=== PATIENT | female | born 1940 | race Caucasian/White ===

== ENCOUNTER → 2017-12-23 14:50 | Outpatient (CLI) | payer MEDICARE, BC, SELFPAY ==
[2017-12-23 16:16] LABS: BUN 12 mg/dL (7-18); Creatinine, Serum 0.66 mg/dL (0.55-1.02); Glucose 80 mg/dL (74-106)
[2017-12-23 16:17] LABS: Anion Gap 8 (5-15); BUN/Creat Ratio 18.3 RATIO (10-20); Calcium,Total 8.9 mg/dL (8.5-10.1); Chloride 104 mmol/L (98-107); Cholesterol 177 mg/dL (200); EST Glomerular Filtration Rate 94 mL/min (>60); Est Glom Filt Rate - Afr Amer 113 mL/min (>60); High Density Lipoprotein 60 mg/dL; Potassium 3.6 mmol/L (3.5-5.1); Sodium Level 142 mmol/L (136-145); Triglycerides 247 mg/dL; Very Low Density Lipoprotein 49 mg/dL (5-40)
== END ==
PROVIDERS: Family Provider Family Medicine; PCP Family Medicine; Visit Provider Family Medicine
DX: I10 Essential (primary) hypertension (principal); E03.9 Hypothyroidism, unspecified
CPT/HCPCS: 36415; 80048; 80061; 84443

== ENCOUNTER → 2018-07-01 10:29 | Outpatient (CLI) | payer MEDICARE, BC, SELFPAY ==
[2018-07-01 12:23] LABS: Anion Gap 9 (5-15); BUN 23 mg/dL (7-18); BUN/Creat Ratio 34.1 RATIO (10-20); Calcium,Total 9.1 mg/dL (8.5-10.1); Chloride 101 mmol/L (98-107); Cholesterol 199 mg/dL (200); Creatinine, Serum 0.67 mg/dL (0.55-1.02); EST Glomerular Filtration Rate 90 mL/min (>60); Est Glom Filt Rate - Afr Amer 109 mL/min (>60); Glucose 100 mg/dL (74-106); High Density Lipoprotein 57 mg/dL; Potassium 3.4 mmol/L (3.5-5.1); Sodium Level 141 mmol/L (136-145); Thyroid Stim Hormone (TSH) 0.82 uIU/mL (0.358-3.74); Triglycerides 197 mg/dL; Very Low Density Lipoprotein 39 mg/dL (5-40)
== END ==
PROVIDERS: Family Provider Family Medicine; PCP Family Medicine; Visit Provider Family Medicine
DX: I10 Essential (primary) hypertension (principal); E03.9 Hypothyroidism, unspecified
CPT/HCPCS: 36415; 80048; 80061; 84443

== ENCOUNTER → 2018-10-29 14:40 | Outpatient (CLI) | payer MEDICARE, BC, SELFPAY ==
--- NOTE | 2018-10-29 14:43 | RAD_ITS ---
STUDY: X-RAY CHEST REASON FOR EXAM: Female, 78 years old. Shortness of breath TECHNIQUE: Frontal and lateral views of the chest were obtained. COMPARISON: None. FINDINGS: Lines and tubes: None. Lungs: Hyperinflated. Minimal increased markings in both lung bases. Pleura: No demonstrated abnormality. Mediastinum/osmar: Unremarkable. Cardiovascular: Mildly enlarged cardiac silhouette. Central vascularity unremarkable. Atherosclerotic calcifications in the thoracic aorta. Soft tissues: Unremarkable. Bones: Degenerative changes in spine and shoulders. Hardware is partially visualized in the lumbar spine. There is mild dextroscoliosis of the thoracic spine and mild levoscoliosis of the upper lumbar spine. Upper abdomen: No demonstrated abnormality. RAD/Chest PA and Lateral IMPRESSION: There is mild enlargement of the cardiac silhouette without pulmonary edema or pleural effusion. There are findings of COPD with bibasilar atelectasis. Electronically Signed: Rachel Arriaza MD at 14:43 EST , Service support ,
[2018-10-29 16:46] LABS: Anion Gap 9 (5-15); BUN 14 mg/dL (7-18); BUN/Creat Ratio 21.8 RATIO (10-20); Calcium,Total 9.1 mg/dL (8.5-10.1); Chloride 105 mmol/L (98-107); Creatinine, Serum 0.64 mg/dL (0.55-1.02); EST Glomerular Filtration Rate 96 mL/min (>60); Est Glom Filt Rate - Afr Amer 116 mL/min (>60); Glucose 86 mg/dL (74-106); Potassium 3.7 mmol/L (3.5-5.1); Sodium Level 142 mmol/L (136-145)
[2018-10-29 17:01] LABS: BNP,B-Type NATRIURETIC PEPTIDE 162.1 pg/mL (0-100)
--- OUTSIDE RECORDS SUMMARY | 2018-12-31 15:37 | XMS RPT_ITS ---
:1940 Author Organization OHIP Care Team Providers Name Role Phone YANELY BOSE Attending Unavailable YANELY BOSE Referring Unavailable YANELY BOSE Attending Unavailable YANELY BOSE Referring Unavailable YANELY BOSE Attending Unavailable YANELY BOSE Referring Unavailable Fariha, Wander Attending Unavailable Fariha, Wander Referring Unavailable Charley, Gopi Primary Care Unavailable Charley, Gopi Attending Unavailable Charley, Gopi Primary Care Unavailable Gopi Whitehead Attending Unavailable Charley, Gopi Primary Care Unavailable Fariha, Wander Attending Unavailable Charley, Gopi Referring Unavailable Yoselin Jiménez Attending Unavailable PROBLEMS PROBLEMS DATE TYPE CONDITION / CODE ATTENDING STATUS SOURCE 10/29/2018 Unknown R06.09 - Other [place], [place] Active [facility] forms of dyspnea / Community R06.09(ICD-10) Hospital Repository 10/29/2018 Unknown I10 - Essential Fariha, Wander Active [facility] (primary) Community hypertension / Hospital I10(ICD-10) Repository 10/29/2018 Unknown I35.8 - Other [place]ha, [place] Active [facility] nonrheumatic Community aortic valve Hospital disorders / Repository I35.8(ICD-10) 10/29/2018 Unknown E78.5 - Yoselin Jiménez Active [facility] Hyperlipidemia, Community unspecified / Hospital E78.5(ICD-10) Repository 07/01/2018 Unknown E03.9 - Whitehead, Gopi Active [facility] Hypothyroidism, Community unspecified / Hospital E03.9(ICD-10) Repository 01/09/2018 Active Unknown / YANELY BOSE Active [facility] UNK(Unknown) Main [place] Repository PROCEDURES PROCEDURES No Procedure Records FoundRESULTS RESULTS CARDIOLOGY VISIT Observed: 10/30/2018 Status: F Source: [place] RE[place] 3:25 PM [facility] REPOSITORY [facility] [address] [place] [address] OFFICE VISIT Date of Service: MR#: [id number] Acct: [id number] Name: NORA CONNELL Rep #: [id number] : 1940 Provider: Yoselin Jiménez Age/Sex: 78/F [place] [facility] [place]: Signed HPI HPI Details: NOAR CONNELL, is a 78 F who presents to the office today for Intake Vital Signs10/29/18 Height 5 ft 2 in Intake Visit Reasons: Amb Documentation Allergies No Known Allergies Allergy (Verified 10/29/18 12:21) Medications alprazolam 0.5 mg tablet 0.5 mg PO BID-TID PRN 10/29/18 [History Confirmed 10/29/18] aspirin 81 mg tablet,delayed release 81 mg PO DAILY 10/29/18 [History Confirmed 10/29/18] carvedilol 6.25 mg tablet 6.25 mg PO BID 90 Days #180 tab 10/29/18 [History Confirmed 10/29/18] cyclobenzaprine 10 mg tablet PO 30 Days tab 10/29/18 [History Confirmed 10/29/18] furosemide 40 mg tablet 40 mg PO QAM PRN 30 Days #30 tab 10/29/18 [History Confirmed 10/29/18] gabapentin 800 mg tablet PO 30 Days tab 10/29/18 [History Confirmed 10/29/18] hydrocodone 5 mg-acetaminophen 325 mg tablet 1 tab PO Q6H 10/29/18 [History Confirmed 10/29/18] levothyroxine 100 mcg tablet 50 mcg PO DAILY 90 Days #45 tab 10/29/18 [History Confirmed 10/29/18] lisinopril 20 mg-hydrochlorothiazide 12.5 mg tablet 1 tab PO DAILY 90 Days #90 tab 10/29/18 [History Confirmed 10/29/18] metformin ER 500 mg tablet,extended release 24hr 1,000 mg PO DAILY tab 10/29/18 [History Confirmed 10/29/18] omeprazole 40 mg capsule,delayed release PO 90 Days cap 10/29/18 [History Confirmed 10/29/18] pravastatin 20 mg tablet 20 mg PO QHS 90 Days #90 tab 10/29/18 [History Confirmed 10/29/18] PFSH Medical History 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) Hyperlipidemia (Chronic) Essential (primary) hypertension (Chronic) Arthritis (Chronic) GERD (gastroesophageal reflux disease) (Chronic) Hypothyroidism (Chronic) Obesity (Chronic) Obstructive sleep apnea (Chronic) Psoriasis (Chronic) Type 2 diabetes mellitus (Chronic) Surgical History History of back surgery (Resolved) History of cataract surgery (Resolved) History of herniorrhaphy (Resolved) Hx of cholecystectomy (Resolved) Family History Other Heart disease Social History Smoking Status: Former smoker ROS Const Const: Positive for fatigue, frequent falls and other; negative for weakness, difficulty sleeping, excessive sweating or headache(s) Eyes Eyes: Negative for loss of peripheral vision, transient loss of vision, blurry vision, tunnel vision or double vision ENT ENT: Positive for balance problems; negative for headache(s), dizziness or Nosebleed/epistaxis Cardio Chest Pain: No Palpitations: No Edema: None Muscle aches with walking: None Resp Respiratory: Positive for SOB with activity; negative for SOB at rest, SOB orthopnea\SOB lying down, paroxysmal nocturnal dyspnea or Cough GI GI: Negative nausea, heartburn, black,tarry stools or vomiting : Negative for hematuria Musc Musc: Positive for balance problems and joint pain; negative for muscle aches/ myalgia or muscle weakness Skin Skin: Negative non-healing lesions, unusual bruising or rash Neuro Neuro: Positive for frequent falls and lack of coordination; negative for weakness, headache(s), blurry vision, double vision, dizziness, lightheadedness, orthostatic symptoms, near syncope or syncope Oren Hematologic/Lymphatic: Negative for easy bruising or easy bleeding Endo Endo: Positive for fatigue; negative for excessive sweating or increased thirst/drinking Psych Psych: Negative for anxiety or depression Allergy Allergy/Immunology: Negative for hives, Negative for rash Assessment AND Plan Orders Orders: Medications New: Coding Level of Care Code Off vis,new,level 4 Coding Level of Care Code Off vis,new,level 4 Supplemental Info Supplemental Information Labs LDL Cholesterol 103 mg/dL (0-130) 07/01/18 HDL Cholesterol 57 mg/dL (40-) 07/01/18 Triglycerides 197 mg/dL (-199) 07/01/18 VLDL Cholesterol 39 mg/dL (5-40) 07/01/18 Diagnostics Electrocardiogram 10/29/18 Chest X-Ray 10/29/18 10/30/18 1525 <Electronically signed by Wander Fried MD> Date Wander Fried MD Cosigner Signature: Date (if applicable) CC: Gopi Whitehead MD BASIC METABOLIC Collected: 10/29/2018 Status: F Source: [place] PROFILE (BMP) 3:10 PM [facility] REPOSITORY TYPE CODE TESTS RESULT OUT OF RANGE REFERENCE UNITS LAB L501.0100 74-106 mg/dL Normal GLU 86 Result Comment: Please note revised GLUCOSE reference range effective 2017. LAB L501.1000 7-18 mg/dL Normal BUN 14 LAB L501.1100 0.55-1.02 mg/dL Normal CREAT,SERUM 0.64 Result Comment: The validity of the calculated GFR AND GFRAA in patients over 70 years has not been determined. Clinical correlation is essential. LAB L501.1110 >60 mL/min Normal EST GFR 96 Result Comment: Non- GFR Calc LAB L501.1115 >60 mL/min Normal EST GFR - AA 116 Result Comment: GFR Calc LAB L501.1300 10-20 RATIO High BUN/CRE 21.8 LAB L501.2200 8.5-10.1 mg/dL CA Normal 9.1 LAB L501.5300 136-145 mmol/L NA Normal 142 LAB L501.5600 3.5-5.1 mmol/L K Normal 3.7 LAB L501.5900 98-107 mmol/L CL Normal 105 LAB L501.6100 21.0-32.0 mmol/L Normal CO2 28.0 LAB L501.6200 5-15 Normal GAP 9 Performed By: #### L500.2500 #### [facility] [address] [place], [address] BNP,B-TYPE NATRIURETIC Collected: 10/29/2018 Status: F Source: [place] PEPTIDE 3:10 PM [facility] REPOSITORY TYPE CODE TESTS RESULT OUT OF RANGE REFERENCE UNITS LAB L503.6620 0-100 pg/mL High B-TYPE 162.1 GLENDA PEP Performed By: #### L503.6620 #### [facility] [address] [facility] [place], [address] CHEST PA AND LATERAL Observed: 10/29/2018 Status: F Source: [place] 2:43 PM [facility] REPOSITORY [facility] Imaging Services [address] [place] [address] Chest PA and Lateral MR#: [id number] Acct: [id number] Name: NORA CONNELL Rep #: [id number] : 1940 F 78 From: Rachel Arriaza MD PCP: Gopi Whitehead MD Status: REG CLI Study: Chest PA and Lateral Date of Exam: 10/29/18 Exam# [id number] Ordering Dr: Wander Fried MD STUDY: X-RAY CHEST REASON FOR EXAM: Female, 78 years old. Shortness of breath TECHNIQUE: Frontal and lateral views of the chest were obtained. COMPARISON: None. FINDINGS: Lines and tubes: None. Lungs: Hyperinflated. Minimal increased markings in both lung bases. Pleura: No demonstrated abnormality. Mediastinum/osmar: Unremarkable. Cardiovascular: Mildly enlarged cardiac silhouette. Central vascularity unremarkable. Atherosclerotic calcifications in the thoracic aorta. Soft tissues: Unremarkable. Bones: Degenerative changes in spine and shoulders. Hardware is partially visualized in the lumbar spine. There is mild dextroscoliosis of the thoracic spine and mild levoscoliosis of the upper lumbar spine. Upper abdomen: No demonstrated abnormality. RAD/Chest PA and Lateral IMPRESSION: There is mild enlargement of the cardiac silhouette without pulmonary edema or pleural effusion. There are findings of COPD with bibasilar atelectasis. Electronically Signed: Rachel Arriaza MD at 14:43 EST , Service support , CC: Wander Fried MD; Gopi Whitehead MD Clinical Services Director: Signed CARDIOLOGY VISIT Observed: 10/29/2018 Status: F Source: [place] REPORT 2:07 PM [facility] REPOSITORY [facility] [address] [place] [address] OFFICE VISIT Date of Service: 10/29/18 MR#: [id number] Acct: [id number] Name: NORA CONNELL Rep #: [id number] : 1940 Provider: Wander Fried MD Age/Sex: 78/F [place] [facility] [place]: Signed HPI HPI Chief Complaint: Initial visit Details: NORA CONNELL, is a 78 F who presents to the office today for interval visit for evaluation of heart murmur. She also says that she has been short of breath. She was a previous patient of my ability colleague in [place] and is changing her care here. She has had no orthopnea she has had some shortness of breath with exertion no paroxysmal nocturnal dyspnea and only occasional pedal edema. She has had a previous echocardiogram which demonstrated evidence of left ventricular hypertrophy and ejection fraction of 76 3% and right ventricular systolic pressure of 44 mmHg. This was in 2010. She has had only occasional dizzy spells no palpitations no paroxysmal nocturnal dyspnea. Her physical exam here today demonstrates clear lung bennett regular rate and rhythm and no pedal edema. She does have a soft 1/6 to 2/6 systolic murmur noted left sternal border. Her electrocardiogram demonstrates normal sinus rhythm with a rate of 65 bpm and T wave inversions noted in aVL. Intake Intake Visit Reasons: Transfer from Dr Oneil Allergies No Known Allergies Allergy (Verified 10/29/18 12:21) Medications alprazolam 0.5 mg tablet 0.5 mg PO BID-TID PRN 10/29/18 [History Confirmed 10/29/18] aspirin 81 mg tablet,delayed release 81 mg PO DAILY 10/29/18 [History Confirmed 10/29/18] carvedilol 6.25 mg tablet 6.25 mg PO BID 90 Days #180 tab 10/29/18 [History Confirmed 10/29/18] cyclobenzaprine 10 mg tablet PO 30 Days tab 10/29/18 [History Confirmed 10/29/18] furosemide 40 mg tablet 40 mg PO QAM PRN 30 Days #30 tab 10/29/18 [History Confirmed 10/29/18] gabapentin 800 mg tablet PO 30 Days tab 10/29/18 [History Confirmed 10/29/18] hydrocodone 5 mg-acetaminophen 325 mg tablet 1 tab PO Q6H 10/29/18 [History Confirmed 10/29/18] levothyroxine 100 mcg tablet 50 mcg PO DAILY 90 Days #45 tab 10/29/18 [History Confirmed 10/29/18] lisinopril 20 mg-hydrochlorothiazide 12.5 mg tablet 1 tab PO DAILY 90 Days #90 tab 10/29/18 [History Confirmed 10/29/18] metformin ER 500 mg tablet,extended release 24hr 1,000 mg PO DAILY tab 10/29/18 [History Confirmed 10/29/18] omeprazole 40 mg capsule,delayed release PO 90 Days cap 10/29/18 [History Confirmed 10/29/18] pravastatin 20 mg tablet 20 mg PO QHS 90 Days #90 tab 10/29/18 [History Confirmed 10/29/18] [facility] Medical History 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) Hyperlipidemia (Chronic) Essential (primary) hypertension (Chronic) Arthritis (Chronic) GERD (gastroesophageal reflux disease) (Chronic) Hypothyroidism (Chronic) Obesity (Chronic) Obstructive sleep apnea (Chronic) Psoriasis (Chronic) Type 2 diabetes mellitus (Chronic) Surgical History History of back surgery (Resolved) History of cataract surgery (Resolved) History of herniorrhaphy (Resolved) Hx of cholecystectomy (Resolved) Family History Other Heart disease Social History Smoking Status: Former smoker ROS Const Const: Positive for weakness and fatigue; negative for headache(s) Eyes Eyes: Negative for blind spots, loss of peripheral vision, transient loss of vision, blurry vision, change in vision, double vision, floaters, tunnel vision or other ENT ENT: Negative for headache(s), dizziness, hearing loss, tinnitus, Nosebleed/epistaxis, balance problems, post nasal drip, lip swelling, tongue swelling, bleeding gums, hoarseness, neck pain, dry mouth or other Cardio Chest Pain: No Resp Respiratory: Positive for SOB with activity, paroxysmal nocturnal dyspnea and SOB at rest GI GI: Negative nausea, vomiting, heartburn, constipation, belching, bloating, cramping, vomiting blood/hematemesis, bright, red blood in stools, black,tarry stools, loose stools, Difficulty Swallowing or other Musc Musc: Negative for balance problems Skin Skin: Negative redness, non-healing lesions, rash, unusual bruising, skin ulcer, wounds, jaundice or other Neuro Neuro: Positive for weakness; negative for blurry vision, double vision, headache(s) or dizziness Oren Hematologic/Lymphatic: Negative for easy bleeding, easy bruising, enlarged lymph nodes or other Endo Endo: Positive for fatigue Allergy Allergy/Immunology: Negative for lip swelling, Negative for tongue swelling, Negative for rash Cardiology Exam Const Appearance: cooperative, healthy appearing, well developed, well groomed and no acute distress Nutritional Appearance: well nourished and average body habitus Orientation: alert, awake and oriented x3 Head Head: normal to inspection, normocephalic and atraumatic Ears: hearing grossly normal bilaterally and external ears normal Nose: external nose normal, nasal mucous membranes and turbinates normal, nares normal, septum normal, no nasal discharge Face and Sinus: face symmetric Mouth: oral mucosae normal, tongue normal, oropharynx normal and moist mucous membranes Teeth and gingiva: dentition normal Throat: posterior oropharynx normal, tonsils normal and uvula midline Eyes General: appearance normal, both eyes and all related structures Eyelids: eyelids normal Conjunctivae: conjunctivae normal Pupils: PERRL, normal by confrontation and accommodation normal EOM: EOM intact bilaterally Neck Neck: normal visual inspection, trachea midline and no JVD JVD: +5 Carotids: normal carotid upstroke and bounding pulses Chest Chest inspection: normal inspection of the chest, symmetric chest movement and normal respiratory effort Auscultation: Bilateral: Clear to Auscultation Cardio Palpation: normal PMI Rate: regular rate Heart sounds: S1 normal and S2 normal Murmur: Grade 2/6, soft and early systolic GI GI: normal to inspection, soft, no hepatosplenomegaly and bowel sounds present Neuro General: alert, awake, oriented x3, no focal sensory deficit, gait normal and moves all extremities Skin Skin: no rashes or lesions noted Extremities Pulses: Normal: Right Femoral Pulse, Left Femoral Pulse, Right Dorsalis Pedis Pulse, Left Dorsalis Pedis Pulse, Right Posterior Tibial Pulse, Left Posterior Tibial Pulse, Right Radial Pulse, Left Radial Pulse Lower Extremity Edema: None: Bilateral Musculoskel Musculoskeletal: No joint tenderness Psych Psychological: normal affect Assessment AND Plan 1. Aortic valve sclerosis I35.8 Plan She does have a history of aortic valve stenosis. My recommendation would be for us to obtain an echocardiogram to assess her left ventricular function and assess the integrity of the aortic valve. Depending on the findings further recommendations will be made. 2. Essential (primary) hypertension I10 Plan She has a history of hypertension her blood pressure appears to be not well controlled. Without knowing the extent of her aortic valve stenosis my recommendation would be to continue the current medication until after the echocardiogram is performed and then further adjustments made. 3. Dyspnea on exertion R06.09 Plan She does have dyspnea on exertion which I suspect is secondary to diastolic dysfunction. Once again this will be evaluated with blood work as well as the echocardiogram. Thank you for allowing me to participate in the care of your patient. 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) Coding Level of Care Code Off vis,new,level 4 Diagnoses Aortic valve sclerosis I35.8 Essential (primary) hypertension I10 Dyspnea on exertion R06.09 Coding Level of Care Code Off vis,new,level 4 Diagnoses Aortic valve sclerosis I35.8 Essential (primary) hypertension I10 Dyspnea on exertion R06.09 Supplemental Info Supplemental Information Labs LDL Cholesterol 103 mg/dL (0-130) 07/01/18 HDL Cholesterol 57 mg/dL (40-) 07/01/18 Triglycerides 197 mg/dL (-199) 07/01/18 VLDL Cholesterol 39 mg/dL (5-40) 07/01/18 Diagnostics Electrocardiogram 10/29/18 10/29/18 1407 <Electronically signed by Wander Fried MD> Date Wander Fried MD Cosigner Signature: Date (if applicable) CC: 12 LEAD EKG PERFORMED Observed: 10/29/2018 Status: F [place] [facility] [place]:22 PM [facility] REPOSITORY [facility] [address] [place] [address] 12 Lead EKG performed by [facility] 10/29/18 1222 MR#: [id number] Acct: [id number] Name: NORA CONNELL Rep #: [id number] : 1940 78 From: Wander Freid MD Attending Dr: Yoselin Jiménez Status: REG BNV Ordering Dr: Wander Fried MD Date: 10/29/18 [place] [facility] Sex: F C Admitted: BMS/12 Lead EKG performed by [facility] ECG Report Interpretation Sinus Rhythm - Negative T-waves May be normal -consider acute process. Low voltage with rightward P-axis and rotation -possible pulmonary disease. ABNORMAL Electronically signed on 11/04/2018 at 11:25 by Wander Fried Monitor Software Version [id number] 11/04/18 1130 Date Wander Fried MD CC: Date Dictated: 10/29/181221 Date Transcribed: 10/29/181221 Clinical Services Director: [place] Signed PROGRESS Observed: 08/14/2018 Status: COMPLETED Source: [place] 9:[address] [facility] [place] REPOSITORY [facility] ID: [id number] Author: Yanely Bose Service: (none) Author Type: Physician Type: Progress Notes Filed: 09/10/2018 11:07 PM Note Text: Yanely Bose MD Department of Orthopaedics Orthopaedics [address] [facility] [address] Dept: [phone] Dept August 14, 2018 CHIEF COMPLAINT: Established Patient (4 month follow up for left shoulder pain with injection) Ms. Nora Connell is a 78 year old female who has a known history of left shoulder, chronic rotator cuff tear and arthritis. She has had success in the past with cortisone and is hoping for another. 05/16 has returned. Functional problems with the arm because of the pain. ASSESSMENT: M25.512, G89.29 Chronic left shoulder pain (primary encounter diagnosis) M75.122 Complete tear of left rotator cuff PLAN: Repeat injection today. OBJECTIVE: Ms. Nora Connell is a pleasant 78 year old in no apparent distress. Gen:Wt 190 lb (86.2kg) nl development, non obese, no deformities ENT: Normocephalic, normal hearing, moist mucosa CV: Pulses:Radial= 2+ and symmetric, capillary refill < 2 secs, no peripheral edema/varicosities Skin: no rash, bruising or lesions. Good turgor. Psych: cooperative and appropriate, alert and oriented x 3, good mood and affect. Musculoskeletal: Forward elevation is slightly less at 165?, external rotation remains at 50. Impingement signs are less painful, and strength remains about the same at 4 out of 5 with supraspinatus and infraspinatus testing, 5 out of 5 for subscapularis. Procedure note: The risk, benefits and alternatives of injection and no injection therapy were discussed. The patient consented for an injection. Time out was conducted. The injection site was prepped with a Chlorhexadine swab. The left Subacromial joint was injected with a 25 gauge needle with 1 cc Celestone (6 mg), and 5 cc Marcaine 0.5%. The injection site was then dressed with a bandaid. The patient tolerated the injection well. The patient was instructed to call the office if any adverse local effects occurred or any if any questions or concerns arise. Yanely Bose MD Supporting Subjective Information Below: Past Surgical History: PAST SURGICAL HISTORY Procedure Laterality Date - PAST SURGICAL HISTORY OF Fusion L4-5 X 2 - PAST SURGICAL HISTORY OF Nasal surgery - PAST SURGICAL HISTORY OF Fibroid tumor - REMOVAL GALLBLADDER Cholecystectomy - REPAIR ROTATOR CUFF,ACUTE Right 2010 Rotator cuff repair - right shoulder Medications: Current Outpatient Prescriptions: primidone (MYSOLINE) 50 mg tablet Take 50 mg by mouth once daily. VITAMIN D 50,000 unit capsule Take 50,000 Units by mouth once each week. apremilast (OTEZLA) 30 mg tablet Take 1 tablet by mouth once daily. Omeprazole (PRILOSEC) 40 mg capsule Take 40 mg by mouth once daily. metFORMIN (GLUCOPHAGE) 1,000 mg tablet Take 500 mg by mouth daily with breakfast. furosemide (LASIX) 40 mg tablet Take 40 mg by mouth as needed. gabapentin (NEURONTIN) 800 mg tablet Take 800 mg by mouth three times daily. ALPRAZolam (XANAX) 0.5 mg tablet Take 0.5 mg by mouth at bedtime as needed. levothyroxine (SYNTHROID) 100 mcg tablet Take 100 mcg by mouth daily before breakfast. Cetirizine (ZYRTEC) 10 mg cap Take by mouth once daily. carvedilol (COREG) 6.25 mg tablet Take 6.25 mg by mouth twice daily with meals. cyclobenzaprine (FLEXERIL) 10 mg tablet Take 5 mg by mouth twice daily. lisinopril-hydrochlorothiazide (PRINZIDE,ZESTORETIC) 20-12.5 mg per tablet Take 1 tablet by mouth twice daily. pravastatin (PRAVACHOL) 40 mg tablet Take 40 mg by mouth once daily. HYDROcodone-Acetaminophen (NORCO) 7.5-325 mg per tablet Take 1 tablet by mouth four times daily. meloxicam (MOBIC) 15 mg tablet Take 1 tablet by mouth once daily. metoclopramide HCl (REGLAN) 5 mg tablet Take 5 mg by mouth as needed. Current Facility-Administered Medications: [COMPLETED] betamethasone acetate-betamethasone sodium phosphate 6 mg, bupivacaine (PF) 25 mg INTRA-ARTICULAR ONCE Allergies: Patient has no known allergies. ROS: General (negative for fatigue, malaise, weight loss/gain) HEENT (negative for headache, earache, recent vision changes, sinus pain, sore throat) Respiratory (no recent shortness of breath, hemoptysis) CV (negative for chest tightness, palpitations) Musculoskeletal (see HPI) Psych (no depression, anxiety) This note was partially generated using [email or web address] voice recognition system, and there may be some incorrect words, spellings, and punctuation that were not noted in checking the note before saving. Yanely Bose MD PROGRESS Observed: 08/14/2018 Status: COMPLETED Source: [place] 8:30 AM [facility] REPOSITORY [facility] ID: [id number] Author: Emilie Blunt Service: (none) Author Type: (none) Type: Progress Notes Filed: 09/10/2018 11:07 PM Note Text: AMB ROOMING INTAKE FLOWSHEET DATA Risk Screening Do you have concerns about personal safety or safety in the home?: No Pain Pain Score: 8/10 Pain Location: Shoulder-Left Description: Dull Duration Amount of Time: 4 Duration Units: Months Frequency: Continuous Intervention: Medication (norco) Comments: Leona is helpful pt. States Patient presents with: Established Patient: 4 month follow up for left shoulder pain-injection Patient is right handed. Patient is in office for 4 month follow up for left shoulder pain with injection given. CNOV Observed: 08/14/2018 Status: COMPLETED Source: [place] 8:10 AM [facility] REPOSITORY Office Visit (ADDISONWS) NORA CONNELL ([id number]) 1940 F Date Time Provider Department 08/14/18 8:10 AM YANELY BOES During your visit today, we recorded the following information about you: Weight 86.2 kg Emilie Blunt 09/10/2018 11:07 PM Signed AMB ROOMING INTAKE FLOWSHEET DATA Risk Screening Do you have concerns about personal safety or safety in the home?: No Pain Pain Score: 8/10 Pain Location: Shoulder-Left Description: Dull Duration Amount of Time: 4 Duration Units: Months Frequency: Continuous Intervention: Medication (norco) Comments: Leona is helpful pt. States Patient presents with: Established Patient: 4 month follow up for left shoulder pain-injection Patient is right handed. Patient is in office for 4 month follow up for left shoulder pain with injection given. Yanely Bose MD 09/10/2018 11:07 PM Signed Yanely Bose MD Department of Orthopaedics Orthopaedics [address] [facility] [address] Dept: [phone] Dept August 14, 2018 CHIEF COMPLAINT: Established Patient (4 month follow up for left shoulder pain with injection) Ms. Nora Connell is a 78 year old female who has a known history of left shoulder, chronic rotator cuff tear and arthritis. She has had success in the past with cortisone and is hoping for another. 8/10 has returned. Functional problems with the arm because of the pain. ASSESSMENT: M25.512, G89.29 Chronic left shoulder pain (primary encounter diagnosis) M75.122 Complete tear of left rotator cuff PLAN: Repeat injection today. OBJECTIVE: Ms. Nora Connell is a pleasant 78 year old in no apparent distress. Gen:Wt 190 lb (86.2kg) nl development, non obese, no deformities ENT: Normocephalic, normal hearing, moist mucosa CV: Pulses:Radial= 2+ and symmetric, capillary refill < 2 secs, no peripheral edema/varicosities Skin: no rash, bruising or lesions. Good turgor. Psych: cooperative and appropriate, alert and oriented x 3, good mood and affect. Musculoskeletal: Forward elevation is slightly less at 165?, external rotation remains at 50. Impingement signs are less painful, and strength remains about the same at 4 out of 5 with supraspinatus and infraspinatus testing, 5 out of 5 for subscapularis. Procedure note: The risk, benefits and alternatives of injection and no injection therapy were discussed. The patient consented for an injection. Time out was conducted. The injection site was prepped with a Chlorhexadine swab. The left Subacromial joint was injected with a 25 gauge needle with 1 cc Celestone (6 mg), and 5 cc Marcaine 0.5%. The injection site was then dressed with a bandaid. The patient tolerated the injection well. The patient was instructed to call the office if any adverse local effects occurred or any if any questions or concerns arise. Yanely Bose MD Supporting Subjective Information Below: Past Surgical History: PAST SURGICAL HISTORY Procedure Laterality Date - PAST SURGICAL HISTORY OF Fusion L4-5 X 2 - PAST SURGICAL HISTORY OF Nasal surgery - PAST SURGICAL HISTORY OF Fibroid tumor - REMOVAL GALLBLADDER Cholecystectomy - REPAIR ROTATOR CUFF,ACUTE Right 2010 Rotator cuff repair - right shoulder Medications: Current Outpatient Prescriptions: primidone (MYSOLINE) 50 mg tablet Take 50 mg by mouth once daily. VITAMIN D 50,000 unit capsule Take 50,000 Units by mouth once each week. apremilast (OTEZLA) 30 mg tablet Take 1 tablet by mouth once daily. Omeprazole (PRILOSEC) 40 mg capsule Take 40 mg by mouth once daily. metFORMIN (GLUCOPHAGE) 1,000 mg tablet Take 500 mg by mouth daily with breakfast. furosemide (LASIX) 40 mg tablet Take 40 mg by mouth as needed. gabapentin (NEURONTIN) 800 mg tablet Take 800 mg by mouth three times daily. ALPRAZolam (XANAX) 0.5 mg tablet Take 0.5 mg by mouth at bedtime as needed. levothyroxine (SYNTHROID) 100 mcg tablet Take 100 mcg by mouth daily before breakfast. Cetirizine (ZYRTEC) 10 mg cap Take by mouth once daily. carvedilol (COREG) 6.25 mg tablet Take 6.25 mg by mouth twice daily with meals. cyclobenzaprine (FLEXERIL) 10 mg tablet Take 5 mg by mouth twice daily. lisinopril-hydrochlorothiazide (PRINZIDE,ZESTORETIC) 20-12.5 mg per tablet Take 1 tablet by mouth twice daily. pravastatin (PRAVACHOL) 40 mg tablet Take 40 mg by mouth once daily. HYDROcodone-Acetaminophen (NORCO) 7.5-325 mg per tablet Take 1 tablet by mouth four times daily. meloxicam (MOBIC) 15 mg tablet Take 1 tablet by mouth once daily. metoclopramide HCl (REGLAN) 5 mg tablet Take 5 mg by mouth as needed. Current Facility-Administered Medications: [COMPLETED] betamethasone acetate-betamethasone sodium phosphate 6 mg, bupivacaine (PF) 25 mg INTRA-ARTICULAR ONCE Allergies: Patient has no known allergies. ROS: General (negative for fatigue, malaise, weight loss/gain) HEENT (negative for headache, earache, recent vision changes, sinus pain, sore throat) Respiratory (no recent shortness of breath, hemoptysis) CV (negative for chest tightness, palpitations) Musculoskeletal (see HPI) Psych (no depression, anxiety) This note was partially generated using [email or web address] voice recognition system, and there may be some incorrect words, spellings, and punctuation that were not noted in checking the note before saving. Yanely Bose MD Referring Provider: YANELY BOSE [[id number]] Allergies As of Date: 08/14/2018 (No Known Allergies) Date Reviewed: 08/14/2018 Reviewed by: Yanely Bose - Fully Assessed Reason for Visit: Established Patient [175] Cmt: 4 month follow up for left shoulder pain with injection Reason For Visit History Recorded Primary Visit Diagnosis:Chronic left shoulder pain [M25.512, G89.29] Other Visit Diagnosis:Complete tear of left rotator cuff [M75.122] Order(s):[] betamethasone acetate-betamethasone sodium phosphate 6 mg, bupivacaine (PF) 25 mgDisp: Rfl: Prescriptions as of 08/14/2018 Sig: PRIMIDONE 50 MG TABLET Take 50 mg by mouth once cj* VITAMIN D2 50,000 UNIT CAPSULE Take 50,000 Units by mouth on* APREMILAST 30 MG TABLET Take 1 tablet by mouth once d* OMEPRAZOLE 40 MG CAPSULE,SLOANE* Take 40 mg by mouth once cj* METFORMIN 1,000 MG TABLET Take 500 mg by mouth daily wi* FUROSEMIDE 40 MG TABLET Take 40 mg by mouth as needed. GABAPENTIN 800 MG TABLET Take 800 mg by mouth three ti* ALPRAZOLAM 0.5 MG TABLET Take 0.5 mg by mouth at bedti* LEVOTHYROXINE 100 MCG TABLET Take 100 mcg by mouth daily b* CETIRIZINE 10 MG CAPSULE Take by mouth once daily. CARVEDILOL 6.25 MG TABLET Take 6.25 mg by mouth twice d* CYCLOBENZAPRINE 10 MG TABLET Take 5 mg by mouth twice cj* LISINOPRIL 20 MG-HYDROCHLOROT* Take 1 tablet by mouth twice * PRAVASTATIN 40 MG TABLET Take 40 mg by mouth once cj* HYDROCODONE 7.5 MG-ACETAMINOP* Take 1 tablet by mouth four t* MELOXICAM 15 MG TABLET Take 1 tablet by mouth once d* METOCLOPRAMIDE 5 MG TABLET Take 5 mg by mouth as needed. 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 criteria. Please note revised GLUCOSE reference range effective 2017. LAB L501.1000 7-18 mg/dL High BUN 23 LAB L501.1100 0.55-1.02 mg/dL Normal CREAT,SERUM 0.67 Result Comment: The validity of the calculated GFR AND GFRAA in patients over 70 years has not been determined. Clinical correlation is essential. LAB L501.1110 >60 mL/min Normal EST GFR 90 Result Comment: Non- GFR Calc LAB L501.1115 >60 mL/min Normal EST GFR - AA 109 Result Comment: GFR Calc LAB L501.1300 10-20 RATIO High BUN/CRE 34.1 LAB L501.2200 8.5-10.1 mg/dL CA Normal 9.1 LAB L501.5300 136-145 mmol/L NA Normal 141 LAB L501.5600 3.5-5.1 mmol/L Low K 3.4 LAB L501.5900 98-107 mmol/L CL Normal 101 LAB L501.6100 21.0-32.0 mmol/L Normal CO2 31.0 LAB L501.6200 5-15 Normal GAP 9 Performed By: #### L500.2500, L500.4100, L501.9520 #### [facility] [address] [place], [place], [address] LIPID PROFILE Collected: 07/01/2018 Status: F Source: [place] 10:31 AM [facility] REPOSITORY TYPE CODE TESTS RESULT OUT OF RANGE REFERENCE UNITS LAB L501.4900 200 mg/dL Normal CHOL 199 Result Comment: <200 mg/dL Desirable 200-240 mg/dL Borderline >240 mg/dL High Risk LAB L501.5000 mg/dL Normal TRIG 197 Result Comment: The drugs N-Acetylcysteine and Metamizole may falsely depress this assay. Serum Triglycerides Reference Interval Normal <150 mg/dL Borderline high 150 - 199 mg/dL High 200 - 499 mg/dL Very High > or = 500 mg/dL LAB L501.6400 mg/dL Normal HDL 57 Result Comment: The drugs N-Acetylcysteine and Metamizole may falsely depress this assay. Reference Range HDL <40 mg/dL Low HDL Cholesterol HDL >or= 60 mg/dL High HDL Cholesterol LAB L501.6500 0-130 mg/dL Normal LDL 103 LAB L501.6600 5-40 mg/dL Normal VLDL 39 Performed By: #### L500.2500, L500.4100, L501.9520 #### [facility] [address] [place], [place], [address] THYROID STIM HORMONE Collected: 07/01/2018 Status: F Source: MUNDO (TSH) 10:31 AM [facility] REPOSITORY TYPE CODE TESTS RESULT OUT OF RANGE REFERENCE UNITS LAB L501.9520 0.358-3.74 uIU/mL Normal TSH 0.82 Performed By: #### L500.2500, L500.4100, L501.9520 #### [facility] [address] [facility] [place], [place], [address] PROGRESS Observed: 04/10/2018 Status: COMPLETED Source: [place] 8:[address] [facility] [place] REPOSITORY HNO ID: [id number] Author: Yanely Bose Service: (none) Author Type: Physician Type: Progress Notes Filed: 04/10/2018 9:15 AM Note Text: Yanely Bose MD Department of Orthopaedics Orthopaedics [address] [facility] [address] Dept: [phone] Dept April 10, 2018 CHIEF COMPLAINT: Established Patient (3 month post visit left rotator cuff tear ) Ms. Nora Connell is a 77 year old female who returns 3 months after being seen for her chronic left shoulder pain. She states it's very intermittent when it happens it can be quite uncomfortable at 8 out of 10 pain. She would like to have a cortisone injection and feels every now and then this is an excellent way for treating this. She is not considering surgery at this time. ASSESSMENT: M25.512, G89.29 Chronic left shoulder pain (primary encounter diagnosis) M75.122 Complete tear of left rotator cuff PLAN: subacromial injection today. Ms. Nora Connell was advised as to contrast therapies and/or to take analgesics/anti-inflammatories as needed and all contraindications were reviewed. OBJECTIVE: Ms. Nora Connell is a pleasant 77 year old in no apparent distress. Gen:There were no vitals taken for this visit. nl development, obese, no deformities ENT: Normocephalic, normal hearing, moist mucosa CV: Pulses:Radial= 2+ and symmetric, capillary refill < 2 secs, no peripheral edema/varicosities Skin: no rash, bruising or lesions. Good turgor. Psych: cooperative and appropriate, alert and oriented x 3, good mood and affect. Musculoskeletal: Forward elevation is maintained at 170?, external rotation remains at 50. Impingement signs are less painful, and strength remains about the same at 4 out of 5 with supraspinatus and infraspinatus testing, 5 out of 5 for subscapularis. Procedure note: The risk, benefits and alternatives of injection and no injection therapy were discussed. The patient consented for an injection. Time out was conducted. The injection site was prepped with a Chlorhexadine swab. The left Subacromial joint was injected with a 25 gauge needle with 1 cc Celestone (6 mg), and 5 cc Marcaine 0.5%. The injection site was then dressed with a bandaid. The patient tolerated the injection well. The patient was instructed to call the office if any adverse local effects occurred or any if any questions or concerns arise. Yanely Bose MD Imaging: Supporting Subjective Information Below: Past Surgical History: PAST SURGICAL HISTORY Procedure Laterality Date - PAST SURGICAL HISTORY OF Fusion L4-5 X 2 - PAST SURGICAL HISTORY OF Nasal surgery - PAST SURGICAL HISTORY OF Fibroid tumor - REMOVAL GALLBLADDER Cholecystectomy - REPAIR ROTATOR CUFF,ACUTE Right 2010 Rotator cuff repair - right shoulder Medications: Current Outpatient Prescriptions: primidone (MYSOLINE) 50 mg tablet Take 50 mg by mouth once daily. VITAMIN D 50,000 unit capsule Take 50,000 Units by mouth once each week. apremilast (OTEZLA) 30 mg tablet Take 1 tablet by mouth once daily. Omeprazole (PRILOSEC) 40 mg capsule Take 40 mg by mouth once daily. metFORMIN (GLUCOPHAGE) 1,000 mg tablet Take 500 mg by mouth daily with breakfast. furosemide (LASIX) 40 mg tablet Take 40 mg by mouth as needed. gabapentin (NEURONTIN) 800 mg tablet Take 800 mg by mouth three times daily. ALPRAZolam (XANAX) 0.5 mg tablet Take 0.5 mg by mouth at bedtime as needed. levothyroxine (SYNTHROID) 100 mcg tablet Take 100 mcg by mouth daily before breakfast. Cetirizine (ZYRTEC) 10 mg cap Take by mouth once daily. carvedilol (COREG) 6.25 mg tablet Take 6.25 mg by mouth twice daily with meals. lisinopril-hydrochlorothiazide (PRINZIDE,ZESTORETIC) 20-12.5 mg per tablet Take 1 tablet by mouth twice daily. pravastatin (PRAVACHOL) 40 mg tablet Take 40 mg by mouth once daily. HYDROcodone-Acetaminophen (NORCO) 7.5-325 mg per tablet Take 1 tablet by mouth four times daily. meloxicam (MOBIC) 15 mg tablet Take 1 tablet by mouth once daily. metoclopramide HCl (REGLAN) 5 mg tablet Take 5 mg by mouth as needed. cyclobenzaprine (FLEXERIL) 10 mg tablet Take 5 mg by mouth twice daily. Current Facility-Administered Medications: [COMPLETED] betamethasone acetate-betamethasone sodium phosphate 6 mg, bupivacaine (PF) 25 mg INTRA-ARTICULAR ONCE Allergies: Patient has no known allergies. ROS: General (negative for fatigue, malaise, weight loss/gain) HEENT (negative for headache, earache, recent vision changes, sinus pain, sore throat) Respiratory (no recent shortness of breath, hemoptysis) CV (negative for chest tightness, palpitations) Musculoskeletal (see HPI) Psych (no depression, anxiety) This note was partially generated using [email or web address] voice recognition system, and there may be some incorrect words, spellings, and punctuation that were not noted in checking the note before saving. Yanely Bose MD PROGRESS Observed: 04/10/2018 Status: COMPLETED Source: [place] 8:12 AM [facility] REPOSITORY HNO ID: [id number] Author: Hiwot Restrepo Ma Service: (none) Author Type: (none) Type: Progress Notes Filed: 04/10/2018 9:15 AM Note Text: AMB ROOMING INTAKE FLOWSHEET DATA Risk Screening Do you have concerns about personal safety or safety in the home?: No Pain Pain Score: 8/10 Pain Location: Shoulder-Left Description: Aching Duration Amount of Time: (ongoing) Frequency: Intermittent Intervention: Medication Patient here today for 3 month post visit left rotator cuff tear. Continues to have pain intermittently. CNOV Observed: 04/10/2018 Status: COMPLETED Source: [place] 8:10 AM [facility] REPOSITORY Office Visit (ORTHWS) NORA CONNELL ([id number]) 1940 F Date Time Provider Department 04/10/18 8:10 AM YANELY BOSE During your visit today, we recorded the following information about you: Hiwot Restrepo Ma 04/10/2018 9:15 AM Signed AMB ROOMING INTAKE FLOWSHEET DATA Risk Screening Do you have concerns about personal safety or safety in the home?: No Pain Pain Score: 8/10 Pain Location: Shoulder-Left Description: Aching Duration Amount of Time: (ongoing) Frequency: Intermittent Intervention: Medication Patient here today for 3 month post visit left rotator cuff tear. Continues to have pain intermittently. Yanely Bose MD 04/10/2018 9:15 AM Signed Yanely Bose MD Department of Orthopaedics Orthopaedics [address] [facility] [address] Dept: [phone] Dept April 10, 2018 CHIEF COMPLAINT: Established Patient (3 month post visit left rotator cuff tear ) Ms. Nora Connell is a 77 year old female who returns 3 months after being seen for her chronic left shoulder pain. She states it's very intermittent when it happens it can be quite uncomfortable at 8 out of 10 pain. She would like to have a cortisone injection and feels every now and then this is an excellent way for treating this. She is not considering surgery at this time. ASSESSMENT: M25.512, G89.29 Chronic left shoulder pain (primary encounter diagnosis) M75.122 Complete tear of left rotator cuff PLAN: subacromial injection today. Ms. Nora Connell was advised as to contrast therapies and/or to take analgesics/anti-inflammatories as needed and all contraindications were reviewed. OBJECTIVE: Ms. Noar Connell is a pleasant 77 year old in no apparent distress. Gen:There were no vitals taken for this visit. nl development, obese, no deformities ENT: Normocephalic, normal hearing, moist mucosa CV: Pulses:Radial= 2+ and symmetric, capillary refill < 2 secs, no peripheral edema/varicosities Skin: no rash, bruising or lesions. Good turgor. Psych: cooperative and appropriate, alert and oriented x 3, good mood and affect. Musculoskeletal: Forward elevation is maintained at 170?, external rotation remains at 50. Impingement signs are less painful, and strength remains about the same at 4 out of 5 with supraspinatus and infraspinatus testing, 5 out of 5 for subscapularis. Procedure note: The risk, benefits and alternatives of injection and no injection therapy were discussed. The patient consented for an injection. Time out was conducted. The injection site was prepped with a Chlorhexadine swab. The left Subacromial joint was injected with a 25 gauge needle with 1 cc Celestone (6 mg), and 5 cc Marcaine 0.5%. The injection site was then dressed with a bandaid. The patient tolerated the injection well. The patient was instructed to call the office if any adverse local effects occurred or any if any questions or concerns arise. Yanely Bose MD Imaging: Supporting Subjective Information Below: Past Surgical History: PAST SURGICAL HISTORY Procedure Laterality Date - PAST SURGICAL HISTORY OF Fusion L4-5 X 2 - PAST SURGICAL HISTORY OF Nasal surgery - PAST SURGICAL HISTORY OF Fibroid tumor - REMOVAL GALLBLADDER Cholecystectomy - REPAIR ROTATOR CUFF,ACUTE Right 2010 Rotator cuff repair - right shoulder Medications: Current Outpatient Prescriptions: primidone (MYSOLINE) 50 mg tablet Take 50 mg by mouth once daily. VITAMIN D 50,000 unit capsule Take 50,000 Units by mouth once each week. apremilast (OTEZLA) 30 mg tablet Take 1 tablet by mouth once daily. Omeprazole (PRILOSEC) 40 mg capsule Take 40 mg by mouth once daily. metFORMIN (GLUCOPHAGE) 1,000 mg tablet Take 500 mg by mouth daily with breakfast. furosemide (LASIX) 40 mg tablet Take 40 mg by mouth as needed. gabapentin (NEURONTIN) 800 mg tablet Take 800 mg by mouth three times daily. ALPRAZolam (XANAX) 0.5 mg tablet Take 0.5 mg by mouth at bedtime as needed. levothyroxine (SYNTHROID) 100 mcg tablet Take 100 mcg by mouth daily before breakfast. Cetirizine (ZYRTEC) 10 mg cap Take by mouth once daily. carvedilol (COREG) 6.25 mg tablet Take 6.25 mg by mouth twice daily with meals. lisinopril-hydrochlorothiazide (PRINZIDE,ZESTORETIC) 20-12.5 mg per tablet Take 1 tablet by mouth twice daily. pravastatin (PRAVACHOL) 40 mg tablet Take 40 mg by mouth once daily. HYDROcodone-Acetaminophen (NORCO) 7.5-325 mg per tablet Take 1 tablet by mouth four times daily. meloxicam (MOBIC) 15 mg tablet Take 1 tablet by mouth once daily. metoclopramide HCl (REGLAN) 5 mg tablet Take 5 mg by mouth as needed. cyclobenzaprine (FLEXERIL) 10 mg tablet Take 5 mg by mouth twice daily. Current Facility-Administered Medications: [COMPLETED] betamethasone acetate-betamethasone sodium phosphate 6 mg, bupivacaine (PF) 25 mg INTRA-ARTICULAR ONCE Allergies: Patient has no known allergies. ROS: General (negative for fatigue, malaise, weight loss/gain) HEENT (negative for headache, earache, recent vision changes, sinus pain, sore throat) Respiratory (no recent shortness of breath, hemoptysis) CV (negative for chest tightness, palpitations) Musculoskeletal (see HPI) Psych (no depression, anxiety) This note was partially generated using [email or web address] voice recognition system, and there may be some incorrect words, spellings, and punctuation that were not noted in checking the note before saving. Yanely Bose MD Referring Provider: YANELY BOSE [[id number]] Allergies As of Date: 04/10/2018 (No Known Allergies) Date Reviewed: 04/10/2018 Reviewed by: Yanely Bose - Fully Assessed Reason for Visit: Established Patient [175] Cmt: 3 month post visit left rotator cuff tear Primary Visit Diagnosis:Chronic left shoulder pain [M25.512, G89.29] Other Visit Diagnosis:Complete tear of left rotator cuff [M75.122] Order(s):[] betamethasone acetate-betamethasone sodium phosphate 6 mg, bupivacaine (PF) 25 mgDisp: Rfl: Prescriptions as of 04/10/2018 Sig: PRIMIDONE 50 MG TABLET Take 50 mg by mouth once cj* VITAMIN D2 50,000 UNIT CAPSULE Take 50,000 Units by mouth on* APREMILAST 30 MG TABLET Take 1 tablet by mouth once d* OMEPRAZOLE 40 MG CAPSULE,SLOANE* Take 40 mg by mouth once cj* METFORMIN 1,000 MG TABLET Take 500 mg by mouth daily wi* FUROSEMIDE 40 MG TABLET Take 40 mg by mouth as needed. GABAPENTIN 800 MG TABLET Take 800 mg by mouth three ti* ALPRAZOLAM 0.5 MG TABLET Take 0.5 mg by mouth at bedti* LEVOTHYROXINE 100 MCG TABLET Take 100 mcg by mouth daily b* CETIRIZINE 10 MG CAPSULE Take by mouth once daily. CARVEDILOL 6.25 MG TABLET Take 6.25 mg by mouth twice d* LISINOPRIL 20 MG-HYDROCHLOROT* Take 1 tablet by mouth twice * PRAVASTATIN 40 MG TABLET Take 40 mg by mouth once cj* HYDROCODONE 7.5 MG-ACETAMINOP* Take 1 tablet by mouth four t* MELOXICAM 15 MG TABLET Take 1 tablet by mouth once d* METOCLOPRAMIDE 5 MG TABLET Take 5 mg by mouth as needed. 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 [place] REPOSITORY HNO ID: [id number] Author: Yanely Bose Service: (none) Author Type: Physician Type: Progress Notes Filed: 01/09/2018 9:49 AM Note Text: Yanely Bose MD Department of Orthopaedics Orthopaedics [address] [facility] [address] Dept: [phone] Dept January 09, 2018 CHIEF COMPLAINT: Established Patient (3 month post visit chronic left shoulder pain with injection given) Ms. Nora Connell is a 77 year old female returns 3 months after cortisone injection for the left shoulder. This helped her significantly. In fact, she has a bit more concerns about the right shoulder which she had repaired about 8 or 9 years ago. ASSESSMENT: M75.122 Complete tear of left rotator cuff (primary encounter diagnosis) M25.511, G89.29 Chronic right shoulder pain PLAN: Both are doing rather well today and she does not feel any intervention is necessary. She would like to keep both monitored. she wants to follow-up in about 3 months. I would recommend x-rays of the right shoulder if we will evaluate that. OBJECTIVE: Ms. Nora Connell is a pleasant 77 year old in no apparent distress. Gen:There were no vitals taken for this visit. nl development, obese, no deformities ENT: Normocephalic, normal hearing, moist mucosa CV: Pulses:Radial= 2+ and symmetric, capillary refill < 2 secs, no peripheral edema/varicosities Skin: no rash, bruising or lesions. Good turgor. Psych: cooperative and appropriate, alert and oriented x 3, good mood and affect. Musculoskeletal: mild impingement symptoms in both shoulders. Supporting Subjective Information Below: Past Surgical History: PAST SURGICAL HISTORY Procedure Laterality Date - PAST SURGICAL HISTORY OF Fusion L4-5 X 2 - PAST SURGICAL HISTORY OF Nasal surgery - PAST SURGICAL HISTORY OF Fibroid tumor - REMOVAL GALLBLADDER Cholecystectomy - REPAIR ROTATOR CUFF,ACUTE Right 2010 Rotator cuff repair - right shoulder Medications: Current Outpatient Prescriptions: primidone (MYSOLINE) 50 mg tablet Take 50 mg by mouth once daily. VITAMIN D 50,000 unit capsule Take 50,000 Units by mouth once each week. apremilast (OTEZLA) 30 mg tablet Take 1 tablet by mouth once daily. Omeprazole (PRILOSEC) 40 mg capsule Take 40 mg by mouth once daily. metFORMIN (GLUCOPHAGE) 1,000 mg tablet Take 500 mg by mouth daily with breakfast. furosemide (LASIX) 40 mg tablet Take 40 mg by mouth as needed. gabapentin (NEURONTIN) 800 mg tablet Take 800 mg by mouth three times daily. ALPRAZolam (XANAX) 0.5 mg tablet Take 0.5 mg by mouth at bedtime as needed. levothyroxine (SYNTHROID) 100 mcg tablet Take 100 mcg by mouth daily before breakfast. Cetirizine (ZYRTEC) 10 mg cap Take by mouth once daily. carvedilol (COREG) 6.25 mg tablet Take 6.25 mg by mouth twice daily with meals. cyclobenzaprine (FLEXERIL) 10 mg tablet Take 5 mg by mouth twice daily. lisinopril-hydrochlorothiazide (PRINZIDE,ZESTORETIC) 20-12.5 mg per tablet Take 1 tablet by mouth twice daily. pravastatin (PRAVACHOL) 40 mg tablet Take 40 mg by mouth once daily. HYDROcodone-Acetaminophen (NORCO) 7.5-325 mg per tablet Take 1 tablet by mouth four times daily. meloxicam (MOBIC) 15 mg tablet Take 1 tablet by mouth once daily. metoclopramide HCl (REGLAN) 5 mg tablet Take 5 mg by mouth as needed. No current facility-administered medications for this visit. Allergies: Review of patient's allergies indicates no known allergies. ROS: General (negative for fatigue, malaise, weight loss/gain) HEENT (negative for headache, earache, recent vision changes, sinus pain, sore throat) Respiratory (no recent shortness of breath, hemoptysis) CV (negative for chest tightness, palpitations) Musculoskeletal (see HPI) Psych (no depression, anxiety) This note was partially generated using [employer] voice recognition system, and there may be some incorrect words, spellings, and punctuation that were not noted in checking the note before saving. Yanely Bose MD PROGRESS Observed: 01/09/2018 Status: COMPLETED Source: [place] 8:56 AM [facility] REPOSITORY HNO ID: [id number] Author: Cristy Perez Ma Service: (none) Author Type: (none) Type: Progress Notes Filed: 01/09/2018 9:49 AM Note Text: Patient presents with: Established Patient: 3 month post visit chronic left shoulder pain with injection given AMB ROOMING INTAKE FLOWSHEET DATA Risk Screening Do you have concerns about personal safety or safety in the home?: No Patient states her left shoulder pain is better. Injection has helped. with patient today. CNOV Observed: 01/09/2018 Status: COMPLETED Source: [place] 8:55 AM [facility] REPOSITORY Office Visit (ORTHWS) NORA CONNELL ([id number]) 1940 F Date Time Provider Department 01/09/18 8:55 AM YANELY BOSE During your visit today, we recorded the following information about you: Cristy Perez Ma 01/09/2018 9:49 AM Signed Patient presents with: Established Patient: 3 month post visit chronic left shoulder pain with injection given AMB ROOMING INTAKE FLOWSHEET DATA Risk Screening Do you have concerns about personal safety or safety in the home?: No Patient states her left shoulder pain is better. Injection has helped. with patient today. Yanely Bose MD 01/09/2018 9:49 AM Signed Yanely Bose MD Department of Orthopaedics Orthopaedics [address] [place] [address] Dept: [phone] Dept January 09, 2018 CHIEF COMPLAINT: Established Patient (3 month post visit chronic left shoulder pain with injection given) Nora F Delgado is a 77 year old female returns 3 months after cortisone injection for the left shoulder. This helped her significantly. In fact, she has a bit more concerns about the right shoulder which she had repaired about 8 or 9 years ago. ASSESSMENT: M75.122 Complete tear of left rotator cuff (primary encounter diagnosis) M25.511, G89.29 Chronic right shoulder pain PLAN: Both are doing rather well today and she does not feel any intervention is necessary. She would like to keep both monitored. she wants to follow-up in about 3 months. I would recommend x-rays of the right shoulder if we will evaluate that. OBJECTIVE: Ms. Nora Connell is a pleasant 77 year old in no apparent distress. Gen:There were no vitals taken for this visit. nl development, obese, no deformities ENT: Normocephalic, normal hearing, moist mucosa CV: Pulses:Radial= 2+ and symmetric, capillary refill ANDlt; 2 secs, no peripheral edema/varicosities Skin: no rash, bruising or lesions. Good turgor. Psych: cooperative and appropriate, alert and oriented x 3, good mood and affect. Musculoskeletal: mild impingement symptoms in both shoulders. Supporting Subjective Information Below: Past Surgical History: PAST SURGICAL HISTORY Procedure Laterality Date - PAST SURGICAL HISTORY OF Fusion L4-5 X 2 - PAST SURGICAL HISTORY OF Nasal surgery - PAST SURGICAL HISTORY OF Fibroid tumor - REMOVAL GALLBLADDER Cholecystectomy - REPAIR ROTATOR CUFF,ACUTE Right 2010 Rotator cuff repair - right shoulder Medications: Current Outpatient Prescriptions: primidone (MYSOLINE) 50 mg tablet Take 50 mg by mouth once daily. VITAMIN D 50,000 unit capsule Take 50,000 Units by mouth once each week. apremilast (OTEZLA) 30 mg tablet Take 1 tablet by mouth once daily. Omeprazole (PRILOSEC) 40 mg capsule Take 40 mg by mouth once daily. metFORMIN (GLUCOPHAGE) 1,000 mg tablet Take 500 mg by mouth daily with breakfast. furosemide (LASIX) 40 mg tablet Take 40 mg by mouth as needed. gabapentin (NEURONTIN) 800 mg tablet Take 800 mg by mouth three times daily. ALPRAZolam (XANAX) 0.5 mg tablet Take 0.5 mg by mouth at bedtime as needed. levothyroxine (SYNTHROID) 100 mcg tablet Take 100 mcg by mouth daily before breakfast. Cetirizine (ZYRTEC) 10 mg cap Take by mouth once daily. carvedilol (COREG) 6.25 mg tablet Take 6.25 mg by mouth twice daily with meals. cyclobenzaprine (FLEXERIL) 10 mg tablet Take 5 mg by mouth twice daily. lisinopril-hydrochlorothiazide (PRINZIDE,ZESTORETIC) 20-12.5 mg per tablet Take 1 tablet by mouth twice daily. pravastatin (PRAVACHOL) 40 mg tablet Take 40 mg by mouth once daily. HYDROcodone-Acetaminophen (NORCO) 7.5-325 mg per tablet Take 1 tablet by mouth four times daily. meloxicam (MOBIC) 15 mg tablet Take 1 tablet by mouth once daily. metoclopramide HCl (REGLAN) 5 mg tablet Take 5 mg by mouth as needed. No current facility-administered medications for this visit. Allergies: Review of patient's allergies indicates no known allergies. ROS: General (negative for fatigue, malaise, weight loss/gain) HEENT (negative for headache, earache, recent vision changes, sinus pain, sore throat) Respiratory (no recent shortness of breath, hemoptysis) CV (negative for chest tightness, palpitations) Musculoskeletal (see HPI) Psych (no depression, anxiety) This note was partially generated using [employer] voice recognition system, and there may be some incorrect words, spellings, and punctuation that were not noted in checking the note before saving. Yanely Bose MD Referring Provider: YANELY BOSE [[id number]] Allergies As of Date: 01/09/2018 (No Known Allergies) Date Reviewed: 01/09/2018 Reviewed by: Yanely Bose - Fully Assessed Reason for Visit: Established Patient [175] Cmt: 3 month post visit chronic left shoulder pain with injection given Primary Visit Diagnosis:Complete tear of left rotator cuff [M75.122] Other Visit Diagnosis:Chronic right shoulder pain [M25.511, G89.29] Prescriptions as of 01/09/2018 Sig: PRIMIDONE 50 MG TABLET Take 50 mg by mouth once cj* VITAMIN D2 50,000 UNIT CAPSULE Take 50,000 Units by mouth on* APREMILAST 30 MG TABLET Take 1 tablet by mouth once d* OMEPRAZOLE 40 MG CAPSULE,SLOANE* Take 40 mg by mouth once cj* METFORMIN 1,000 MG TABLET Take 500 mg by mouth daily wi* FUROSEMIDE 40 MG TABLET Take 40 mg by mouth as needed. GABAPENTIN 800 MG TABLET Take 800 mg by mouth three ti* ALPRAZOLAM 0.5 MG TABLET Take 0.5 mg by mouth at bedti* LEVOTHYROXINE 100 MCG TABLET Take 100 mcg by mouth daily b* CETIRIZINE 10 MG CAPSULE Take by mouth once daily. CARVEDILOL 6.25 MG TABLET Take 6.25 mg by mouth twice d* CYCLOBENZAPRINE 10 MG TABLET Take 5 mg by mouth twice cj* LISINOPRIL 20 MG-HYDROCHLOROT* Take 1 tablet by mouth twice * PRAVASTATIN 40 MG TABLET Take 40 mg by mouth once cj* HYDROCODONE 7.5 MG-ACETAMINOP* Take 1 tablet by mouth four t* MELOXICAM 15 MG TABLET Take 1 tablet by mouth once d* METOCLOPRAMIDE 5 MG TABLET Take 5 mg by mouth as needed. Problem List As Of Date 01/09/2018 Noted Resolved Chronic left shoulder pain [M25.512, G89.29] INVALID FOR* Complete tear of left rotator cuff [M75.122] INVALID FOR* Encounter Status:Closed by YANELY BOSE MD on 01/09/18 BASIC METABOLIC Collected: 12/23/2017 Status: F Source: [place]UN[place] PROFILE (BMP) 2:53 PM [facility] REPOSITORY TYPE CODE TESTS RESULT OUT OF RANGE REFERENCE UNITS LAB L501.0100 74-106 mg/dL Normal GLU 80 Result Comment: Please note revised GLUCOSE reference range effective 2017. LAB L501.1000 7-18 mg/dL Normal BUN 12 LAB L501.1100 0.55-1.02 mg/dL Normal CREAT,SERUM 0.66 Result Comment: The validity of the calculated GFR AND GFRAA in patients over 70 years has not been determined. Clinical correlation is essential. LAB L501.1110 >60 mL/min Normal EST GFR 94 Result Comment: Non- GFR Calc LAB L501.1115 >60 mL/min Normal EST GFR - AA 113 Result Comment: GFR Calc LAB L501.1300 10-20 RATIO Normal BUN/CRE 18.3 LAB L501.2200 8.5-10.1 mg/dL CA Normal 8.9 LAB L501.5300 136-145 mmol/L NA Normal 142 LAB L501.5600 3.5-5.1 mmol/L K Normal 3.6 LAB L501.5900 98-107 mmol/L CL Normal 104 LAB L501.6100 21.0-32.0 mmol/L Normal CO2 30.0 LAB L501.6200 5-15 Normal GAP 8 Performed By: #### L500.2500, L500.4100, L501.9520 #### [facility] [address] [place], [place], [address] LIPID PROFILE Collected: 12/23/2017 Status: F Source: [place] 2:53 PM [facility] REPOSITORY TYPE CODE TESTS RESULT OUT OF RANGE REFERENCE UNITS LAB L501.4900 200 mg/dL Normal CHOL 177 Result Comment: <200 mg/dL Desirable 200-240 mg/dL Borderline >240 mg/dL High Risk LAB L501.5000 mg/dL High TRIG 247 Result Comment: The drugs N-Acetylcysteine and Metamizole may falsely depress this assay. Serum Triglycerides Reference Interval Normal <150 mg/dL Borderline high 150 - 199 mg/dL High 200 - 499 mg/dL Very High > or = 500 mg/dL LAB L501.6400 mg/dL Normal HDL 60 Result Comment: The drugs N-Acetylcysteine and Metamizole may falsely depress this assay. Reference Range HDL <40 mg/dL Low HDL Cholesterol HDL >or= 60 mg/dL High HDL Cholesterol LAB L501.6500 0-130 mg/dL Normal LDL 68 LAB L501.6600 5-40 mg/dL High VLDL 49 Performed By: #### L500.2500, L500.4100, L501.9520 #### [facility] [address] [place], [place], [id number] THYROID STIM HORMONE Collected: 12/23/2017 Status: F Source: MUNDO (TSH) 2:53 PM [facility] REPOSITORY TYPE CODE TESTS RESULT OUT OF RANGE REFERENCE UNITS LAB L501.9520 0.358-3.74 uIU/mL Normal TSH 0.80 Performed By: #### L500.2500, L500.4100, L501.9520 #### [facility] [address] [facility] [place], [place], [address] ALLERGIES ALLERGIES DATE TYPE / CODE NAME / CODE REACTION SEVERITY SOURCE 10/29/2018 Drug No Known Unknown [facility] Allergy/416 Allergies/G97330 [facility] 195030(SNOM 0388(RXNORM) Repository ED CT) Drug NO KNOWN [facility] Class/47317 ALLERGIES [place] 1003(SNOMED Repository CT) ENCOUNTERS ENCOUNTERS ADMIT/DISCHARGE ACCOUNT ADMITTING ENCOUNTER LOCATION SOURCE NUMBER CLASS 10/29/2018 [id number] [facility] ing:RAD Repository 10/29/2018/10/29/19 [id number] Ambulatory BMSBuilding:B [place] [facility] Repository 10/29/2018 [id number] Ambulatory BMSBuilding:B [place] [facility] Repository 08/14/2018/09/15/20 [id number] Ambulatory [address] Repository 07/01/2018 [id number] [facility] ing:MFPLAB Repository 04/10/2018/04/14/20 [id number] Ambulatory [address] Repository 01/09/2018/01/13/20 [id number] Ambulatory [address] Repository 12/23/2017 [id number] [facility] ing:MFPLAB Repository PAYERS PAYERS ENCOUNTER GUARANTOR PAYER SUBSCRIBER SOURCE 10/29/2018 SHUKRI Desai Primary NORA F [place] [id number] Insurance:MEDICARE COOPERDOB: [facility] [id number] Number: Repository [id number]: [phone] [id number] [phone] () Date:2018-10-29 10/29/2018 Secondary NORA F [place] Insurance:ANTHEMPolic MORGANDOB: Community y Number: [id number] Hospital [id number] Repository Date:5109-94-50IX [address] [place] [address]BO: 10/29/2018 Tertiary NOT GIVENUNK [place] Insurance:SELF PAY [facility] Number: Effective Repository Date:2018-10-29 10/29/2018 NORA Primary NORA MORGANDOB: [place] [id number] Insurance[id number] Number: Repository [address]Ftg: 330 [id number] [phone] (HP) Date:2018-10-22 10/29/2018 Secondary NORA MORGANDOB: [place] Insurance:ANTHEMPolic [id number] [facility] y Number: Hospital [id number] Repository Date:2076-11-98[address], [place] [address]OW: 10/29/2018 Tertiary NOT GIVENUNK [place] Insurance:SELF PAY [facility] Number: Effective Repository Date:2018-10-27 10/29/2018 SHUKRI Desai Primary NORA MORGANDOB: [place] [id number] Insurance:MEDICARE [id number] [place] Number[facility] Repository [address]Wzp: 330 [id number] [phone] () Date:2018-10-29 10/29/2018 Secondary NORA MORGANDOB: [place] Insurance:ANTHEMPolic [id number] Community y Number: Hospital [id number] Repository Date:4979-90-70SM [address], [place] [address]OR: 10/29/2018 Tertiary NOT GIVENUNK [place] Insurance:SELF PAY [facility] Number: Effective Repository Date:2018-10-29 07/01/2018 Shukri Desai Primary NORA MORGANDOB: [place] [id number] Insurance:MEDICARE [id number] [place] Number: Repository [address]Pkc: 330 [id number] [phone] (HP) Date:2018-07-01 07/01/2018 Secondary NORA MORGANDOB: [place] Insurance:ANTHEMPolic [id number] Community y Number: Hospital [id number] Repository Date:1819-65-08WU [address], [place] [address]OV: 07/01/2018 Tertiary NOT GIVENUNK [place] Insurance:SELF PAY [facility] Number: Effective Repository Date:2018-07-01 12/23/2017 Shukri Desai Primary NORA REXB: [place] [id number] Insurance:MEDICARE [id number] [place] Number: Repository [id number]: [phone] [id number] [phone] () Date:2017-12-23 12/23/2017 Secondary NORA GOODMANB: [place] Insurance:ANTHEMPolic [id number] [facility] y Number: [facility] [id number] Repository Date:7044-93-47XW [address] [place] [address]YF: 12/23/2017 Tertiary NOT GIVENUNK [place] Insurance:SELF PAY [facility] Number: Effective Repository Date:2017-12-23
== END ==
PROVIDERS: Family Provider Family Medicine; PCP Family Medicine; Referring Provider Internal Medicine Cardiovascular Disease; Visit Provider Internal Medicine Cardiovascular Disease
DX: R06.09 Other forms of dyspnea (principal)
CPT/HCPCS: 36415; 71046; 80048; 83880

== ENCOUNTER → 2018-11-26 06:53 | Outpatient (CLI) | payer MEDICARE, BC, SELFPAY ==
--- NOTE | 2018-11-26 06:59 | ECHOCS_ITS ---
Reason For Study: Dyspnea/SOB Procedure This was a 2D Doppler, Color Flow transthoracic echocardiogram. Contrast injection was performed. Exam performed in department. Left Ventricle Normal LV size. Severe concentric left ventricular hypertrophy. Left ventricular systolic function is normal. The estimated ejection fraction is 70 %. Stage 1 diastolic dysfunction. No regional wall motion abnormalities noted. Atria The left atrium is severely enlarged. The right atrium is mildly enlarged. Mitral Valve There is moderate mitral annular calcification. Mild-Moderate mitral valve stenosis. Peak transmitral valve gradient 10 mmHg. Mean transmitral valve gradient 3 mmHg. Mild (1+) eccentric mitral valve insufficiency. Tricuspid Valve Normal tricuspid valve. Mild (1+) tricuspid valve insufficiency. Pulmonary artery systolic pressure is 44 mmHg. Aortic Valve Trisinus/trileaflet aortic valve. Mild focal aortic valve calcification. Pulmonic Valve Normal pulmonic valve. Great Vessels Normal aortic root. The pulmonary artery is normal size. Normal inferior vena cava. Pericardium/Pleural No pericardial effusion. Medication 22 gauge I.V. with prn adaptor inserted into right arm. Diluted definity 3ml given slow IV push to enhance endocardial definition. MMode/2D Measurements & Calculations LVIDd: 4.2 cm IVSd: 2.0 cm LVOT diam: 2.0 cm LVIDs: 2.1 cm LVPWd: 2.0 cm RVDd: 3.4 cm FS: 50.1 % LVOT area: 3.1 cm2 Ao root diam: 3.7 cm LAV(MOD-bp): 81.2 ml LA A4 area: 27.8 cm2 LA dimension: 4.3 cm LAV(MOD-bp) Indexed: 44.4 ml/m2 LAV(MOD-sp2): 71.6 ml LAV(MOD-sp4): 89.4 ml RA A4 area: 21.3 cm2 Time Measurements MV dec time: 0.45 sec Doppler Measurements & Calculations MV E max aiden: 93.3 cm/sec Lat Peak E' Aiden: 3.4 cm/sec Med Peak E' Aiden: 3.5 cm/sec MV A max aiden: 136.4 cm/sec E/E' lat: 27.3 E/E' med: 26.8 MV E/A: 0.68 MV V2 max: 156.2 cm/sec MV P1/2t max aiden: 115.6 cm/sec Ao V2 max: 184.0 cm/sec MV max P.8 mmHg MV P1/2t: 150.2 msec Ao max P.5 mmHg MV V2 mean: 80.7 cm/sec MV dec slope: 225.3 cm/sec2 Ao V2 mean: 118.3 cm/sec MV mean P.0 mmHg Ao mean P.5 mmHg MV V2 VTI: 47.9 cm MVA(P1/2t): 1.5 cm2 Ao V2 VTI: 41.5 cm MVA(VTI): 1.5 cm2 MAXINE(I,D): 1.8 cm2 MAXINE(V,D): 1.7 cm2 LV V1 max: 104.2 cm/sec SV(LVOT): 74.2 ml PA V2 max: 91.0 cm/sec LV V1 max P.3 mmHg LV V1 mean P.7 mmHg LV V1 mean: 59.9 cm/sec LV V1 VTI: 24.1 cm TR max aiden: 309.0 cm/sec TR max P.2 mmHg Interpretation Summary Normal LV size. Severe concentric left ventricular hypertrophy. Left ventricular systolic function is normal. The estimated ejection fraction is 70 %. Stage 1 diastolic dysfunction. Mild-Moderate mitral valve stenosis. There is moderate mitral annular calcification. Contrast injection was performed. Ordering Physician: Wander Fried Referring Physician: Wander Fried Performed By: Bi Dunne RCS
== END ==
PROVIDERS: Family Provider Family Medicine; PCP Family Medicine; Referring Provider Internal Medicine Cardiovascular Disease; Visit Provider Internal Medicine Cardiovascular Disease
DX: R06.09 Other forms of dyspnea (principal); R06.02 Shortness of breath
CPT/HCPCS: 93306; Q9957; A4216; C8929

== ENCOUNTER → 2018-12-24 11:22 | Outpatient (CLI) | payer MEDICARE, BC, SELFPAY ==
[2018-11-28 12:45] VITALS: BMI 32.9
[2018-12-24 14:27] LABS: Anion Gap 6 (5-15); BUN 26 mg/dL (7-18); BUN/Creat Ratio 33.3 RATIO (10-20); Chloride 102 mmol/L (98-107); Cholesterol 203 mg/dL (200); Creatinine, Serum 0.78 mg/dL (0.55-1.02); EST Glomerular Filtration Rate 76 mL/min (>60); Est Glom Filt Rate - Afr Amer 92 mL/min (>60); Glucose 107 mg/dL (74-106); High Density Lipoprotein 63 mg/dL; Potassium 3.7 mmol/L (3.5-5.1); Sodium Level 139 mmol/L (136-145); Thyroid Stim Hormone (TSH) 1.34 uIU/mL (0.358-3.74); Triglycerides 140 mg/dL; Very Low Density Lipoprotein 28 mg/dL (5-40)
== END ==
PROVIDERS: Family Provider Family Medicine; PCP Family Medicine; Referring Provider Family Medicine; Visit Provider Family Medicine
DX: I10 Essential (primary) hypertension (principal); E03.9 Hypothyroidism, unspecified
CPT/HCPCS: 36415; 80048; 80061; 84443

== ENCOUNTER → 2019-07-01 15:16 | Outpatient (CLI) | payer MEDICARE, OTHER, SELFPAY ==
[2019-05-29 12:58] VITALS: BMI 34.4
[2019-07-01 17:33] LABS: Anion Gap 7 (5-15); BUN 13 mg/dL (7-18); BUN/Creat Ratio 18.8 RATIO (10-20); Calcium,Total 8.9 mg/dL (8.5-10.1); Chloride 105 mmol/L (98-107); Creatinine, Serum 0.69 mg/dL (0.55-1.02); EST Glomerular Filtration Rate 87 mL/min (>60); Est Glom Filt Rate - Afr Amer 106 mL/min (>60); Glucose 132 mg/dL (74-106); Potassium 3.5 mmol/L (3.5-5.1); Sodium Level 139 mmol/L (136-145)
== END ==
PROVIDERS: Family Provider Family Medicine; PCP Family Medicine; Referring Provider Family Medicine; Visit Provider Family Medicine
DX: I10 Essential (primary) hypertension (principal)
CPT/HCPCS: 36415; 80048

== ENCOUNTER → 2020-01-29 12:04 | Outpatient (CLI) | payer MEDICARE, OTHER, SELFPAY ==
[2019-05-29 12:58] VITALS: BMI 34.4
--- NOTE | 2020-01-29 12:08 | RAD_ITS ---
STUDY: X-RAY - RIGHT KNEE REASON FOR EXAM: Female, 79 years old. CHRONIC KNEE PAIN, NO INJURY TECHNIQUE: 4 view(s) of the knee. COMPARISON: None. FINDINGS: Normal visualized distal femur. Normal visualized proximal tibia and fibula. Normal proximal tibiofibular articulation. There is moderate degenerative arthrosis of the medial femorotibial compartment with moderate joint space narrowing. Normal lateral femorotibial compartment. Normal patellofemoral articulation. Small joint effusion. RAD/Knee 4 or More Views IMPRESSION: Degenerative arthrosis. Small joint effusion. Electronically Signed: Bob Lucas, at 15:12 EDT , Service support ,
[2020-01-29 15:51] LABS: Anion Gap 4 (5-15); BUN 14 mg/dL (7-18); BUN/Creat Ratio 17.6 RATIO (10-20); Calcium,Total 9.3 mg/dL (8.5-10.1); Chloride 105 mmol/L (98-107); Cholesterol 214 mg/dL (200); EST Glomerular Filtration Rate 74 mL/min (>60); Est Glom Filt Rate - Afr Amer 90 mL/min (>60); Free T3 2.4 pg/mL (2.18-3.98); Glucose 118 mg/dL (74-106); High Density Lipoprotein 63 mg/dL; Potassium 3.4 mmol/L (3.5-5.1); Sodium Level 140 mmol/L (136-145); T4 Total, Thyroxin 11.2 ug/dL (4.8-13.9); Thyroid Stim Hormone (TSH) 1.68 uIU/mL (0.358-3.74); Triglycerides 208 mg/dL; Very Low Density Lipoprotein 42 mg/dL (5-40)
== END ==
PROVIDERS: PCP Family Medicine; Referring Provider Family Medicine; Visit Provider Family Medicine
DX: I10 Essential (primary) hypertension (principal); E03.9 Hypothyroidism, unspecified; M17.11 Unilateral primary osteoarthritis, right knee
CPT/HCPCS: 36415; 73564; 80048; 80061; 84436; 84443; 84481

== ENCOUNTER → 2021-08-25 16:21 | Outpatient (CLI) | payer MEDICARE, OTHER, SELFPAY ==
[2021-08-25 18:28] LABS: Anion Gap 8 (5-15); BUN 15 mg/dL (7-18); BUN/Creat Ratio 24.9 RATIO (10-20); Calcium,Total 10.1 mg/dL (8.5-10.1); Chloride 101 mmol/L (98-107); Cholesterol 192 mg/dL (200); EST Glomerular Filtration Rate 102 mL/min (>60); Est Glom Filt Rate - Afr Amer 124 mL/min (>60); Free T3 2.3 pg/mL (2.18-3.98); Glucose 90 mg/dL (74-106); High Density Lipoprotein 68 mg/dL; Potassium 3.7 mmol/L (3.5-5.1); Sodium Level 140 mmol/L (136-145); T4 Free Direct 1.28 ng/dL (0.76-1.46); Triglycerides 160 mg/dL; Very Low Density Lipoprotein 32 mg/dL (5-40)
== END ==
PROVIDERS: PCP Family Medicine; Referring Provider Family Medicine; Visit Provider Family Medicine
DX: E03.9 Hypothyroidism, unspecified (principal); E11.9 Type 2 diabetes mellitus without complications
CPT/HCPCS: 36415; 80048; 80061; 84439; 84443; 84481

== ENCOUNTER 2022-01-02 13:45 | Outpatient (CLI) | payer MEDICARE, OTHER, SELFPAY ==
--- NOTE | 2022-01-02 13:50 | ECHOCS_ITS ---
Reason For Study: Murmur Procedure This was a 2D Doppler, Color Flow transthoracic echocardiogram. The study was technically difficult. Contrast injection was performed. Exam performed in department. Left Ventricle Normal LV size. Severe concentric left ventricular hypertrophy. Left ventricular systolic function is normal. The estimated ejection fraction is 70 %. Stage 1 diastolic dysfunction. No regional wall motion abnormalities noted. Right Ventricle Normal RV size. Normal systolic function. Atria The left atrium is moderately enlarged. Normal right atrium. Mitral Valve There is moderate mitral annular calcification. The mitral papillary muscle appears thickened and/or calcified. Mild (1+) eccentric mitral valve insufficiency. Tricuspid Valve Normal tricuspid valve. Mild to moderate (1-2+) tricuspid valve insufficiency. Pulmonary artery systolic pressure is 48 mmHg. Pulmonic Valve Normal pulmonic valve. Great Vessels Calcified aortic root. The pulmonary artery is normal size. Normal inferior vena cava. Pericardium/Pleural Trivial pericardial effusion. Medication 22 gauge I.V. with prn adaptor inserted into left arm. Diluted definity 3ml given slow IV push to enhance endocardial definition. MMode/2D Measurements & Calculations LVIDd: 3.9 cm IVSd: 1.9 cm Ao root diam: 3.4 cm LVIDs: 2.5 cm LVPWd: 2.0 cm LA dimension: 4.3 cm RVDd: 3.4 cm FS: 36.2 % LAV(MOD-bp): 75.5 ml LA A4 area: 25.9 cm2 RA A4 area: 15.9 cm2 LAV(MOD-bp) Indexed: 42.9 ml/m2 LAV(MOD-sp2): 61.5 ml LAV(MOD-sp4): 80.6 ml Time Measurements MV dec time: 0.31 sec Doppler Measurements & Calculations MV E max aiden: 106.2 cm/sec Lat Peak E' Aiden: 3.3 cm/sec Med Peak E' Aiden: 3.7 cm/sec MV A max aiden: 139.1 cm/sec E/E' lat: 32.3 E/E' med: 28.4 MV E/A: 0.76 MV V2 max: 145.4 cm/sec MV P1/2t max aiden: 111.7 cm/sec Ao V2 max: 170.8 cm/sec MV max P.5 mmHg MV P1/2t: 147.7 msec Ao max P.7 mmHg MV V2 mean: 80.2 cm/sec MV dec slope: 221.5 cm/sec2 MV mean P.9 mmHg MVA(P1/2t): 1.5 cm2 MV V2 VTI: 45.4 cm LV V1 max: 89.5 cm/sec PA V2 max: 91.5 cm/sec LV V1 max P.2 mmHg PI dec slope: 191.0 cm/sec2 TR max aiden: 328.0 cm/sec TR max P.0 mmHg ECHO/Echo Complete W/ Contrast Interpretation Summary Normal LV size. Severe concentric left ventricular hypertrophy. Left ventricular systolic function is normal. The estimated ejection fraction is 70 %. Pulmonary artery systolic pressure is 48 mmHg. Near mid chamber obliteration noted Stage 1 diastolic dysfunction. Contrast injection was performed. Ordering Physician: Wander Fried Referring Physician: Wander Fried Performed By: Bi Dunne RCS
== END 2022-01-02 23:59 | disposition home or self-care (01) ==
LOC: CVS 13:48
PROVIDERS: PCP Family Medicine; Referring Provider Internal Medicine Cardiovascular Disease; Visit Provider Internal Medicine Cardiovascular Disease
DX: I27.21 Secondary pulmonary arterial hypertension (principal); R01.1 Cardiac murmur, unspecified
CPT/HCPCS: 93306; Q9957; A4216; C8929

== ENCOUNTER → 2022-02-22 | Outpatient (CLI) | payer MEDICARE, OTHER, SELFPAY ==
[2022-02-22 16:21] LABS: Anion Gap 6 (5-15); BUN 17 mg/dL (7-18); BUN/Creat Ratio 23.5 RATIO (10-20); Chloride 103 mmol/L (98-107); Cholesterol 198 mg/dL (200); Creatinine, Serum 0.72 mg/dL (0.55-1.02); EST Glomerular Filtration Rate 83 mL/min (>60); Est Glom Filt Rate - Afr Amer 100 mL/min (>60); Free T3 2.1 pg/mL (2.18-3.98); Glucose 93 mg/dL (74-106); High Density Lipoprotein 70 mg/dL; Potassium 3.3 mmol/L (3.5-5.1); Sodium Level 140 mmol/L (136-145); T4 Free Direct 1.18 ng/dL (0.76-1.46); Thyroid Stim Hormone (TSH) 0.74 uIU/mL (0.358-3.74); Triglycerides 137 mg/dL; Very Low Density Lipoprotein 27 mg/dL (5-40)
== END | disposition home or self-care (01) ==
LOC: MFPLAB 14:05
PROVIDERS: PCP Family Medicine; Referring Provider Family Medicine; Visit Provider Family Medicine
DX: E03.9 Hypothyroidism, unspecified (principal); E11.9 Type 2 diabetes mellitus without complications
CPT/HCPCS: 36415; 80048; 80061; 84439; 84443; 84481

== ENCOUNTER → 2022-03-22 | Outpatient (CLI) | payer MEDICARE, OTHER, SELFPAY ==
--- NOTE | 2022-03-22 10:53 | RAD_ITS ---
STUDY: X-RAY CHEST REASON FOR EXAM: Female, 81 years old. Chest pain TECHNIQUE: PA and lateral views of the chest. COMPARISON: Comparison is made with prior study dated 10/29/2018. FINDINGS: Hyperinflation. Stable increased linear markings at the lung bases suggests a mild degree of basilar scarring. Normal size heart. Normal mediastinum and osmar. Normal visualized pulmonary arteries. There is atherosclerotic calcification of the aortic arch with tortuosity. There are diffuse degenerative changes of the visualized thoracic spine. Prior fusion in the upper lumbar spine. Normal visualized ribs, clavicles, and shoulders. There is no demonstrated abnormality of the visualized soft tissue structures of the upper abdomen. RAD/Chest PA and Lateral IMPRESSION: Stable mild increased markings at the lung bases suggestive of scarring. There has been no change since prior study. Electronically Signed: Bob Lucas MD at 12:04 EDT ,
--- NOTE | 2022-03-22 10:56 | RAD_ITS ---
STUDY: X-RAY - LEFT SHOULDER REASON FOR EXAM: Female, 81 years old. PAIN TECHNIQUE: 4 view(s) of the shoulder. COMPARISON: None. FINDINGS: Normal glenohumeral articulation. Normal acromioclavicular joint. Normal acromion. Normal humeral head and visualized proximal humerus. The soft tissue structures are unremarkable. Normal visualized pulmonary apex. RAD/Shoulder min 2 Views IMPRESSION: Normal x-ray examination of the shoulder. Electronically Signed: Bob Lucas MD at 13:09 EDT ,
--- NOTE | 2022-03-22 10:56 | RAD_ITS ---
STUDY: X-RAY - RIGHT SHOULDER REASON FOR EXAM: Female, 81 years old. PAIN TECHNIQUE: 4 view(s) of the shoulder. COMPARISON: None. FINDINGS: There is moderate degenerative arthrosis of the glenohumeral articulation. There is cephalic migration of the humeral head with decreased distance between the humeral head and acromion suggestive of rotator cuff pathology. There is degenerative arthrosis of the acromioclavicular joint without inferior osseous spur formation. Normal acromion. Normal humeral head and visualized proximal humerus. The soft tissue structures are unremarkable. Normal visualized pulmonary apex. RAD/Shoulder min 2 Views IMPRESSION: Moderate degree of joint space narrowing of the glenohumeral joint. Decreased distance between the humeral head and acromion suggestive of rotator cuff pathology. Electronically Signed: Bob Lucas MD at 12:07 EDT ,
[2022-03-22 12:22] LABS: Absolute Lymphocyte Count 1.74 X10^3/uL (0.83-4.51); Absolute Neutrophil Count 4.3 X10^3/uL (2.0-7.7); Basophil# 0.03 X10^3/uL; Basophil% 0.5 % (0-1); Eosinophil# 0.18 X10^3/uL; Eosinophils% 2.7 % (0-5); Hematocrit 37.9 % (37-47); Hemoglobin 12.5 g/dL (12.0-15.0); Lymphocyte # 1.74 X10^3/ul (0.83-4.51); Lymphocyte % 26.2 % (19-41); Mean Corpuscular Hgb 30.6 pg (27.0-32.0); Mean Corpuscular Volume 92.7 fL (81-99); Mean Platelet Vol. 12.1 fl (6.2-12.0); NRBC Flagged by Analyzer 0 % (0-5); Neutrophil # 4.26 X10^3/uL (2.7-7.7); Neutrophil % 64.3 % (47-70); Platelet Count 246 K/mm3 (150-450); RBC Distribution Width CV 12.5 % (11.6-14.6); RBC Distribution Width SD 42.5 fl (35.1-43.9); Red Blood Count 4.09 M/mm3 (4.2-5.4); White Blood Count 6.6 K/mm3 (4.4-11.0)
[2022-03-22 12:38] LABS: Anion Gap 7 (5-15); BUN 13 mg/dL (7-18); BUN/Creat Ratio 17.6 RATIO (10-20); Calcium,Total 9.3 mg/dL (8.5-10.1); Chloride 105 mmol/L (98-107); Creatinine, Serum 0.74 mg/dL (0.55-1.02); EST Glomerular Filtration Rate 81 mL/min (>60); Est Glom Filt Rate - Afr Amer 98 mL/min (>60); Glucose 165 mg/dL (74-106); Potassium 3.7 mmol/L (3.5-5.1); Sodium Level 139 mmol/L (136-145)
== END | disposition home or self-care (01) ==
PROVIDERS: Internal Medicine Cardiovascular Disease; PCP Family Medicine; Referring Provider Family Medicine; Visit Provider Family Medicine
DX: E78.00 Pure hypercholesterolemia, unspecified (principal); I42.2 Other hypertrophic cardiomyopathy; I27.21 Secondary pulmonary arterial hypertension; R07.9 Chest pain, unspecified; Q24.9 Congenital malformation of heart, unspecified; I51.7 Cardiomegaly; I34.2 Nonrheumatic mitral (valve) stenosis; I10 Essential (primary) hypertension; M25.511 Pain in right shoulder; M25.512 Pain in left shoulder
CPT/HCPCS: 36415; 71046; 73030; 80048; 85025

== ENCOUNTER 2022-03-26 12:50 | Observation (INO) | payer MEDICARE, OTHER, SELFPAY ==
[2022-03-23 08:29] VITALS: BMI 30.2
[2022-03-26] VITALS (23 sets, daily range): BP systolic 108–183; BP diastolic 45–101; PULSE 60–95; RESP 15–21; TEMP 36–36.6; O2SAT 92–98; BMI 31.6
--- NOTE | 2022-03-26 11:31 | CL.D_ITS ---
Patient Name: NORA CONNELL Study Date: 03/26/2022 Performing: Wander Fried MD Ht: 61.81 inches 157 cm : 1940 Wt: 165.35 lbs 75 kg Age: 81 Gender: female BSA: 1.76 PROCEDURE(S) PERFORMED DC02-(94114)[facility] CLINICAL PROFILE AND INDICATIONS Indications: New Onset Angina <= 2 months Heart Failure: None Stress/Imaging Stress/Image Study Performed: No CAD Presentations: Unstable angina. 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 The risks and benefits of the procedure as well as a full d escription of our services here and current unavailability of surgical backup were fully explained to the patient and/or their significant other prior to the catheterization. The Timeout was completed, verifying the correct patient and procedure. The patient's procedural site was prepped and draped in the usual fashion. Local anesthetic was given subcutaneously to right radial region with Lidocaine 2% . Using a modified Seldinger technique, arterial access was obtained via the right radial artery, a 6 Fr sheath was inserted. Left Coronary Artery selective angiography was performed in multiple views u sing a 5 Fr. 4.0 [place] catheter. Right Coronary Artery selective angiography was then performed in mu ltiple views using a 5 Fr. 4.0 [place] catheter. CORONARY ANGIOGRAPHY DOMINANCE: Right Dominant LEFT HEART ASSESSMENT Left Ventricular Ejection Fraction: by Echo 70 % Normal LV wall motion Normal Left Ventricular systolic function LEFT MAIN: Mild calcification LEFT ANTERIOR DESCENDING ARTERY: Moderate calcification, Mild luminal irregularities less than 30% CIRCUMFLEX ARTERY: Mild calcification, Mild luminal irregularities less than 30% RIGHT CORONARY ARTERY: Dominant vessel with proximal eccentric 80% stenosis and mid segment 30% steno sis and mid to distal segment 70% stenosis. Distally the vessel trifurcates into 3 with diffuse dise ase and a very distal subtotally occluded posterior descending artery. COMPLICATIONS No Complications PROCEDURE MEDICATIONS Versed 1 mg IV Fentanyl 50 mcg IV Oxygen: 2 L/min via nasal cannula Brilinta 180 mg PO @ 03/26/2022 11:26:14 Heparin given IA 03/26/2022 11:11:49 Verapamil 2.5mg, Ntg 100mcgs, 3000 units of Heparin given IA 03/26/2022 11:11:49 SUMMARY OF HEMODYNAMIC DATA Time AIR REST ECG 09:46:16 Art / (124) 11:05:48 Signed By Wander Fried MD On 03/26/2022 11:31:11 AM Wander Fried MD
--- NOTE | 2022-03-26 11:32 | PCM.HP.BLA ---
History and Physical Date of Admission: 03/26/22 This is a 81-year-old female that presents here today for a Left heart catheterization.? She does have a history of hypertension, hyperlipidemia, pulmonary hypertension and mitral valve stenosis.? She underwent an echocardiogram on 01/02/2022 that showed an ejection fraction of 70%, stage I diastolic dysfunction, mild mitral valve insufficiency, and an RVSP of 48 mmHg. She underwent a cardiac MRI on 03/14/[address] [facility] that showed severe left ventricular septal remodeling with no dynamic outflow tract obstruction with a LVEF of 56%. 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 On 03/19/2022, she contacted our office expressing symptoms of throat pain with radiation to left ear and between her shoulder blades with activity that improved with rest. She did have a fall two weeks prior and questions if such symptoms were related. She presents today for a heart catheterization to assess further. Her physical exam here demonstrates clear lung bennett regular rate and rhythm and no pedal edema. Intake Vital Signs: See EMR ? Intake Visit Reasons:?9 M FU Allergies No Known Allergies Allergy (Verified 12/12/21 09:46) Medications See EMR Ejection fraction %: 65 to 70 FOR[facility]LY [facility], [facility] Medical History? Arthritis Essential (primary) hypertension GERD (gastroesophageal reflux disease) Hyperlipidemia Hypothyroidism Left ventricular hypertrophy Non-rheumatic mitral valve stenosis Obesity Obstructive sleep apnea Psoriasis Secondary pulmonary arterial hypertension Type 2 diabetes mellitus Surgical History? History of back surgery History of cataract surgery History of herniorrhaphy Hx of cholecystectomy Family History? Other Heart disease Social History? Smoking Status:? Former smoker how long ago did patient quit smoking:? 27 years ago substance use type:? does not use caffeine:? Yes Type: coffee Number of servings: 3 ROS Const Const: Negative for fatigue, weakness, headache(s), frequent falls, difficulty sleeping or excessive sweating Eyes Eyes: Negative for loss of peripheral vision, transient loss of vision, blurry vision, double vision or tunnel vision ENT ENT: Positive: ear pain, jaw pain. Negative for headache(s), dizziness, Nosebleed/epistaxis or balance problems Cardio Chest Pain: No Palpitations: No Edema: None Muscle aches with walking: None Resp Respiratory: Positive for SOB with activity; Negative for SOB at rest, SOB orthopnea\SOB lying down, Cough or paroxysmal nocturnal dyspnea GI GI: Negative nausea, vomiting, heartburn or black,tarry stools : Negative for hematuria Musc Musc: Positive for back pain, between shoulder blades. Negative for muscle aches/ myalgia, muscle weakness, joint pain or balance problems Skin Skin: Negative non-healing lesions, rash or unusual bruising Neuro Neuro: Negative for dizziness, lightheadedness, near syncope, syncope, orthostatic symptoms, frequent falls, headache(s), weakness, blurry vision, double vision or lack of coordination Oren Hematologic/Lymphatic: Negative for easy bleeding or easy bruising Endo Endo: Negative for fatigue, excessive sweating or increased thirst/drinking Psych Psych: Negative for anxiety or depression Allergy Allergy/Immunology: Negative for hives and Negative for rash Cardiology Exam Const Appearance: cooperative, healthy appearing, no acute distress, well developed and well groomed Nutritional Appearance: average body habitus and well nourished Orientation: alert, awake and oriented x3 Head Head: normal to inspection, normocephalic and atraumatic Ears: hearing grossly normal bilaterally and external ears normal Nose: external nose normal, nares normal, nasal mucous membranes and turbinates normal, septum normal and no nasal discharge Face and Sinus: face symmetric Mouth: oral mucosae normal, tongue normal, oropharynx normal and moist mucous membranes Teeth and gingiva: dentition normal Throat: posterior oropharynx normal, tonsils normal and uvula midline Eyes General: appearance normal, both eyes and all related structures Eyelids: eyelids normal Conjunctivae: conjunctivae normal Pupils: PERRL, normal by confrontation and accommodation normal EOM: EOM intact bilaterally Neck Neck: normal visual inspection, trachea midline and no JVD JVD: +5 Carotids: normal carotid upstroke and bounding pulses Chest Chest inspection: normal inspection of the chest, symmetric chest movement and normal respiratory effort Auscultation: Bilateral: Clear to Auscultation Cardio Palpation: normal PMI Rate: regular rate Rhythm: regular rhythm Heart sounds: S1 normal, S2 normal, murmur and normal, physiologic split S2; Negative rub or gallop Murmur: Grade 2/6 and early systolic GI GI: normal to inspection, soft, no hepatosplenomegaly and bowel sounds present Neuro General: patient alert, patient awake, patient oriented x3, gait normal, moves all extremities and no focal sensory deficit Skin Skin: no rashes or lesions noted Extremities Pulses: Normal: Right Femoral Pulse, Left Femoral Pulse, Right Dorsalis Pedis Pulse, Left Dorsalis Pedis Pulse, Right Posterior Tibial Pulse, Left Posterior Tibial Pulse, Right Radial Pulse and Left Radial Pulse Lower Extremity Edema: None: Bilateral Musculoskel Musculoskeletal: No joint tenderness Psych Psychological: normal affect Supplemental Info Supplemental Information Echocardiogram from 01/02/2022: Interpretation Summary Normal LV size. Severe concentric left ventricular hypertrophy. Left ventricular systolic function is normal. The estimated ejection fraction is 70 %. Pulmonary artery systolic pressure is 48 mmHg. Near mid chamber obliteration noted Stage 1 diastolic dysfunction. Contrast injection was performed. ECHOCARDIOGRAM 11/26/2018 Interpretation Summary Normal LV size. Severe concentric left ventricular hypertrophy. Left ventricular systolic function is normal. The estimated ejection fraction is 70 %. Stage 1 diastolic dysfunction. Mild-Moderate mitral valve stenosis. There is moderate mitral annular calcification. Contrast injection was performed. Laboratory Tests ? 08/25/21 ? 16:27 Triglycerides ?160 Cholesterol ?192 LDL Cholesterol ?92 HDL Cholesterol ?68 Labs: ?? ? LDL Cholesterol 92 mg/dL (0-130) ?? ? HDL Cholesterol 68 mg/dL (40-) ?? ? Triglycerides 160 mg/dL (-199) ?? ? VLDL Cholesterol 32 mg/dL (5-40) Diagnostics: ?? ? Electrocardiogram ? Echocardiogram ? Chest X-Ray ? Pulmonary: ?? ? No Data to Display Assessment and Plan Assessment and Plan (1) Non-rheumatic mitral valve stenosis: ?Status:?Chronic ?Plan - Dr. Wander Fried MD: Echocardiogram on 01/02/2022 showed Severe concentric LVH, mild mitral valve insufficiency, and moderate left atrium enlargement. RVSP was noted to be 48 mmHg. Peak mitral valve gradient was 8.5 mmHg, mean mitral valve gradient of 2.9 mmHg, and mitral valve area of 1.5 cm?. (2) Essential (primary) hypertension: ?Status:?Chronic ?Plan - Dr. Wander Fried MD: Her blood pressure appears to be under excellent control at this particular time and I would not recommend that we make any changes. (3) Hyperlipidemia: ?Status:?Chronic ?Qualifiers: ?Hyperlipidemia type:?pure hypercholesterolemia? Qualified Code(s):?E78.00 - Pure hypercholesterolemia, unspecified; E78.0 - Pure hypercholesterolemia ?Plan - Dr. Wander Fried MD: She does have a history of hyperlipidemia with a recent lipid profile demonstrating a total cholesterol 192, HDL of 68 and LDL of 92.? No other changes will be made at this particular time (4) Exertional symptoms On account of exertional symptoms, she presents for heart catheterization to assess further. Based on results, further recommendation will be made. Thank you for allowing me to participate in the care of your patient.? Please don't hesitate to call if any issues arise. Plan Details
[2022-03-26] MEDS: Primidone 50 MG Tablet PO ×2 (14:21→21:43)
[2022-03-26] MEDS: Gabapentin 800 MG Tablet PO ×2 (14:21→21:43)
[2022-03-26] MEDS: hydrALAZINE 20 MG/ML Vial 10 MG IV (15:50)
--- NOTE | 2022-03-26 15:50 | PCI.CARDCATH ---
PCI Cardiac Cath Report PCI Report: PCI cardiac cath report; 1. Successful PCI of the distal RCA 75% stenosis, with predilatation followed by placement of drug-eluting stent 2.75 x 18 mm LORI/Orsiro [place] With reduction of stenosis to 0% and maintenance of MICAH-3 flow #2 Successful PCI of the proximal RCA 90% stenosis, with predilatation followed by placement of drug-eluting stent 3.0 x 30 mm LORI/Orsiro Followed by postdilatation using 0.5 x 20 mm balloon followed by 4 x 12 mm NC Emerge balloon with reduction of stenosis to 0% and maintenance of MICAH-3 flow 3. 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 Fried Finding of cardiac cath was reviewed The right coronary artery is large dominant vessel bifurcating into posterolateral and RPDA There is diffuse proximal RCA high-grade stenosis of 90% and also there is a distal lesion in the distal RCA of around 70%. LV function is within normal with normal left ventricular wall motion And the left main showed mild calcification The left anterior descending artery had moderate calcification with mild luminal irregularity of around 30% the circumflex had similar mild luminal irregularity. Based on the clinical presentation We proceed with a PCI of the complex RCA lesion involving the distal and the proximal atherosclerosis. Consent; Risk and benefit of procedure explained detail patient like to proceed informed consent obtained. Interventional equipment and plan; #1 6 [place] JR4 guide 2. 0.014 BMW universal straight 190 cm guidewire 3. 0.014 run-through extra floppy 180 cm straight wire 4. 0.035 to 60cm exchange Glidewire 5. Drug-eluting stent 2.75 x 18 mm to the distal RCA 6. Drug-eluting stent 3 x 30 mm. Procedure in detail under fluoroscopic guidance we will proceed with the 6 [place] JR4 guide through the right radial artery approach cannulated the right coronary ostium without difficulty then we followed by 2 wires using run-through wire and BMW wire across the lesion in the distal RCA and then we started balloon dilatation followed by placement of drug-eluting stent and resulted in excellent result with no complication in the Loading Unit Tool Setter. Medication used in the Loading Unit Tool Setter; 1. Heparin infusion 2. IC/intracoronary nitroglycerin 3. 180 mg of Brilinta 4. Aspirin ACT level acceptable. Conclusion recommendations; Successful PCI of the proximal and distal RCA as explained 2. Patient will continue on dual antiplatelet therapy/DAPT with Brilinta and aspirin 3. Patient is scheduled for phase 1 cardiac rehab program 4. Patient will follow up with her primary health and safety specialist Dr. Fried for continuation of cardiac care plan. No complication in the Loading Unit Tool Setter Hu Reed MD,FACC,[facility]
[2022-03-26] MEDS: 0.9% Normal Saline 1,000 ML 75 ML IV (15:56)
--- NOTE | 2022-03-26 16:00 | EKG12_ITS ---
Test Reason : AM EKG Blood Pressure : / mmHG Vent. Rate : 065 BPM Atrial Rate : 065 BPM P-R Int : 192 ms QRS Dur : 096 ms QT Int : 426 ms P-R-T Axes : 058 -30 099 degrees QTc Int : 443 ms Normal sinus rhythm Left axis deviation T wave abnormality, consider anterolateral ischemia Abnormal ECG Confirmed by HANS GRULLON, FIORELLA ([id number]), medical editor CANELO STATON ([id number]) on 03/28/2022 9:38:38 AM Referred By: Confirmed By:FIORELLA MAXWELL MD
--- NOTE | 2022-03-26 16:53 | CASEMGMT ---
WESTON MCNEIL NOTE: Pt had heart cath today w/PCI. Plan is to discharge home on Brilinta. WESTON MCNEIL to room. Discussed Brilinta w/pt and daughter @ bedside and questions answered. Brilinta savings card provided and instructed on use. Pt states would like to get any new rx's from [facility] pharmacy. She was made aware the pharmacy will apply the savings cared. She was made aware, if refills are not affordable, to discuss more affordable options w/director of public health @ f/u appt. She voices understanding. She denies having any discharge planning or home-going needs. Destin OCONNELL RN CM
[2022-03-26] MEDS: HYDROcodone Bitartrate/Apap 5/325 Tablet PO (20:12)
[2022-03-26] MEDS: TICAGRELOR 90 MG TABLET PO (21:43)
[2022-03-26] MEDS: Sodium Chloride 0.65% 1 SPRAY SPRAY.BTL 2 SPRAY NASAL (21:43)
[2022-03-26] MEDS: Atorvastatin Calcium 10 MG Tablet PO (21:43)
[2022-03-26] MEDS: Carvedilol 6.25 MG Tablet PO (21:43)
[2022-03-26] MEDS: hydroCHLOROthiazide 12.5mg 12.5 MG PO (21:43)
[2022-03-26] MEDS: Lisinopril 20 MG Tablet PO (21:43)
[2022-03-27] VITALS (8 sets, daily range): BP systolic 122–159; BP diastolic 47–53; PULSE 64–78; RESP 14–18; TEMP 36.1–36.3; O2SAT 95–100
[2022-03-27 03:57] LABS: Hematocrit 35.9 % (37-47); Hemoglobin 12.2 g/dL (12.0-15.0); Mean Corpuscular Hgb 31.2 pg (27.0-32.0); Mean Corpuscular Volume 91.8 fL (81-99); Mean Platelet Vol. 11.1 fl (6.2-12.0); Platelet Count 231 K/mm3 (150-450); RBC Distribution Width CV 12.8 % (11.6-14.6); RBC Distribution Width SD 42.5 fl (35.1-43.9); Red Blood Count 3.91 M/mm3 (4.2-5.4); White Blood Count 7.3 K/mm3 (4.4-11.0)
[2022-03-27 04:19] LABS: AST(SGOT) 22 U/L (15-37); Alanine Aminotransfer ALT/SGPT 27 U/L (13-56); Alkaline Phosphatase 81 U/L (45-117); Anion Gap 6 (5-15); BUN 19 mg/dL (7-18); BUN/Creat Ratio 27.4 RATIO (10-20); Calcium,Total 8.9 mg/dL (8.5-10.1); Chloride 106 mmol/L (98-107); Creatinine, Serum 0.69 mg/dL (0.55-1.02); EST Glomerular Filtration Rate 87 mL/min (>60); Est Glom Filt Rate - Afr Amer 105 mL/min (>60); Estimated Creatinine Clearance 36.08 ml/min; Globulin 2.9 g/dL (2.2-4.2); Glucose 126 mg/dL (74-106); Potassium 3.1 mmol/L (3.5-5.1); Protein, Total 5.9 g/dL (6.4-8.2); Sodium Level 141 mmol/L (136-145)
[2022-03-27] MEDS: Primidone 50 MG Tablet PO (05:30)
[2022-03-27] MEDS: Gabapentin 800 MG Tablet PO (05:30)
[2022-03-27] MEDS: Levothyroxine 100 MCG Tablet PO (05:30)
[2022-03-27] MEDS: HYDROcodone Bitartrate/Apap 5/325 Tablet PO (05:30)
[2022-03-27] MEDS: 0.9% Saline Lock 10 ML Syringe IV (09:40)
[2022-03-27] MEDS: Potassium Chloride Oral Tablet 20 MEQ PO (09:40)
[2022-03-27] MEDS: Potassium Chloride 10mEq/100mL 10 MEQ/100 ML IV.SOLN. 100 MEQ IV BOLUS (09:40)
[2022-03-27] MEDS: hydroCHLOROthiazide 12.5mg 12.5 MG PO (09:41)
[2022-03-27] MEDS: Lisinopril 20 MG Tablet PO (09:41)
[2022-03-27] MEDS: Aspirin E.C. 81 MG Tablet PO (09:41)
[2022-03-27] MEDS: Pantoprazole Sodium 40 MG Tablet PO (09:41)
[2022-03-27] MEDS: TICAGRELOR 90 MG TABLET PO (09:41)
[2022-03-27] MEDS: Furosemide 40 MG Tablet PO (09:41)
[2022-03-27] MEDS: Carvedilol 6.25 MG Tablet PO (09:43)
--- NOTE | 2022-03-27 10:00 | EKG12_ITS ---
Test Reason : CHEST PAIN Blood Pressure : / mmHG Vent. Rate : 063 BPM Atrial Rate : 063 BPM P-R Int : 180 ms QRS Dur : 084 ms QT Int : 368 ms P-R-T Axes : 038 -22 105 degrees QTc Int : 376 ms Normal sinus rhythm Nonspecific T wave abnormality Abnormal ECG Confirmed by HANS GRULLON, FIORELLA ([id number]), technical writer and editor CANELO STATON ([id number]) on 03/30/2022 11:47:58 AM Referred By: NATALIA Confirmed By:FIORELLA MAXWELL MD
--- NOTE | 2022-03-27 10:39 | PN.CARD_ITS ---
Subjective Subjective Patient seen and evaluated. Appears to be doing quite well. No complaints. Objective Data Vital Signs: Vital Signs Temp Pulse Resp BP Pulse Ox FiO2 97.3 F L 69 16 159/53 H 95 21 03/27/22 07:49 03/27/22 07:49 03/27/22 07:49 03/27/22 07:49 03/27/22 07:49 03/27/22 03:17 Oxygen Delivery Method Room Air Weight: 174 lb 2.643 oz Body Mass Index (BMI) 31.6 Intake & Output: Intake and Output for Last 24 Hours 03/25/22 03/26/22 03/27/22 23:59 23:59 23:59 Intake Total 480 / 480 1000 / 1000 Balance 480 / 480 1000 / 1000 Lab / Micro Data Attestation: I reviewed the patient's lab results. Result Diagrams: 03/27/22 03:50 03/27/22 03:50 Labs: Laboratory Results - last 24 hr 03/27/22 03:50: WBC 7.3, RBC 3.91 L, Hgb 12.2, Hct 35.9 L, MCV 91.8, MCH 31.2, MCHC 34.0, RDW Std Deviation 42.5, RDW Coeff of Peewee 12.8, Plt Count 231, MPV 11.1 03/27/22 03:50: Sodium 141, Potassium 3.1 L, Chloride 106, Carbon Dioxide 29.0, Anion Gap 6, BUN 19 H, Creatinine 0.69, Estim Creat Clear Calc 36.08, Est GFR (MDRD) Af Amer 105, Est GFR (MDRD) Non-Af 87, BUN/Creatinine Ratio 27.4 H, Glucose 126 H, Calcium 8.9, Total Bilirubin 0.20, AST 22, ALT 27, Alkaline Phosphatase 81, Total Protein 5.9 L, Albumin 3.0 L, Globulin 2.9, Albumin/Gl obulin Ratio 1.0 Cardiology Labs/Tests 03/27/22 03:50: WBC 7.3, RBC 3.91 L, Hgb 12.2, Hct 35.9 L, MCV 91.8, MCH 31.2, MCHC 34.0, Plt Count 231, MPV 11.1 03/27/22 03:50: Sodium 141, Potassium 3.1 L, Chloride 106, Carbon Dioxide 29.0, Anion Gap 6, BUN 19 H, Creatinine 0.69, Est GFR (MDRD) Af Amer 105, Est GFR (MDRD) Non-Af 87, BUN/Creatinine Ratio 27.4 H, Glucose 126 H, Calcium 8.9, Total Bilirubin 0.20 Rhythm: EKG: ECHO: Stress Test: Cardiac Cath: PCI: CT Surgery: Holter monitor: EPS: PPM: CXR: Chest CT Scan: Physical Exam Const alert, oriented x3 and no apparent distress General Appearance: cooperative HEENT hearing grossly normal bilaterally Head and Scalp: atraumatic Eyes EOMs intact bilaterally Neck General: normal visual inspection Chest inspection of chest normal and palpation of chest normal Resp normal respiratory effort Auscultation: clear to auscultation bilaterally Cardio regular rate, regular rhythm, S1 normal heart sound and S2 normal heart sound Jugular Venous Distention: JVD GI normal to inspection, nondistended, normoactive bowel sounds Extremity normal capillary refill and no pedal edema Peripheral Pulses: Yes pulses 2+ throughout and femoral pulses present Skin no rashes or lesions noted Neuro oriented x3 and CN's II-XII intact bilaterally Psych Appearance: grossly normal and appropriate Assessment & Plan Assessment/Plan (1) History of coronary artery stent placement: PLAN: She is status post angioplasty and stenting of the right coronary artery. She is doing well at this time. The plan is to continue the same medications w ith no changes. She has been seen by cardiac rehabilitation. (2) Hypertrophic cardiomyopathy: PLAN: She does have a history of left ventricular hypertrophy. This was confi rmed by cardiac MRI. It was not obvious hypertrophic cardiomyopathy. We will keep her on the same medications at this particular time. (3) Essential (primary) hypertension: PLAN: Her blood pressure appears to be under fair control. I will titrate her medications as appropriate. Overall she is doing well and she will be scheduled for discharge later today. Her potassium will be replaced.
--- NOTE | 2022-03-27 10:44 | DCINST_ITS ---
Discharge Instructions Diet Discharge Diet: Low fat / Low cholesterol Activity Discharge Activity: Return to Normal Activity Dressing / Incision Call your doctor if your incision/area has: Continuous Slow Oozing, Sudden Increased Bleeding and Foul Smelling Discharge Follow Up Care When: With the heart group office in 2 to 4 weeks. They will contact you with appointment. Test Results: Test results from this visit will be discussed in further detail at your follow- up appointment, if applicable. Discharge Plan Admission Admit Date/Time: 03/26/22 12:50 Attending Provider: Wander Fried Primary Care Provider: Gopi Whitehead Discharge Orders/Prescriptions Prescriptions: New Brilinta 90 mg Tablet 90 mg PO BID Qty: 180 3RF Continued aspirin [Adult Aspirin Regimen] 81 mg tablet,delayed release (DR/EC) 81 mg PO DAILY alprazolam 0.5 mg tablet 0.5 mg PO BID-TID PRN (Reason: Anxiety) carvedilol 6.25 mg tablet 6.25 mg PO BID 90 Days Qty: 180 gabapentin 800 mg tablet 800 mg PO TID 30 Days Qty: 90 levothyroxine 100 mcg tablet See Rx Instructions PO DAILY 90 Days Rx Instructions: 100 mcg daily except 200 mg on Sundays lisinopril-hydrochlorothiazide 20-12.5 mg tablet 1 tab PO BID 90 Days Qty: 180 omeprazole 40 mg capsule,delayed release(DR/EC) 40 mg PO DAILY 90 Days Qty: 90 primidone 50 mg tablet 50 mg PO TID furosemide [Lasix] 40 mg tablet 40 mg PO DAILY metoclopramide HCl 5 mg tablet 5 mg PO ONCE PRN (Reason: Nausea) atorvastatin 10 mg tablet 10 mg PO QHS hydrocodone-acetaminophen 7.5-325 mg tablet 1 tab PO Q6H PRN (Reason: Pain) ergocalciferol (vitamin D2) 1,250 mcg (50,000 unit) capsule 1,250 mcg PO QWEEK Label Comments: TAKE 1 CAPSULE BY MOUTH ONCE A WEEK metformin 500 mg tablet 500 mg PO DAILY potassium chloride 20 mEq tablet,ER particles/crystals 20 meq PO DAILY Referrals / Follow Up: Gopi Whitehead MD [Primary Care Provider] - Disposition Disposition (needs filled in before D/C Order can be placed): Home, Self Care
--- NOTE | 2022-03-27 13:16 | CRPHASE1 ---
Patient Communication Former Patient:: Phase I PHII Cardiac Rehab Discussed with Patient:: No Guide to Cardiac Rehab Given to Patient:: Yes Cardiac Rehab Facility Choice List Given to Patient:: No Cardiac Rehabilitation Info Cardiac Rehabilitation Program Information: Cardiac Rehabilitation is important for patients like you who are recovering from a heart problem. Cardiac rehabilitation programs are recognized as integral to the continued care of the patient with coronary heart disease. The cardiac rehabilitation program is designed to optimize a patient's physical, psychological, and social functioning. Health long term care phlebotomist work in cardiac rehabilitation programs and assist you with getting the treatments you need to get stronger and healthier - like exercise, healthy eating habits, and medications. Cardiac rehabilitation has been show to help people with heart problems live longer and have better life enjoyment than people who do not go to cardiac rehabilitation. Please contact the Cardiac Rehabilitation Program at [facility] at in two weeks if you have not heard from them.
--- NOTE | 2022-03-27 13:17 | CRPH1.INSTRU ---
General Education CAD and cardiac anatomy and function:: Patient communicates acknowledgment, Needs reinforcement Explanation of diagnoses and procedures:: Patient communicates acknowledgment Sign/Symptoms of HI:: Patient communicates acknowledgment Antiplatelet therapy: Patient communicates acknowledgment Proper use of NTG-SL: Patient communicates acknowledgment Emergency procedures and activation of EMS: Patient communicates acknowledgment Compliance of all prescribed medications: Patient communicates acknowledgment Dyslipidemia Patient Dyslipidemia Risk Factors Are:: Total Cholesterol, Triglycerides, HDL, LDL Recommendations Include:: Lipid profile not available Dyslipidemia Response Code:: Patient communicates acknowledgment Overweight/Obesity Patient Overweight/Obesity Risk Factors Are:: Obesity - > or = 30 Recommendations Include:: Weight loss of 5-10%, Reduced calorie diet, Exercise 5-7 times/week Overweight/Obesity:: Patient communicates acknowledgment Hypertension Recommendations Include:: Maintain BP <130/85 Hypertension:: Patient communicates acknowledgment Heart Disease Patient Heart Disease Risk Factors Are:: Previous cardiac event Recommendations Include:: Educated family members of their risk Heart Disease Response Code:: Patient communicates acknowledgment Diabetes Patient Diabetes Risk Factors Are:: Elevated blood sugars Recommendations Include:: Maintain HgbA1c of 6% or less, Monitor blood sugar as prescribed, Diabetic dietary guidelines, Decrease/maintain body weight Diabetes:: Patient communicates acknowledgment Metabolic Syndrome Patient Metabolic Syndrome Risk Factors Are [3 of 5]:: Fasting blood sugar > 100 mg/dL, High triglyceride >150, Hypertension, Low HDL <40 [male] or < 50 [female] Recommendations Include:: Reinforce compliance to risk factor modifications Metabolic Syndrome Response Code:: Patient communicates acknowledgment Sedentary Patient Sedentary Risk Factors Are:: Lack of regular exercise Recommendations Include:: Aerobic exercise 5-7 times/week for 20-30 minutes continuously, Benefits of regular exercise, Discussed home walking program, Monitored Outpatient Cardiac Rehab Sedentary Response Code:: Patient communicates acknowledgment Stress Patient Stress Risk Factors Are:: Patient denies stress as a risk factor Recommendations Include:: Identification of stressors, and assessment of coping skills, Stress management techniques Stress Response Code:: Patient communicates acknowledgment
== END 2022-03-27 12:34 | disposition home or self-care (01) ==
LOC: ICU 13:36 → CLSP 03-29 11:01 → ICU 03-29 11:09
PROVIDERS: Internal Medicine Interventional Cardiology; Admitting Provider Internal Medicine Cardiovascular Disease; PCP Family Medicine; Visit Provider Internal Medicine Cardiovascular Disease
DX: I25.110 Atherosclerotic heart disease of native coronary artery with unstable angina pectoris (principal); I27.21 Secondary pulmonary arterial hypertension; I42.2 Other hypertrophic cardiomyopathy; I10 Essential (primary) hypertension; Z87.891 Personal history of nicotine dependence; Z79.82 Long term (current) use of aspirin; E78.5 Hyperlipidemia, unspecified; I34.2 Nonrheumatic mitral (valve) stenosis; M19.90 Unspecified osteoarthritis, unspecified site; K21.9 Gastro-esophageal reflux disease without esophagitis; E66.9 Obesity, unspecified; Z68.31 Body mass index [BMI] 31.0-31.9, adult; G47.33 Obstructive sleep apnea (adult) (pediatric); L40.9 Psoriasis, unspecified; Z79.899 Other long term (current) drug therapy; Z79.890 Hormone replacement therapy; Z79.84 Long term (current) use of oral hypoglycemic drugs; E03.9 Hypothyroidism, unspecified
CPT/HCPCS: 80053; 85027; 92928; 93005; 93454; 94003; 94660; 96361; 96374; 99152; 99153; 99218; C1874; J7030; J7040; Q9967; A4216; C1725; C1769; C1887; C1894; C9600; G0378

== ENCOUNTER → 2022-04-11 | Outpatient (CLI) | payer MEDICARE, OTHER, SELFPAY ==
--- NOTE | 2022-04-11 16:13 | MRI_ITS ---
STUDY: MRI RIGHT SHOULDER REASON FOR EXAM: Right shoulder pain for 2 months, no specific injury. TECHNIQUE: Standardized fat and water weighted pulse sequences were obtained in all 3 orthogonal planes. COMPARISON: Radiographs 03/22/2022. FINDINGS: There is a full-thickness tear of the supraspinatus and infraspinatus tendons retracted approximately 3.3 cm (T2 coronal images 6-13). There is an undersurface partial thickness tear of the subscapularis tendon with medial dislocation of the extracapsular long biceps tendon (T2 sagittal images 10-12). Normal teres minor tendon. There is atrophy with partial fat replacement of the supraspinatus and infraspinatus muscles (T2 sagittal image 1). Normal subscapularis muscle. Normal teres minor muscle. There is glenohumeral arthrosis with small marginal osteophytes of the humeral head and chondral thinning (T2 axial image 10). There is a small glenohumeral joint effusion. There is superior migration of the humeral head secondary to the retracted rotator cuff tear. There are anchors in the humeral head. There is a small longitudinal split of the proximal extracapsular long biceps tendon (without discrete axial images 11, 12). There is degeneration labrum. Normal capsulo- ligamentous complex. Status post subacromial decompression/excision of the distal clavicle. There is no subacromial-subdeltoid bursal fluid. Normal deltoid muscle. Normal trapezius muscle. MRI/Upper Ext Joint Only(Routine) IMPRESSION: Full-thickness tear of the supraspinatus and infraspinatus tendons. Undersurface partial-thickness tear of the subscapularis tendon with medial dislocation of the long biceps tendon. Atrophy of the supraspinatus and infraspinous muscles. Glenohumeral arthrosis with degeneration of the labrum. Longitudinal split of the proximal extracapsular long biceps tendon. Small glenohumeral joint effusion. Electronically Signed: Abiodun Nicole MD at 12:34 EDT ,
== END | disposition home or self-care (01) ==
LOC: MRI 16:01
PROVIDERS: PCP Family Medicine; Visit Provider Family Medicine
DX: S46.811A Strain of other muscles, fascia and tendons at shoulder and upper arm level, right arm, initial encounter (principal); S43.081A Other subluxation of right shoulder joint, initial encounter; S46.211A Strain of muscle, fascia and tendon of other parts of biceps, right arm, initial encounter; X58.XXXA Exposure to other specified factors, initial encounter; M19.011 Primary osteoarthritis, right shoulder
CPT/HCPCS: 73221

== ENCOUNTER → 2022-07-27 | Outpatient (CLI) | payer MEDICARE, OTHER, SELFPAY ==
[2022-07-27 12:49] LABS: AST(SGOT) 21 U/L (15-37); Alanine Aminotransfer ALT/SGPT 23 U/L (13-56); Albumin, Serum 3.5 g/dL (3.2-5.0); Alkaline Phosphatase 91 U/L (45-117); Anion Gap 7 (5-15); BUN 14 mg/dL (7-18); BUN/Creat Ratio 22.5 RATIO (10-20); Calcium,Total 9.5 mg/dL (8.5-10.1); Chloride 106 mmol/L (98-107); Cholesterol 183 mg/dL (200); Creatinine, Serum 0.62 mg/dL (0.55-1.02); EST Glomerular Filtration Rate 98 mL/min (>60); Est Glom Filt Rate - Afr Amer 118 mL/min (>60); Free T3 2.2 pg/mL (2.18-3.98); Globulin 3.4 g/dL (2.2-4.2); Glucose 111 mg/dL (74-106); High Density Lipoprotein 79 mg/dL; Potassium 3.9 mmol/L (3.5-5.1); Protein, Total 6.9 g/dL (6.4-8.2); Sodium Level 140 mmol/L (136-145); T4 Free Direct 1.27 ng/dL (0.76-1.46); Thyroid Stim Hormone (TSH) 0.46 uIU/mL (0.358-3.74); Triglycerides 102 mg/dL; Very Low Density Lipoprotein 20 mg/dL (5-40)
== END | disposition home or self-care (01) ==
LOC: MFPLAB 11:05
PROVIDERS: PCP Family Medicine; Referring Provider Family Medicine; Visit Provider Family Medicine
DX: E03.9 Hypothyroidism, unspecified (principal); I25.10 Atherosclerotic heart disease of native coronary artery without angina pectoris
CPT/HCPCS: 36415; 80053; 80061; 84439; 84443; 84481

== ENCOUNTER → 2022-10-10 | Outpatient (CLI) | payer MEDICARE, OTHER, SELFPAY ==
[2022-10-10 13:31] LABS: Anion Gap 6 (5-15); BUN 17 mg/dL (7-18); BUN/Creat Ratio 27.3 RATIO (10-20); Calcium,Total 9.5 mg/dL (8.5-10.1); Chloride 108 mmol/L (98-107); Creatinine, Serum 0.62 mg/dL (0.55-1.02); EST Glomerular Filtration Rate 98 mL/min (>60); Est Glom Filt Rate - Afr Amer 118 mL/min (>60); Glucose 102 mg/dL (74-106); Potassium 3.9 mmol/L (3.5-5.1); Sodium Level 143 mmol/L (136-145)
== END | disposition home or self-care (01) ==
LOC: MFPLAB 11:12
PROVIDERS: PCP Family Medicine; Visit Provider Family Medicine
DX: E11.59 Type 2 diabetes mellitus with other circulatory complications (principal); I10 Essential (primary) hypertension
CPT/HCPCS: 36415; 80048

== ENCOUNTER → 2023-01-03 | Outpatient (CLI) | payer MEDICARE, OTHER, SELFPAY ==
--- NOTE | 2023-01-03 12:38 | RAD_ITS ---
INDICATION: PAIN EXAMINATION/TECHNIQUE: X-RAY - LEFT XR Shoulder 4 VIEWS COMPARISON: None. FINDINGS: SOFT TISSUES: No soft tissue swelling or gas. No radiopaque foreign body. BONES/JOINTS: No acute fracture or subluxation.. Normal alignment. There is inferior hooking at the acromion. Preservation of the joint space.. No sclerotic or destructive changes observed. RAD/Shoulder min 2 Views IMPRESSION: There is inferior hooking at the acromion. Electronically Signed: Clarence Hahn DO at 19:18 EDT ,
== END | disposition home or self-care (01) ==
LOC: MTRAD 12:37
PROVIDERS: PCP Family Medicine; Referring Provider Family Medicine; Visit Provider Family Medicine
DX: M25.512 Pain in left shoulder (principal)
CPT/HCPCS: 73030

== ENCOUNTER → 2023-02-26 | Outpatient (CLI) | payer MEDICARE, OTHER, SELFPAY ==
[2023-02-26 13:38] LABS: Anion Gap 8 (5-15); BUN 18 mg/dL (7-18); Calcium,Total 9.4 mg/dL (8.5-10.1); Chloride 101 mmol/L (98-107); Cholesterol 197 mg/dL (200); Creatinine, Serum 0.69 mg/dL (0.55-1.02); EST Glomerular Filtration Rate 86 mL/min (>60); Est Glom Filt Rate - Afr Amer 105 mL/min (>60); Glucose 116 mg/dL (74-106); High Density Lipoprotein 79 mg/dL; Potassium 3.4 mmol/L (3.5-5.1); Sodium Level 140 mmol/L (136-145); T4 Free Direct 1.24 ng/dL (0.76-1.46); Thyroid Stim Hormone (TSH) 0.61 uIU/mL (0.358-3.74); Triglycerides 129 mg/dL; Very Low Density Lipoprotein 26 mg/dL (5-40)
== END | disposition home or self-care (01) ==
LOC: MFPLAB 11:02
PROVIDERS: PCP Family Medicine; Visit Provider Family Medicine
DX: E11.9 Type 2 diabetes mellitus without complications (principal); E03.9 Hypothyroidism, unspecified
CPT/HCPCS: 36415; 80048; 80061; 84439; 84443; 84481

== ENCOUNTER → 2023-03-26 | Outpatient (CLI) | payer MEDICARE, OTHER, SELFPAY ==
--- NOTE | 2023-03-26 13:50 | ECHOCS_ITS ---
Reason For Study: HYPERTROPHIC CMP Procedure This was a 2D Doppler, Color Flow transthoracic echocardiogram. The study was technically difficult. Due to body habitus. Contrast injection was performed. Exam performed in department. Left Ventricle Normal LV size. Severe concentric left ventricular hypertrophy. Left ventricular systolic function is normal. The estimated ejection fraction is 70 %. Stage 1 diastolic dysfunction. No regional wall motion abnormalities noted. Right Ventricle Normal RV size. Normal systolic function. Atria The left atrium is mildly enlarged. Normal right atrium. Mitral Valve There is moderate mitral annular calcification. Tricuspid Valve Normal tricuspid valve. Mild (1+) tricuspid valve insufficiency. Pulmonary artery systolic pressure is 42 mmHg. Aortic Valve Trisinus/trileaflet aortic valve. Mild focal aortic valve calcification. Pulmonic Valve The pulmonic valve is not well visualized. Great Vessels Normal aortic root. The pulmonary artery is normal size. Normal inferior vena cava. Pericardium/Pleural No pericardial effusion. Medication 22 gauge I.V. with prn adaptor inserted into right arm. Diluted definity 2.5ml given slow IV push to enhance endocardial definition. MMode/2D Measurements & Calculations LVIDd: 4.2 cm IVSd: 1.9 cm Ao root diam: 3.1 cm LVIDs: 2.7 cm LVPWd: 1.8 cm RVDd: 3.0 cm FS: 37.1 % LAV(MOD-bp): 81.6 ml LA A4 area: 26.3 cm2 LA dimension(2D): 4.1 cm LAV(MOD-bp) Indexed: 46.7 ml/m2 LAV(MOD-sp2): 79.4 ml LAV(MOD-sp4): 78.3 ml RA A4 area: 14.7 cm2 Time Measurements MV dec time: 0.41 sec Doppler Measurements & Calculations MV E max aiden: 93.5 cm/sec Lat Peak E' Aiden: 4.7 cm/sec Med Peak E' Aiden: 5.7 cm/sec MV A max aiden: 101.6 cm/sec E/E' lat: 19.8 E/E' med: 16.3 MV E/A: 0.92 MV dec slope: 234.4 cm/sec2 Ao V2 max: 212.7 cm/sec LV V1 max: 97.4 cm/sec Ao max P.1 mmHg LV V1 max P.8 mmHg Ao V2 mean: 134.2 cm/sec LV V1 mean P.3 mmHg Ao mean P.4 mmHg LV V1 mean: 70.9 cm/sec Ao V2 VTI: 47.7 cm LV V1 VTI: 23.6 cm AV (velocity ratio): 0.50 PA V2 max: 93.9 cm/sec TR max aiden: 311.4 cm/sec TR max P.8 mmHg ECHO/Echo Complete W/ Contrast Interpretation Summary Left ventricular systolic function is normal. The estimated ejection fraction is 70 %. Stage 1 diastolic dysfunction. The left atrium is mildly enlarged. Severe concentric left ventricular hypertrophy. Contrast injection was performed. Ordering Physician: Leonarda Cook Referring Physician: Gopi Whitehead Performed By: Argenis Vickers, MOHAMUD, RVT
== END | disposition home or self-care (01) ==
LOC: CVS 13:49
PROVIDERS: PCP Family Medicine; Referring Provider Physician Assistant Medical; Visit Provider Physician Assistant Medical
DX: I27.21 Secondary pulmonary arterial hypertension (principal)
CPT/HCPCS: 93306; Q9957; A4216; C8929

== ENCOUNTER → 2023-04-11 | Outpatient (CLI) | payer MEDICARE, OTHER, SELFPAY ==
[2023-04-11 13:21] LABS: Anion Gap 7 (5-15); BUN 15 mg/dL (7-18); BUN/Creat Ratio 21.6 RATIO (10-20); Calcium,Total 9.1 mg/dL (8.5-10.1); Chloride 106 mmol/L (98-107); EST Glomerular Filtration Rate 86 mL/min (>60); Est Glom Filt Rate - Afr Amer 104 mL/min (>60); Free T3 1.9 pg/mL (2.18-3.98); Glucose 114 mg/dL (74-106); Sodium Level 138 mmol/L (136-145); Thyroid Stim Hormone (TSH) 0.63 uIU/mL (0.358-3.74)
== END | disposition home or self-care (01) ==
LOC: MFPLAB 11:07
PROVIDERS: PCP Family Medicine; Visit Provider Family Medicine
DX: E03.9 Hypothyroidism, unspecified (principal); E11.9 Type 2 diabetes mellitus without complications
CPT/HCPCS: 36415; 80048; 84443; 84481

== ENCOUNTER → 2023-09-02 | Outpatient (CLI) | payer MEDICARE, OTHER, SELFPAY ==
[2023-09-02 15:57] LABS: Anion Gap 9 (5-15); BUN 22 mg/dL (7-18); BUN/Creat Ratio 23.5 RATIO (10-20); Calcium,Total 8.9 mg/dL (8.5-10.1); Chloride 102 mmol/L (98-107); Cholesterol 206 mg/dL (200); Creatinine, Serum 0.94 mg/dL (0.55-1.02); EST Glomerular Filtration Rate 61 mL/min (>60); Est Glom Filt Rate - Afr Amer 74 mL/min (>60); Free T3 2.1 pg/mL (2.18-3.98); Glucose 110 mg/dL (74-106); High Density Lipoprotein 74 mg/dL; Potassium 3.3 mmol/L (3.5-5.1); Sodium Level 141 mmol/L (136-145); T4 Free Direct 1.15 ng/dL (0.76-1.46); Thyroid Stim Hormone (TSH) 0.46 uIU/mL (0.358-3.74); Triglycerides 163 mg/dL; Very Low Density Lipoprotein 33 mg/dL (5-40)
[2023-09-02 16:14] LABS: Creatinine, Urine (random) < 13.00 mg/dL (NO RANGE EST.); Microalbumin,Random Urine 5.5 mg/L (NO RANGE EST.)
== END | disposition home or self-care (01) ==
LOC: MFPLAB 11:50
PROVIDERS: PCP Family Medicine; Visit Provider Family Medicine
DX: E03.9 Hypothyroidism, unspecified (principal); E11.9 Type 2 diabetes mellitus without complications
CPT/HCPCS: 36415; 80048; 80061; 82043; 82570; 84439; 84443; 84481

== ENCOUNTER 2023-09-23 16:11 | Emergency (ER) | payer MEDICARE, OTHER, SELFPAY ==
[2023-09-23 16:14] VITALS: BP 116/43; PULSE 54; RESP 18; TEMP 35.9; O2SAT 100
--- NOTE | 2023-09-23 16:29 | EDS_ITS ---
HPI <MICHAEL Alcaraz - Last Filed: 09/23/23 18:02> History of Present Illness Chief Complaint: Dizziness Narrative Narrative: 83-year-old female with PMH of HTN, HLD, DM2 and presents with lightheadedness that occurred about 45 minutes ago while she was at home. She was chasing her kittens and felt dizzy like she might pass out. She sat down and it lasted about 5 minutes. Her home physical therapist had arrived and checked her blood pressure and it was 90 systolic. She had no associated chest pain, shortness of breath, palpitations, nausea or vomiting, or syncope. She now feels back to baseline. She is on lisinopril for blood pressure. PFSH <MICHAEL Alcaraz - Last Filed: 09/23/23 18:02> [facility] Medical History Arthritis Atherosclerosis of coronary artery without angina pectoris Essential (primary) hypertension GERD (gastroesophageal reflux disease) Hyperlipidemia Hypertrophic cardiomyopathy Hypothyroidism LAE (left atrial enlargement) Left ventricular hypertrophy Non-rheumatic mitral valve stenosis Obesity Obstructive sleep apnea Psoriasis Secondary pulmonary arterial hypertension Type 2 diabetes mellitus Home Medications alprazolam 0.5 mg tablet 0.5 mg PO BID-TID PRN Anxiety 10/29/18 [History Last Taken Unknown] aspirin 81 mg tablet,delayed release (Adult Aspirin Regimen) 81 mg PO DAILY 10/29/18 [History Last Taken 03/26/22] furosemide 40 mg tablet (Lasix) 40 mg PO DAILY 05/29/19 [History Last Taken Unknown] primidone 50 mg tablet 50 mg PO TID 05/29/19 [History Last Taken Unknown] gabapentin 800 mg tablet 800 mg PO TID 30 days #90 tabs 03/09/21 [History Last Taken Unknown] hydrocodone 7.5 mg-acetaminophen 325 mg tablet 1 tab PO Q6H PRN Pain 03/09/21 [History Last Taken Unknown] levothyroxine 100 mcg tablet See Rx Instructions PO DAILY 90 days 03/09/21 [History Last Taken 03/26/22] omeprazole 40 mg capsule,delayed release 40 mg PO DAILY 90 days #90 caps 03/09/21 [History Last Taken Unknown] ergocalciferol (vitamin D2) 1,250 mcg (50,000 unit) capsule 1,250 mcg PO QWEEK 12/12/21 [History Last Taken Unknown] potassium chloride 20 mEq tablet,extended release(part/cryst) 20 meq PO DAILY 12/12/21 [History Last Taken Unknown] clopidogrel 75 mg tablet (Plavix) 75 mg PO DAILY #90 tabs 05/01/22 [Rx Last Taken Unknown] metformin 500 mg tablet 1,000 mg PO DAILY 06/15/22 [History Last Taken Unknown] pravastatin 10 mg tablet 10 mg PO DAILY 06/15/22 [History Last Taken Unknown] carvedilol 12.5 mg tablet 12.5 mg PO BID #180 tabs 03/28/23 [Rx Last Taken Unknown] lisinopril 20 mg-hydrochlorothiazide 12.5 mg tablet 1 tab PO DAILY #90 tabs 03/28/23 [Rx Last Taken Unknown] Allergy/AdvReac Type Severity Reaction Status Date / Time No Known Allergies Allergy Verified 09/23/23 16:12 Family History Other Heart disease Surgical History History of back surgery History of cataract surgery History of coronary artery stent placement (03/26/22) History of herniorrhaphy Hx of cholecystectomy Social History Smoking Status: Former smoker how long ago did patient quit smokin years ago substance use type: does not use caffeine: Yes Type: coffee Number of servings: 3 ROS <MICHAEL Alcaraz - Last Filed: 09/23/23 18:02> ROS ED ROS Narrative Constitutional: Negative for fever, chills, malaise. CVS: Negative for palpitations, chest pain, syncope. Respiratory: Negative for shortness of breath, cough. GI: Negative for abdominal pain, nausea, vomiting, melena, hematochezia. : Negative for dysuria. Neuro: Negative for headache. EXAM <MICHAEL Alcaraz - Last Filed: 09/23/23 18:02> Physical Exam Narrative Exam Narrative: CONST: Patient sitting in no acute distress. EYES: Normal inspection. NECK: Normal inspection. RESP: No respiratory distress, CTAB. CVS: Regular rate and rhythm, no murmur, no gallop. ABD: Soft and nontender, no guarding or rebound, nondistended. SKIN: Color normal, no rash, warm, dry, intact. EXTREMITIES: Normal appearance, no pedal edema. NEURO: Oriented x4. PSYCH: Normal affect. Const Vital Signs: 09/23/23 16:14 09/23/23 16:22 Temperature 96.7 F L Temperature Source Temporal Pulse Rate 54 L Respiratory Rate 18 Respiratory Effort Normal Respiratory Pattern Normal Blood Pressure 116/43 L Blood Pressure Mean 67 Pulse Ox 100 Oxygen Delivery Method Room Air <Dr. Max Fam MD - Last Filed: 09/23/23 16:39> Physical Exam Const Vital Signs: 09/23/23 16:14 09/23/23 16:22 Temperature 96.7 F L Temperature Source Temporal Pulse Rate 54 L Respiratory Rate 18 Respiratory Effort Normal Respiratory Pattern Normal Blood Pressure 116/43 L Blood Pressure Mean 67 Pulse Ox 100 Oxygen Delivery Method Room Air MDM <MICHAEL Alcaraz - Last Filed: 09/23/23 18:02> [facility] MDM Narrative Medical decision making narrative: History gathered from: Patient and family member Patient had an episode of presyncope lasting about 5 minutes. No other associated symptoms and she now feels back to normal. She appears well and nontoxic. Heart rates 55 and the monitor is consistent with sinus bradycardia. The rest of her vitals are stable and her medical exam is unremarkable. Labs show normal white count mild anemia at 10.7. Potassium slightly low at 3.3. BUN 32, creatinine 1.2 slightly up from her baseline which was treated with IV fluids. Glucose is 116. Troponin normal at 22. EKG is sinus bradycardia with no acute ischemic changes?there does appear to be one brief sinus pause. Medications were reviewed and she is on lisinopril?HCTZ and carvedilol with the latter likely causing her sinus bradycardia. She states the nurse comes once a week to set up her medications but she has noticed that he put to carvedilol pills and there when she is only supposed to have 1. She fixed it today herself and only took 1. I recommended she keep a close eye on it and since she is persistently sinus bradycardic here around 55 bpm this might be contributing to her lightheadedness so I recommended she decrease from 12.5 mg to 6.25 mg twice daily and follow-up with her PCP in the next 7 to 10 days to have vital signs rechecked. She has been asymptomatic here and is able to ambulate at baseline. Return precautions were discussed and she was discharged in stable condition Lab Data Attestation: I reviewed the patient's lab results. Labs: Laboratory Results - last 24 hr 09/23/23 16:32 WBC 6.6 RBC 3.55 L Hgb 10.7 L Hct 32.8 L MCV 92.4 MCH 30.1 MCHC 32.6 RDW Std Deviation 43.3 RDW Coeff of Peewee 12.8 Plt Count 206 MPV 11.8 Immature Gran % (Auto) 0.300 Neut % (Auto) 56.0 Lymph % (Auto) 30.5 Rosebud % (Auto) 9.3 Eos % (Auto) 3.1 Baso % (Auto) 0.8 Absolute Neuts (auto) 3.7 Absolute Lymphs (auto) 2.00 Nucleated RBC % 0 Sodium 138 Potassium 3.3 L Chloride 103 Carbon Dioxide 30.0 Anion Gap 5 BUN 32 H Creatinine 1.20 H Estim Creat Clear Calc 29.08 Est GFR (MDRD) Af Amer 55 L Est GFR (MDRD) Non-Af 46 L BUN/Creatinine Ratio 26.7 H Glucose 116 H Calcium 9.0 Troponin I High Sens 22 Radiography Diagnostic Testing: Clinical Impression(s) from Imaging Studies Chest X-Ray 09/23/23 16:45 IMPRESSION: Mild left midlung atelectasis, otherwise no acute heart or pulmonary disease. Electronically Signed: Harriet Trujillo MD at 17:08 EST , ED attending interpretation of 1-view chest x-ray shows normal heart size, no acute infiltrate, edema, or effusion. EKG Initial EKG: Attestation: I personally reviewed and interpreted this EKG as follows: Comments: Sinus bradycardia with marked sinus arrhythmia at 49 bpm There is a sinus pause noted between consecutive beats that occurs once <Dr. Max Fam MD - Last Filed: 09/23/23 16:39> [facility] Lab Data Labs: Laboratory Results - last 24 hr 09/23/23 16:32 WBC 6.6 RBC 3.55 L Hgb 10.7 L Hct 32.8 L MCV 92.4 MCH 30.1 MCHC 32.6 RDW Std Deviation 43.3 RDW Coeff of Peewee 12.8 Plt Count 206 MPV 11.8 Immature Gran % (Auto) 0.300 Neut % (Auto) 56.0 Lymph % (Auto) 30.5 Rosebud % (Auto) 9.3 Eos % (Auto) 3.1 Baso % (Auto) 0.8 Absolute Neuts (auto) 3.7 Absolute Lymphs (auto) 2.00 Nucleated RBC % 0 Sodium 138 Potassium 3.3 L Chloride 103 Carbon Dioxide 30.0 Anion Gap 5 BUN 32 H Creatinine 1.20 H Estim Creat Clear Calc 29.08 Est GFR (MDRD) Af Amer 55 L Est GFR (MDRD) Non-Af 46 L BUN/Creatinine Ratio 26.7 H Glucose 116 H Calcium 9.0 Troponin I High Sens 22 Radiography Diagnostic Testing: Clinical Impression(s) from Imaging Studies Chest X-Ray 09/23/23 16:45 IMPRESSION: Mild left midlung atelectasis, otherwise no acute heart or pulmonary disease. Electronically Signed: Harriet Trujillo MD at 17:08 EST , Treatment and Re-Evaluation :: I have personally performed a face to face assessment of the patient and have reviewed the THANIA Note. I performed a substantive portion of the visit including all aspects of the following. My bauer findings include: History: Presents with a lightheaded almost near syncopal episode at home. This occurred after chasing cats but she did not have symptoms while chasing them. She feels fine now. I also note that her heart rate is a little bit slow. I talked to her about this. I find out that in her daily box of divided meds, she noted that her nurse put 2 of Coreg and there when she is only post to have 1 tablet. She only took 1 tablet today. But this brings up a question if she has been taking twice the dose normally. Patient did not have chest pain. She had no neurologic symptoms. She has not felt ill recently. Exam: She is awake alert no acute distress. Mucous membranes do look moist. No pallor of the conjunctive a. Lungs are clear. Saturations are normal 100% on room air showing no hypoxia. Heart is regular but is bradycardic at about 55. She had a slightly longer pause on her EKG but I did not see any of those while I was in the room watching the monitor and talking with her. Abdomen is benign. Extremities show no notable edema or tenderness. Neurologically she is awake alert appropriate no focal deficit. She is a reasonably good informant for for her medical conditions and the events of the day. Medical Decision Making: We kept on the monitor. EKG blood work will be done. Discharge Plan Triage Chief Complaint: Dizziness ED Midlevel Provider: Savi Zimmer ED Provider: Max Fam Dx/Rx/DC Orders Clinical Impression: Bradycardia, sinus, Pre-syncope, Acute hypokalemia Instructions: ED Bradycardia Prescriptions: No Action aspirin [Adult Aspirin Regimen] 81 mg tablet,delayed release (DR/EC) 81 mg PO DAILY alprazolam 0.5 mg tablet 0.5 mg PO BID-TID PRN (Reason: Anxiety) gabapentin 800 mg tablet 800 mg PO TID 30 Days Qty: 90 levothyroxine 100 mcg tablet See Rx Instructions PO DAILY 90 Days Rx Instructions: 100 mcg daily except 200 mg on Sundays omeprazole 40 mg capsule,delayed release(DR/EC) 40 mg PO DAILY 90 Days Qty: 90 primidone 50 mg tablet 50 mg PO TID furosemide [Lasix] 40 mg tablet 40 mg PO DAILY hydrocodone-acetaminophen 7.5-325 mg tablet 1 tab PO Q6H PRN (Reason: Pain) ergocalciferol (vitamin D2) 1,250 mcg (50,000 unit) capsule 1,250 mcg PO QWEEK Patient Comments: TAKE 1 CAPSULE BY MOUTH ONCE A WEEK potassium chloride 20 mEq tablet,ER particles/crystals 20 meq PO DAILY metformin 500 mg tablet 1,000 mg PO DAILY pravastatin 10 mg tablet 10 mg PO DAILY clopidogrel [Plavix] 75 mg tablet 75 mg PO DAILY Qty: 90 3RF carvedilol 12.5 mg tablet 12.5 mg PO BID Qty: 180 3RF lisinopril-hydrochlorothiazide 20-12.5 mg tablet 1 tab PO DAILY Qty: 90 3RF Primary Care Provider: Gopi Whitehead Referrals: Gopi Whitehead MD [Primary Care Provider] - Activity Restrictions/Additional Instructions: Your heart rate is lower than normal and likely from your carvedilol. Currently you take carvedilol 12.5 mg tablet once a day. I recommend you cut this in half and only take 6.25 mg once a day and follow-up with your primary care doctor. Disposition Disposition: Home, Self Care
[2023-09-23] MEDS: 0.9% Normal Saline (1000mL) 1,000 ML 999 ML IV (16:32)
[2023-09-23 16:34] VITALS: BMI 30.3
[2023-09-23 16:37] LABS: Absolute Neutrophil Count 3.7 X10^3/uL (2.0-7.7); Basophil# 0.05 X10^3/uL; Basophil% 0.8 % (0-1); Eosinophils% 3.1 % (0-5); Hematocrit 32.8 % (37-47); Hemoglobin 10.7 g/dL (12.0-15.0); Lymphocyte % 30.5 % (19-41); Mean Corp Hgb Conc 32.6 g/dL (32-36); Mean Corpuscular Hgb 30.1 pg (27.0-32.0); Mean Corpuscular Volume 92.4 fL (81-99); Mean Platelet Vol. 11.8 fl (6.2-12.0); Monocyte# 0.61 X10^3/uL; Monocyte% 9.3 % (0-10); NRBC Flagged by Analyzer 0 % (0-5); Neutrophil # 3.67 X10^3/uL (2.7-7.7); Platelet Count 206 K/mm3 (150-450); RBC Distribution Width CV 12.8 % (11.6-14.6); RBC Distribution Width SD 43.3 fl (35.1-43.9); Red Blood Count 3.55 M/mm3 (4.2-5.4); White Blood Count 6.6 K/mm3 (4.4-11.0)
--- NOTE | 2023-09-23 16:45 | RAD_ITS ---
STUDY: X-RAY CHEST REASON FOR EXAM: Female, 83 years old. dizziness TECHNIQUE: Single AP portable view of the chest. COMPARISON: 03/22/2022. FINDINGS: The lungs are normally expanded with minimal left midlung atelectasis, otherwise clear. There is no demonstrated pleural abnormality. Normal size heart. Normal mediastinum and osmar. Normal visualized pulmonary arteries. There is atherosclerotic calcification of the aortic arch with tortuosity. There are diffuse degenerative changes of the visualized thoracic spine. Normal visualized ribs, clavicles, and shoulders. There is no demonstrated abnormality of the visualized soft tissue structures of the upper abdomen. RAD/Chest 1 View (Portable) IMPRESSION: Mild left midlung atelectasis, otherwise no acute heart or pulmonary disease. Electronically Signed: Harriet Trujillo MD at 17:08 EST ,
--- NOTE | 2023-09-23 17:07 | EKG12_ITS ---
Test Reason : DIZZY Blood Pressure : / mmHG Vent. Rate : 049 BPM Atrial Rate : 049 BPM P-R Int : 210 ms QRS Dur : 096 ms QT Int : 402 ms P-R-T Axes : 077 -22 113 degrees QTc Int : 363 ms Sinus bradycardia with marked sinus arrhythmia with 1st degree A-V block Minimal voltage criteria for LVH, may be normal variant ( Reed product ) Inferior infarct , age undetermined Abnormal ECG Confirmed by NATALIA GRULLON, JERED ([id number]), managing editor CANELO STATON ([id number]) on 09/24/2023 9:45:15 AM Referred By: PL/ODILIA Confirmed By:JERED FISHER MD
[2023-09-23 17:29] LABS: Anion Gap 5 (5-15); BUN 32 mg/dL (7-18); BUN/Creat Ratio 26.7 RATIO (10-20); Chloride 103 mmol/L (98-107); EST Glomerular Filtration Rate 46 mL/min (>60); Est Glom Filt Rate - Afr Amer 55 mL/min (>60); Estimated Creatinine Clearance 29.08 ml/min; Glucose 116 mg/dL (74-106); Potassium 3.3 mmol/L (3.5-5.1); Sodium Level 138 mmol/L (136-145); Troponin-I HS 22 pg/mL (3.0-54.0)
[2023-09-23] MEDS: Potassium Chloride Oral Tablet 20 MEQ 40 MEQ PO (17:45)
[2023-09-23 18:11] VITALS: BP 174/52; PULSE 55; RESP 16; O2SAT 99
== END 2023-09-23 18:12 | disposition home or self-care (01) ==
PROVIDERS: Physician Assistant; Emergency Provider Emergency Medicine; PCP Family Medicine; Visit Provider Emergency Medicine
DX: R00.1 Bradycardia, unspecified (principal); E11.9 Type 2 diabetes mellitus without complications; R55 Syncope and collapse; E87.6 Hypokalemia; I25.10 Atherosclerotic heart disease of native coronary artery without angina pectoris; G47.33 Obstructive sleep apnea (adult) (pediatric); Z87.891 Personal history of nicotine dependence
CPT/HCPCS: 71045; 80048; 84484; 85025; 93005; 96360; 99283; J7030

== ENCOUNTER → 2023-10-10 | Outpatient (CLI) | payer MEDICARE, OTHER, SELFPAY ==
--- OUTSIDE RECORDS SUMMARY | 2023-10-10 11:45 | XMS RPT_ITS | CCD ---
Author Name Unknown Address [address] [place] [address] Organization [facility] Care Team Providers Care Head Of Science Name Role Phone Grisel Alvarado Unavailable Unavailable PROVIDER, UNKNOWN Unavailable Unavailable Gopi Whitehead Unavailable Unavailable Charley GRULLON, Gopi German Primary Care Provider 1( [phone] Allergies Allergy Classification Reported Allergen(s) Allergy Type Date of Onset Reaction(s) Facility (2 sources) Seasonal allergy Allergy to substance 9 Other: See Comments [facility] Work Phone: Medications Completed/Discontinued Medications Medication Drug Class(es) Dates Sig (Normalized) Sig (Original) acetaminophen 325 mg / HYDROcodone bitartrate 7.5 mg oral tablet (2 sources) Opioid Agonist take 1 tablet by erika th four times daily HYDROcodone-Acetami nophen (NORCO) 7.5-325 mg per tablet Take 1 tablet by mouth four times daily. 0 Active Problems Active Problems Problem Classification Problem Date Documented Date Episodic/Chronic Spondylosis; intervertebral disc disorders; other back problems (4 sources) Postlaminectomy syndrome, not elsewhere classified; Translations: [Spondylosis without myelopathy or radiculopathy, lumbosacral region] Onset: 08-19-2017 Chronic Past or Other Problems Problem Classification Problem Date Documented Da te Episodic/Chronic Other connective tissue disease (2 sources) Full thickness rotator cuff tear; Translations: [Complete rotator cuff tear or rupture of left shoulder, not specified as traumatic] Onset: 05-31-2016 05-31-2016 Episodic Other non-traumatic joint disorders (2 sources) Chronic pain of left upper limb; Translations: [Pain in left shoulder] Onset: 05-31-2016 05-31-2016 Episodic Results Test Name Value Interpretation Reference Range Facil ity Encounters Encounter Date Encounter Type Care Provider Facility Start: 03-14-2022 End: 03-14-2022 Subsequent hospital visit by physician Mri 2 [facility] (I-Stat/1.5t) [facility] Plan of Treatment Date Care Activity Detail Author Start: 06-07-2022 Influenza vaccination INFLUENZA (Sea son Ended) [facility] Start: 11-20-2021 COVID-19 VACCINE (5 - Booster for Pfizer series) COVID-19 VACCINE (5 - Booster for Pfizer series) [facility] Start: 10-07-2021 ADVANCE DIRECTIVE DISCUSSION ADVANCE DIRECTIVE DISCUSSION [facility] Start: 2007 BONE DENSITY BONE DENSITY [facility] Start: 1992 SHINGRIX VACCINE (1 of 2) AVILA GRIX VACCINE (1 of 2) [facility] Start: 1987 DIABETES SCREEN DIABETES SCREEN [facility] Start: 1961 SHINGRIX VACCINE (1 of 2) AVILA GRIX VACCINE (1 of 2) [facility] Start: 1961 Urine microalbumin profile DTAP,TDAP ,TD (1 - Tdap) [facility] Start: 1954 Adult depression scr eening assessment DEPRESSION SCREENING [facility] Start: 1948 PNEUMOCOCCAL: 65+ (1 - PCV) PNEUMOCOCCAL: 65+ (1 - PCV) [facility] Start: 1947 COVID-19 VACCINE (#1) COVID-19 VACCI NE (#1) [facility] Payers Date Payer Category Payer Unknown [id number] 2004 Medicare MEDICARE MEDICAR E A AND B [id number] 2004-Present [phone] [address] [address] [place] [address] Medicare [id number] Medicare Social History Date Type Detail Facility Start: 05-31-2016 Tobacco smoking stat NHIS Ex-smoker [facility] Work Phone: History of tobacco use Cigarette Smoker [facility] Work Phone: Start: 05-31-2016 Tobacco use and exposure Smokeless tobacco non-user [facility] Work Phone: Start: 10-15-2019 Alcohol intake Current non-dr abdi of alcohol (finding) [facility] Start: 1940 Sex Assigned At Not on file [facility] Start: 03-04-2022 End: 03-14-2022 Exposure to SARS-CoV-2 (event) Not sure [facility] Clinical Note 11-15-2020 Note Date & Type Note Facility 11-15-2020 Note Patient Outreach ([facility]) NORA CONNELL ([id number]) 1940 F Date Time Provider Department 11/15/20 ANNITA TAPIA During your visit today, we recorded the following information about you: Allergies As of Date: 11/15/2020 Noted Allergy Reaction SEASONAL ALLERGIES 12/18/2018 14 - Other: See Comments Comments: sneezing and runny nose Date Reviewed: 10/15/2019 Reviewed by: Cristy Perez Ma - Fully Assessed Order(s):SARS-COVID VACCINE 1ST DOSE APPT [[id number]] Order #: [id number] FUTURE Prescriptions as of 11/15/2020 Sig: LIDOCAINE HCL 4 % TOPICAL CRE* Apply 1 application to affect* PRIMIDONE 50 MG TABLET Take 50 mg by mouth once cj* VITAMIN D2 1,250 MCG (50,000 * Take 50,000 Units by mouth on* MELOXICAM 15 MG TABLET Take 1 tablet by mouth once d* APREMILAST 30 MG TABLET Take 30 mg by mouth twice anam* OMEPRAZOLE 40 MG CAPSULE,SLOANE* Take 40 mg by mouth once cj* METFORMIN 1,000 MG TABLET Take 500 mg by mouth twice da* FUROSEMIDE 40 MG TABLET Take 40 mg by mouth once cj* GABAPENTIN 800 MG TABLET Take 800 mg by mouth three ti* ALPRAZOLAM 0.5 MG TABLET Take 0.5 mg by mouth at bedti* METOCLOPRAMIDE 5 MG TABLET Take 5 mg by mouth as needed. LEVOTHYROXINE 100 MCG TABLET Take 100 mcg [...] Take 1 tablet by mouth four t* Problem List As Of Date 11/15/2020 Noted Resolved Chronic left shoulder pain [M25.512, G89.29] 05/31/2016 Complete tear of left rotator cuff [M75.122] 05/31/2016 Letter Text Encounter Status:Closed by EPIC, PRODUSER on 11/18/20 [facility] Summary Purpose Family History No Family History Records FoundNo Family History Records FoundNo Family History Records Found Advance Directives No Advanced Directives Records FoundNo Advanced Directives Records FoundNo Advanced Directives Records Found Additional Source Comments INFORMATION SOURCE (unrecogn ized section and content) DATE CREATED AUTHOR AUTHOR'S ORGANIZ ATION 11/03/2021 [facility] DATE CREATED AUTHOR AUTHOR'S ORGANIZ ATION 03/17/2022 [facility] Source Comments (unrecognize d section and content) In the event this informatio n is protected by the Federal Confidentiality of Alcohol and Drug Abuse Patient Records regulations: The Federal rules restrict any use of the information to criminally investigate or prosecute any alcohol or drug abuse patient.[facility] the event this information is protected by the Federal Confidentiality of Alcohol and Drug Abuse Patient Records regulations: The Federal rules restrict any use of the information to criminally investigate or prosecute any alcohol or drug abuse patient.[facility] Reason for Visit (unrecogniz ed section and content) Care Teams (unrecognized sec tion and content) Head Of Science Relationship Specialty Start Date End Date Gopi Whitehead MD PCP - General Family Practice 05/02/17 FOR RECORDS PERTAINING TO PATIENTS WHO ARE OR HAVE BEEN ENROLLED IN A CHEMICAL DEPENDENCY/SUBSTANCEABUSE PROGRAM, SOME INFORMATION MAY BE OMITTED. This clinical summary was aggregated from multiple sources. Caution should be exercised in using it in the provision of clinical care. This summary normalizes information from multiple sources, and as a consequence, information in this document may materially change the coding, format and clinical context of patient data. In addition, data may be omitted in some cases. CLINICAL DECISIONS SHOULD BE BASED ON THE PRIMARY CLINICAL RECORDS. [facility]. provides no warranty or guarantee of the accuracy or completeness of information in this document.
[2023-10-10 15:45] LABS: AST(SGOT) 23 U/L (15-37); Alanine Aminotransfer ALT/SGPT 29 U/L (13-56); Albumin, Serum 3.5 g/dL (3.2-5.0); Alkaline Phosphatase 137 U/L (45-117); Anion Gap 6 (5-15); BUN 26 mg/dL (7-18); BUN/Creat Ratio 21.3 RATIO (10-20); Calcium,Total 8.7 mg/dL (8.5-10.1); Chloride 103 mmol/L (98-107); Cholesterol 190 mg/dL (200); Creatinine, Serum 1.22 mg/dL (0.55-1.02); EST Glomerular Filtration Rate 45 mL/min (>60); Est Glom Filt Rate - Afr Amer 54 mL/min (>60); Globulin 3.4 g/dL (2.2-4.2); Glucose 90 mg/dL (74-106); High Density Lipoprotein 66 mg/dL; Potassium 3.7 mmol/L (3.5-5.1); Protein, Total 6.9 g/dL (6.4-8.2); Sodium Level 140 mmol/L (136-145); T4 Free Direct 1.12 ng/dL (0.76-1.46); Thyroid Stim Hormone (TSH) 0.47 uIU/mL (0.358-3.74); Triglycerides 180 mg/dL; Very Low Density Lipoprotein 36 mg/dL (5-40)
[2023-10-10 15:56] LABS: Microalbumin,Random Urine 43.8 mg/L (NO RANGE EST.); Microalbumin:Creatinine Ratio 61.3 mg/g CRE (<30 mg/g CRE)
== END | disposition home or self-care (01) ==
LOC: MTLAB 11:14
PROVIDERS: PCP Family Medicine; Referring Provider Family Medicine; Visit Provider Family Medicine
DX: E11.9 Type 2 diabetes mellitus without complications (principal); E03.9 Hypothyroidism, unspecified
CPT/HCPCS: 36415; 80053; 80061; 82043; 82570; 84439; 84443; 84481

== ENCOUNTER → 2024-02-04 | Outpatient (CLI) | payer MEDICARE, OTHER, SELFPAY ==
--- NOTE | 2024-02-04 13:02 | ECHOCS_ITS ---
Reason For Study: MURMUR Procedure This was a 2D Doppler, Color Flow transthoracic echocardiogram. Contrast injection was performed. Exam performed in department. Left Ventricle Normal LV size. Severe concentric left ventricular hypertrophy. Apical hypertrophy. The left ventricular ejection fraction is 70 %. Left ventricular systolic function is normal. Stage 1 diastolic dysfunction. No regional wall motion abnormalities noted. Right Ventricle Normal RV size. Normal systolic function. Atria The left atrium is mildly enlarged. Normal right atrium. Mitral Valve Normal mitral valve. Tricuspid Valve Normal tricuspid valve. Mild (1+) tricuspid valve insufficiency. Pulmonary artery systolic pressure is 40 mmHg. Aortic Valve Trisinus/trileaflet aortic valve. Mild focal aortic valve calcification. Peak aortic valve gradient 15 mmHg. Mean aortic valve gradient 9 mmHg. Pulmonic Valve Normal pulmonic valve. Great Vessels Normal aortic root. The pulmonary artery is normal size. Inferior vena cava collapse with respiration. Pericardium/Pleural No pericardial effusion. Medication 22 gauge I.V. with prn adaptor inserted into left arm. Diluted definity 2ml given slow IV push to enhance endocardial definition. MMode/2D Measurements & Calculations LVIDd: 4.2 cm IVSd: 1.7 cm LVOT diam: 2.0 cm LVIDs: 1.9 cm LVPWd: 1.2 cm RVDd: 3.4 cm FS: 53.5 % LVOT area: 3.2 cm2 Ao root diam: 3.0 cm LAV(MOD-bp): 72.4 ml LVAd ap4: 31.8 cm2 LAV(MOD-bp) Indexed: 41.5 ml/m2 LVLd ap4: 7.3 cm LAV(MOD-sp2): 67.9 ml EDV(MOD-sp4): 111.8 ml LAV(MOD-sp4): 72.1 ml EDV(sp4-el): 117.0 ml LVAs ap4: 18.4 cm2 LVLs ap4: 6.2 cm ESV(MOD-sp4): 48.1 ml ESV(sp4-el): 45.9 ml EF(MOD-sp4): 57.0 % EF(sp4-el): 60.8 % LVAd ap2: 27.8 cm2 SV(MOD-sp4): 63.7 ml SV(MOD-sp2): 54.2 ml LVLd ap2: 7.0 cm EDV(MOD-sp2): 91.8 ml EDV(sp2-el): 93.7 ml LVAs ap2: 15.7 cm2 LVLs ap2: 5.7 cm ESV(MOD-sp2): 37.6 ml ESV(sp2-el): 36.9 ml EF(MOD-sp2): 59.1 % SV(sp4-el): 71.2 ml LA dimension(2D): 4.2 cm LA A4 area: 24.0 cm2 RA A4 area: 16.5 cm2 TAPSE: 2.1 cm Time Measurements MV dec time: 0.46 sec Doppler Measurements & Calculations MV E max aiden: 88.2 cm/sec Lat Peak E' Aiden: 4.9 cm/sec Med Peak E' Aiden: 4.7 cm/sec MV A max aiden: 113.4 cm/sec E/E' lat: 18.1 E/E' med: 18.6 MV E/A: 0.78 MV V2 max: 120.0 cm/sec Ao V2 max: 196.2 cm/sec MV max P.8 mmHg MV dec slope: 193.3 cm/sec2 Ao max P.4 mmHg MV V2 mean: 63.4 cm/sec Ao V2 mean: 143.7 cm/sec MV mean P.9 mmHg Ao mean P.1 mmHg MV V2 VTI: 41.1 cm Ao V2 VTI: 39.8 cm AV (velocity ratio): 0.52 MVA(VTI): 1.6 cm2 MAXINE(I,D): 1.7 cm2 MAXINE(V,D): 1.6 cm2 LV V1 max: 97.7 cm/sec SV(LVOT): 66.4 ml PA V2 max: 79.5 cm/sec LV V1 max P.8 mmHg PA max PG (full): 0.89 mmHg LV V1 mean P.2 mmHg LV V1 mean: 70.8 cm/sec LV V1 VTI: 20.8 cm TR max aiden: 302.5 cm/sec TR max P.6 mmHg ECHO/Echo Complete W/ Contrast Interpretation Summary Normal LV size. Severe concentric left ventricular hypertrophy. The left ventricular ejection fraction is 70 %. Left ventricular systolic function is normal. The left atrium is mildly enlarged. Stage 1 diastolic dysfunction. Apical hypertrophy Contrast injection was performed. Ordering Physician: Leonarda Cook Referring Physician: Gopi Whitehead Performed By: Sarah Eid RDCS
== END | disposition home or self-care (01) ==
LOC: CVS 12:56
PROVIDERS: PCP Family Medicine; Referring Provider Physician Assistant Medical; Visit Provider Physician Assistant Medical
DX: I27.21 Secondary pulmonary arterial hypertension (principal); R01.1 Cardiac murmur, unspecified
CPT/HCPCS: 93306; C8929

== ENCOUNTER → 2024-02-05 | Outpatient (CLI) | payer MEDICARE, OTHER, SELFPAY ==
--- NOTE | 2024-02-05 12:59 | ART_ITS ---
Reason For Study: PVD Procedure A bilateral lower extremity continuous wave Doppler with analog waveform analysis,segmental pressures,and ankle brachial indexes without exercise. Left Segmental Pressures Left brachial= 110mmHg. Left posterior tibial artery = 66mmHg. Left dorsalis pedis artery = 66mmHg. Left digit = 31 mmHg. The left posterior tibial artery waveforms are biphasic. The left dorsalis pedis waveforms are biphasic. Right Segmental Pressures Right brachial= 109mmHg. Right posterior tibial artery = 61mmHg. Right dorsalis pedis artery = 65mmHg. Right digit = 39 mmHg. The right posterior tibial artery waveforms are biphasic. The right dorsalis pedis waveforms are biphasic. Indices The right ankle brachial index by the posterior tibial artery is 0.55. The right ankle brachial index by the dorsalis pedis is 0.59. The right digital-brachial index is 0.35. The left ankle brachial index by the posterior tibial artery is 0.60. The left ankle brachial index by the dorsalis pedis is 0.60. The left digital-brachial index is 0.28. VL/Lower Ext Art Exam w/o Exercis Interpretation Summary Biphasic Doppler waveforms are noted at ankle level bilaterally. Pulse-volume r ecordings appear satisfactory bilaterally. Resting ankle-brachial indices are moderately diminis hed bilaterally. Digital-brachial indices are moderately to severely diminished bilaterally. 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 There is evidence of [id number] arterial occlusive disease at digital level bila terally. Ordering Physician: Neil Uribe Referring Physician: Gopi Whitehead Performed By: Aleksander Lee RVT
--- NOTE | 2024-02-05 12:59 | VDLE_ITS ---
Reason For Study: BLE Pain RIGHT LEFT CFV is compressible, spontaneous, phasic, CFV is compressible, spontaneous, phasic, competent and demonstrates normal competent, and demonstrates normal augmentation. augmentation. FV is compressible, spontaneous, phasic, FV is compressible, spontaneous, phasic, competent and demonstrates normal competent and demonstrates normal augmentation. augmentation. POP V is compressible, spontaneous, phasic, POP V is compressible, spontaneous, phasic, competent and demonstrates normal competent and demonstrates normal augmentation. augmentation. T/P Trunk is compressible. T/P Trunk is compressible. PTV is compressible. PTV is compressible. RT PerV is compressible. LT PerV is compressible. SFJ is competent and measures 0.53 cm. SFJ is competent and measures 0.49 cm. GSV proximal thigh measures 0.22 x 0.22 cm. GSV proximal thigh measures 0.47 x 0.45 cm. GSV at knee measures 0.27 x 0.29 cm. GSV at knee measures 0.37 x 0.41 cm. GSV above knee is competent. GSV is competent throughout. GSV below knee is INCOMPETENT for greater SSV proximal calf is competent and measures than 0.5 seconds. 0.11 x 0.11 cm. SSV proximal calf is competent and measures 0.13 x 0.13 cm. Procedure This is a venous duplex using B-mode, color flow and spectral Doppler. Exam performed in department. The exam was diagnostic. Patient was scanned in reverse Trendelenburg position during reflux assessment. VL/Venous Duplex US - Trey Extrem Interpretation Summary Deep veins of the lower extremities are bilaterally patent and compressible seg mentally. There is no evidence of deep vein thrombosis on either side. Valvular competence appears in tact within the proximal deep venous systems bilaterally. The great saphenous veins appear bila terally patent and compressible segmentally. Sapheno-femoral junctions are bilaterally competent . The right great saphenous vein appears competent above the knee. The right great saphenous vein appears incompetent below the knee. The left great saphenous vein appears segmentally competent. Sm all saphenous veins are patent and competent bilaterally. Ordering Physician: Neil Uribe Referring Physician: Gopi Whitehead Performed By: Aleksander Lee RVT
== END | disposition home or self-care (01) ==
LOC: CVS 12:57
PROVIDERS: PCP Family Medicine; Referring Provider Podiatrist Foot & Ankle Surgery; Visit Provider Podiatrist Foot & Ankle Surgery
DX: M79.662 Pain in left lower leg (principal); I73.9 Peripheral vascular disease, unspecified; M79.661 Pain in right lower leg
CPT/HCPCS: 93923; 93970; Q9957; A4216

== ENCOUNTER → 2024-06-05 | Outpatient (CLI) | payer MEDICARE, OTHER, SELFPAY ==
[2024-06-05 16:07] LABS: ALB/GLOB Ratio 0.9 RATIO (0.9-2.4); AST(SGOT) 30 U/L (15-37); Alanine Aminotransfer ALT/SGPT 40 U/L (13-56); Albumin, Serum 3.4 g/dL (3.2-5.0); Alkaline Phosphatase 111 U/L (45-117); Anion Gap 7 (5-15); BUN 26 mg/dL (7-18); BUN/Creat Ratio 26.6 RATIO (10-20); Calcium,Total 9.8 mg/dL (8.5-10.1); Chloride 102 mmol/L (98-107); Cholesterol 224 mg/dL (200); Creatinine, Serum 0.98 mg/dL (0.55-1.02); EST Glomerular Filtration Rate 58 mL/min (>60); Est Glom Filt Rate - Afr Amer 70 mL/min (>60); Free T3 1.9 pg/mL (2.18-3.98); Globulin 3.6 g/dL (2.2-4.2); Glucose 92 mg/dL (74-106); High Density Lipoprotein 83 mg/dL; Potassium 3.2 mmol/L (3.5-5.1); Sodium Level 140 mmol/L (136-145); T4 Free Direct 1.08 ng/dL (0.76-1.46); Triglycerides 107 mg/dL; Very Low Density Lipoprotein 21 mg/dL (5-40)
== END | disposition home or self-care (01) ==
LOC: MFPLAB 12:14
PROVIDERS: PCP Family Medicine; Visit Provider Family Medicine
DX: E11.59 Type 2 diabetes mellitus with other circulatory complications (principal); I10 Essential (primary) hypertension; E03.9 Hypothyroidism, unspecified
CPT/HCPCS: 36415; 80053; 80061; 84439; 84443; 84481

== ENCOUNTER 2024-10-22 22:01 | Emergency (ER) | payer MEDICARE, OTHER, SELFPAY ==
[2024-10-22 22:02] VITALS: BP 151/42; PULSE 78; RESP 16; TEMP 36.6; O2SAT 97
--- NOTE | 2024-10-22 22:28 | EX.ED.GENINJ ---
HPI History of Present Illness Chief Complaint: Fall [facility], LAT[facility] Medical History Atherosclerosis of coronary artery without angina pectoris LAE (left atrial enlargement) Hypertrophic cardiomyopathy Non-rheumatic mitral valve stenosis Left ventricular hypertrophy Secondary pulmonary arterial hypertension Psoriasis Obstructive sleep apnea GERD (gastroesophageal reflux disease) Obesity Arthritis Hypothyroidism Hyperlipidemia Essential (primary) hypertension Type 2 diabetes mellitus Home Medications ?Medication ?Instructions ?Recorded ?Last Taken ?Type alprazolam 0.5 mg tablet 0.5 mg PO BID-TID PRN Anxiety 10/29/18 Unknown History aspirin 81 mg tablet,delayed 81 mg PO DAILY 10/29/18 03/26/22 History release (Adult Aspirin Regimen) furosemide 40 mg tablet (Lasix) 40 mg PO DAILY 05/29/19 Unknown History primidone 50 mg tablet 50 mg PO TID 05/29/19 Unknown History gabapentin 800 mg tablet 800 mg PO TID 30 days #90 tabs 03/09/21 Unknown History hydrocodone 7.5 mg-acetaminophen 1 tab PO Q6H PRN Pain 03/09/21 Unknown History 325 mg tablet levothyroxine 100 mcg tablet See Rx Instructions PO DAILY 90 03/09/21 03/26/22 History days omeprazole 40 mg capsule,delayed 40 mg PO DAILY 90 days #90 caps 03/09/21 Unknown History release ergocalciferol (vitamin D2) 1,250 1,250 mcg PO QWEEK 12/12/21 Unknown History mcg (50,000 unit) capsule potassium chloride 20 mEq 20 meq PO DAILY 12/12/21 Unknown History tablet,extended release(part/cryst) metformin 500 mg tablet 1,000 mg PO DAILY 06/15/22 Unknown History pravastatin 10 mg tablet 10 mg PO DAILY 06/15/22 Unknown History lisinopril 20 1 tab PO DAILY #90 tabs 03/28/23 Unknown Rx mg-hydrochlorothiazide 12.5 mg tablet clopidogrel 75 mg tablet (Plavix) 75 mg PO DAILY 01/06/24 Unknown History carvedilol 6.25 mg tablet 6.25 mg PO BID #180 tabs 05/13/24 Unknown Rx Allergy/AdvReac Type Severity Reaction Status Date / Time No Known Allergies Allergy Verified 10/22/24 22:08 Family History Other Heart disease Surgical History History of coronary artery stent placement (03/26/22) History of cataract surgery History of back surgery Hx of cholecystectomy History of herniorrhaphy Social History Smoking Status: Former smoker how long ago did patient quit smokin years ago substance use type: does not use caffeine: Yes Type: coffee Number of servings: 3 EXAM Physical Exam Const Vital Signs: 10/22/24 22:02 10/22/24 22:58 Temperature 97.8 F Temperature Source Temporal Pulse Rate 78 Respiratory Rate 16 Respiratory Effort Normal Respiratory Depth Normal Respiratory Pattern Normal Blood Pressure 151/42 H Blood Pressure Mean 78 Pulse Ox 97 Oxygen Delivery Method Room Air MDM MDM MDM Narrative Medical decision making narrative: HISTORY OF PRESENT ILLNESS: 84-year-old female presents with fall. No she is on a blood thinner. No she takes Plavix. Notes she fell down. She notes her daughter because of her fall because her daughter also fell down and landed on her. States she hit her face, has abrasions to lips and bilateral arms. She denies loss of consciousness. REVIEW OF SYSTEMS: Pertinent positives: Fall, head trauma Pertinent negatives: Loss of consciousness PHYSICAL EXAM: Nursing triage notes reviewed, Vital signs reviewed Primary Survey Airway: Intact Breathing: Bilateral breath sounds Circulation: Palpable bilateral femorals, Palpable bilateral radial, Palpable bilateral DP and Palpable bilateral PT Disability / Spine precautions GCS Score: Eye Openin Verbal Response: 5 Motor Response: 6 Secondary Survey Constitutional: Please see MDM Head: Ecchymosis noted about the nasal bridge, no soft hematoma, no obvious lacerations, abrasion noted to the patient's lip. Eye: Pupils equal round and reactive to light, Extraocular muscles intact and No periorbital ecchymosis or stepoff, no evidence of entrapment ENT: Oropharynx clear, no lacerations, no hemotympanum, no raccoon eyes or saab sign Cervical spine / Neck: No cervical spine bony tenderness, crepitance, or stepoff deformity Trachea midline Lungs: Clear to auscultation, No asymmetric rise and No crepitus, no flail chest Cardiac: Regular rate and rhythm and No murmurs Abdomen: Soft, Nontender and No rebound Pelvis: Pelvis stable to compression : No evidence of genital injury Back: No midline bony tenderness to thoracic/lumbar/sacral spines Neuro: At baseline, intact strength and sensation in bilateral upper and lower extremities. 2+ patellar reflexes bilaterally. Extremities: NO gross Deformities Psych: Normal affect Skin: Skin tear noted to right forearm, no laceration noted Nursing triage notes reviewed, Vital signs reviewed MEDICAL DECISION MAKING: Chief Complaint: Fall, head trauma External records reviewed: Reviewed the patient's medication list noted aspirin and Plavix did not see any anticoagulants Factors affecting care: GERD, CAD, hypertension, peripheral vascular disease Social determinants of health: none History obtained from others: none Consults: none [facility] Narrative: Patient was initially hemodynamically stable, afebrile and nontoxic-appearing. Exam with ecchymosis noted nasal bridge otherwise unremarkable primary secondary trauma survey. I considered the following differential diagnosis: ICH, cervical spine injury, facial bone fracture ALL IMAGES (IF OBTAINED) HAVE BEEN PERSONALLY REVIEWED AND INTERPRETED BY MYSELF. CT scan of the head, cervical spine and face remarkable for left-sided nasal bone fracture. Did not show evidence of intracranial hemorrhage or cervical spine injury. The patient and/or family, caregivers express understanding. The patient and/or family, caregivers agrees with the plan. Shared decision making: I will have a discussion with the patient and or visitors regarding risk/benefits of further testing or admission. They will be made aware of of the risk/benefits inherent in this decision they will be given the opportunity to voice understanding. Total critical care time today provided was at least 0 minutes. This excludes separately billable procedures. Critical care time (if documented) is secondary to the patient having high probability of clinically significant/life threatening deterioration in the patient's condition which required my urgent intervention. Impression: 1. Acute nasal bone fracture 2. Closed head injury 3. Concussion Dispo: Discharge home This note was generated with [employer] dictation software. It may contain incorrect words, spelling, and punctuation that were not noted in review of the chart prior to signing. Radiography Diagnostic Testing: Clinical Impression(s) from Imaging Studies Brain CT 10/22/24 22:36 IMPRESSION: 1. No acute intracranial abnormalities. 2. Age-related changes. Electronically Signed: Larry Landis MD at 23:20 EST , Cervical Spine CT 10/22/24 22:36 IMPRESSION: 1. No acute injuries identified involving the cervical spine. 2. Degenerative changes. Electronically Signed: Larry Landis MD at 23:22 EST Reading Location ID and State: [facility] / [place] Tel , Service support , Facial/Sinus 10/22/24 22:36 IMPRESSION: 1. Nondisplaced left-sided nasal bone fracture which could be acute. No other significant osseous findings. 2. Nasal soft tissue swelling. Electronically Signed: Larry Landis MD at 23:25 EST Reading Location ID and State: [facility] / [place] Tel , Service support , Discharge Plan Triage Chief Complaint: Fall ED Provider: Saman Moses Dx/Rx/DC Orders Instructions: ED Nose Fracture, with X-Ray, ED Skin Tear (Skin Avulsion) Prescriptions: No Action aspirin [Adult Aspirin Regimen] 81 mg tablet,delayed release (DR/EC) 81 mg PO DAILY alprazolam 0.5 mg tablet 0.5 mg PO BID-TID PRN (Reason: Anxiety) gabapentin 800 mg tablet 800 mg PO TID 30 Days Qty: 90 levothyroxine 100 mcg tablet See Rx Instructions PO DAILY 90 Days Rx Instructions: 100 mcg daily except 200 mg on Sundays omeprazole 40 mg capsule,delayed release(DR/EC) 40 mg PO DAILY 90 Days Qty: 90 primidone 50 mg tablet 50 mg PO TID furosemide [Lasix] 40 mg tablet 40 mg PO DAILY hydrocodone-acetaminophen 7.5-325 mg tablet 1 tab PO Q6H PRN (Reason: Pain) ergocalciferol (vitamin D2) 1,250 mcg (50,000 unit) capsule 1,250 mcg PO QWEEK Patient Comments: TAKE 1 CAPSULE BY MOUTH ONCE A WEEK potassium chloride 20 mEq tablet,ER particles/crystals 20 meq PO DAILY metformin 500 mg tablet 1,000 mg PO DAILY pravastatin 10 mg tablet 10 mg PO DAILY clopidogrel [Plavix] 75 mg tablet 75 mg PO DAILY lisinopril-hydrochlorothiazide 20-12.5 mg tablet 1 tab PO DAILY Qty: 90 3RF carvedilol 6.25 mg tablet 6.25 mg PO BID Qty: 180 3RF Rx Instructions: must administer with a meal/food Primary Care Provider: Gopi Whitehead Referrals: Lenard Lovett MD [Med Staff - Courtesy Staff] - Gopi Whitehead MD [Primary Care Provider] - Activity Restrictions/Additional Instructions: Thank you for trusting us with your care today! Your imaging was reassuring for signs of bleeding in the brain or fractures/breaks of your neck. It did show evidence of a nasal bone fracture. There is no immediate treatment for this injury. We typically want you to wait for several weeks until swelling goes down to follow-up with a facial surgeon such as an ear nose and throat doctor. Please take Tylenol (2 pills, 650 mg), ibuprofen (2 pills, 400 mg) every 6 hours as needed for pain and fever control. Please return to the emergency department if your symptoms change or worsen. Please follow with your primary care physician and/or ENT (Dr. Lovett) for further outpatient evaluation and management. Print Language: Welsh Disposition Disposition: Home, Self Care
--- NOTE | 2024-10-22 22:36 | CT_ITS ---
EXAM: CT CERVICAL SPINE WITHOUT INTRAVENOUS CONTRAST CLINICAL INDICATION: neck pain TECHNIQUE: Helically acquired images were obtained of the cervical spine without intravenous contrast. 2D reformatted images were reviewed. This CT exam was performed using one or more of the following dose reduction techniques: automated exposure control, adjustment of the mA and/or kV according to patient size, and/or use of iterative reconstruction technique. RADIATION DOSE: CTDIvol = 17.07 mGy, DLP = 363.34 mGy-cm COMPARISON: No relevant prior studies available. FINDINGS: VERTEBRAE: Unremarkable. No fracture. No traumatic subluxation. No discrete lytic or blastic abnormality. Normal alignment. Normal craniocervical junction and cervicothoracic junction. DISCS/SPINAL CANAL/NEURAL FORAMINA: Degenerative changes of the intervertebral discs. No critical stenosis. SOFT TISSUES: Unremarkable. No prevertebral soft tissue swelling. LYMPH NODES: Unremarkable. No cervical adenopathy. LUNG APICES: Unremarkable as visualized. Clear. CT/Spine Cervical without Contras IMPRESSION: 1. No acute injuries identified involving the cervical spine. 2. Degenerative changes. Electronically Signed: Larry Landis MD at 23:22 EST ,
--- NOTE | 2024-10-22 22:36 | CT_ITS ---
EXAM: CT MAXILLOFACIAL WITHOUT INTRAVENOUS CONTRAST CLINICAL INDICATION: fall, nasal and facial trauma TECHNIQUE: Helically acquired images were obtained of the face without intravenous contrast. This CT exam was performed using one or more of the following dose reduction techniques: automated exposure control, adjustment of the mA and/or kV according to patient size, and/or use of iterative reconstruction technique. RADIATION DOSE: CTDIvol = 29.38 mGy, DLP = 598.88 mGy-cm COMPARISON: No relevant prior studies available. FINDINGS: BONES/JOINTS: Nondisplaced left-sided nasal bone fracture which could be acute. No discrete lytic or blastic abnormalities. SOFT TISSUES: Nasal soft tissue swelling. No discrete fluid collections. ORBITS: Unremarkable. Both globes are unremarkable. Extraocular muscles are normal. Retrobulbar fat appears unremarkable. SINUSES: Unremarkable as visualized. Clear. MASTOID AIR CELLS: Unremarkable as visualized. Clear. CT/Sinus/Facial Bone IMPRESSION: 1. Nondisplaced left-sided nasal bone fracture which could be acute. No other significant osseous findings. 2. Nasal soft tissue swelling. Electronically Signed: Larry Landis MD at 23:25 EST ,
--- NOTE | 2024-10-22 22:36 | CT_ITS ---
EXAM: CT HEAD WITHOUT INTRAVENOUS CONTRAST CLINICAL INDICATION: head trauma TECHNIQUE: Multiple axial images were obtained of the head without intravenous contrast. This CT exam was performed using one or more of the following dose reduction techniques: automated exposure control, adjustment of the mA and/or kV according to patient size, and/or use of iterative reconstruction technique. RADIATION DOSE: CTDIvol = 44.99 mGy, DLP = 863.60 mGy-cm COMPARISON: No relevant prior studies available. FINDINGS: BRAIN AND EXTRA-AXIAL SPACES: Diffuse cerebral volume loss. Periventricular small vessel ischemic changes. No intra- or extra-axial hemorrhage. No intracranial mass or mass effect. Posterior fossa structures are unremarkable. No hydrocephalus. Basal cisterns are patent. BONES/JOINTS: Unremarkable. No discrete lytic or blastic abnormalities. VASCULATURE: Vascular calcifications. SINUSES: Unremarkable as visualized. Clear. MASTOID AIR CELLS: Unremarkable. Clear. ORBITS: Visualized globes, extraocular muscles, optic nerves and retrobulbar fat appear unremarkable. CT/Brain/Head without Contrast IMPRESSION: 1. No acute intracranial abnormalities. 2. Age-related changes. Electronically Signed: Larry Landis MD at 23:20 EST ,
[2024-10-22] MEDS: HYDROcodone Bitartrate/Apap 5/325 Tablet PO (22:52)
[2024-10-23 00:20] VITALS: BP 148/89; PULSE 80; RESP 17; TEMP 36.6; O2SAT 97
== END 2024-10-23 00:21 | disposition home or self-care (01) ==
PROVIDERS: Emergency Provider Emergency Medicine; PCP Family Medicine; Visit Provider Emergency Medicine
DX: S06.0X0A Concussion without loss of consciousness, initial encounter (principal); E11.51 Type 2 diabetes mellitus with diabetic peripheral angiopathy without gangrene; S02.2XXA Fracture of nasal bones, initial encounter for closed fracture; S00.511A Abrasion of lip, initial encounter; W19.XXXA Unspecified fall, initial encounter; I25.10 Atherosclerotic heart disease of native coronary artery without angina pectoris; I10 Essential (primary) hypertension; E78.5 Hyperlipidemia, unspecified; Z95.5 Presence of coronary angioplasty implant and graft; Z79.02 Long term (current) use of antithrombotics/antiplatelets; Z79.82 Long term (current) use of aspirin; Z79.84 Long term (current) use of oral hypoglycemic drugs; Z79.899 Other long term (current) drug therapy; Z87.891 Personal history of nicotine dependence
CPT/HCPCS: 70450; 70486; 72125; 99282

== ENCOUNTER → 2025-01-27 | Outpatient (CLI) | payer MEDICARE, OTHER, SELFPAY ==
[2025-01-27 18:27] LABS: Anion Gap 10 (5-15); BUN 23 mg/dL (4-19); BUN/Creat Ratio 30.2 RATIO (10-20); Calcium,Total 9.1 mg/dL (7.6-11.0); Carbon Dioxide 29.3 mmol/L (21.0-32.0); Chloride 102 mmol/L (98-108); Creatinine, Serum 0.76 mg/dL (0.70-1.20); EST Glomerular Filtration Rate 79 (>60); Free T3 2.3 pg/mL (2.18-3.98); Glucose 83 mg/dL (70-99); Potassium 3.6 mmol/L (3.3-5.1); Sodium Level 141 mmol/L (133-145); Thyroid Stim Hormone (TSH) 0.269 uIU/mL (0.300-4.200)
== END | disposition home or self-care (01) ==
LOC: MFPLAB 15:26
PROVIDERS: PCP Family Medicine; Referring Provider Family Medicine; Visit Provider Family Medicine
DX: E03.9 Hypothyroidism, unspecified (principal); G25.0 Essential tremor
CPT/HCPCS: 36415; 80048; 84439; 84443; 84481

== ENCOUNTER → 2025-03-23 | Outpatient (CLI) | payer MEDICARE, OTHER, SELFPAY ==
--- NOTE | 2025-03-23 13:55 | ART_ITS ---
Reason For Study Reason For Study: PVD Procedure A bilateral lower extremity continuous wave Doppler with analog waveform analysis,segmental pressures,and ankle brachial indexes without exercise. Did not exercise patient due to use of wheelchair and cane for ambulating. Left Segmental Pressures Left brachial= 116mmHg. Left low thigh = 102mmHg. Left calf = 82mmHg. Left posterior tibial artery = 72mmHg. Left dorsalis pedis artery = 76mmHg. Left digit = 38 mmHg. Right Segmental Pressures Right brachial= 115mmHg. Right low thigh = 100mmHg. Right calf = 81mmHg. Right posterior tibial artery = 81mmHg. Right dorsalis pedis artery = 84mmHg. Right digit = 75 mmHg. Indices The right resting ankle brachial index is 0.72. The right ankle brachial index by the posterior tibial artery is 0.70. The right ankle brachial index by the dorsalis pedis is 0.72. The right digital- brachial index is 0.65. The left resting ankle brachial index is 0.66. The left ankle brachial index by the posterior tibial artery is 0.62. The left ankle brachial index by the dorsalis pedis is 0.66. The left digital-brachial index is 0.33. VL/Lower Ext Art Exam w/o Exercis Interpretation Summary Right VITO 0.72, moderate arterial insufficiency. Doppler/PVR waveforms and segm ental pressures reveal aorto-iliac- proximal femoral disease. Left VITO 0.66, moderate arterial insufficiency. Doppler/PVR waveforms and segme ntal pressures reveal aorto-iliac- proximal femoral, distal SFA/popliteal disease Ordering Physician: Christi Ordonez Referring Physician: Billy Holguin Performed By: Argenis Vickers RVT, RDCS
== END | disposition home or self-care (01) ==
LOC: CVS 13:55
PROVIDERS: PCP Family Medicine; Referring Provider Physician Assistant; Visit Provider Physician Assistant
DX: I73.9 Peripheral vascular disease, unspecified (principal)
CPT/HCPCS: 93923

== ENCOUNTER → 2025-04-28 | Outpatient (CLI) | payer MEDICARE, OTHER, SELFPAY ==
--- OUTSIDE RECORDS SUMMARY | 2025-04-28 20:13 | XMS RPT_ITS | CCD ---
Author Organization [facility] Care Team Providers Care Education Nurse Name Role Phone Grisel Alvarado Unavailable Unavailable PROVIDER, UNKNOWN Unavailable Unavailable Gopi Whitehead Unavailable Unavailable Dr. Gopi Whitehead Primary Care Provider Dr. Gopi Whitehead Referring Provider Dr. Wander Fried Attending Provider Gopi Whitehead MD Primary Care Provider Yoselin Jiménez Attending Provider Unavailable Dr. Wander Fried Admit Provider Dr. Wander Fried Other Provider Dr. Gopi Whitehead Primary Care Provider Dr. Wander Fried Attending Provider Dr. Gopi Emery Attending Provider Dr. Wander Fried Referring Provider Dr. Gopi Whitehead Primary Care Provider Dr. Gopi Whitehead Referring Provider TAM Jacinto Attending Provider Dr. Wander Fried Attending Provider Dr. Gopi Whitehead Primary Care Provider Dr. Gopi Whitehead Referring Provider TAM Jacinto Attending Provider Dr. Wander Fried Attending Provider Dr. Gopi Whitehead Primary Care Provider Dr. Gopi Whitehead Referring Provider TAM Jacinto Attending Provider Dr. Wander Fried Attending Provider [phone] Charley GRULLON, Dr. Nguyễn Primary Care Provider [phone] Dr. Saman Moses DO Attending Provider Josué MONTES, Dr. Davison Emergency Provider [phone] Charley GRULLON, Dr. Nguyễn Attending Provider [phone] Charley GRULLON, Dr. Nguyễn Referring Provider Charley GRULLON, Dr. Nguyễn Primary Care Provider [phone] Mery RODRIGUEZ, Christi Attending Provider [phone] Mery RODRIGUEZ, Christi Referring Provider [phone] Doug Maradiaga MD Attending Provider Charley, Gopi Referring Unavailable Whitehead, Gopi Primary Care Unavailable Ordonez, Christi Attending Unavailable Whitehead, Gopi Attending Unavailable Whitehead, Gopi Referring Unavailable Whitehead, Gopi Primary Care Unavailable Saman Moses Attending Unavailable Whitehead, Gopi Primary Care Unavailable Ordonez, Christi Attending Unavailable Ordonez, Christi Referring Unavailable Whitehead, Gopi Primary Care Unavailable Ordonez, Christi Attending Unavailable Whitehead, Gopi Referring Unavailable Whitehead, Gopi Primary Care Unavailable Whitehead, Gopi Primary Care Unavailable Whitehead, Gopi Attending Unavailable Leonarda Jacinto Attending Unavail able Whitehead, Gopi Referring Unavailable Whitehead, Gopi Primary Care Unavailable Doug Maradiaga Attending Unavailable Ordonez, Christi Referring Unavailable Whitehead, Gopi Primary Care Unavailable Allergies Allergy Classification Reported Allergen(s) Allergy Type Date of Onset Reaction(s) Facility (2 sources) Seasonal allergy Allergy to substance 9 Other: See Comments [facility] Work Phone: Medications Current Medications Medication Drug Class(es) Dates Sig (Normalized) Sig (Original) acetaminophen 325 mg / HYDROcodone bitartrate 7.5 mg oral tablet (20 sources) Opioid Agonist Start: 03-09-2021 Hydrocodone-Acetam inophen 7.5-325 mg tablet Active 1 {tbl} PO EVERY 6 HOURS as needed for Pain 0 March 09, 2021 12:00am Start: 03-09-2021 take 1 tablet by erika th every six hours Hydrocodone-Acetaminophen Active 1 TABLE T PO EVERY 6 HOURS March 09, 2021 12:00am Start: 10-29-2018 End: 03-09-2021 Hydrocodone-Acetaminophen (N orco) 5-325 mg tablet Discontinued 1 {tbl} PO EVERY 6 HOURS 0 October 29, 2018 1:00am March 09, 2021 3:03pm take 1 tablet by erika th four times daily HYDROcodone-Acetaminophen (NORCO) 7.5-32 5 mg per tablet Take 1 tablet by mouth four times daily. 0 Active Comment on above: Take 1 tablet by erika th four times daily. ALPRAZolam 0.5 mg oral tablet (19 sources) Benzodiazepine Start: 9 Alprazolam 0.5 mg tablet Active 0.5 mg PO 2 to 3 times per day as needed for Anxiety October 29, 2018 1:00am Comment on above: Take 0.5 mg by mouth at bedtime as needed. aspirin 81 mg delayed release oral tablet (17 sources) Platelet Aggregation Inhibitor, Nonsteroidal Anti-inflammatory Drug Start: 9 take 1 tablet by mouth once daily Aspirin (Adult Aspirin Regimen) 81 mg tablet,delayed release (DR/EC) Active 81 mg PO DAILY October 29, 2018 1:00am carvedilol 6.25 mg oral tablet (20 sources) alpha-Adrenergic Lise, beta-Adrenergic Lise Start: 3 End: 4 take 1 tablet by mouth twice daily at mealtime Carvedilol 6.25 mg tablet Active 6.25 mg PO TWICE A DAY 180 3 May 13, 2024 4:16pm must administer with a meal/food Start: 03-28-2023 End: 09-25-2023 take 1 tablet by mouth twice daily Carvedilol 12.5 mg tablet Discontinued 12.5 mg PO TWICE A DAY 180 3 March 28, 2023 5:27pm September 25, 2023 3:47pm Start: 10-29-2018 End: 03-28-2023 take 1 tablet by mouth twice daily Carvedilol 6.25 mg tablet Discontinued 6.25 mg PO TWICE A DAY 180 90 0 October 29, 2018 2:17pm March 28, 2023 5:28pm Start: 10-29-2018 End: 10-29-2018 Carvedilol 6.25 mg tablet Discontinued PO 90 0 October 29, 2018 1:00am October 29, 2018 2:17pm Comment on above: Take 6.25 mg by mout h twice daily with meals. clopidogrel 75 mg oral tablet (17 sources) [id number] Platelet Inhibitor Start: 05-01-20 End: 01-06-20 take 1 tablet by mouth once daily Clopidogrel (Plavix) 75 mg tablet Active 75 mg PO DAILY January 06, 2024 12:00am ergocalciferol 1.25 mg oral capsule (19 sources) Provitamin D2 Compound Start: 12-13-19 Ergocalciferol (Vitamin D2) 1,250 mcg (50,000 unit) capsule Active 1250 ug PO EVERY WEEK December 12, 2021 1:00am Start: 07-17-2017 take 1 capsule by mo uth every week VITAMIN D 50,000 unit capsule Take 50,000 Units by mouth once each week. 0 07/17/2017 Active Comment on above: Take 50,000 Units by mouth once each week. furosemide 40 mg oral tablet (20 sources) Loop Diuretic Start: 05-29-2019 take 1 tablet by mouth once daily Furosemide (Lasix) 40 mg tablet Active 40 mg PO DAILY May 29, 2019 12:00am Start: 10-29-2018 End: 03-28-2019 take 1 tablet by mouth once daily in the morning Furosemide 40 mg tablet Discontinued 40 mg PO EVERY MORNING 90 30 3 November 28, 2018 2:42pm March 27, 2019 12:00am March 28, 2019 12:07am Start: 10-29-2018 End: 10-29-2018 Furosemide 40 mg tablet Disc ontinued PO 30 0 October 29, 2018 1:00am October 29, 2018 2:17pm Comment on above: Take 40 mg by mouth once daily. gabapentin 800 mg oral tablet (20 sources) Anti-epileptic Agent Start: 10-29-2018 End: 03-09-2021 take 1 tablet by mouth three times daily Gabapentin 800 mg tablet Active 800 mg PO THREE TIMES A DAY 90 30 0 March 09, 2021 2:59pm Start: 10-29-2018 End: 03-09-2021 Gabapentin 800 mg tablet Dis continued PO 30 0 October 29, 2018 1:00am March 09, 2021 3:03pm Comment on above: Take 800 mg by mouth three times daily. hydroCHLOROthiazide 12.5 mg / lisinopril 20 mg oral tablet (20 sources) Thiazide Diuretic, Angiotensin Converting Enzyme Inhibitor Start: 03-28-2023 Lisinopril-Hydroc hlorothiazide 20-12.5 mg tablet Active 1 {tbl} PO DAILY 90 3 March 28, 2023 5:27pm Start: 03-28-2023 take 1 tablet by erika th once daily Lisinopril-Hydrochlorothiazide Active 1 TABLET PO DAILY 90 March 28, 2023 5:27pm Start: 03-09-2021 End: 03-28-2023 Lisinopril-Hydrochlorothiazi de 20-12.5 mg tablet Discontinued 1 {tbl} PO TWICE A DAY 180 90 0 March 09, 2021 3:00pm March 28, 2023 5:28pm Start: 03-09-2021 End: 03-28-2023 take 1 tablet by mouth twice daily Lisinopril-Hydrochlorothiazide Discontin ued 1 TABLET PO TWICE A DAY 180 90 March 09, 2021 3:00pm March 28, 2023 5:28pm Start: 10-29-2018 End: 03-09-2021 Lisinopril-Hydrochlorothiazi de 20-12.5 mg tablet Discontinued 1 {tbl} PO DAILY 90 90 0 October 29, 2018 2:17pm March 09, 2021 3:03pm Start: 10-29-2018 End: 03-09-2021 take 1 tablet by mouth once daily Lisinopril-Hydrochlorothiazide Discontin ued 1 TABLET PO DAILY 90 90 October 29, 2018 2:17pm March 09, 2021 3:03pm Start: 10-29-2018 End: 10-29-2018 Lisinopril-Hydrochlorothiazi de 20-12.5 mg tablet Discontinued PO 90 0 October 29, 2018 1:00am October 29, 2018 2:17pm Start: 10-29-2018 End: 10-29-2018 Lisinopril-Hydrochlorothiazi de Discontinued PO 90 October 29, 2018 1:00am October 29, 2018 2:17pm Comment on above: Take 1 tablet by erika th twice daily. levothyroxine sodium 0.1 mg oral tablet (20 sources) l-Thyroxine Start: End: 1 take 1 tablet by mouth once daily Levothyroxine 100 mcg tablet Active 0 PO DAILY 90 0 March 09, 2021 2:59pm 100 mcg daily except 200 mg on Sundays Start: 10-29-2018 End: 05-29-2019 Levothyroxine 100 mcg tablet Discontinued 50 ug PO DAILY 45 90 0 October 29, 2018 2:17pm May 29, 2019 1:09pm Start: 10-29-2018 End: 05-29-2019 take 50 ug by mouth once daily Levothyroxine Discontin ued 50 MCG PO DAILY 45 90 October 29, 2018 2:17pm May 29, 2019 1:09pm Start: 10-29-2018 End: 10-29-2018 Levothyroxine 100 mcg tablet Discontinued PO 90 0 October 29, 2018 1:00am October 29, 2018 2:17pm Start: 10-29-2018 End: 10-29-2018 Levothyroxine Discontinued P O 90 October 29, 2018 1:00am October 29, 2018 2:17pm Comment on above: Take 100 mcg by mout h daily before breakfast. metFORMIN hydrochloride 500 mg oral tablet (20 sources) Biguanide Start: 2 take 2 tablets by mouth once daily Metformin 500 mg tablet Active 1000 mg PO DAILY June 15, 2022 10:31am Start: 06-15-2022 take 1000 mg by mout h once daily Metformin Active 1000 MG PO DAILY June 15, 2022 10:31am Start: 12-12-2021 End: 06-15-2022 take 1 tablet by mouth once daily Metformin 500 mg tablet Discontinued 500 mg PO DAILY December 12, 2021 1:00am June 15, 2022 10:33am Start: 10-29-2018 End: 10-29-2018 Metformin 1,000 mg tablet Discontinued PO 90 0 October 29, 2018 1:00am October 29, 2018 2:12pm Start: 10-29-2018 End: 12-12-2021 take 1 tablet by mouth once daily Metformin 500 mg tablet extended release 24hr Discontinued 1000 mg PO DAILY October 29, 2018 1:00am December 12, 2021 12:30pm Start: 10-29-2018 End: 10-29-2018 Metformin Discontinued PO 90 October 29, 2018 1:00am October 29, 2018 2:12pm Start: 10-29-2018 End: 12-12-2021 take 1000 mg by mouth once daily Metformin Discontinued 1000 MG PO DAILY October 29, 2018 1:00am December 12, 2021 12:30pm Comment on above: Take 500 mg by mouth twice daily with meals. omeprazole 40 mg delayed release oral capsule (20 sources) Proton Pump Inhibitor Start: 10-29-2018 End: 03-09-2021 take 1 capsule by mouth once daily Omeprazole 40 mg capsule,delayed release(DR/EC) Active 40 mg PO DAILY 90 90 0 March 09, 2021 3:01pm Start: 10-29-2018 End: 03-09-2021 Omeprazole 40 mg capsule,del ayed release(DR/EC) Discontinued PO 90 0 October 29, 2018 1:00am March 09, 2021 3:03pm Comment on above: Take 40 mg by mouth once daily. microencapsulated potassium chloride 20 meq extended release oral tablet (17 sources) Start: 12-13-19 take 1 tablet by mouth once daily Potassium Chloride 20 mEq tablet,ER particles/crystals Active 20 meq PO DAILY December 12, 2021 1:00am pravastatin sodium 10 mg oral tablet (20 sources) HMG-CoA Reductase Inhibitor Start: 06-15-20 take 1 tablet by mouth once daily Pravastatin 10 mg tablet Active 10 mg PO DAILY June 15, 2022 12:00am Start: 05-29-2019 End: 03-09-2021 take 10 mg by mouth at bedtime Pravastatin 20 mg table t Discontinued 10 mg PO AT BEDTIME 45 90 0 May 29, 2019 1:07pm March 09, 2021 3:02pm Start: 05-29-2019 End: 03-09-2021 take 10 mg by mouth at bedtime Pravastatin Discontinue d 10 MG PO AT BEDTIME 45 90 May 29, 2019 1:07pm March 09, 2021 3:02pm Start: 10-29-2018 End: 05-29-2019 take 1 tablet by mouth at bedtime Pravastatin 20 mg tablet Discontinued 20 mg PO AT BEDTIME 90 90 0 October 29, 2018 2:17pm May 29, 2019 1:09pm Start: 10-29-2018 End: 10-29-2018 Pravastatin 20 mg tablet Discontinued PO 90 0 October 29, 2018 1:00am October 29, 2018 2:17pm Start: 10-29-2018 End: 10-29-2018 Pravastatin Discontinued PO 90 October 29, 2018 1:00am October 29, 2018 2:17pm take 1 tablet by erika th once daily pravastatin (PRAVACHOL) 40 mg tablet Take 40 mg by mouth once daily. 0 Active Comment on above: Take 40 mg by mouth once daily. primidone 50 mg oral tablet (19 sources) Anti-epileptic Agent Start: 05-29-2019 take 1 tablet by mouth three times daily Primidone 50 mg tablet Active 50 mg PO THREE TIMES A DAY May 29, 2019 12:00am Start: 05-29-2017 take 1 tablet by erika th once daily primidone (MYSOLINE) 50 mg tablet Take 50 mg by mouth once daily. 0 05/29/2017 Active Comment on above: Take 50 mg by mouth once daily. Completed/Discontinued Medications Medication Drug Class(es) Dates Sig (Normalized) Sig (Original) apremilast 30 mg oral tablet (2 sources) Start: 07-12-2016 apremilast (OTEZLA) 30 mg tablet Take 30 mg by mouth twice daily. Pt. states increased to twice daily 0 07/12/2016 Active Comment on above: Take 30 mg by mouth twice daily. Pt. states increased to twice daily atorvastatin 10 mg oral tablet (17 sources) HMG-CoA Reductase Inhibitor Start: 03-09-2021 End: 06-15-2022 take 1 tablet by mouth at bedtime Atorvastatin 10 mg tablet Discontinued 10 mg PO AT BEDTIME March 09, 2021 12:00am June 15, 2022 10:30am cetirizine hydrochloride 10 mg oral capsule (2 sources) Histamine-1 Receptor Antagonist Cetirizine (ZYRTEC) 10 mg cap Take by mouth once daily. 0 Active Comment on above: Take by mouth once d aily. cyclobenzaprine hydrochloride 10 mg oral tablet (19 sources) Muscle Relaxant Start: 10-29-2018 End: 05-29-2019 Cyclobenzaprine 10 mg tablet Discontinued PO 30 0 October 29, 2018 1:00am May 29, 2019 1:09pm Start: 10-29-2018 End: 05-29-2019 Cyclobenzaprine Discontinued PO 30 October 29, 2018 1:00am May 29, 2019 1:09pm Comment on above: Take 5 mg by mouth t wice daily. lidocaine hydrochloride 40 mg/ml topical cream (2 sources) Antiarrhythmic, Amide Local Anesthetic lidocaine HCl (ASPERCREME, LIDOCAINE,) 4 % crea Apply 1 application to affected area as needed. 0 Active Comment on above: Apply 1 application to affected area as needed. meloxicam 15 mg oral tablet (2 sources) Nonsteroidal Anti-inflammatory Drug Start: 08-08-20 take 1 tablet by mouth once daily meloxicam (MOBIC) 15 mg tablet Take 1 tablet by mouth once daily. 30 tablet 1 08/08/2017 Active Comment on above: Take 1 tablet by erika th once daily. metoclopramide 5 mg oral tablet (19 sources) Dopamine-2 Receptor Antagonist Start: 03-09-20 End: 06-15-20 take 1 tablet by mouth once as needed for nausea Metoclopramide Hcl 5 mg tablet Discontinued 5 mg PO ONCE as needed for Nausea March 09, 2021 12:00am June 15, 2022 10:33am metoclopramide H Cl (REGLAN) 5 mg tablet Take 5 mg by mouth as needed. 0 Active Comment on above: Take 5 mg by mouth a s needed. 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, unspecified] 01-04-2022 Chronic Cardiac dysrhythmias (20 sources) Palpitations; Translations: [Palpitations] Episodic Coronary atherosclerosis and other heart disease (20 sources) Coronary atherosclerosis; Translations: [Atherosclerotic heart disease of [place] coronary artery without angina pectoris] Chronic Diabetes mellitus with complications (1 source) Type 2 diabetes mellitus with other circulatory complications; Translations: [Type 2 diabetes mellitus with other circulatory complications] Onset: 06-17-2024 Chronic Disorders of lipid metabolism (20 sources) Hyperlipidemia; Translations: [Hyperlipidemia, unspecified] Chronic Essential hypertension (20 sources) Essential hypertension; Translations: [Essential (primary) hypertension] Chronic Fluid and electrolyte disorders (7 sources) Acute hypokalemia; Translations: [Hypokalemia] 09-23-2023 Episodic Heart valve disorders (20 sources) Non-rheumatic mitral valve stenosis; Translations: [Nonrheumatic mitral (valve) stenosis] Chronic Nonspecific chest pain (15 sources) Chest pain on exertion; Translations: [Chest pain, unspecified] 03-20-2022 Episodic Other and ill-defined heart disease (17 sources) Left ventricular hypertrophy; Translations: [Cardiomegaly] 11-27-2018 Chronic Other and ill-defined heart disease (15 sources) Left atrial enlargement; Translations: [Cardiomegaly] 03-19-2022 Chronic Other diseases of veins and lymphatics (3 sources) Vascular insufficiency; Translations: [Venous insufficiency (chronic) (peripheral)] 03-10-2024 Episodic Other lower respiratory disease (17 sources) Dyspnea on exertion; Translations: [Dyspnea, unspecified] 12-09-2021 Episodic Stephanie-; endo-; and myocarditis; cardiomyopathy (except that caused by tuberculosis or sexually transmitted disease) (20 sources) Hypertrophic cardiomyopathy; Translations: [Other hypertrophic cardiomyopathy] Chronic Peripheral and visceral atherosclerosis (4 sources) Peripheral vascular disease, unspecified; Translations: [Peripheral arterial disease] Onset: 03-28-2025 03-10-2024 Chronic Pulmonary heart disease (17 sources) Pulmonary arterial hypertension; Translations: [Secondary pulmonary arterial hypertension] 10-29-2018 Chronic Spondylosis; intervertebral disc disorders; other back problems (4 sources) Postlaminectomy syndrome, not elsewhere classified; Translations: [Spondylosis without myelopathy or radiculopathy, lumbosacral region] Onset: 08-19-2017 Chronic Syncope (7 sources) Near syncope; Translations: [Syncope and collapse] 09-23-2023 Episodic Thyroid disorders (1 source) Hypothyroidism, unspecified; Translations: [Hypothyroidism, unspecified] Onset: 02-01-2025 Chronic Past or Other Problems Problem Classification Problem Date Documented Da te Episodic/Chronic Coronary atherosclerosis and other heart disease (8 sources) Presence of coronary angioplasty implant and graft; Translations: [Percutaneous transluminal coronary angioplasty status] Onset: 03-26-2022 Episodic Other connective tissue disease (2 sources) Full thickness rotator cuff tear; Translations: [Complete rotator cuff tear or rupture of left shoulder, not specified as traumatic] Onset: 05-31-2016 05-31-2016 Episodic Other injuries and conditions due to external causes (1 source) Encounter for examination and observation following other accident; Translations: [Encounter for examination and observation following other accident] Onset: 11-12-2024 Episodic Other non-traumatic joint disorders (2 sources) Chronic pain of left upper limb; Translations: [Pain in left shoulder] Onset: 05-31-2016 05-31-2016 Episodic Results Test Name Value Interpretation Reference Range Facility MR/BMSRonn 04-13-2025 MR/BMS.RONAL [facility] [address] [place] [address] OFFICE VISIT Date of Service: 04/13/25 MR#: [id number] Acct: [id number] Name: NORA CONNELL Rep #: [id number] : 1940 Provider: TAM Adkins Age/Sex: 84/F Location: [facility] Status: Signed Intake Vital Signs 10/22/24 22:02 04/13/25 10:28 Height 5 ft Weight: 154 lb BP 130/54 H Blood Pressure Location Rt brachial Position Sitting Respiration 16 Pulse 59 L Pulse Source Monitor Temp 97.3 F L Temp Source Temporal Pulse Oximetry (%) 96 Oxygen Delivery Method room air Intake Visit Reasons: 1 Y FU Is patient in pain?: Yes Allergies No Known Allergies Allergy (Verified 04/13/25 10:29) Medications ???Medication ???Instructions ???Recorded ???Confirmed ???Type alprazolam 0.5 mg tablet 0.5 mg PO BID-TID PRN Anxiety 10/0804/13/25 History aspirin 81 mg tablet,delayed 81 mg PO DAILY 10/29/18 04/13/25 H istory release (Adult Aspirin Regimen) furosemide 40 mg tablet (Lasix) 40 mg PO DAILY 05/29/19 04/13/25 H istory primidone 50 mg tablet 50 mg PO TID 05/29/19 04/13/25 His tory gabapentin 800 mg tablet 800 mg PO TID 30 days #90 tabs 12/2504/13/25 History hydrocodone 7.5 mg-acetaminophen 1 tab PO Q6H PRN Pain 03/09/2105/31 History 325 mg tablet levothyroxine 100 mcg tablet See Rx Instructions PO DAILY 90 04/13/25 History days omeprazole 40 mg capsule,delayed 40 mg PO DAILY 90 days #90 caps 04/13/25 History release ergocalciferol (vitamin D2) 1,250 1,250 mcg PO QWEEK 12/12/2104/13 History mcg (50,000 unit) capsule potassium chloride 20 mEq 20 meq PO DAILY 12/12/21 04/13/25 History tablet,extended release(part/cryst) metformin 500 mg tablet 1,000 mg PO DAILY 06/15/22 5 History pravastatin 10 mg tablet 10 mg PO DAILY 06/15/22 04/13/25 H istory lisinopril 20 1 tab PO DAILY #90 tabs 03/28/23 0 04/13/25 Rx mg-hydrochlorothiazid e 12.5 mg tablet clopidogrel 75 mg tablet (Plavix) 75 mg PO DAILY 01/06/24 04/13/25 History carvedilol 6.25 mg tablet 6.25 mg PO BID #180 tabs 05/13/24 04/13/25 Rx Is last menstrual period known: No Post menopausal: Yes Patient : No Have you fallen in the past year?: No PFSH Medical History Atherosclerosis of coronary artery without angina pectoris LAE (left atrial enlargement) Hypertrophic cardiomyopathy Non-rheumatic mitral valve stenosis Left ventricular hypertrophy Secondary pulmonary arterial hypertension Psoriasis Obstructive sleep apnea GERD (gastroesophageal reflux disease) Obesity Arthritis Hypothyroidism Hyperlipidemia Essential (primary) hypertension Type 2 diabetes mellitus Surgical History History of coronary artery stent placement (03/26/22) History of cataract surgery History of back surgery Hx of cholecystectomy History of herniorrhaphy Family History Other Heart disease Social History Smoking Status: Former smoker how long ago did patient quit smokin years ago substance use type: does not use caffeine: Yes Type: coffee Number of servings: 3 Female Reproductive History Menstrual control method: none HPI HPI HPI: NORA CONNELL, is a 84 F who presents to the office today for annual follow-up of PAD. She had updated arterial study on 03/23/25 demonstrating R VITO 0.72, L VITO 0.66, and biphasic waveforms throughout. She also has very mild venous insufficiency with focal R GSV reflux. At last OV, she had significant radicular/neuropathic LLE pain/paresthesias related to her known severe DDD/spinal stenosis. She is diabetic, overall well controlled. She has a remote history of smoking. She takes ASA and Plavix daily. She does take pravastatin 10mg daily, she was not able to tolerate higher intensity statins due to achiness. Her medical history is otherwise significant for CAD s/p PCI, hypertrophic cardiomyopathy, valvular heart disease, HTN, hyperlipidemia. She reports continue chronic back pain with radiculopathy and bilateral diabetic neuropathy but otherwise denies any symptoms consistent with claudication, reports her exercise tolerance is limited by back pain. She denies any ulcers/wounds on her feet or legs. She reports no significant interval changes to her health. ROS General General: Yes weight change and fatigue; No appetite, colon cancer, breast cancer or weakness HEENT HEENT: Yes difficulty swallowing; No eye injury, eye surgery, swollen glands or hoarseness Endo Endocrine: Yes thyroid (more content not included)... Normal [facility] Lower Ext Art Exam w/o Exerc jono 03-23-2025 Lower Ext Art Exam w/o Exercis [facility] [address] [address] Lower Ext Art Exam w/o Exercis 03/23/25 1357 MR#: [id number] Acct: [id number] Name: NORA CONNELL Rep #: [id number] : 1940 84 From: Doug Maradiaga MD Attending Dr: TAM Adkins Status: DEP CLI Ordering Dr: Christi Ordonez Date: 03/23/25 Location: [facility] Sex: F C Admitted: Reason For Study Reason For Study: PVD Procedure A bilateral lower extremity continuous wave Doppler with analog waveform analysis,segmental pressures,and ankle brachial indexes without exercise. Did not exercise patient due to use of wheelchair and cane for ambulating. Left Segmental Pressures Left brachial= 116mmHg. Left low thigh = 102mmHg. Left calf = 82mmHg. Left posterior tibial artery = 72mmHg. Left dorsalis pedis artery = 76mmHg. Left digit = 38 mmHg. Right Segmental Pressures Right brachial= 115mmHg. Right low thigh = 100mmHg. Right calf = 81mmHg. Right posterior tibial artery = 81mmHg. Right dorsalis pedis artery = 84mmHg. Right digit = 75 mmHg. Indices The right resting ankle brachial index is 0.72. The right ankle brachial index by the posterior tibial artery is 0.70. The right ankle brachial index by the dorsalis pedis is 0.72. The right digital-brachial index is 0.65. The left resting ankle brachial index is 0.66. The left ankle brachial index by the posterior tibial artery is 0.62. The left ankle brachial index by the dorsalis pedis is 0.66. The left digital-brachial index is 0.33. VL/Lower Ext Art Exam w/o Exercis Interpretation Summary Right VITO 0.72, moderate arterial insufficiency. Doppler/PVR waveforms and segmental pressures reveal aorto-iliac- proximal femoral disease. Left VITO 0.66, moderate arterial insufficiency. Doppler/PVR waveforms and segmental pressures reveal aorto-iliac- proximal femoral, distal SFA/popliteal disease Ordering Physician: Christi Ordonez Referring Physician: Billy Holguin Performed By: Argenis Vickers RVT, RDCS 03/29/25 1433 Date Doug Maradiaga MD CC: TAM Adkins; Dr. Gopi Whitehead MD Date Dictated: 03/23/25 1357 Date Transcribed: 03/29/25 1433 Pairer Inspector: Signed Normal [facility] Anion gap in Serum or Plasma Ordered By: Gopi Whitehead on 01-27-2025 Anion gap [Moles/Vol] 10 mmol/L 5-15 [facility] BUN/creatinine ratioOrdered By: Gopi Whitehead on 01-27-2025 Urea nitrogen/Creatinine [Mass ratio] 30.2 mg/mg High 10-20 [facility] Basic Metabolic Profile (BMP )on 01-27-2025 BUN/CRE 30.2 RATIO High - [facility] Comment on above: Performed By: #### L 506.0400, L501.9520, L501.04969, L500.2500 #### [facility] Laboratory [address] [place], [address] Calcium [Mass/Vol] 9.1 mg/dL Normal 7.6-11.0 [facility] Comment on above: Performed By: #### L 506.0400, L501.9520, L501.62177, L500.2500 #### [facility] Laboratory [address] [place], [address] Chloride [Moles/Vol] 102 mmol/L Normal 98-108 [facility] Comment on above: Performed By: #### L 506.0400, L501.9520, L501.25384, L500.2500 #### [facility] [address] [place], [address] CO2 [Moles/Vol] 29.3 mmol/L Normal 21.0-32.0 [facility] Comment on above: Performed By: #### L 506.0400, L501.9520, L501.07994, L500.2500 #### [facility] Laboratory [address] [place], [address] Creatinine [Mass/Vol] 0.76 mg/dL Normal 0.70-1.20 [facility] Comment on above: Performed By: #### L 506.0400, L501.9520, L501.29646, L500.2500 #### [facility] [address] [place], [address] GAP 10 Normal 5-15 [facility] Comment on above: Performed By: #### L 506.0400, L501.9520, L501.47643, L500.2500 #### [facility] [address] [place], [address] GFR/1.73 sq M.predicted among non-blacks MDRD (S/P/Bld) [Vol rate/Area] 79 mL/min/{1.73_m2} Normal >60 [facility] Comment on above: Result Comment: mL/m in/1.73m2 CKD-EPI Creatinine Equation (2020) Performed By: #### L 506.0400, L501.9520, L501.81429, L500.2500 #### [facility] [address] [place], [address] Glucose [Mass/Vol] 83 mg/dL Normal 70-99 [facility] Comment on above: Performed By: #### L 506.0400, L501.9520, L501.29485, L500.2500 #### [facility] [address] [place], [address] Potassium [Moles/Vol] 3.6 mmol/L Normal 3.3-5.1 [facility] Comment on above: Performed By: #### L 506.0400, L501.9520, L501.01598, L500.2500 #### [facility] [address] [place], [address] Sodium [Moles/Vol] 141 mmol/L Normal 133-145 [facility] Comment on above: Performed By: #### L 506.0400, L501.9520, L501.75097, L500.2500 #### [facility] [address] [place], [address] Urea nitrogen [Mass/Vol] 23 mg/dL High 4-19 [facility] Comment on above: Performed By: #### L 506.0400, L501.9520, L501.85785, L500.2500 #### [facility] [address] [place], [address] Carbon dioxide, total [Moles /volume] in Central venous bloodOrdered By: Gopi Whitehead on 01-27-2025 CO2 [Moles/Vol] 29.3 mmol/L 21.0-32.0 [facility] Chloride assayOrdered By: Tam Whitehead on 01-27-2025 Chloride [Moles/Vol] 102 mmol/L 98-108 [facility] Free T3on 01-27-2025 Free T3 [Mass/Vol] 2.3 pg/mL Normal 2.18-3.98 [facility] Comment on above: Performed By: #### L 506.0400, L501.9520, L501.63159, L500.2500 #### [facility] [address] [place], [address] Free U8Croanze By: Gopi boone on 01-27-2025 Free T3 [Mass/Vol] 2.3 pg/mL 2.18-3.98 [facility] Free Triiodothyronine (T3) pg/dL 2.3 pg/mL 2.18-3.98 [facility] GFR/1.73 sq M.predicted olu g non-blacks MDRD (S/P/Bld) [Vol rate/Area]Ordered By: Gopi Whitehead on 01-27-2025 Estimated GFR (MDRD) Non-Af Amer 79 >60 [facility] Comment on above: mL/min/1.73m2 CKD-EP I Creatinine Equation (2020) Glomerular filtration rate ( GFR) estimation/1.73 sq m using serum, plasma, or whole bOrdered By: Gopi Whitehead on 01-27-2025 GFR/1.73 sq M.predicted among non-blacks MDRD (S/P/Bld) [Vol rate/Area] 79 mL/min/{1.73_m2} >60 [facility] Comment on above: mL/min/1.73m2 CKD-EP I Creatinine Equation (2020) Potassium (Unsp spec) [Mass/ Vol]Ordered By: Gopi Whitehead on 01-27-2025 Potassium [Moles/Vol] 3.6 mmol/L 3.3-5.1 [facility] Potassium measurement (mass/ volume)Ordered By: Gopi Whitehead on 01-27-2025 Potassium (Unsp spec) [Mass/Vol] 3.6 mmol/L 3.3-5.1 [facility] Serum creatinine measurement (mass/volume)Ordered By: Gopi Whitehead on 01-27-2025 Creatinine [Mass/Vol] 0.76 mg/dL 0.70-1.20 [facility] Serum glucose measurement (m ass/volume)Ordered By: Gopi Whitehead on 01-27-2025 Glucose [Mass/Vol] 83 mg/dL 70-99 [facility] Serum or plasma calcium jordon urement (mass/volume)Ordered By: Gopi Whitehead on 01-27-2025 Calcium [Mass/Vol] 9.1 mg/dL 7.6-11.0 [facility] Serum or plasma urea nitroge n measurement (mass/volume)Ordered By: Gopi Whitehead on 01-27-2025 Urea nitrogen [Mass/Vol] 23 mg/dL High 4-19 [facility] Sodium levelOrdered By: Gopi Whitehead on 01-27-2025 Sodium [Moles/Vol] 141 mmol/L 133-145 [facility] T4 Free Directon 01-27-2025 T4 FREE DIRECT 1.10 ng/dL Normal 0.76-1.46 [facility] Comment on above: Performed By: #### L 506.0400, L501.9520, L501.44258, L500.2500 #### [facility] Laboratory [address] [place], [address] T4 freeOrdered By: Gopi boone on 01-27-2025 Free T4 [Mass/Vol] 1.10 ng/dL 0.76-1.46 [facility] TSH DL <= 0.005 mIU/L QnOrde red By: Gopi Whitehead on 01-27-2025 Thyroid Stimulating Hormone (TSH) 0.269 uIU/mL Low 0.300-4.200 [facility] TSH Qn 0.269 uIU/mL Low 0.300-4.200 [facility] Thyroid Stim Hormone (TSH)on 01-27-2025 TSH 0.269 uIU/mL Low 0.300-4.200 [facility] Comment on above: Performed By: #### L 506.0400, L501.9520, L501.80876, L500.2500 #### [facility] Laboratory [address] [facility], [address] Brain/Head without Contrasto n 10-22-2024 Brain/Head without Contrast [facility] Imaging Services [address] [place] [address] Brain/Head without Contrast MR#: [id number] Acct: [id number] Name: NORA CONNELL Rep #: [id number] : 1940 F 84 From: Larry Landis MD PCP: Dr. Gopi Whitehead MD Status: [facility] Study: Brain/Head without Contrast Date of Exam: 10/07 03/31 Exam# [id number] Ordering Dr: Saman Moses DO [id number] EXAM: CT HEAD WITHOUT INTRAVENOUS CONTRAST CLINICAL INDICATION: head trauma TECHNIQUE: Multiple axial images were obtained of the head without intravenous contrast. This CT exam was performed using one or more of the following dose reduction techniques: automated exposure control, adjustment of the mA and/or kV according to patient size, and/or use of iterative reconstruction technique. RADIATION DOSE: CTDIvol = 44.99 mGy, DLP = 863.60 mGy-cm COMPARISON: No relevant prior studies available. FINDINGS: BRAIN AND EXTRA-AXIAL SPACES: Diffuse cerebral volume loss. Periventricular small vessel ischemic changes. No intra- or extra-axial hemorrhage. No intracranial mass or mass effect. Posterior fossa structures are unremarkable. No hydrocephalus. Basal cisterns are patent. BONES/JOINTS: Unremarkable. No discrete lytic or blastic abnormalities. VASCULATURE: Vascular calcifications. SINUSES: Unremarkable as visualized. Clear. MASTOID AIR CELLS: Unremarkable. Clear. ORBITS: Visualized globes, extraocular muscles, optic nerves and retrobulbar fat appear unremarkable. CT/Brain/Head without Contrast IMPRESSION: 1. No acute intracranial abnormalities. 2. Age-related changes. Electronically Signed: Larry Landis MD at 23:20 EST , CC: Dr. Gopi Whitehead MD; Dr. Saman Moses DO Pairer Inspector: Signed Normal [facility] Emergency Department Summary on 10-22-2024 Emergency Department Summary [facility] Medical Records Department [address] [place] [address] Emergency Department Summary 10/22/24 MR#: [id number] Acct: [id number] Name: NORA CONNELL Rep #: [id number] : 1940 84 From: Saman Moses DO PCP: Dr. Gopi Whitehead MD Status:REG ER Location: ED HPI History of Present Illness Chief Complaint: Fall [facility] Medical History Atherosclerosis of coronary artery without angina pectoris LAE (left atrial enlargement) Hypertrophic cardiomyopathy Non-rheumatic mitral valve stenosis Left ventricular hypertrophy Secondary pulmonary arterial hypertension Psoriasis Obstructive sleep apnea GERD (gastroesophageal reflux disease) Obesity Arthritis Hypothyroidism Hyperlipidemia Essential (primary) hypertension Type 2 diabetes mellitus Home Medications ???Medication ???Instructions ???Recorded ???Last Taken ???Type alprazolam 0.5 mg tablet 0.5 mg PO BID-TID PRN Anxiety 10/29/18 Unknown History aspirin 81 mg tablet,delayed 81 mg PO DAILY 10/29/18 03/26/22 History release (Adult Aspirin Regimen) furosemide 40 mg tablet (Lasix) 40 mg PO DAILY 05/29/19 Unknown History primidone 50 mg tablet 50 mg PO TID 05/29/19 Unknown History gabapentin 800 mg tablet 800 mg PO TID 30 days #90 tabs 03/09/21 Unknown History hydrocodone 7.5 mg-acetaminophen 1 tab PO Q6H PRN Pain 03/09/21 Unknown History 325 mg tablet levothyroxine 100 mcg tablet See Rx Instructions PO DAILY 90 03/09/21 03/26/22 History days omeprazole 40 mg capsule,delayed 40 mg PO DAILY 90 days #90 caps 03/09/21 Unknown History release ergocalciferol (vitamin D2) 1,250 1,250 mcg PO QWEEK 12/12/21 Unknown History mcg (50,000 unit) capsule potassium chloride 20 mEq 20 meq PO DAILY 12/12/21 Unknown History tablet,extended release(part/cryst) metformin 500 mg tablet 1,000 mg PO DAILY 06/15/22 Unknown History pravastatin 10 mg tablet 10 mg PO DAILY 06/15/22 Unknown History lisinopril 20 1 tab PO DAILY #90 tabs 03/28/23 Unknown Rx mg-hydrochlorothiazid e 12.5 mg tablet clopidogrel 75 mg tablet (Plavix) 75 mg PO DAILY 01/06/24 Unknown History carvedilol 6.25 mg tablet 6.25 mg PO BID #180 tabs 05/13/24 Unknown Rx Allergy/AdvReac Type Severity Reaction Status Date / Time No Known Allergies Allergy Verified 10/22/24 22:08 Family History Other Heart disease Surgical History History of coronary artery stent placement (03/26/22) History of cataract surgery History of back surgery Hx of cholecystectomy History of herniorrhaphy Social History Smoking Status: Former smoker how long ago did patient quit smokin years ago substance use type: does not use caffeine: Yes Type: coffee Number of servings: 3 EXAM Physical Exam Const Vital Signs: 10/22/24 22:02 10/22/24 22:58 Temperature 97.8 F Temperature Source Temporal Pulse Rate 78 Respiratory Rate 16 Respiratory Effort Normal Respiratory Depth Normal Respiratory Pattern Normal Blood Pressure 151/42 H Blood Pressure Mean 78 Pulse Ox 97 Oxygen Delivery Method Room Air MDM MDM MDM Narrative Medical decision making narrative: HISTORY OF PRESENT ILLNESS: 84-year-old female presents with fall. No she is on a blood thinner. No she takes Plavix. Notes she fell down. She notes her daughter because of her fall because her daughter also fell down and landed on her. States she hit her face, has abrasions to lips and bilateral arms. She denies loss of consciousness. REVIEW OF SYSTEMS: Pertinent positives: Fall, head trauma Pertinent negatives: Loss of consciousness PHYSICAL EXAM: Nursing triage notes reviewed, Vital signs reviewed Primary Survey Airway: Intact Breathing: Bilateral breath sounds Circulation: Palpable bilateral femorals, Palpable bilateral radial, Palpable bilateral DP and Palpable bilateral PT Disability / Spine precautions GCS Score: Eye Openin Verbal Response: 5 Motor Response: 6 Secondary Survey Constitutional: Please see MDM Head: Ecchymosis noted about the nasal bridge, no soft hematoma, no obvious lacerations, abrasion noted to the patient's lip. Eye: Pupils equal round and reactive to light, Extraocular muscles intact and No periorbital ecchymosis or stepoff, no evidence of entrapment ENT: Oropharynx clear, no lacerations, no hemotympanum, no raccoon eyes or saab sign Cervical spine / Neck: No cervical spine bony tenderness, crepitance, or stepoff deformity Trachea midline Lungs: Clear to auscultation, No asymmetric rise and No crepitus, no flail chest Cardiac: Regul (more content not included)... Normal [facility] Sinus/Facial Boneon 10-22-19 Sinus/Facial Bone [facility] Imaging Services [address] [place], [place] [address] Sinus/Facial Bone MR#: [id number] Acct: [id number] Name: NORA CONNELL Rep #: [id number] : 1940 F 84 From: Larry Landis MD PCP: Dr. Gopi Whitehead MD Status: REG ER Study: Sinus/Facial Bone Date of Exam: 10/22/24 Exam# [id number] Ordering Dr: Saman Moses DO [id number] EXAM: CT MAXILLOFACIAL WITHOUT INTRAVENOUS CONTRAST CLINICAL INDICATION: fall, nasal and facial trauma TECHNIQUE: Helically acquired images were obtained of the face without intravenous contrast. This CT exam was performed using one or more of the following dose reduction techniques: automated exposure control, adjustment of the mA and/or kV according to patient size, and/or use of iterative reconstruction technique. RADIATION DOSE: CTDIvol = 29.38 mGy, DLP = 598.88 mGy-cm COMPARISON: No relevant prior studies available. FINDINGS: BONES/JOINTS: Nondisplaced left-sided nasal bone fracture which could be acute. No discrete lytic or blastic abnormalities. SOFT TISSUES: Nasal soft tissue swelling. No discrete fluid collections. ORBITS: Unremarkable. Both globes are unremarkable. Extraocular muscles are normal. Retrobulbar fat appears unremarkable. SINUSES: Unremarkable as visualized. Clear. MASTOID AIR CELLS: Unremarkable as visualized. Clear. CT/Sinus/Facial Bone IMPRESSION: 1. Nondisplaced left-sided nasal bone fracture which could be acute. No other significant osseous findings. 2. Nasal soft tissue swelling. Electronically Signed: Larry Landis MD at 23:25 EST , CC: Dr. Gopi Whitehead MD; Dr. Saman Moses DO Pairer Inspector: Signed Normal [facility] Spine Cervical without Contr ason 10-22-2024 Spine Cervical without Contras [facility] Imaging Services [address] [place] [address] Spine Cervical without Contras MR#: [id number] Acct: [id number] Name: NORA CONNELL Rep #: [id number] : 1940 F 84 From: Larry Landis MD PCP: Dr. Gopi Whitehead MD Status: REG ER Study: Spine Cervical without Contras Date of Exam: 0 10/22/24 Exam# [id number] Ordering Dr: Saman Moses DO [id number] EXAM: CT CERVICAL SPINE WITHOUT INTRAVENOUS CONTRAST CLINICAL INDICATION: neck pain TECHNIQUE: Helically acquired images were obtained of the cervical spine without intravenous contrast. 2D reformatted images were reviewed. This CT exam was performed using one or more of the following dose reduction techniques: automated exposure control, adjustment of the mA and/or kV according to patient size, and/or use of iterative reconstruction technique. RADIATION DOSE: CTDIvol = 17.07 mGy, DLP = 363.34 mGy-cm COMPARISON: No relevant prior studies available. FINDINGS: VERTEBRAE: Unremarkable. No fracture. No traumatic subluxation. No discrete lytic or blastic abnormality. Normal alignment. Normal craniocervical junction and cervicothoracic junction. DISCS/SPINAL CANAL/NEURAL FORAMINA: Degenerative changes of the intervertebral discs. No critical stenosis. SOFT TISSUES: Unremarkable. No prevertebral soft tissue swelling. LYMPH NODES: Unremarkable. No cervical adenopathy. LUNG APICES: Unremarkable as visualized. Clear. CT/Spine Cervical without Contras IMPRESSION: 1. No acute injuries identified involving the cervical spine. 2. Degenerative changes. Electronically Signed: Larry Landis MD at 23:22 EST , CC: Dr. Gopi Whitehead MD; Dr. Saman Moses DO Pairer Inspector: Signed Normal [facility] Comprehensive Metabolic Prof ilon 06-05-2024 Albumin [Mass/Vol] 3.4 g/dL Normal 3.2-5.0 [facility] Comment on above: Performed By: #### L 506.0400, L501.9520, L500.4050, L500.4100, L501.14991 ####[facility] [address] [place], [address] Albumin/Globulin [Mass ratio] 0.9 {ratio} Normal 0.9-2.4 [facility] Comment on above: Performed By: #### L 506.0400, L501.9520, L500.4050, L500.4100, L501.72328 ####[facility] [address] [place], [address] ALK P 111 U/L Normal 45-117 [facility] Comment on above: Performed By: #### L 506.0400, L501.9520, L500.4050, L500.4100, L501.53314 ####[facility] [address] [place], [address] ALT [Catalytic activity/Vol] 40 U/L Normal 13-56 [facility] Comment on above: Performed By: #### L 506.0400, L501.9520, L500.4050, L500.4100, L501.29794 ####[facility] [address] [place], [address] AST [Catalytic activity/Vol] 30 U/L Normal 15-37 [facility] Comment on above: Performed By: #### L 506.0400, L501.9520, L500.4050, L500.4100, L501.31597 ####[facility] [address] [place], [address] Bilirubin [Mass/Vol] 0.30 mg/dL Normal 0.20-1.00 [facility] Comment on above: Result Comment: For patients on eltrombopag therapy, use of Dimension [place] TBIL is not recommended. Performed By: #### L 506.0400, L501.9520, L500.4050, L500.4100, L501.61916 ####[facility] [address] [place], [address] BUN/CRE 26.6 RATIO High 10-20 [facility] Comment on above: Performed By: #### L 506.0400, L501.9520, L500.4050, L500.4100, L501.43392 ####[facility] [address] [place], [address] CA,Total 9.8 mg/dL Normal 8.5-10.1 [facility] Comment on above: Performed By: #### L 506.0400, L501.9520, L500.4050, L500.4100, L501.28611 ####[facility] [address] [place], [address] Chloride [Moles/Vol] 102 mmol/L Normal 98-107 [facility] Comment on above: Performed By: #### L 506.0400, L501.9520, L500.4050, L500.4100, L501.58028 ####[facility] [address] [place], [address] CO2 [Moles/Vol] 31.0 mmol/L Normal 21.0-32.0 [facility] Comment on above: Performed By: #### L 506.0400, L501.9520, L500.4050, L500.4100, L501.69845 ####[facility] [address] [place], [address] Creatinine [Mass/Vol] 0.98 mg/dL Normal 0.55-1.02 [facility] Comment on above: Result Comment: The validity of the calculated GFR GFRAA in patients over 70 years has not been determined. Clinical correlation is essential. Performed By: #### L 506.0400, L501.9520, L500.4050, L500.4100, L501.59331 ####[facility] [address] [place], [address] EST GFR - AA 70 mL/min Normal >60 [facility] Comment on above: Result Comment: Afri can Czech GFR Calc Performed By: #### L 506.0400, L501.9520, L500.4050, L500.4100, L501.66611 ####[facility] [address] [place], [address] GAP 7 Normal 5-15 [facility] Comment on above: Performed By: #### L 506.0400, L501.9520, L500.4050, L500.4100, L501.76404 ####[facility] [address] [place], [address] GFR/1.73 sq M.predicted among non-blacks MDRD (S/P/Bld) [Vol rate/Area] 58 mL/min/{1.73_m2} Low >60 [facility] Comment on above: Result Comment: Non- GFR Calc Performed By: #### L 506.0400, L501.9520, L500.4050, L500.4100, L501.25565 ####[facility] [address] [place], [address] Globulin (S) [Mass/Vol] 3.6 g/dL Normal 2.2-4.2 [facility] Comment on above: Performed By: #### L 506.0400, L501.9520, L500.4050, L500.4100, L501.72361 ####[facility] [address] [place], [address] Glucose [Mass/Vol] 92 mg/dL Normal 74-106 [facility] Comment on above: Performed By: #### L 506.0400, L501.9520, L500.4050, L500.4100, L501.61636 ####[facility] [address] [place], [address] Potassium [Moles/Vol] 3.2 mmol/L Low 3.5-5.1 [facility] Comment on above: Performed By: #### L 506.0400, L501.9520, L500.4050, L500.4100, L501.68981 ####[facility] [address] [place], [address] Sodium [Moles/Vol] 140 mmol/L Normal 136-145 [facility] Comment on above: Performed By: #### L 506.0400, L501.9520, L500.4050, L500.4100, L501.49053 ####[facility] [address] [place], [address] T PROT 7.0 g/dL Normal 6.4-8.2 [facility] Comment on above: Performed By: #### L 506.0400, L501.9520, L500.4050, L500.4100, L501.78962 ####[facility] [address] [place], [address] Urea nitrogen [Mass/Vol] 26 mg/dL High 7-18 [facility] Comment on above: Performed By: #### L 506.0400, L501.9520, L500.4050, L500.4100, L501.40563 ####[facility] [address] [place], [address] Free T3on 06-05-2024 Free T3 [Mass/Vol] 1.9 pg/mL Low 2.18-3.98 [facility] Comment on above: Performed By: #### L 506.0400, L501.9520, L500.4050, L500.4100, L501.43877 ####[facility] [address] [place], [address] Lipid Profileon 06-05-2024 Cholesterol [Mass/Vol] 224 mg/dL High 200 [facility] Comment on above: Result Comment: <200 mg/dL Desirable 200-240 mg/dL Borderline >240 mg/dL High Risk Performed By: #### L 506.0400, [id number], L500.4050, L500.4100, [id number] ####[facility] [address] [place], [address] Cholesterol in HDL [Mass/Vol] 83 mg/dL Normal [facility] Comment on above: Result Comment: The drugs N-Acetylcysteine and Metamizole may falsely depress this assay. Reference Range HDL <40 mg/dL Low HDL Cholesterol HDL >or= 60 mg/dL High HDL Cholesterol Performed By: #### L 506.0400, [id number], L500.4050, L500.4100, [id number] ####[facility] [address] [place], [address] Cholesterol in LDL [Mass/Vol] 120 mg/dL Normal 0-130 [facility] Comment on above: Performed By: #### L 506.0400, [id number], L500.4050, L500.4100, [id number] ####[facility] [address] [place], [address] Cholesterol in VLDL [Mass/Vol] 21 mg/dL Normal 5-40 [facility] Comment on above: Performed By: #### L 506.0400, [id number], L500.4050, L500.4100, [id number] ####[facility] [address] [place], [address] Triglyceride [Mass/Vol] 107 mg/dL Normal [facility] Comment on above: Result Comment: The drugs N-Acetylcysteine and Metamizole may falsely depress this assay. Serum Triglycerides Reference Interval Normal <150 mg/dL Borderline high 150 - 199 mg/dL High 200 - 499 mg/dL Very High > or = 500 mg/dL Performed By: #### L 506.0400, [id number], L500.4050, L500.4100, [id number] ####[facility] [address] [place], [address] T4 Free Directon 06-05-2024 T4 FREE DIRECT 1.08 ng/dL Normal 0.76-1.46 [facility] Comment on above: Performed By: #### L 506.0400, [id number], L500.4050, L500.4100, [id number] ####[facility] [address] [place], [address] Thyroid Stim Hormone (TSH)on 06-05-2024 TSH 1.710 uIU/mL Normal 0.358-3.740 [facility] Comment on above: Performed By: #### L 506.0400, [id number], L500.4050, L500.4100, [id number] ####[facility] [address] [place], [address] Basophil percentageOrdered B y: Gopi Whitehead on 10-10-2023 Bilirubin [Mass/Vol] 0.20 mg/dL 0.20-1.00 [facility] Comment on above: For patients on eltr ombopag therapy, use of Dimension [place] TBIL is not recommended. Chloride [Moles/Vol] 103 mmol/L 98-107 [facility] Cholesterol [Mass/Vol] 190 mg/dL <200 [facility] Comment on above: <200 mg/dL Desirable 200-240 mg/dL Borderline >240 mg/dL High Risk Glucose [Mass/Vol] 90 mg/dL 74-106 [facility] Potassium [Moles/Vol] 3.7 mmol/L 3.5-5.1 [facility] Protein [Mass/Vol] 6.9 g/dL 6.4-8.2 [facility] Sodium [Moles/Vol] 140 mmol/L 136-145 [facility] Triglyceride [Mass/Vol] 180 mg/dL <199 [facility] Comment on above: The drugs N-Acetylcy steine and Metamizole may falsely depress this assay.Serum Triglycerides Reference Interval Normal <150 mg/dL Borderline high 150 - 199 mg/dL High 200 - 499 mg/dL Very High > or = 500 mg/dL Laboratory - Chemistry and C hemistry - challengeOrdered By: Gopi Whitehead on 10-10-2023 ALP [Catalytic activity/Vol] 137 U/L 45-117 [facility] ALT [Catalytic activity/Vol] 29 U/L 13-56 [facility] CO2 [Moles/Vol] 31.0 mmol/L 21.0-32.0 [facility] Free T4 [Mass/Vol] 1.12 ng/dL 0.76-1.46 [facility] Globulin (S) [Mass/Vol] 3.4 g/dL 2.2-4.2 [facility] Urea nitrogen/Creatinine [Mass ratio] 21.3 mg/mg 10-20 [facility] No Panel InformationOrdered By: Gopi Whitehead on 10-10-2023 Estimated GFR (MDRD) Amer 54 mL/min >60 [facility] Comment on above: GFR Calc Estimated GFR (MDRD) Non-Af Amer 45 mL/min >60 [facility] Comment on above: Non- GFR Calc Free Triiodothyronine (T3) pg/dL 2.0 pg/mL 2.18-3.98 [facility] Thyroid Stimulating Hormone (TSH) 0.47 uIU/mL 0.358-3.74 [facility] Urine Microalbumin/Creatinine Ratio 61.3 mg/g CRE <30 [facility] Serum or plasma albumin jordon urement (mass/volume)Ordered By: Gopi Whitehead on 10-10-2023 Albumin [Mass/Vol] 3.5 g/dL 3.2-5.0 [facility] Serum or plasma albumin/glob ulin mass ratioOrdered By: Gopi Whitehead on 10-10-2023 Albumin/Globulin [Mass ratio] 1.0 {ratio} 0.9-2.4 [facility] Serum or plasma calcium jordon urement (mass/volume)Ordered By: Gopi Whitehead on 10-10-2023 Calcium [Mass/Vol] 8.7 mg/dL 8.5-10.1 [facility] Serum or plasma cholesterol in HDL measurement (mass/volume)Ordered By: Gopi Whitehead on 10-10-2023 Cholesterol in HDL [Mass/Vol] 66 mg/dL >40 [facility] Comment on above: The drugs N-Acetylcy steine and Metamizole may falsely depress this assay. Reference Range HDL <40 mg/dL Low HDL Cholesterol HDL >or= 60 mg/dL High HDL Cholesterol Serum or plasma cholesterol in VLDL measurement (mass/volume)Ordered By: Gopi Whitehead on 10-10-2023 Cholesterol in VLDL [Mass/Vol] 36 mg/dL 5-40 [facility] Serum or plasma creatinine m easurement (mass/volume)Ordered By: Gopi Whitehead on 10-10-2023 Creatinine [Mass/Vol] 1.22 mg/dL 0.55-1.02 [facility] Comment on above: The validity of the calculated GFR & GFRAA in patients over 70 years has not been determined. Clinical correlation is essential. Serum or plasma low density lipoprotein (LDL) cholesterol measurement (mass/volume)Ordered By: Gopi Whitehead on 10-10-2023 Cholesterol in LDL [Mass/Vol] 88 mg/dL 0-130 [facility] Serum or plasma urea nitroge n measurement (mass/volume)Ordered By: Gopi Whitehead on 10-10-2023 Urea nitrogen [Mass/Vol] 26 mg/dL 7-18 [facility] Thin prep Papanicolaou smear with manual screeningOrdered By: Gopi Whitehead on 10-10-2023 Thin prep Papanicolaou smear with manual screening 23 U/L 15-37 [facility] Thin prep Papanicolaou smear with manual screening 6 5-15 [facility] Thin prep Papanicolaou smear with manual screening 43.8 mg/L NO RANGE EST. [facility] Urine creatinine measurement (mass/volume)Ordered By: Gopi Whitehead on 10-10-2023 Creatinine (U) [Mass/Vol] 71.50 mg/dL NO RANGE EST. [facility] Absolute lymphocyte countOrd ered By: Savi Zimmer on 09-23-2023 Lymphocytes Auto (Unsp spec) [#/Vol] 2.00 10*3/uL 0.83-4.51 [facility] Basophil percentageOrdered B y: Savi Zimmer on 09-23-2023 Basophils/100 WBC (Bld) 0.8 % 0-1 [facility] Chloride [Moles/Vol] 103 mmol/L 98-107 [facility] Eosinophils/100 WBC (Bld) 3.1 % 0-5 [facility] Glucose [Mass/Vol] 116 mg/dL 74-106 [facility] Comment on above: Fasting Glucose resu lt from 100 to 125 mg/dL suggests IMPAIRED HOMEOSTASIS per A.D.A. criteria. Neutrophils (Bld) [#/Vol] 3.7 10*3/uL 2.0-7.7 [facility] Neutrophils/100 WBC (Bld) 56.0 % 47-70 [facility] Potassium [Moles/Vol] 3.3 mmol/L 3.5-5.1 [facility] Sodium [Moles/Vol] 138 mmol/L 136-145 [facility] WBC (Bld) [#/Vol] 6.6 10*3/uL 4.4-11.0 [facility] Blood erythrocytes count (nu mber/volume)Ordered By: Savi Zimmer on 09-23-2023 RBC (Bld) [#/Vol] 3.55 10*6/uL 4.2-5.4 [facility] Blood hemoglobin measurement (mass/volume)Ordered By: Savi Zimmer on 09-23-2023 Hemoglobin (Bld) [Mass/Vol] 10.7 g/dL 12.0-15.0 [facility] Blood lymphocytes/100 leukoc ytesOrdered By: Savi Zimmer on 09-23-2023 Lymphocytes/100 WBC (Bld) 30.5 % 19-41 [facility] Blood monocytes/100 leukocyt esOrdered By: Savi Zimmer on 09-23-2023 Monocytes/100 WBC (Bld) 9.3 % 0-10 [facility] Blood platelet mean volumeOr dered By: Savi Zimmer on 09-23-2023 Platelet mean volume (Bld) [Entitic vol] 11.8 fL 6.2-12.0 [facility] Determination of erythrocyte mean corpuscular volume (MCV)Ordered By: Savi Zimmer on 09-23-2023 MCV (RBC) [Entitic vol] 92.4 fL 81-99 [facility] Hematocrit Auto (Bld) [Volum e fraction]Ordered By: Savi Zimmer on 09-23-2023 Hematocrit (Bld) [Volume fraction] 32.8 % 37-47 [facility] Laboratory - Chemistry and C hemistry - challengeOrdered By: Savi Zimmer on 09-23-2023 CO2 [Moles/Vol] 30.0 mmol/L 21.0-32.0 [facility] Urea nitrogen/Creatinine [Mass ratio] 26.7 mg/mg 10-20 [facility] Laboratory - Hematology and Cell countsOrdered By: Savi Zimmer on 09-23-2023 Erythrocyte distribution width (RBC) [Entitic vol] 43.3 fL 35.1-43.9 [facility] Erythrocyte distribution width (RBC) [Ratio] 12.8 % 11.6-14.6 [facility] Immature granulocytes/100 WBC (Bld) 0.300 % 0.0-0.9 [facility] Comment on above: IG% - Immature Granu locytes (promyelocytes, myelocytes and metamyelocytes) > 1% indicates that a LEFT SHIFT is Present. MCH (RBC) [Entitic mass] 30.1 pg 27.0-32.0 [facility] Nucleated RBC/100 WBC (Bld) [Ratio] 0 % 0-5 [facility] MCHC Auto (RBC) [Mass/Vol]Or dered By: Savi Zimmer on 09-23-2023 MCHC (RBC) [Mass/Vol] 32.6 g/dL 32-36 [facility] No Panel InformationOrdered By: Savi Zimmer on 09-23-2023 Estimated Creatinine Clearance Calc 29.08 ml/min [facility] Estimated GFR (MDRD) Amer 55 mL/min >60 [facility] Comment on above: GFR Calc Estimated GFR (MDRD) Non-Af Amer 46 mL/min >60 [facility] Comment on above: Non- GFR Calc Troponin I High Sensitivity 22 pg/mL 3.0-54.0 [facility] Comment on above: Please Note: New Emily t Units and Gender Specific Reference Ranges. For more information see Policy Stat Procedure [place] High Sensitivity Troponin (TNIH) and attachments. Platelets bldOrdered By: Joceline Zimmer on 09-23-2023 Platelets (Bld) [#/Vol] 206 10*3/uL 150-450 [facility] Serum or plasma calcium jordon urement (mass/volume)Ordered By: Savi Zimmer on 09-23-2023 Calcium [Mass/Vol] 9.0 mg/dL 8.5-10.1 [facility] Serum or plasma creatinine m easurement (mass/volume)Ordered By: Savi Zimmer on 09-23-2023 Creatinine [Mass/Vol] 1.20 mg/dL 0.55-1.02 [facility] Comment on above: The validity of the calculated GFR & GFRAA in patients over 70 years has not been determined. Clinical correlation is essential. Serum or plasma urea nitroge n measurement (mass/volume)Ordered By: Savi Zimmer on 09-23-2023 Urea nitrogen [Mass/Vol] 32 mg/dL 7-18 [facility] Thin prep Papanicolaou smear with manual screeningOrdered By: Savi Zimmer on 09-23-2023 Thin prep Papanicolaou smear with manual screening 5 5-15 [facility] Basophil percentageOrdered B y: Gopi Whitehead on 09-02-2023 Chloride [Moles/Vol] 102 mmol/L 98-107 [facility] Cholesterol [Mass/Vol] 206 mg/dL <200 [facility] Comment on above: <200 mg/dL Desirable 200-240 mg/dL Borderline >240 mg/dL High Risk Glucose [Mass/Vol] 110 mg/dL 74-106 [facility] Comment on above: Fasting Glucose resu lt from 100 to 125 mg/dL suggests IMPAIRED HOMEOSTASIS per A.D.A. criteria. Potassium [Moles/Vol] 3.3 mmol/L 3.5-5.1 [facility] Sodium [Moles/Vol] 141 mmol/L 136-145 [facility] Triglyceride [Mass/Vol] 163 mg/dL <199 [facility] Comment on above: The drugs N-Acetylcy steine and Metamizole may falsely depress this assay.Serum Triglycerides Reference Interval Normal <150 mg/dL Borderline high 150 - 199 mg/dL High 200 - 499 mg/dL Very High > or = 500 mg/dL Laboratory - Chemistry and C hemistry - challengeOrdered By: Gopi Whitehead on 09-02-2023 CO2 [Moles/Vol] 30.0 mmol/L 21.0-32.0 [facility] Free T4 [Mass/Vol] 1.15 ng/dL 0.76-1.46 [facility] Urea nitrogen/Creatinine [Mass ratio] 23.5 mg/mg 10-20 [facility] No Panel InformationOrdered By: Gopi Whitehead on 09-02-2023 Estimated GFR (MDRD) Amer 74 mL/min >60 [facility] Comment on above: GFR Calc Estimated GFR (MDRD) Non-Af Amer 61 mL/min >60 [facility] Comment on above: Non- GFR Calc Free Triiodothyronine (T3) pg/dL 2.1 pg/mL 2.18-3.98 [facility] Thyroid Stimulating Hormone (TSH) 0.46 uIU/mL 0.358-3.74 [facility] Urine Microalbumin/Creatinine Ratio TNP [facility] Comment on above: Test not performed Serum or plasma calcium jordon urement (mass/volume)Ordered By: Gopi Whitehead on 09-02-2023 Calcium [Mass/Vol] 8.9 mg/dL 8.5-10.1 [facility] Serum or plasma cholesterol in HDL measurement (mass/volume)Ordered By: Gopi Whitehead on 09-02-2023 Cholesterol in HDL [Mass/Vol] 74 mg/dL >40 [facility] Comment on above: The drugs N-Acetylcy steine and Metamizole may falsely depress this assay. Reference Range HDL <40 mg/dL Low HDL Cholesterol HDL >or= 60 mg/dL High HDL Cholesterol Serum or plasma cholesterol in VLDL measurement (mass/volume)Ordered By: Gopi Whitehead on 09-02-2023 Cholesterol in VLDL [Mass/Vol] 33 mg/dL 5-40 [facility] Serum or plasma creatinine m easurement (mass/volume)Ordered By: Gopi Whitehead on 09-02-2023 Creatinine [Mass/Vol] 0.94 mg/dL 0.55-1.02 [facility] Comment on above: The validity of the calculated GFR & GFRAA in patients over 70 years has not been determined. Clinical correlation is essential. Serum or plasma low density lipoprotein (LDL) cholesterol measurement (mass/volume)Ordered By: Gopi Whitehead on 09-02-2023 Cholesterol in LDL [Mass/Vol] 99 mg/dL 0-130 [facility] Serum or plasma urea nitroge n measurement (mass/volume)Ordered By: Gopi Whitehead on 09-02-2023 Urea nitrogen [Mass/Vol] 22 mg/dL 7-18 [facility] Thin prep Papanicolaou smear with manual screeningOrdered By: Gopi Whitehead on 09-02-2023 Thin prep Papanicolaou smear with manual screening 9 5-15 [facility] Thin prep Papanicolaou smear with manual screening 5.5 mg/L NO RANGE EST. [facility] Urine creatinine measurement (mass/volume)Ordered By: Gopi Whitehead on 09-02-2023 Creatinine (U) [Mass/Vol] mg/dL NO RANGE EST. [facility] Basophil percentageOrdered B y: Gopi Whitehead on 04-11-2023 Chloride [Moles/Vol] 106 mmol/L 98-107 [facility] Glucose [Mass/Vol] 114 mg/dL 74-106 [facility] Comment on above: Fasting Glucose resu lt from 100 to 125 mg/dL suggests IMPAIRED HOMEOSTASIS per A.D.A. criteria. Potassium [Moles/Vol] 4.0 mmol/L 3.5-5.1 [facility] Sodium [Moles/Vol] 138 mmol/L 136-145 [facility] Laboratory - Chemistry and C hemistry - challengeOrdered By: Gopi Whitehead on 04-11-2023 CO2 [Moles/Vol] 25.0 mmol/L 21.0-32.0 [facility] Urea nitrogen/Creatinine [Mass ratio] 21.6 mg/mg 10-20 [facility] No Panel InformationOrdered By: Gopi Whitehead on 04-11-2023 Estimated GFR (MDRD) Amer 104 mL/min >60 [facility] Comment on above: GFR Calc Estimated GFR (MDRD) Non-Af Amer 86 mL/min >60 [facility] Comment on above: Non- GFR Calc Free Triiodothyronine (T3) pg/dL 1.9 pg/mL 2.18-3.98 [facility] Thyroid Stimulating Hormone (TSH) 0.63 uIU/mL 0.358-3.74 [facility] Serum or plasma calcium jordon urement (mass/volume)Ordered By: Gopi Whitehead on 04-11-2023 Calcium [Mass/Vol] 9.1 mg/dL 8.5-10.1 [facility] Serum or plasma creatinine m easurement (mass/volume)Ordered By: Gopi Whitehead on 04-11-2023 Creatinine [Mass/Vol] 0.70 mg/dL 0.55-1.02 [facility] Comment on above: The validity of the calculated GFR & GFRAA in patients over 70 years has not been determined. Clinical correlation is essential. Serum or plasma urea nitroge n measurement (mass/volume)Ordered By: Gopi Whitehead on 04-11-2023 Urea nitrogen [Mass/Vol] 15 mg/dL 7-18 [facility] Thin prep Papanicolaou smear with manual screeningOrdered By: Gopi Whitehead on 04-11-2023 Thin prep Papanicolaou smear with manual screening 7 5-15 [facility] Basophil percentageOrdered B y: Dr. Whitehead on 02-26-2023 Chloride [Moles/Vol] 101 mmol/L 98-107 [facility] Cholesterol [Mass/Vol] 197 mg/dL <200 [facility] Comment on above: <200 mg/dL Desirable 200-240 mg/dL Borderline >240 mg/dL High Risk Glucose [Mass/Vol] 116 mg/dL 74-106 [facility] Comment on above: Fasting Glucose resu lt from 100 to 125 mg/dL suggests IMPAIRED HOMEOSTASIS per A.D.A. criteria. Potassium [Moles/Vol] 3.4 mmol/L 3.5-5.1 [facility] Sodium [Moles/Vol] 140 mmol/L 136-145 [facility] Triglyceride [Mass/Vol] 129 mg/dL <199 [facility] Comment on above: The drugs N-Acetylcy steine and Metamizole may falsely depress this assay.Serum Triglycerides Reference Interval Normal <150 mg/dL Borderline high 150 - 199 mg/dL High 200 - 499 mg/dL Very High > or = 500 mg/dL Laboratory - Chemistry and C hemistry - challengeOrdered By: Dr. Whitehead on 02-26-2023 CO2 [Moles/Vol] 31.0 mmol/L 21.0-32.0 [facility] Free T4 [Mass/Vol] 1.24 ng/dL 0.76-1.46 [facility] Urea nitrogen/Creatinine [Mass ratio] 26.0 mg/mg 10-20 [facility] No Panel InformationOrdered By: Dr. Whitehead on 02-26-2023 Estimated GFR (MDRD) Amer 105 mL/min >60 [facility] Comment on above: GFR Calc Estimated GFR (MDRD) Non-Af Amer 86 mL/min >60 [facility] Comment on above: Non- GFR Calc Free Triiodothyronine (T3) pg/dL 2.0 pg/mL 2.18-3.98 [facility] Thyroid Stimulating Hormone (TSH) 0.61 uIU/mL 0.358-3.74 [facility] Serum or plasma calcium jordon urement (mass/volume)Ordered By: Dr. Whitehead on 02-26-2023 Calcium [Mass/Vol] 9.4 mg/dL 8.5-10.1 [facility] Serum or plasma cholesterol in HDL measurement (mass/volume)Ordered By: Dr. Whitehead on 02-26-2023 Cholesterol in HDL [Mass/Vol] 79 mg/dL >40 [facility] Comment on above: The drugs N-Acetylcy steine and Metamizole may falsely depress this assay. Reference Range HDL <40 mg/dL Low HDL Cholesterol HDL >or= 60 mg/dL High HDL Cholesterol Serum or plasma cholesterol in VLDL measurement (mass/volume)Ordered By: Dr. Whitehead on 02-26-2023 Cholesterol in VLDL [Mass/Vol] 26 mg/dL 5-40 [facility] Serum or plasma creatinine m easurement (mass/volume)Ordered By: Dr. Whitehead on 02-26-2023 Creatinine [Mass/Vol] 0.69 mg/dL 0.55-1.02 [facility] Comment on above: The validity of the calculated GFR & GFRAA in patients over 70 years has not been determined. Clinical correlation is essential. Serum or plasma low density lipoprotein (LDL) cholesterol measurement (mass/volume)Ordered By: Dr. Whitehead on 02-26-2023 Cholesterol in LDL [Mass/Vol] 92 mg/dL 0-130 [facility] Serum or plasma urea nitroge n measurement (mass/volume)Ordered By: Dr. Whitehead on 02-26-2023 Urea nitrogen [Mass/Vol] 18 mg/dL 7-18 [facility] Thin prep Papanicolaou smear with manual screeningOrdered By: Dr. Whitehead on 02-26-2023 Thin prep Papanicolaou smear with manual screening 8 5-15 [facility] Basophil percentageOrdered B y: Dr. Whitehead on 10-10-2022 Chloride [Moles/Vol] 108 mmol/L 98-107 [facility] Glucose [Mass/Vol] 102 mg/dL 74-106 [facility] Comment on above: Fasting Glucose resu lt from 100 to 125 mg/dL suggests IMPAIRED HOMEOSTASIS per A.D.A. criteria. Potassium [Moles/Vol] 3.9 mmol/L 3.5-5.1 [facility] Sodium [Moles/Vol] 143 mmol/L 136-145 [facility] Laboratory - Chemistry and C hemistry - challengeOrdered By: Dr. Whitehead on 10-10-2022 CO2 [Moles/Vol] 29.0 mmol/L 21.0-32.0 [facility] Urea nitrogen/Creatinine [Mass ratio] 27.3 mg/mg 10- [facility] No Panel InformationOrdered By: Dr. Whitehead on 10-10-2022 Estimated GFR (MDRD) Amer 118 mL/min >60 [facility] Comment on above: GFR Calc Estimated GFR (MDRD) Non-Af Amer 98 mL/min >60 [facility] Comment on above: Non- GFR Calc Serum or plasma calcium jordon urement (mass/volume)Ordered By: Dr. Whitehead on 10-10-2022 Calcium [Mass/Vol] 9.5 mg/dL 8.5-10.1 [facility] Serum or plasma creatinine m easurement (mass/volume)Ordered By: Dr. Whitehead on 10-10-2022 Creatinine [Mass/Vol] 0.62 mg/dL 0.55-1.02 [facility] Comment on above: The validity of the calculated GFR & GFRAA in patients over 70 years has not been determined. Clinical correlation is essential. Serum or plasma urea nitroge n measurement (mass/volume)Ordered By: Dr. Whitehead on 10-10-2022 Urea nitrogen [Mass/Vol] 17 mg/dL 7-18 [facility] Thin prep Papanicolaou smear with manual screeningOrdered By: Dr. Whitehead on 10-10-2022 Thin prep Papanicolaou smear with manual screening 6 5-15 [facility] Basophil percentageOrdered B y: Dr. Whitehead on 07-27-2022 Bilirubin [Mass/Vol] 0.40 mg/dL 0.20-1.00 [facility] Comment on above: For patients on eltr ombopag therapy, use of Dimension [place] TBIL is not recommended. Chloride [Moles/Vol] 106 mmol/L 98-107 [facility] Cholesterol [Mass/Vol] 183 mg/dL <200 [facility] Comment on above: <200 mg/dL Desirable 200-240 mg/dL Borderline >240 mg/dL High Risk Glucose [Mass/Vol] 111 mg/dL 74-106 [facility] [facility] Comment on above: Fasting Glucose resu lt from 100 to 125 mg/dL suggests IMPAIRED HOMEOSTASIS per A.D.A. criteria. Potassium [Moles/Vol] 3.9 mmol/L 3.5-5.1 [facility] Protein [Mass/Vol] 6.9 g/dL 6.4-8.2 [facility] Sodium [Moles/Vol] 140 mmol/L 136-145 [facility] Triglyceride [Mass/Vol] 102 mg/dL <199 [facility] Comment on above: The drugs N-Acetylcy steine and Metamizole may falsely depress this assay.Serum Triglycerides Reference Interval Normal <150 mg/dL Borderline high 150 - 199 mg/dL High 200 - 499 mg/dL Very High > or = 500 mg/dL Laboratory - Chemistry and C hemistry - challengeOrdered By: Dr. Whitehead on 07-27-2022 ALP [Catalytic activity/Vol] 91 U/L 45-117 [facility] ALT [Catalytic activity/Vol] 23 U/L 13-56 [facility] CO2 [Moles/Vol] 27.0 mmol/L 21.0-32.0 [facility] Free T4 [Mass/Vol] 1.27 ng/dL 0.76-1.46 [facility] Globulin (S) [Mass/Vol] 3.4 g/dL 2.2-4.2 [facility] Urea nitrogen/Creatinine [Mass ratio] 22.5 mg/mg 10-20 [facility] No Panel InformationOrdered By: Dr. Whitehead on 07-27-2022 Estimated GFR (MDRD) Amer 118 mL/min >60 [facility] Comment on above: GFR Calc Estimated GFR (MDRD) Non-Af Amer 98 mL/min >60 [facility] Comment on above: Non- GFR Calc Free Triiodothyronine (T3) pg/dL 2.2 pg/mL 2.18-3.98 [facility] Thyroid Stimulating Hormone (TSH) 0.46 uIU/mL 0.358-3.74 [facility] Serum or plasma albumin jordon urement (mass/volume)Ordered By: Dr. Whitehead on 07-27-2022 Albumin [Mass/Vol] 3.5 g/dL 3.2-5.0 [facility] Serum or plasma albumin/glob ulin mass ratioOrdered By: Dr. Whitehead on 07-27-2022 Albumin/Globulin [Mass ratio] 1.0 {ratio} 0.9-2.4 [facility] Serum or plasma calcium jordon urement (mass/volume)Ordered By: Dr. Whitehead on 07-27-2022 Calcium [Mass/Vol] 9.5 mg/dL 8.5-10.1 [facility] Serum or plasma cholesterol in HDL measurement (mass/volume)Ordered By: Dr. Whitehead on 07-27-2022 Cholesterol in HDL [Mass/Vol] 79 mg/dL >40 [facility] Comment on above: The drugs N-Acetylcy steine and Metamizole may falsely depress this assay. Reference Range HDL <40 mg/dL Low HDL Cholesterol HDL >or= 60 mg/dL High HDL Cholesterol Serum or plasma cholesterol in VLDL measurement (mass/volume)Ordered By: Dr. Whitehead on 07-27-2022 Cholesterol in VLDL [Mass/Vol] 20 mg/dL 5-40 [facility] Serum or plasma creatinine m easurement (mass/volume)Ordered By: Dr. Whitehead on 07-27-2022 Creatinine [Mass/Vol] 0.62 mg/dL 0.55-1.02 [facility] Comment on above: The validity of the calculated GFR & GFRAA in patients over 70 years has not been determined. Clinical correlation is essential. Serum or plasma low density lipoprotein (LDL) cholesterol measurement (mass/volume)Ordered By: Dr. Whitehead on 07-27-2022 Cholesterol in LDL [Mass/Vol] 84 mg/dL 0-130 [facility] Serum or plasma urea nitroge n measurement (mass/volume)Ordered By: Dr. Whitehead on 07-27-2022 Urea nitrogen [Mass/Vol] 14 mg/dL 7-18 [facility] Thin prep Papanicolaou smear with manual screeningOrdered By: Dr. Whitehead on 07-27-2022 Thin prep Papanicolaou smear with manual screening 21 U/L 15-37 [facility] Thin prep Papanicolaou smear with manual screening 7 5-15 [facility] Basophil percentageon 2021 Bilirubin [Mass/Vol] 0.20 mg/dL 0.20-1.00 [facility] Work Phone: Comment on above: For patients on eltr ombopag therapy, use of Dimension [place] TBIL is not recommended. Chloride [Moles/Vol] 106 mmol/L 98-107 [facility] Work Phone: Glucose [Mass/Vol] 126 mg/dL 74-106 [facility] Work Phone: Comment on above: Fasting Glucose resu lt greater than or equal to 126 mg/dL suggests DIABETES MELLITUS per A.D.A. criteria. Potassium [Moles/Vol] 3.1 mmol/L 3.5-5.1 [facility] Work Phone: Protein [Mass/Vol] 5.9 g/dL 6.4-8.2 [facility] Work Phone: Sodium [Moles/Vol] 141 mmol/L 136-145 [facility] Work Phone: WBC (Bld) [#/Vol] 7.3 10*3/uL 4.4-11.0 [facility] Work Phone: Blood erythrocytes count (nu mber/volume)on 03-27-2022 RBC (Bld) [#/Vol] 3.91 10*6/uL 4.2-5.4 [facility] Work Phone: Blood hemoglobin measurement (mass/volume)on 03-27-2022 Hemoglobin (Bld) [Mass/Vol] 12.2 g/dL 12.0-15.0 [facility] Work Phone: Blood platelet mean volumeon 03-27-2022 Platelet mean volume (Bld) [Entitic vol] 11.1 fL 6.2-12.0 [facility] Work Phone: Determination of erythrocyte mean corpuscular volume (MCV)on 03-27-2022 MCV (RBC) [Entitic vol] 91.8 fL 81-99 [facility] Work Phone: Hematocrit Auto (Bld) [Volum e fraction]on 03-27-2022 Hematocrit (Bld) [Volume fraction] 35.9 % 37-47 [facility] Work Phone: Laboratory - Chemistry and C hemistry - challengeon 03-27-2022 ALP [Catalytic activity/Vol] 81 U/L 45-117 [facility] Work Phone: ALT [Catalytic activity/Vol] 27 U/L 13-56 [facility] Work Phone: CO2 [Moles/Vol] 29.0 mmol/L 21.0-32.0 [facility] Work Phone: Globulin (S) [Mass/Vol] 2.9 g/dL 2.2-4.2 [facility] Work Phone: Urea nitrogen/Creatinine [Mass ratio] 27.4 mg/mg 10-20 [facility] Work Phone: Laboratory - Hematology and Cell countson 03-27-2022 Erythrocyte distribution width (RBC) [Entitic vol] 42.5 fL 35.1-43.9 [facility] Work Phone: Erythrocyte distribution width (RBC) [Ratio] 12.8 % 11.6-14.6 [facility] Work Phone: MCH (RBC) [Entitic mass] 31.2 pg 27.0-32.0 [facility] Work Phone: MCHC Auto (RBC) [Mass/Vol]on 03-27-2022 MCHC (RBC) [Mass/Vol] 34.0 g/dL 32-36 [facility] Work Phone: No Panel Informationon 03-27 Estimated Creatinine Clearance Calc 36.08 ml/min [facility] Work Phone: Estimated GFR (MDRD) Amer 105 mL/min >60 [facility] Work Phone: Comment on above: GFR Calc Estimated GFR (MDRD) Non-Af Amer 87 mL/min >60 [facility] Work Phone: Comment on above: Non- GFR Calc Platelets bldon 03-27-2022 Platelets (Bld) [#/Vol] 231 10*3/uL 150-450 [facility] Work Phone: Serum or plasma albumin jordon urement (mass/volume)on 03-27-2022 Albumin [Mass/Vol] 3.0 g/dL 3.2-5.0 [facility] Work Phone: Serum or plasma albumin/glob ulin mass ratioon 03-27-2022 Albumin/Globulin [Mass ratio] 1.0 {ratio} 0.9-2.4 [facility] Work Phone: Serum or plasma calcium jordon urement (mass/volume)on 03-27-2022 Calcium [Mass/Vol] 8.9 mg/dL 8.5-10.1 [facility] Work Phone: Serum or plasma creatinine m easurement (mass/volume)on 03-27-2022 Creatinine [Mass/Vol] 0.69 mg/dL 0.55-1.02 [facility] Work Phone: Comment on above: The validity of the calculated GFR & GFRAA in patients over 70 years has not been determined. Clinical correlation is essential. Serum or plasma urea nitroge n measurement (mass/volume)on 03-27-2022 Urea nitrogen [Mass/Vol] 19 mg/dL 7-18 [facility] Work Phone: Thin prep Papanicolaou smear with manual screeningon 03-27-2022 Thin prep Papanicolaou smear with manual screening 22 U/L 15-37 [facility] Work Phone: [phone] Thin prep Papanicolaou smear with manual screening 6 5-15 [facility] Work Phone: [phone] Absolute lymphocyte counton 03-22-2022 Lymphocytes Auto (Unsp spec) [#/Vol] 1.74 10*3/uL 0.83-4.51 [facility] Work Phone: Basophil percentageon 2021 Basophils/100 WBC (Bld) 0.5 % 0-1 [facility] Work Phone: [phone] Chloride [Moles/Vol] 105 mmol/L 98-107 [facility] Work Phone: [phone] Eosinophils/100 WBC (Bld) 2.7 % 0-5 [facility] Work Phone: Glucose [Mass/Vol] 165 mg/dL 74-106 [facility] Work Phone: Comment on above: Fasting Glucose resu lt greater than or equal to 126 mg/dL suggests DIABETES MELLITUS per A.D.A. criteria. Neutrophils (Bld) [#/Vol] 4.3 10*3/uL 2.0-7.7 [facility] Work Phone: [phone] Neutrophils/100 WBC (Bld) 64.3 % 47-70 [facility] Work Phone: [phone] Potassium [Moles/Vol] 3.7 mmol/L 3.5-5.1 [facility] Work Phone: [phone] Sodium [Moles/Vol] 139 mmol/L 136-145 [facility] Work Phone: [phone] WBC (Bld) [#/Vol] 6.6 10*3/uL 4.4-11.0 [facility] Work Phone: Blood erythrocytes count (nu mber/volume)on 03-22-2022 RBC (Bld) [#/Vol] 4.09 10*6/uL 4.2-5.4 [facility] Work Phone: Blood hemoglobin measurement (mass/volume)on 03-22-2022 Hemoglobin (Bld) [Mass/Vol] 12.5 g/dL 12.0-15.0 [facility] Work Phone: Blood lymphocytes/100 leukoc yteson 03-22-2022 Lymphocytes/100 WBC (Bld) 26.2 % 19-41 [facility] Work Phone: Blood monocytes/100 leukocyt eson 03-22-2022 Monocytes/100 WBC (Bld) 6.0 % 0-10 [facility] Work Phone: Blood platelet mean volumeon 03-22-2022 Platelet mean volume (Bld) [Entitic vol] 12.1 fL 6.2-12.0 [facility] Work Phone: Determination of erythrocyte mean corpuscular volume (MCV)on 03-22-2022 MCV (RBC) [Entitic vol] 92.7 fL 81-99 [facility] Work Phone: Hematocrit Auto (Bld) [Volum e fraction]on 03-22-2022 Hematocrit (Bld) [Volume fraction] 37.9 % 37-47 [facility] Work Phone: Laboratory - Chemistry and C hemistry - challengeon 03-22-2022 CO2 [Moles/Vol] 27.0 mmol/L 21.0-32.0 [facility] Work Phone: Urea nitrogen/Creatinine [Mass ratio] 17.6 mg/mg 10-20 [facility] Work Phone: Laboratory - Hematology and Cell countson 03-22-2022 Erythrocyte distribution width (RBC) [Entitic vol] 42.5 fL 35.1-43.9 [facility] Work Phone: Erythrocyte distribution width (RBC) [Ratio] 12.5 % 11.6-14.6 [facility] Work Phone: Immature granulocytes/100 WBC (Bld) 0.300 % 0.0-0.9 [facility] Work Phone: Comment on above: IG% - Immature Granu locytes (promyelocytes, myelocytes and metamyelocytes) > 1% indicates that a LEFT SHIFT is Present. MCH (RBC) [Entitic mass] 30.6 pg 27.0-32.0 [facility] Work Phone: Nucleated RBC/100 WBC (Bld) [Ratio] 0 % 0-5 [facility] Work Phone: MCHC Auto (RBC) [Mass/Vol]on 03-22-2022 MCHC (RBC) [Mass/Vol] 33.0 g/dL 32-36 [facility] Work Phone: No Panel Informationon 03-22 Estimated GFR (MDRD) Amer 98 mL/min >60 [facility] Work Phone: Comment on above: GFR Calc Estimated GFR (MDRD) Non-Af Amer 81 mL/min >60 [facility] Work Phone: Comment on above: Non- GFR Calc Platelets bldon 03-22-2022 Platelets (Bld) [#/Vol] 246 10*3/uL 150-450 [facility] Work Phone: Serum or plasma calcium jordon urement (mass/volume)on 03-22-2022 Calcium [Mass/Vol] 9.3 mg/dL 8.5-10.1 [facility] Work Phone: Serum or plasma creatinine m easurement (mass/volume)on 03-22-2022 Creatinine [Mass/Vol] 0.74 mg/dL 0.55-1.02 [facility] Work Phone: Comment on above: The validity of the calculated GFR & GFRAA in patients over 70 years has not been determined. Clinical correlation is essential. Serum or plasma urea nitroge n measurement (mass/volume)on 03-22-2022 Urea nitrogen [Mass/Vol] 13 mg/dL 7-18 [facility] Work Phone: Thin prep Papanicolaou smear with manual screeningon 03-22-2022 Thin prep Papanicolaou smear with manual screening 02-18 [facility] Work Phone: MRI CARD MORPH FUNC WO/W IVC ONon 03-14-2022 MRI CARD MORPH FUNC WO/W IVCON * * *Final Report* * * DATE OF EXAM: Mar 14 2022 1:00PM ABDIRASHID Soto - MRI CARD MORPH FUNC WO/W IVCON / PROCEDURE REASON: I34.2 * * * * Physician Interpretation * * * * EXAM TITLE:MRI CARDIAC VELOCITY FLOW MAP, MRI CARD MORPH JOHANNYC WO/W IVCON DATE: 03/14/2022 1:00 PM COMPARISON: None. CLINICAL INDICATION/HISTORY: Severe left ventricular hypertrophy. IMPRESSION: 1. Mild to moderately dilated left ventricle with normal systolic function, and a calculated LVEF of 56%. There is severe left ventricular septal remodeling, the thickest portion of the interventricular septum measuring 1.7 cm. No dynamic outflow tract obstruction is seen. 2. Normal-sized right ventricle with normal systolic function, and a calculated LVEF of 68% 3. Constellation of findings (see body of the report ; Findings: 1) is suggestive of hypertrophic cardiomyopathy without dynamic left ventricular outflow tract obstruction, although mild midcavity obstruction is seen. FINDINGS: 1. The left ventricle is mild to moderately dilated in size with normal systolic function. The left ventricle is asymmetrically remodeled, with severe septal remodeling. The overall myocardial mass is calculated at 121 g (normal values 92-128 g), and the average myocardial mass index is calculated at 69 g/sq m (normal values 55 to 71 g/sq m). The thickest portion of the interventricular septum measures 1.7 cm. No dynamic left ventricular outflow tract obstruction is seen on phase velocity mapping sequences. The posteromedial papillary muscle appears to be dual headed, and hypertrophied. Mild mid cavity obstruction is evident. Myocardial crypts are visualized within the left ventricle. See below for findings about late gadolinium enhancement. The constellation of findings supports a diagnosis of hypertrophic cardiomyopathy, although the calculated mass is slightly below the threshold for diagnosis of the seen. The study does not support a diagnosis of cardiac amyloidosis. 2. The calculated left ventricular ejection fraction is 56%. There are no regional wall motion abnormalities. 3. Late gadolinium enhancement sequences indicated the presence of diffuse subepicardial, mid myocardial scarring involving the septal wall of the left ventricle. The scar occupies about 10% of the left ventricular myocardium. 4. The right ventricle is normal in size, with normal systolic function.,The tricuspid annular excursion is measured at 3.1 cm. The right ventricular ejection fraction is calculated at 68% 5. Trivial mitral regurgitation is seen.. There is severe left atrial enlargement. The left atrial volume index (Nato) is calculated at 63 mL/sq m 6. The pericardial thickness is 1 mm. A trivial to small circumferential pericardial effusion is present without changes of tamponade. 7. The great vessels including the aorta, main pulmonary artery, superior and inferior vena cavae and pulmonary veins are within normal limits. The cardiac situs is solitus. The venoatrial, atrioventricular, ventricular arterial connections appear to be concordant. No significant mediastinal lymphadenopathy is seen. MEASUREMENTS: A. GREAT VESSELS: I. Aortic root 3.4 cm at the sinuses of Valsalva, 2.6 cm at the sinotubular junction. II. Ascending Aorta 3.4 cm III. Descending Aorta: 2.7 cm IV. Main Pulmonary Artery 3.4 cm V. RIGHT Pulmonary Artery 2.6 cm . Left Pulmonary Artery 2.6 cm B. LEFT VENTRICLE: I. End Diastolic dimension 6 cm II. End systolic dimension 4.1 cm III. LVEF 56 % IV. Anteroseptal wall 1.6 cm V. Inferolateral wall 0.6 cm C. RIGHT VENTRICLE: I. Major Dimension 9.3 cm II.Minor Dimension 3.2 cm VOLUMES: I. Left Ventricular End systolic Volume index (LVESVI) 36 ml/m2 (10-43) II. Left Ventricular End diastolic Volume index (LVEDVI) 82 ml/m2 (51-110) III. Left Ventricular Stroke Volume index (LVSVI) 46 ml/m2 (20-62) IV. Right Ventricular End Systolic volume index ( RVESVI) 20 ml/m2 (37-127) V. Right Ventricular End Diastolic volume index ( RVEDVI) 63 ml/m2 (45-110) . Right Ventricular Stroke volume index ( RVSVI) 43 ml/m2 (33-77) VII.Cardiac Index 2.7 L/min/m2 (2.5-3.0) Pairer Inspector: DAISY Transcribe Date/Time: Mar 14 2022 9:50P Dictated by : DARIN DC MD This examination was interpreted and the report reviewed and electronically signed by: DARIN DC MD on Mar 16 2022 10:35AM EST [id number] N Normal [facility] MRI CARDIAC VELOCITY FLOW MA Bob 03-14-2022 MRI CARDIAC VELOCITY FLOW MAP * * *Final Report* * * DATE OF EXAM: Mar 14 2022 1:00PM [facility] [id number] - MRI CARDIAC VELOCITY FLOW MAP / PROCEDURE REASON: I34.2 * * * * Physician Interpretation * * * * EXAM TITLE:MRI CARDIAC VELOCITY FLOW MAP, MRI CARD MORPH FUNC WO/W IVCON DATE: 03/14/2022 1:00 PM COMPARISON: None. CLINICAL INDICATION/HISTORY: Severe left ventricular hypertrophy. IMPRESSION: 1. Mild to moderately dilated left ventricle with normal systolic function, and a calculated LVEF of 56%. There is severe left ventricular septal remodeling, the thickest portion of the interventricular septum measuring 1.7 cm. No dynamic outflow tract obstruction is seen. 2. Normal-sized right ventricle with normal systolic function, and a calculated LVEF of 68% 3. Constellation of findings (see body of the report ; Findings: 1) is suggestive of hypertrophic cardiomyopathy without dynamic left ventricular outflow tract obstruction, although mild midcavity obstruction is seen. FINDINGS: 1. The left ventricle is mild to moderately dilated in size with normal systolic function. The left ventricle is asymmetrically remodeled, with severe septal remodeling. The overall myocardial mass is calculated at 121 g (normal values 92-128 g), and the average myocardial mass index is calculated at 69 g/sq m (normal values 55 to 71 g/sq m). The thickest portion of the interventricular septum measures 1.7 cm. No dynamic left ventricular outflow tract obstruction is seen on phase velocity mapping sequences. The posteromedial papillary muscle appears to be dual headed, and hypertrophied. Mild mid cavity obstruction is evident. Myocardial crypts are visualized within the left ventricle. See below for findings about late gadolinium enhancement. The constellation of findings supports a diagnosis of hypertrophic cardiomyopathy, although the calculated mass is slightly below the threshold for diagnosis of the seen. The study does not support a diagnosis of cardiac amyloidosis. 2. The calculated left ventricular ejection fraction is 56%. There are no regional wall motion abnormalities. 3. Late gadolinium enhancement sequences indicated the presence of diffuse subepicardial, mid myocardial scarring involving the septal wall of the left ventricle. The scar occupies about 10% of the left ventricular myocardium. 4. The right ventricle is normal in size, with normal systolic function.,The tricuspid annular excursion is measured at 3.1 cm. The right ventricular ejection fraction is calculated at 68% 5. Trivial mitral regurgitation is seen.. There is severe left atrial enlargement. The left atrial volume index (Nato) is calculated at 63 mL/sq m 6. The pericardial thickness is 1 mm. A trivial to small circumferential pericardial effusion is present without changes of tamponade. 7. The great vessels including the aorta, main pulmonary artery, superior and inferior vena cavae and pulmonary veins are within normal limits. The cardiac situs is solitus. The venoatrial, atrioventricular, ventricular arterial connections appear to be concordant. No significant mediastinal lymphadenopathy is seen. MEASUREMENTS: A. GREAT VESSELS: I. Aortic root 3.4 cm at the sinuses of Valsalva, 2.6 cm at the sinotubular junction. II. Ascending Aorta 3.4 cm III. Descending Aorta: 2.7 cm IV. Main Pulmonary Artery 3.4 cm V. RIGHT Pulmonary Artery 2.6 cm . Left Pulmonary Artery 2.6 cm B. LEFT VENTRICLE: I. End Diastolic dimension 6 cm II. End systolic dimension 4.1 cm III. LVEF 56 % IV. Anteroseptal wall 1.6 cm V. Inferolateral wall 0.6 cm C. RIGHT VENTRICLE: I. Major Dimension 9.3 cm II.Minor Dimension 3.2 cm VOLUMES: I. Left Ventricular End systolic Volume index (LVESVI) 36 ml/m2 (10-43) II. Left Ventricular End diastolic Volume index (LVEDVI) 82 ml/m2 (51-110) III. Left Ventricular Stroke Volume index (LVSVI) 46 ml/m2 (20-62) IV. Right Ventricular End Systolic volume index ( RVESVI) 20 ml/m2 (37-127) V. Right Ventricular End Diastolic volume index ( RVEDVI) 63 ml/m2 (45-110) . Right Ventricular Stroke volume index ( RVSVI) 43 ml/m2 (33-77) VII.Cardiac Index 2.7 L/min/m2 (2.5-3.0) Pairer Inspector: [facility] Transcribe Date/Time: Mar 14 2022 9:50P Dictated by : DARIN DC MD This examination was interpreted and the report reviewed and electronically signed by: DARIN DC MD on Mar 16 2022 10:35AM EST [id number] N Normal [facility] CNPNon 03-09-2022 CNPN Telephone ([facility]) NORA CONNELL ([id number]) 1940 F Date Time Provider Department 03/09/22 NICOLE ESPINO [facility] During your visit today, we recorded the following information about you: Darin Dc MD 03/11/2022 8:00 PM Signed Hello, I would double stack on the dark, and bright bloods. Quality 2 chamber, 4 chamber, 3 chamber, LVOT long, short cine images. Run a venc house decorator in the 3 C view. Once you get the non aliased thru plane venc, get thru plane venc under the aortic valve, and one in plane venc (3 C) without aliasing. STIR the 4 C, 2 C, one short axis, inject contrast, and get delayed images at 8 min. Also get Qp, Qs. T1 mapping ( 3 levels base, mid, apex), T2 mapping , T2* required. Thanks, Dr Dc Allergies As of Date: 03/09/2022 Noted Allergy Reaction SEASONAL ALLERGIES 12/18/2018 14 - Other: See Comments Comments: sneezing and runny nose Date Reviewed: 10/15/2019 Reviewed by: Crisyt Perez Ma - Fully Assessed Reason for Visit: Orders [[id number]] Cmt: CMR Protocol Prescriptions as of 03/11/2022 - lidocaine HCl (ASPERCREME, LIDOCAINE,) 4 % crea Apply 1 application to affected area as needed. - primidone (MYSOLINE) 50 mg tablet Take 50 mg by mouth once daily. - VITAMIN D 50,000 unit capsule Take 50,000 Units by mouth once each week. - meloxicam (MOBIC) 15 mg tablet Take 1 tablet by mouth once daily. - apremilast (OTEZLA) 30 mg tablet Take 30 mg by mouth twice daily. Pt. states increased to twice daily - Omeprazole (PRILOSEC) 40 mg capsule Take 40 mg by mouth once daily. - metFORMIN (GLUCOPHAGE) 1,000 mg tablet Take 500 mg by mouth twice daily with meals. - furosemide (LASIX) 40 mg tablet Take 40 mg by mouth once daily. - gabapentin (NEURONTIN) 800 mg tablet Take 800 mg by mouth three times daily. - ALPRAZolam (XANAX) 0.5 mg tablet Take 0.5 mg by mouth at bedtime as needed. - metoclopramide HCl (REGLAN) 5 mg tablet Take 5 mg by mouth as needed. - levothyroxine (SYNTHROID) 100 mcg tablet Take 100 mcg by mouth daily before breakfast. - Cetirizine (ZYRTEC) 10 mg cap Take by mouth once daily. - carvedilol (COREG) 6.25 mg tablet Take 6.25 mg by mouth twice daily with meals. - cyclobenzaprine (FLEXERIL) 10 mg tablet Take 5 mg by mouth twice daily. - lisinopril-hydrochlor othiazide (PRINZIDE,ZESTORETIC) 20-12.5 mg per tablet Take 1 tablet by mouth twice daily. - pravastatin (PRAVACHOL) 40 mg tablet Take 40 mg by mouth once daily. - HYDROcodone-Acetamino phen (NORCO) 7.5-325 mg per tablet Take 1 tablet by mouth four times daily. Problem List As Of Date 03/09/2022 Noted Resolved Chronic left shoulder pain [M25.512, G89.29] 05/31/2016 Complete tear of left rotator cuff [M75.122] 05/31/2016 Encounter Status:Closed by EZ CANCINO on 03/09/22 [facility] Basophil percentageon 2021 Chloride [Moles/Vol] 103 mmol/L 98-107 [facility] Work Phone: Cholesterol [Mass/Vol] 198 mg/dL <[address] [facility] Work Phone: Comment on above: <200 mg/dL Desirable 200-240 mg/dL Borderline >240 mg/dL High Risk Glucose [Mass/Vol] 93 mg/dL 74-106 [facility] Work Phone: Potassium [Moles/Vol] 3.3 mmol/L 3.5-5.1 [facility] Work Phone: Sodium [Moles/Vol] 140 mmol/L 136-145 [facility] Work Phone: Triglyceride [Mass/Vol] 137 mg/dL <199 [facility] Work Phone: Comment on above: The drugs N-Acetylcy steine and Metamizole may falsely depress this assay.Serum Triglycerides Reference Interval Normal <150 mg/dL Borderline high 150 - 199 mg/dL High 200 - 499 mg/dL Very High > or = 500 mg/dL Laboratory - Chemistry and C hemistry - challengeon 02-22-2022 CO2 [Moles/Vol] 31.0 mmol/L 21.0-32.0 [facility] Work Phone: Free T4 [Mass/Vol] 1.18 ng/dL 0.76-1.46 [facility] Work Phone: Urea nitrogen/Creatinine [Mass ratio] 23.5 mg/mg 10-20 [facility] Work Phone: No Panel Informationon 02-22 Estimated GFR (MDRD) Amer 100 mL/min >60 [facility] Work Phone: Comment on above: GFR Calc Estimated GFR (MDRD) Non-Af Amer 83 mL/min >60 [facility] Work Phone: Comment on above: Non- GFR Calc Free Triiodothyronine (T3) pg/dL 2.1 pg/mL 2.18-3.98 [facility] Work Phone: Thyroid Stimulating Hormone (TSH) 0.74 uIU/mL 0.358-3.74 [facility] Work Phone: Serum or plasma calcium jordon urement (mass/volume)on 02-22-2022 Calcium [Mass/Vol] 9.0 mg/dL 8.5-10.[address] [facility] Work Phone: Serum or plasma cholesterol in HDL measurement (mass/volume)on 02-22-2022 Cholesterol in HDL [Mass/Vol] 70 mg/dL >40 [facility] Work Phone: Comment on above: The drugs N-Acetylcy steine and Metamizole may falsely depress this assay. Reference Range HDL <40 mg/dL Low HDL Cholesterol HDL >or= 60 mg/dL High HDL Cholesterol Serum or plasma cholesterol in VLDL measurement (mass/volume)on 02-22-2022 Cholesterol in VLDL [Mass/Vol] 27 mg/dL 5-40 [facility] Work Phone: Serum or plasma creatinine m easurement (mass/volume)on 02-22-2022 Creatinine [Mass/Vol] 0.72 mg/dL 0.55-1.02 [facility] Work Phone: Comment on above: The validity of the calculated GFR & GFRAA in patients over 70 years has not been determined. Clinical correlation is essential. Serum or plasma low density lipoprotein (LDL) cholesterol measurement (mass/volume)on 02-22-2022 Cholesterol in LDL [Mass/Vol] 101 mg/dL 0-130 [facility] Work Phone: Serum or plasma urea nitroge n measurement (mass/volume)on 02-22-2022 Urea nitrogen [Mass/Vol] 17 mg/dL 7-18 [facility] Work Phone: Thin prep Papanicolaou smear with manual screeningon 02-22-2022 Thin prep Papanicolaou smear with manual screening 6 5-15 [facility] Work Phone: CR Hip w/ Pelvis 2 or 3 View s Righton 08-19-2017 CR Hip w/ Pelvis 2 or 3 Views Right Patient Name: NORA CONNELL Diagnostic Radiology Exam Date/Time 08/19/2017 12:12:00 EST Exam CR Hip w/ Pelvis 2 or 3 Views Right n Ordering Physician TANYA ALVARADO SARAH Accession Number [id number] CPT4 Codes 01378 () Reason For Exam SPONDYLOSIS LUMBOSACRAL REGION Report HISTORY: Pain Frontal view the pelvis and two views right hip show scattered calcific atherosclerosis with some probable calcified injection sites right buttocks. The right hip joint itself is unremarkable for age. Mild degenerative changes sacroiliac joints Frontal lateral bilateral oblique views lumbar spine shows markedly degenerated discs at every level. Prior fusion with pedicle screws at the L3-L4 level with prior laminectomy and lateral fusion bone. There is mild scoliosis. Cholecystectomy clips. Considerable calcific atherosclerosis aortoiliac. Trace retrolisthesis at L1-L2 level Report Dictated on Final Dictating Physician: MD TURNER WILLIAM Signed Date and Time: 08/19/2017 8:28 pm Signed by: MD TURNER WILLIAM Transcribed Date and Time: 08/19/2017 8:29 Normal [facility] CR Spine Lumbosacral 4+ View son 08-19-2017 CR Spine Lumbosacral 4+ Views Patient Name: NORA CONNELL Diagnostic Radiology Exam Date/Time 08/19/2017 12:12:00 EST Exam CR Spine Lumbosacral 4+ Views Ordering Physician TANYA ALVARADO SARAH Accession Number [id number] CPT4 Codes 66710 () Reason For Exam POSTLAMINECTOMY Report HISTORY: Pain Frontal view the pelvis and two views right hip show scattered calcific atherosclerosis with some probable calcified injection sites right buttocks. The right hip joint itself is unremarkable for age. Mild degenerative changes sacroiliac joints Frontal lateral bilateral oblique views lumbar spine shows markedly degenerated discs at every level. Prior fusion with pedicle screws at the L3-L4 level with prior laminectomy and lateral fusion bone. There is mild scoliosis. Cholecystectomy clips. Considerable calcific atherosclerosis aortoiliac. Trace retrolisthesis at L1-L2 level Report Dictated on Final Dictating Physician: MD TURNER WILLIAM Signed Date and Time: 08/19/2017 8:28 pm Signed by: MD TURNER WILLIAM Transcribed Date and Time: 08/19/2017 8:29 Normal [facility] Vital Signs Date Time Vital Sign Value Performing Clinician Facility 04-13-2025 10:28-0400 Body temperature 97.3 [degF] Dr. Gopi Whitehead MD Work Phone: 1(410)688-406060 [place] [address] 04-13-2025 10:28-0400 Body weight 69.[address] Goip Whitehead MD Work Phone: 8(078)760-990911 [place] [address] 04-13-2025 10:28-0400 Diastolic blood pressure 54 mm[Hg] Dr. Gopi Whitehead MD Work Phone: 7(970)633-951211 [place] [address] 04-13-2025 10:28-0400 Heart rate 59 /min Dr. Gopi Whitehead MD Work Phone: 4(634)200-841611 [place] [address] 04-13-2025 10:28-0400 Respiratory rate 16 /min Dr. Gopi Whitehead MD Work Phone: 2(677)932-778211 [place] [address] 04-13-2025 10:28-0400 SaO2% (BldA) [Mass fraction] 96 % Dr. Gopi Whitehead MD Work Phone: 4(925)726-140860 [place] [address] 04-13-2025 10:28-0400 Systolic blood pressure 130 mm[Hg] Dr. Gopi Whitehead MD Work Phone: 3(688)735-440460 [place] [address] 10-23-2024 00:20-0500 Body temperature 97.8 [degF] Dr. oGpi Whitehead MD Work Phone: 2(671)214-269711 [place] [address] 10-23-2024 00:20-0500 Diastolic blood pressure 89 mm[Hg] Dr. Gopi Whitehead MD Work Phone: 7(640)712-375211 [place] [address] 10-23-2024 00:20-0500 Heart rate 80 /min Dr. Gopi Whitehead MD Work Phone: 6(096)236-518611 [place] [address] 10-23-2024 00:20-0500 Respiratory rate 17 /min Dr. Gopi Whitehead MD Work Phone: [facility] 10-23-2024 00:20-0500 SaO2% (BldA) [Mass fraction] 97 % Dr. Gopi Whitehead MD Work Phone: [facility] 10-23-2024 00:20-0500 Systolic blood pressure 148 mm[Hg] Dr. Gopi Whitehead MD Work Phone: [facility] 10-22-2024 22:02-0500 Body height 152.[address] Gopi Whitehead MD Work Phone: [facility] 01-06-2024 12:58-0400 Body height 157.[address] Gopi Whitehead Work Phone: 9(740)558-665260 [place] [address] 01-06-2024 12:58-0400 Body mass index (BMI) [Ratio] 27.2 kg/m2 Dr. Gopi Whitehead Work Phone: [facility] 01-06-2024 12:58-0400 Body weight 67.[address] Gopi Whitehead Work Phone: [facility] 01-06-2024 12:58-0400 Diastolic blood pressure 58 mm[Hg] Dr. Gopi Whitehead Work Phone: [facility] 01-06-2024 12:58-0400 Heart rate 55 /min Dr. Gopi Whitehead Work Phone: [facility] 01-06-2024 12:58-0400 Respiratory rate 18 /min Dr. Gopi Whitehead Work Phone: [facility] 01-06-2024 12:58-0400 SaO2% (BldA) [Mass fraction] 96 % Dr. Gopi Whitehead Work Phone: [facility] 01-06-2024 12:58-0400 Systolic blood pressure 123 mm[Hg] Dr. Gopi Whitehead Work Phone: [facility] 09-23-2023 18:11-0500 Diastolic blood pressure 52 mm[Hg] [facility] 09-23-2023 18:11-0500 Heart rate 55 /min [facility] 09-23-2023 18:11-0500 Respiratory rate 16 /min [facility] 09-23-2023 18:11-0500 SaO2% (BldA) [Mass fraction] 99 % [facility] 09-23-2023 18:11-0500 Systolic blood pressure 174 mm[Hg] [facility] 09-23-2023 16:34-0500 Body mass index (BMI) [Ratio] 30.3 kg/m2 [facility] 09-23-2023 16:34-0500 Body weight 75.3 kg [facility] 09-23-2023 16:14-0500 Body height 157.48 cm [facility] 09-23-2023 16:14-0500 Body temperature 96.7 [degF] [facility] 03-14-2023 13:29-0400 Body height 157.[address] Gopi Whitehead Work Phone: [facility] 03-14-2023 13:29-0400 Body mass index (BMI) [Ratio] 29.6 kg/m2 Dr. Gopi Whitehead Work Phone: [facility] 03-14-2023 13:29-0400 Body weight 73.[address] Gopi Whitehead Work Phone: [facility] 03-14-2023 13:29-0400 Diastolic blood pressure 59 mm[Hg] Dr. Gopi Whitehead Work Phone: [facility] 03-14-2023 13:29-0400 Heart rate 69 /min Dr. Gopi Whitehead Work Phone: [facility] 03-14-2023 13:29-0400 Respiratory rate 18 /min Dr. Gopi Whitehead Work Phone: [facility] 03-14-2023 13:29-0400 SaO2% (BldA) [Mass fraction] 94 % Dr. Gopi Whitehead Work Phone: [facility] 03-14-2023 13:29-0400 Systolic blood pressure 108 mm[Hg] Dr. Gopi Whitehead Work Phone: [facility] 06-15-2022 10:19-0400 Body height 157.[address] Gopi Whitehead Work Phone: [facility] Work Phone: 06-15-2022 10:19-0400 Body mass index (BMI) [Ratio] 30.3 kg/m2 Dr. Gopi Whitehead Work Phone: [facility] Work Phone: 06-15-2022 10:19-0400 Body weight 75.[address] Gopi Whitehead Work Phone: [facility] Work Phone: 06-15-2022 10:19-0400 Diastolic blood pressure 65 mm[Hg] Dr. Gopi Whitehead Work Phone: [facility] Work Phone: 06-15-2022 10:19-0400 Heart rate 67 /min Dr. Gopi Whitehead Work Phone: [facility] Work Phone: 06-15-2022 10:19-0400 Respiratory rate 18 /min Dr. Gopi Whitehead Work Phone: [facility] Work Phone: 06-15-2022 10:19-0400 SaO2% (BldA) [Mass fraction] 95 % Dr. Gopi Whitehead Work Phone: [facility] Work Phone: 06-15-2022 10:19-0400 Systolic blood pressure 100 mm[Hg] Dr. Gopi Whitehead Work Phone: [facility] Work Phone: 05-01-2022 12:43-0400 Body mass index (BMI) [Ratio] 30.3 kg/m2 Dr. Gopi Whitehead Work Phone: [facility] Work Phone: 05-01-2022 12:43-0400 Body weight 75.[address] Gopi Whitehead Work Phone: [facility] Work Phone: 03-27-2022 11:38-0400 Body temperature 97.4 [degF] Dr. Gopi Whitehead Work Phone: [facility] Work Phone: 03-27-2022 11:38-0400 Diastolic blood pressure 50 mm[Hg] Dr. Gopi Whitehead Work Phone: [facility] Work Phone: 03-27-2022 11:38-0400 Heart rate 78 /min Dr. Gopi Whitehead Work Phone: [facility] Work Phone: 03-27-2022 11:38-0400 Respiratory rate 18 /min Dr. Gopi Whitehead Work Phone: [facility] Work Phone: 03-27-2022 11:38-0400 SaO2% (BldA) [Mass fraction] 100 % Dr. Gopi Whitehead Work Phone: [facility] Work Phone: 03-27-2022 11:38-0400 Systolic blood pressure 150 mm[Hg] Dr. Gopi Whitehead Work Phone: [facility] Work Phone: 03-27-2022 05:05-0400 Body weight [address] Gopi Whitehead Work Phone: [facility] Work Phone: 03-27-2022 03:17-0400 Inhaled oxygen concentration 21 % Dr. Gopi Whitehead Work Phone: [facility] Work Phone: 03-26-2022 12:38-0400 Body height 157.[address] Gopi Whitehead Work Phone: [facility] Work Phone: 03-26-2022 12:38-0400 Body mass index (BMI) [Ratio] 31.6 kg/m2 Dr. Gopi Whitehead Work Phone: [facility] Work Phone: 03-26-2022 12:38-0400 Body weight 78.[address] Gopi Whitehead Work Phone: [facility] Work Phone: 12-12-2021 09:46-0500 Body mass index (BMI) [Ratio] 30.2 kg/m2 Dr. Gopi Whitehead Work Phone: [facility] Work Phone: 12-12-2021 09:46-0500 Body weight 74.[address] Gopi Whitehead Work Phone: [facility] Work Phone: 12-12-2021 09:46-0500 Diastolic blood pressure 53 mm[Hg] Dr. Gopi Whitehead Work Phone: [facility] Work Phone: 12-12-2021 09:46-0500 Heart rate 58 /min Dr. Gopi Whitehead Work Phone: [facility] Work Phone: 12-12-2021 09:46-0500 Respiratory rate 16 /min Dr. Gopi Whitehead Work Phone: [facility] Work Phone: 12-12-2021 09:46-0500 SaO2% (BldA) [Mass fraction] 96 % Dr. Gopi Whitehead Work Phone: [facility] Work Phone: 12-12-2021 09:46-0500 Systolic blood pressure 127 mm[Hg] Dr. Gopi Whitehead Work Phone: [facility] Work Phone: 12-12-2021 08:46-0500 Body height 157.[address] Gopi Whitehead Work Phone: [facility] Work Phone: 12-12-2021 08:46-0500 Body mass index (BMI) [Ratio] 30.2 kg/m2 Dr. Gopi Whitehead Work Phone: [facility] Work Phone: 12-12-2021 08:46-0500 Body weight 74.[address] Gopi Whitehead Work Phone: [facility] Work Phone: 12-12-2021 08:46-0500 Diastolic blood pressure 53 mm[Hg] Dr. Gopi Whitehead Work Phone: [facility] Work Phone: 12-12-2021 08:46-0500 Heart rate 58 /min Dr. Gopi Whitehead Work Phone: [facility] Work Phone: 12-12-2021 08:46-0500 Respiratory rate 16 /min Dr. Gopi Whitehead Work Phone: [facility] Work Phone: 12-12-2021 08:46-0500 SaO2% (BldA) [Mass fraction] 96 % Dr. Gopi Whitehead Work Phone: [facility] Work Phone: 12-12-2021 08:46-0500 Systolic blood pressure 127 mm[Hg] Dr. Gopi Whitehead Work Phone: [facility] Work Phone: Encounters Encounter Date Encounter Type Care Provider Facility Start: 04-13-2025 End: 04-13-2025 Patient encounter procedure Christi RODRIGUEZ -[facility] Work Phone: Start: 04-13-2025 End: 04-13-[address] Gopi Whitehead MD Work Phone: -[facility] Start: 03-23-2025 Non-patient / Non-visit Dr. Doug murray MD -[facility] Start: 03-23-2025 End: 03-23-[address] Gopi Whitehead MD Work Phone: [facility] Work Phone: Start: 03-23-2025 End: 03-23-2025 Patient encounter procedure Christi RODRIGUEZ -[facility] Work Phone: Start: 03-23-2025 End: 03-23-2025 ambulatory Christi Ordonez Facility:[facility] Start: 03-10-2025 ambulatory Christi Ordonez Facility:[facility] Start: 01-27-2025 End: 01-27-[address] Gopi Whitehead MD Work Phone: [facility] Work Phone: Start: 01-27-2025 End: 01-27-[address] Gopi Whitehead MD -Laboratory, [facility] Start: 01-27-2025 End: 01-27-2025 ambulatory Gopi Whitehead Facility:[facility] Start: 01-07-2025 ambulatory Leonarda RODRIGUEZ Facility:[facility] Start: 10-22-2024 End: 10-23-2024 Emergency department patient visit Dr. Saman Moses DO -Emergency Department Work Phone: Start: 06-05-2024 End: 06-05-2024 ambulatory Gopi Whitehead Facility:[facility] Start: 02-05-2024 End: 02-05-[address] Gopi Whitehead Work Phone: [facility] Work Phone: Start: 02-05-2024 End: 02-05-[address] Gopi Whitehead Work Phone: [facility]-Card[facility] Work Phone: Start: 02-04-2024 Non-patient / Non-visit Dr. Tam Whitehead Work Phone: [facility] Start: 02-04-2024 End: 02-04-[address] Gopi Whitehead Work Phone: [facility] Work Phone: Start: 02-04-2024 End: 02-04-[address] [facility] Start: 01-06-2024 End: 01-06-[address] Gopi Whitehead Work Phone: [facility] Work Phone: Start: 10-10-2023 End: 10-10-2023 ambulatory [facility] Work Phone: Start: 10-10-2023 End: 10-10-2023 Patient encounter procedure [facility] Work Phone: Start: 09-23-2023 End: 09-23-2023 [facility] Start: 09-02-2023 End: 09-02-2023 ambulatory [facility] Work Phone: Start: 09-02-2023 End: 09-02-2023 Patient encounter procedure [facility] Start: 04-11-2023 End: 04-11-[address] Gopi Whitehead Work Phone: [facility] Work Phone: Start: 04-11-2023 End: 04-11-[address] Gopi Whitehead Work Phone: [facility] Start: 03-26-2023 Non-patient / Non-visit Dr. Tam Wihtehead Work Phone: [facility] Start: 03-26-2023 End: 03-26-[address] [facility]op[facility] Whitehead [facility] Start: 03-14-2023 End: 03-14-[address] Gopi Whitehead Work Phone: [facility] Start: 02-26-2023 End: 02-26-[address] Gopi Whitehead Work Phone: [facility] Work Phone: Start: 02-26-2023 End: 02-26-[address] Gopi Whitehead Work Phone: [facility] Start: 01-03-2023 End: 01-03-[address] Gopi Whitehead Work Phone: [facility] Start: 10-10-2022 End: 10-10-2022 ambulatory [facility] Work Phone: Start: 10-10-2022 End: 10-10-2022 Patient encounter procedure [facility] Start: 07-27-2022 End: 07-27-[address] Gopi Whitehead Work Phone: [facility] Work Phone: Start: 07-27-2022 End: 07-27-[address] Gopi Whitehead Work Phone: [facility] Start: 06-15-2022 End: 06-15-[address] Gopi Whitehead Work Phone: [facility] Start: 05-07-[address] Gopi garcia Work Phone: [facility]Card[facility] Start: 05-07-2022 Non-patient / Non-visit Dr. Tam Whitehead Work Phone: [facility] Start: 05-01-2022 End: 05-01-[address] Gopi Whitehead Work Phone: [facility] Start: 04-11-2022 End: 04-11-[address] Gopi Whitehead Work Phone: [facility] Start: 03-27-2022 Non-patient / Non-visit Dr. Tam Whitehead Work Phone: [facility] Start: 03-26-2022 End: 03-27-2022 Non-patient / Non-visit Dr. Gopi Whitehead Work Phone: [facility] Start: 03-26-2022 End: 03-27-2022 Evaluation and management of inpatient Dr. Gopi Whitehead Work Phone: [facility]Int[facility] Start: 03-26-2022 [facility]mission [facility] Gopi Whitehead Work Phone: [facility] Start: 03-22-2022 End: 03-22-[address] Gopi Whitehead Work Phone: [facility] Start: 03-19-2022 Non-patient / Non-visit Dr. Tam Whitehead Work Phone: [facility] Start: 03-19-2022 Non-patient / Non-visit Dr. Tam Whitehead Work Phone: [facility] Start: 03-14-2022 End: 03-14-2022 Subsequent hospital visit by physician [facility] (I-Stat/1.5t) [facility] Comment on above: SEVERE [facility] Start: 03-09-2022 Telephone encounter Nicole Espino RT(R) [facility] Comment on above: Orders (CMR Protocol ) Start: 02-22-2022 End: 02-22-[address] Gopi Whitehead Work Phone: [facility] Start: 01-02-2022 Non-patient / Non-visit Dr. Tam Whitehead Work Phone: [facility] Start: 01-02-2022 End: 01-02-[address] Gopi Whitehead Work Phone: [facility] Start: 12-12-2021 End: 12-12-[address] Gopi Whitehead Work Phone: [facility] [facility] Start: 08-19-2017 Ambulatory Grisel Esteban [facility] Procedures Date Procedure Procedure Detail Performing Clinician Start: 10-22-2024 CT cervical spine without contrast Dr. Gopi Whitehead MD Work Phone: Start: 10-22-[address] Gopi garcia MD Work Phone: Start: 10-22-2024 CT of head without contrast Dr. Gopi Whitehead MD Work Phone: Start: 09-23-2023 Plain chest X-ray Start: 01-03-2023 Plain X-ray of shoulder Dr. Gopi Whitehead Work Phone: Start: 04-11-2022 MRI of joint of lowe r extremity Dr. Gopi Whitehead Work Phone: Start: 03-26-2022 History of placement of stent for coronary artery disease History of coronary artery stent placement Dr. Gopi Whitehead Work Phone: Comment on above: [id number] w/ 2.75 x 18 mm Orsiro [place] Stent and pRCA w/ 3.0 x 30 mm Orsiro [place] Stent 03/26/22 Start: 03-22-2022 Plain X-ray of shoulder Dr. Gopi Whitehead Work Phone: Start: 03-22-2022 Plain chest X-ray Dr. Deana Whitehead Work Phone: Plan of Treatment Date Care Activity Detail Author Start: 10-22-2024 [facility] Start: 09-23-2023 [facility] Start: 06-07-2022 Influenza vaccination INFLUENZA (Season Ended) [facility] Start: 03-27-2022 Patient discharge [facility] Work Phone: Start: 03-26-2022 Continuous positive airway pressure ventilation treatment [facility] Work Phone: Start: 03-26-2022 Cardiac monitoring [facility] Work Phone: Start: 03-26-2022 Cardiac rehabilitation - phase 1 [facility] Work Phone: Start: 03-26-2022 Notification of physician [facility] Work Phone: Start: 03-26-2022 Oxygen therapy [facility] Work Phone: Start: 03-26-2022 Patient discharge [facility] Work Phone: Start: 03-26-2022 Systemic arterial pressure monitoring [facility] Work Phone: Start: 03-26-[address] [facility] Work Phone: Start: 03-26-2022 Vascular disease risk assessment [facility] Work Phone: Start: 03-26-2022 Vital signs measurements [facility] Work Phone: Start: 03-26-2022 [facility] Work Phone: Start: 03-26-2022 Patient referral [facility] Work Phone: Start: 03-26-2022 Admission procedure [facility] Work Phone: Start: 03-26-2022 Insertion of catheter into peripheral vein [facility] Work Phone: Start: 03-26-2022 Measuring intake and output [facility] Work Phone: Start: 03-26-2022 Providing care according to standard [facility] Work Phone: Start: 03-26-2022 Verification routine [facility] Work Phone: Start: 03-26-2022 [facility] Work Phone: Start: 03-26-2022 Following clinical pathway protocol [facility] Work Phone: Start: 03-26-2022 Catheterization of left heart [facility] Work Phone: Start: 11-20-2021 COVID-19 VACCINE (5 - Booster for Pfizer series) COVID-19 VACCINE (5 - Booster for Pfizer series) [facility] Start: 10-07-2021 ADVANCE DIRECTIVE DISCUSSION ADVANCE DIRECTIVE DISCUSSION [facility] Start: 2007 BONE DENSITY BONE DENSITY [facility] Start: 1992 SHINGRIX VACCINE (1 of 2) SHINGRIX VACCINE (1 of 2) [facility] Start: 1987 DIABETES SCREEN DIABETES SCREEN [facility] Start: 1961 SHINGRIX VACCINE (1 of 2) SHINGRIX VACCINE (1 of 2) [facility] Start: 1961 Urine microalbumin profile DTAP,TDAP,TD (1 - Tdap) [facility] Start: 1954 Adult depression screening assessment DEPRESSION SCREENING [facility] Start: 1948 PNEUMOCOCCAL: 65+ (1 - PCV) PNEUMOCOCCAL: 65+ (1 - PCV) [facility] Start: 1947 COVID-19 VACCINE (#1) COVID-19 VACCINE (#1) [facility] Patient Education [facility] Work Phone: Patient referral [facility] Work Phone: [facility] Payers Date Payer Category Payer Self-pay [id number] 2024 Medicare [id number] 2024 Unknown [id number] 2019 Unknown [id number] 2004 Medicare MEDICARE MEDICAR E A AND B [id number] 2004-Present [phone] [place] [address] Medicare [id number] Medicare Medicare [id number] Unknown [id number] Unknown [id number] Unknown [id number] Unknown [id number] Unknown [id number] Unknown [id number] Unknown [id number] Unknown [id number] Unknown [id number] Social History Date Type Detail Facility Start: 12-12-2021 End: 01-06-2024 Tobacco smoking status [facility] Unknown if ever smoked [facility] Start: 1940 Sex Assigned At Female W [facility] Start: 05-31-2016 End: 10-22-2024 Tobacco smoking status VTIS Ex-smoker [facility] Work Phone: History of tobacco use Cigarette Smoker C [facility] Work Phone: Start: 05-31-2016 Tobacco use and exposure Smokeless tobacco non-user [facility] Work Phone: Start: 10-15-2019 Alcohol intake 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 alcohol (finding) [facility] Start: 1940 Sex Assigned At Not on file C [facility] Start: 03-04-2022 End: 03-14-2022 Exposure to SARS-CoV-2 (event) Not sure [facility] Start: 02-01-2025 Sex Female (finding) [facility] Medical Equipment Procedure Code Equipment Code Equipment Origin al Text Equipment Identifier Dates ([id number]) Drug-eluting coronary artery stent, bioabsorbable-polyme r-coated ()[id number] FDA Start: 03-26-2022 ([id number]) Drug-eluting coronary artery stent, bioabsorbable-polyme r-coated ()[id number] FDA Start: 03-26-2022 Goals Date Patient Goal Desired Activity /State Functional Status Date Assessment Result Facility 03-27-2022 Functional status Ambulates [facility] Work Phone: Mental Status Date Assessment Result Facility 09-23-2023 Cognitive function Level Of Cons ciousness Awake;Alert;Appropriate;Follow s Commands [facility] Work Phone: 03-27-2022 Cognitive function Voice/Name [facility] Work Phone: Evaluation note 03-26-2022 Note Date & Type Note Facility 03-26-2022 Evaluation note Diagnosis Onset Date Essential (primary) hypertension chronic Hyperlipidemia chronic Non-rheumatic mitral valve stenosis chronic History of coronary artery stent placement March 26, 2022 acute Hypertrophic cardiomyopathy acute Essential (primary) hypertension [facility] Work Phone: Evaluation note 03-26-2022 Note Date & Type Note Facility 03-26-2022 Evaluation note Diagnosis Onset Date History of coronary artery stent placement March 26, 2022 acute Hypertrophic cardiomyopathy acute Essential (primary) hypertension [facility] Work Phone: Evaluation note 03-26-2022 Note Date & Type Note Facility 03-26-2022 Evaluation note Diagnosis Onset Date Atherosclerosis of coronary artery without angina pectoris acute History of coronary artery stent placement March 26, 2022 acute Hypertrophic cardiomyopathy acute Palpitations acute Essential (primary) hypertension chronic Hyperlipidemia chronic Non-rheumatic mitral valve stenosis chronic Atherosclerosis of coronary artery without angina pectoris acute History of coronary artery stent placement March 26, 2022 acute Hypertrophic cardiomyopathy acute Essential (primary) hypertension chronic Hyperlipidemia chronic Non-rheumatic mitral valve stenosis [facility] Work Phone: Evaluation note 03-26-2022 Note Date & Type Note Facility 03-26-2022 Evaluation note Diagnosis Onset Date Atherosclerosis of coronary artery without angina pectoris acute History of coronary artery stent placement March 26, 2022 acute Hypertrophic cardiomyopathy acute Essential (primary) hypertension chronic Hyperlipidemia chronic Non-rheumatic mitral valve stenosis [facility] Work Phone: Clinical Note 11-15-2020 Note Date & Type Note Facility 11-15-2020 Note Patient Outreach ([place] [facility]) NORA CONNELL ([id number]) 1940 F Date Time Provider Department 11/15/20 CHRISTI TAPIA During your visit today, we recorded the following information about you: Allergies As of Date: 11/15/2020 Noted Allergy Reaction SEASONAL ALLERGIES 12/18/2018 14 - Other: See Comments Comments: sneezing and runny nose Date Reviewed: 10/15/2019 Reviewed by: Cristy Perez Ma - Fully Assessed Order(s):SARS-COVID VACCINE 1ST DOSE APPT [[id number]] Order #: [id number] FUTURE Prescriptions as of 11/15/2020 Sig: LIDOCAINE [...] Encounter Status:Closed by EPIC, PRODUSER on 11/18/20 [facility] Evaluation note Note Date & Type Note Facility Evaluation note Diagnosis Onset Date Essential (primary) hypertension chronic Hyperlipidemia chronic Non-rheumatic mitral valve stenosis chronic [facility] Work Phone: Evaluation note Note Date & Type Note Facility Evaluation note No assessment information availa ble [facility] Work Phone: Hospital Discharge instructions Note Date & Type Note Facility Hospital Discharge instructions Additional Instructions Your heart rate is lower than normal and likely from your carvedilol. Currently you take carvedilol 12.5 mg tablet once a day. I recommend you cut this in half and only take 6.25 mg once a day and follow-up with your primary care doctor. [facility] Work Phone: Reason for referral (narrative) Note Date & Type Note Facility Reason for referral (narrative) No reason for referral information available [facility] Work Phone: Summary Purpose Family History No Family History Records Found Relationship Condition Age at Onset Recorded Date/T javier Not Specified Cardiac disease Unknown Advance Directives No Advanced Directives Records Found Advance Directive Response Recorded Date/ Time Living Will No March 02, 2017 5 :13pm Power of Product Support Rep No March 02, 2017 5:13pm Advance Directive Response Recorded Date/ Time Advance Directives No March 26 9:51am Living Will No March 26, 2022 9:51am Power of Product Support Rep No March 26 9:51am Advance Directive Response Recorded Date/ Time Advance Directives No March 26 8:51am Living Will No March 26, 2022 8:51am Power of Product Support Rep No March 26 8:51am Advance Directive Response Recorded Date/ Time Advance Directives No March 26 8:51am Living Will No September 23, 2 023 4:33pm Power of Product Support Rep No September 23, 2023 4:33pm Advance Directive Response Recorded Date/ Time Advance Directives No March 26 9:51am Living Will No September 23, 2 023 5:33pm Power of Product Support Rep No September 23, 2023 5:33pm Advance Directive Response Recorded Date/ Time Living Will No October 22 11:58pm Do you have a Healthcare Power of Product Support Rep? No October 22, 2024 11:58pm Advance Directives No March 26 9:51am Advance Directive Response Recorded Date/ Time Living Will No September 23, 2 023 5:33pm Do you have a Healthcare Power of Product Support Rep? No September 23, 2023 5:33pm Advance Directives No March 26 9:51am Chief Complaint and Reason for Visit Chief Complaint 9 M FU MURMUR Reason for Visit Essential (primary) hypertension Hyperlipidemia Non-rheumatic mitral valve stenosis Chief Complaint 9 M FU MURMUR Amb Documentation Amb Documentation CHEST PAIN Reason for Visit Essential (primary) hypertension Hyperlipidemia Non-rheumatic mitral valve stenosis Chief Complaint 9 M FU MURMUR Amb Documentation Amb Documentation CHEST PAIN CHEST PAIN Reason for Visit Essential (primary) hypertension Hyperlipidemia Non-rheumatic mitral valve stenosis History of coronary artery stent placement Hypertrophic cardiomyopathy Essential (primary) hypertension Chief Complaint MURMUR Amb Documentation Amb Documentation CHEST PAIN CHEST PAIN CHEST PAIN SHOULDER PAIN Reason for Visit History of coronary artery stent placement Hypertrophic cardiomyopathy Essential (primary) hypertension Chief Complaint SHOULDER PAIN S/P CORONARY INTERVENTION HOLTER PALPITATIONS 6 M FU Reason for Visit Atherosclerosis of c oronary artery without angina pectoris History of coronary artery stent placement Hypertrophic cardiomyopathy Palpitations Essential (primary) hypertension Hyperlipidemia Non-rheumatic mitral valve stenosis Atherosclerosis of coronary artery without angina pectoris History of coronary artery stent placement Hypertrophic cardiomyopathy Essential (primary) hypertension Hyperlipidemia Non-rheumatic mitral valve stenosis Chief Complaint LEFT SHOULDER PAIN 6 M FU Reason for Visit Atherosclerosis of c oronary artery without angina pectoris History of coronary artery stent placement Hypertrophic cardiomyopathy Essential (primary) hypertension Hyperlipidemia Non-rheumatic mitral valve stenosis Chief Complaint LEFT SHOULDER PAIN 6 M FU HYPERTROPHIC CMP Reason for Visit Atherosclerosis of c oronary artery without angina pectoris History of coronary artery stent placement Hypertrophic cardiomyopathy Essential (primary) hypertension Hyperlipidemia Non-rheumatic mitral valve stenosis Chief Complaint DIZZINESS Chief Complaint 6 M [address]U MURMUR P[address], BLE PAIN; WC PROTOCOL Reason for Visit Atherosclerosis of c oronary artery without angina pectoris History of coronary artery stent placement Hypertrophic cardiomyopathy Essential (primary) hypertension Hyperlipidemia Non-rheumatic mitral valve stenosis Chief Complaint Admit Date FALL October 22, 2024 1 0:01pm Chief Complaint Admit Date PERIPHERAL VASCULAR DISEASE March 23 025 1:50pm Chief Complaint Admit Date PERIPHERAL VASCULAR DISEASE March 23 025 1:50pm 1 Y FU April 13, 2025 10:05 am Additional Source Comments INFORMATION SOURCE (unrecogn ized section and content) DATE CREATED AUTHOR 04/01/2018 [facility] DATE CREATED AUTHOR AUTHOR'S ORGANIZ ATION 11/03/2021 [facility] DATE CREATED AUTHOR AUTHOR'S ORGANIZ ATION 03/17/2022 [facility] DATE CREATED AUTHOR AUTHOR'S ORGANIZ ATION 04/15/2025 [facility] Goals (unrecognized section and content) Goals may be documented in a n alternate sectionGoals may be documented in an alternate sectionGoals may be documented in an alternate sectionGoals may be documented in an alternate sectionGoals may be documented in an alternate sectionGoals may be documented in an alternate sectionGoals may be documented in an alternate sectionGoals may be documented in an alternate sectionGoals may be documented in an alternate sectionGoals may be documented in an alternate sectionGoals may be documented in an alternate sectionGoals may be documented in an alternate sectionGoals may be documented in an alternate sectionGoals may be documented in an alternate sectionGoals may be documented in an alternate section Source Comments (unrecognize d section and content) In the event this informatio n is protected by the Federal Confidentiality of Alcohol and Drug Abuse Patient Records regulations: The Federal rules restrict any use of the information to criminally investigate or prosecute any alcohol or drug abuse patient.[facility] the event this information is protected by the Federal Confidentiality of Alcohol and Drug Abuse Patient Records regulations: The Federal rules restrict any use of the information to criminally investigate or prosecute any alcohol or drug abuse patient.[facility] Reason for Visit (unrecogniz ed section and content) Reason Comments Orders CMR Protocol Care Teams (unrecognized sec tion and content) Education Nurse Relationship Specialty Start Date End Date Gopi Whitehead MD PCP - General Family Practice 05/02/17 Education Nurse Relationship Specialty Start Date End Date Gopi Whitehead MD PCP - General Family Practice 05/02/17 Team Status: Active Member Role Status Dates Dr. Gopi Whitehead MD Family Provider Active Dr. Gopi Whitehead MD Primary Care Provider Active Team Status: Inactive Member Role Status Dates Dr. Gopi Whitehead MD Primary Care Provi charito, Attending Provider, Referring Provider Active Team Status: Inactive Member Role Status Dates Dr. Gopi Whitehead MD Primary Care Provider, Attending Provider Active Team Status: Inactive Member Role Status Dates Dr. Gopi Whitehead MD Primary Care Provider, Referring Provider Active Leonarda RODRIGUEZ PA Attending Provider Active Team Status: Active Member Role Status Dates Dr. Gopi Whitehead MD Primary Care Provider Active Dr. Wander Fried MD Attending Provider Active Team Status: Inactive Member Role Status Dates Dr. Gopi Whitehead MD Primary Care Provider Active TAM Aguilar Attending Provider, Referr ing Provider Active Team Status: Inactive Member Role Status Dates Dr. Gopi Whitehead MD Primary Care Provider Active Dr. Max Fam MD Emergency Provider Active Team Status: Inactive Member Role Status Dates Dr. Gopi Whitehead MD Primary Care Provider Active Dr. Max Fam MD Attending Provider, Emergency Provider Active Team Status: Active Member Role Status Dates Dr. Gopi Whitehead MD Primary Care Provider Active Dr. Neil Uribe DPM Attending Provider, Referring Provider Active Team Status: Inactive Member Role Status Dates Dr. Gopi Whitehead MD Primary Care Provider Active Dr. Neil Uribe DPM Attending Provider, Referring Provider Active Team Status: Active Member Role Status Dates Dr. Gopi Whitehead MD Primary Care Provider Active Team Status: Inactive Member Role Status Dates Dr. Gopi Whitehead MD Primary Care Provider Active Start: October 22, 2024 End: October 23, 2024 Dr. Saman Moses DO Attending Provider Active Start: October 22, 2024 End: October 23, 2024 Dr. Saman Moses DO Emergency Provider Active Start: October 22, 2024 End: October 23, 2024 Team Status: Inactive Member Role Status Dates Dr. Gopi Whitehead MD Primary Care Provider Active Start: January 27, 2025 End: January 27, 2025 Dr. Gopi Whitehead MD Attending Provider Active Start: January 27, 2025 End: January 27, 2025 Dr. Gopi Whitehead MD Referring Provider Active Start: January 27, 2025 End: January 27, 2025 Team Status: Inactive Member Role Status Dates Dr. Gopi Whitehead MD Primary Care Provider Active Start: March 23, 2025 End: March 23, 2025 TAM Adkins Attending Provider Active Star t: March 23, 2025 End: March 23, 2025 TAM Adkins Referring Provider Active Star t: March 23, 2025 End: March 23, 2025 Team Status: Active Member Role/Relationship Status Dates Dr. Gopi Whitehead MD Primary Care Provider Active Team Status: Inactive Member Role/Relationship Status Dates Dr. Gopi Whitehead MD Primary Care Provider Active Start: January 27, 2025 End: January 27, 2025 Dr. Gopi Whitehead MD Attending Provider Active Start: January 27, 2025 End: January 27, 2025 Dr. Gopi Whitehead MD Referring Provider Active Start: January 27, 2025 End: January 27, 2025 Team Status: Inactive Member Role/Relationship Status Dates Dr. Gopi Whitehead MD Primary Care Provider Active Start: March 23, 2025 End: March 23, 2025 TAM Adkins Attending Provider Active Star t: March 23, 2025 End: March 23, 2025 TAM Adkins Referring Provider Active Star t: March 23, 2025 End: March 23, 2025 Team Status: Active Member Role/Relationship Status Dates Dr. Gopi Whitehead MD Primary Care Provider Active Start: March 23, 2025 Dr. Doug Maradiaga MD Attending Provider Active S tart: March 23, 2025 TAM Adkins Referring Provider Active Star t: March 23, 2025 Team Status: Inactive Member Role/Relationship Status Dates Dr. Gopi Whitehead MD Primary Care Provider Active Start: April 13, 2025 End: April 13, 2025 Dr. Gopi Whitehead MD Referring Provider Active Start: April 13, 2025 End: April 13, 2025 TAM Adkins Attending Provider Active Star t: April 13, 2025 End: April 13, 2025 FOR RECORDS PERTAINING TO PATIENTS WHO ARE [...] BE BASED ON THE PRIMARY CLINICAL RECORDS. [facility] [employer] provides no warranty or guarantee of the accuracy or completeness of information in this document.
[2025-04-28 20:41] LABS: AST(SGOT) 26 U/L (<=31); Alanine Aminotransfer ALT/SGPT 15 U/L (<=34); Albumin, Serum 3.9 g/dL (3.4-4.8); Alkaline Phosphatase 112 U/L (35-104); Anion Gap 14 (5-15); BUN 23 mg/dL (4-19); BUN/Creat Ratio 25.5 RATIO (10-20); Calcium,Total 9.6 mg/dL (7.6-11.0); Carbon Dioxide 26.6 mmol/L (21.0-32.0); Chloride 101 mmol/L (98-108); Cholesterol 188 mg/dL (<=200); Free T3 2.1 pg/mL (2.18-3.98); Globulin 2.5 g/dL (2.2-4.2); Glucose 89 mg/dL (70-99); Low Density Lipoprotein Calc. 76 mg/dL; Potassium 3.4 mmol/L (3.3-5.1); Triglycerides 135 mg/dL; Very Low Density Lipoprotein 27 mg/dL (5-40); cholesterol:hdl ratio screen 2.22
[2025-04-28 22:27] LABS: Creatinine, Urine (random) 27.40 mg/dL (28.00-217.00); Microalbumin,Random Urine < 12.0 mg/L (<20 mg/L)
== END | disposition home or self-care (01) ==
LOC: MFPLAB 14:42
PROVIDERS: PCP Family Medicine; Referring Provider Family Medicine; Visit Provider Family Medicine
DX: E03.9 Hypothyroidism, unspecified (principal); E11.9 Type 2 diabetes mellitus without complications
CPT/HCPCS: 36415; 80053; 80061; 82043; 82570; 83036; 84439; 84443; 84481

== ENCOUNTER → 2025-07-26 | Outpatient (CLI) | payer MEDICARE, OTHER, SELFPAY ==
--- OUTSIDE RECORDS SUMMARY | 2025-07-26 16:50 | XMS RPT_ITS | CCD ---
Author Organization [facility] Care Team Providers Care Vamp Creaser Name Role Phone Elana Alvarado Unavailable Unavailable PROVIDER, UNKNOWN Unavailable Unavailable [...] )[id number] Dr. Saman Moses DO Attending Provider Dr. Saman Moses DO Emergency Provider [phone] Charley GRULLON, Dr. Nguyễn Attending Provider Charley GRULLON, Dr. Nguyễn Referring Provider Charley GRULLON, Dr. Nguyễn Primary Care Provider [phone] Mery RODRIGUEZ, Christi Attending Provider [phone] Mery RODRIGUEZ, Christi Referring Provider [phone] Hiren GRULLON, Dr. Camacho Attending Provider Whitehead, Gopi Attending Unavailable Whitehead, Gopi Referring Unavailable Whitehead, Gopi Primary Care Unavailable Whitehead, Gopi Referring Unavailable Leonarda Jacinto Attending Unavail able Whitehead, Gopi Primary Care Unavailable Whitehead, Gopi Referring Unavailable Whitehead, Gopi Primary Care Unavailable Ordonez, Christi Attending Unavailable Ordonez, Christi Referring Unavailable Whitehead, Gopi Primary Care Unavailable Doug Maradiaga Attending Unavailable Whitehead, Gopi Primary Care Unavailable Whitehead, Gopi Attending Unavailable Ordonez, Christi Attending Unavailable Whitehead, Gopi Referring Unavailable Whitehead, Gopi Primary Care Unavailable Whitehead, Gopi Attending Unavailable Whitehead, Gopi Referring Unavailable Whitehead, Gopi Primary Care Unavailable Ordonez, Christi Attending Unavailable Ordonez, Christi Referring Unavailable Whitehead, Gopi Primary Care Unavailable Whitehead, Gopi Primary Care Unavailable Saman Moses Attending Unavailable Allergies Allergy Classification Reported Allergen(s) Allergy Type Date of Onset Reaction(s) Facility (2 sources) Seasonal allergy Allergy to substance 9 Other: See Comments [facility] Work Phone: Medications Current Medications Medication [...] times daily. ALPRAZolam 0.5 mg oral tablet (20 sources) Benzodiazepine Start: 9 Alprazolam 0.5 mg tablet Active 0.5 mg PO 2 to 3 times per day as needed for Anxiety October 29, 2018 1:00am Comment on above: Take 0.5 mg by mouth at bedtime as needed. aspirin 81 mg delayed release oral tablet (18 sources) Platelet Aggregation Inhibitor, Nonsteroidal Anti-inflammatory Drug [...] with meals. clopidogrel 75 mg oral tablet (19 sources) P2Y12 Platelet Inhibitor Start: 05-01-20 End: 01-06-20 take 1 tablet by mouth once daily Clopidogrel (Plavix) 75 mg tablet Active 75 mg PO DAILY January 06, 2024 12:00am ergocalciferol 1.25 mg oral capsule (20 sources) Provitamin D2 Compound Start: 12-13-19 Ergocalciferol [...] mg oral tablet (20 sources) l-Thyroxine Start: 9 End: 1 take 1 tablet by mouth [...] chloride 20 meq extended release oral tablet (18 sources) Start: 12-13-19 take 1 tablet by [...] once daily. primidone 50 mg oral tablet (20 sources) Anti-epileptic Agent Start: 05-29-2019 take 1 [...] twice daily atorvastatin 10 mg oral tablet (18 sources) HMG-CoA Reductase Inhibitor Start: 03-09-2021 End: [...] aily. cyclobenzaprine hydrochloride 10 mg oral tablet (20 sources) Muscle Relaxant Start: 10-29-2018 End: 05-29-2019 Cyclobenzaprine 10 mg tablet Discontinued PO 30 0 October 29, 2018 1:00am May 29, 2019 1:09pm Start: 10-29-2018 End: 05-29-2019 Cyclobenzaprine Discontinued PO October 29, 2018 1:00am May 29, 2019 [...] (2 sources) Nonsteroidal Anti-inflammatory Drug Start: 08-08-20 17 take 1 tablet by mouth once daily meloxicam (MOBIC) 15 mg tablet Take 1 tablet by mouth once daily. 30 tablet 1 08/08/2017 Active Comment on above: Take 1 tablet by erika th once daily. metoclopramide 5 mg oral tablet (20 sources) Dopamine-2 Receptor Antagonist Start: 03-09-20 End: 06-15-20 22 take 1 tablet by mouth once as [...] s needed. 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, unspecified] 01-04-2022 Chronic Cardiac dysrhythmias (20 sources) Palpitations; Translations: [Palpitations] Episodic Coronary atherosclerosis and other heart disease (20 sources) Coronary atherosclerosis; Translations: [Atherosclerotic heart disease of [place] coronary artery without angina pectoris] Chronic Diabetes mellitus with complications (1 source) Type 2 diabetes mellitus with other circulatory complications; Translations: [Type 2 diabetes mellitus with other circulatory complications] Onset: 06-17-2024 Chronic Disorders of lipid metabolism (20 sources) Hyperlipidemia; Translations: [Hyperlipidemia, unspecified] Chronic Essential hypertension (20 sources) Essential hypertension; Translations: [Essential (primary) hypertension] Chronic Fluid and electrolyte disorders (8 sources) Acute hypokalemia; Translations: [Hypokalemia] 09-23-2023 Episodic Heart valve disorders (20 sources) Non-rheumatic mitral valve stenosis; Translations: [Nonrheumatic mitral (valve) stenosis] Chronic Nonspecific chest pain (16 sources) Chest pain on exertion; Translations: [Chest pain, unspecified] 03-20-2022 Episodic Other and ill-defined heart disease (18 sources) Left ventricular hypertrophy; Translations: [Cardiomegaly] 11-27-2018 Chronic Other and ill-defined heart disease (16 sources) Left atrial enlargement; Translations: [Cardiomegaly] 03-19-2022 Chronic Other diseases of veins and lymphatics (4 sources) Vascular insufficiency; Translations: [Venous insufficiency (chronic) (peripheral)] 03-10-2024 Episodic Other lower respiratory disease (18 sources) Dyspnea on exertion; Translations: [Dyspnea, unspecified] 12-09-2021 Episodic Stephanie-; endo-; and myocarditis; cardiomyopathy (except that caused by tuberculosis or sexually transmitted disease) (20 sources) Hypertrophic cardiomyopathy; Translations: [Other hypertrophic cardiomyopathy] Chronic Peripheral and visceral atherosclerosis (6 sources) Peripheral vascular disease, unspecified; Translations: [Peripheral arterial disease] Onset: 03-28-2025 03-10-2024 Chronic Pulmonary heart disease (18 sources) Pulmonary arterial hypertension; Translations: [Secondary pulmonary arterial hypertension] 10-29-2018 Chronic Spondylosis; intervertebral disc disorders; other back problems (4 sources) Postlaminectomy syndrome, not elsewhere classified; Translations: [Spondylosis without myelopathy or radiculopathy, lumbosacral region] Onset: 08-19-2017 Chronic Syncope (8 sources) Near syncope; Translations: [Syncope and collapse] 09-23-2023 Episodic Thyroid disorders (1 source) Hypothyroidism, unspecified; Translations: [Hypothyroidism, unspecified] Onset: 05-03-2025 Chronic Past or Other Problems Problem Classification [...] Test Name Value Interpretation Reference Range Facility Anion gap in Serum or Plasma Ordered By: Gopi Whitehead on 04-28-2025 Anion gap [Moles/Vol] 14 mmol/L 5-15 [facility] BUN/creatinine ratioOrdered By: Gopi Whitehead on 04-28-2025 Urea nitrogen/Creatinine [Mass ratio] 25.5 mg/mg High 10- [facility] Bilirubin, totalOrdered By: Gopi Whitehead on 04-28-2025 Bilirubin [Mass/Vol] 0.18 mg/dL 0.00-1.30 [facility] Calculated very low density lipoprotein (VLDL) cholesterol measurementOrdered By: Gopi Whitehead on 04-28-2025 Calculated very low density lipoprotein (VLDL) cholesterol measurement 27 mg/dL 5-40 [facility] Carbon dioxide, total [Moles /volume] in Central venous bloodOrdered By: Gopi Whitehead on 04-28-2025 CO2 [Moles/Vol] 26.6 mmol/L 21.0-32.0 [facility] Chloride assayOrdered By: Tam Whitehead on 04-28-2025 Chloride [Moles/Vol] 101 mmol/L 98-108 [facility] Comprehensive Metabolic Prof ilon 04-28-2025 Albumin [Mass/Vol] 3.9 g/dL Normal 3.4-4.8 [facility] Comment on above: Performed By: #### L 501.91968, L500.4100, L501.9520, L502.0250, L501.9985, L506.0400, L500.4050 ####[facility] [address] [place], [address] Albumin/Globulin [Mass ratio] 1.6 {ratio} Normal 0.9-2.4 [facility] Comment on above: Performed By: #### L 501.47808, L500.4100, L501.9520, L502.0250, L501.9985, L506.0400, L500.4050 ####[facility] [address] [place], [address] ALK PHOS 112 U/L High 35-104 [facility] Comment on above: Performed By: #### L 501.71118, L500.4100, L501.9520, L502.0250, L501.9985, L506.0400, L500.4050 ####[facility] [address] [place], [address] ALT [Catalytic activity/Vol] 15 U/L Normal <=34 [facility] Comment on above: Performed By: #### L 501.42696, L500.4100, L501.9520, L502.0250, L501.9985, L506.0400, L500.4050 ####[facility] [address] [place], [address] AST [Catalytic activity/Vol] 26 U/L Normal <=31 [facility] Comment on above: Performed By: #### L 501.27169, L500.4100, L501.9520, L502.0250, L501.9985, L506.0400, L500.4050 ####[facility] [address] [place], [address] Bilirubin [Mass/Vol] 0.18 mg/dL Normal 0.00-1.30 [facility] Comment on above: Performed By: #### L 501.09319, L500.4100, L501.9520, L502.0250, L501.9985, L506.0400, L500.4050 ####[facility] [address] [place], [address] BUN/CRE 25.5 RATIO High 10-20 [facility] Comment on above: Performed By: #### L 501.82716, L500.4100, L501.9520, L502.0250, L501.9985, L506.0400, L500.4050 ####[facility] [address] [place], [address] Calcium [Mass/Vol] 9.6 mg/dL Normal 7.6-11.0 [facility] Comment on above: Performed By: #### L 501.12974, L500.4100, L501.9520, L502.0250, L501.9985, L506.0400, L500.4050 ####[facility] [address] [place], [address] Chloride [Moles/Vol] 101 mmol/L Normal 98-108 [facility] Comment on above: Performed By: #### L 501.57161, L500.4100, L501.9520, L502.0250, L501.9985, L506.0400, L500.4050 ####[facility] [address] [place], [address] CO2 [Moles/Vol] 26.6 mmol/L Normal 21.0-32.0 [facility] Comment on above: Performed By: #### L 501.73174, L500.4100, L501.9520, L502.0250, L501.9985, L506.0400, L500.4050 ####[facility] [address] [place], [address] Creatinine [Mass/Vol] 0.91 mg/dL Normal 0.70-1.20 [facility] Comment on above: Performed By: #### L 501.36909, L500.4100, L501.9520, L502.0250, L501.9985, L506.0400, L500.4050 ####[facility] [address] [place], [address] GAP 14 Normal 5-15 [facility] Comment on above: Performed By: #### L 501.36391, L500.4100, L501.9520, L502.0250, L501.9985, L506.0400, L500.4050 ####[facility] [address] [place], [address] GFR/1.73 sq M.predicted among non-blacks MDRD (S/P/Bld) [Vol rate/Area] 63 mL/min/{1.73_m2} Normal >60 [facility] Comment on above: Result Comment: mL/m in/1.73m2 CKD-EPI Creatinine Equation (2020) Performed By: #### L 501.78705, L500.4100, L501.9520, L502.0250, L501.9985, L506.0400, L500.4050 ####[facility] [address] [place], [address] Globulin (S) [Mass/Vol] 2.5 g/dL Normal 2.2-4.2 [facility] Comment on above: Performed By: #### L 501.32955, L500.4100, L501.9520, L502.0250, L501.9985, L506.0400, L500.4050 ####[facility] [address] [place], [address] Glucose [Mass/Vol] 89 mg/dL Normal 70-99 [facility] Comment on above: Performed By: #### L 501.90231, L500.4100, L501.9520, L502.0250, L501.9985, L506.0400, L500.4050 ####[facility] [address] [place], [address] Potassium [Moles/Vol] 3.4 mmol/L Normal 3.3-5.1 [facility] Comment on above: Performed By: #### L 501.12797, L500.4100, L501.9520, L502.0250, L501.9985, L506.0400, L500.4050 ####[facility] [address] [place], [address] Sodium [Moles/Vol] 142 mmol/L Normal 133-145 [facility] Comment on above: Performed By: #### L 501.23418, L500.4100, L501.9520, L502.0250, L501.9985, L506.0400, L500.4050 ####[facility] [address] [place], [address] T PROT 6.4 g/dL Normal 5.9-8.4 [facility] Comment on above: Performed By: #### L 501.88073, L500.4100, L501.9520, L502.0250, L501.9985, L506.0400, L500.4050 ####[facility] [address] [place], [address] Urea nitrogen [Mass/Vol] 23 mg/dL High 4-19 [facility] Comment on above: Performed By: #### L 501.01240, L500.4100, L501.9520, L502.0250, L501.9985, L506.0400, L500.4050 ####[facility] [address] [place], [address] Free T3on 04-28-2025 Free T3 [Mass/Vol] 2.1 pg/mL Low 2.18-3.98 [facility] Comment on above: Performed By: #### L 501.38862, L500.4100, L501.9520, L502.0250, L501.9985, L506.0400, L500.4050 ####[facility] [address] [place], [place], [id number] Free R8Waesvym By: Gopi boone on 04-28-2025 Free T3 [Mass/Vol] 2.1 pg/mL Low 2.18-3.98 [facility] Glomerular filtration rate ( GFR) estimation/1.73 sq m using serum, plasma, or whole bOrdered By: Gopi Whitehead on 04-28-2025 GFR/1.73 sq M.predicted among non-blacks MDRD (S/P/Bld) [Vol rate/Area] 63 mL/min/{1.73_m2} >60 [facility] Comment on above: mL/min/1.73m2 CKD-EP I Creatinine Equation (2020) Hemoglobin A1con 04-28-2025 HbA1c (Bld) [Mass fraction] 5.8 % High <=5.6 [facility] Comment on above: Result Comment: Norm al < 5.7 % Prediabetic 5.7 - 6.4 % Diabetic >or= 6.5 % Please note range changes. Performed By: #### L 501.57049, L500.4100, L501.9520, L502.0250, L501.9985, L506.0400, L500.4050 ####[facility] [address] [place], [place], [id number] Hemoglobin A1c percentageOrd ered By: Gopi Whitehead on 04-28-2025 HbA1c (Bld) [Mass fraction] 5.8 % High <5.7 [facility] Comment on above: Normal < 5.7 % Predi abetic 5.7 - 6.4 % Diabetic >or= 6.5 % Please note range changes. LDL calc ser/plasOrdered By: Gopi Whitehead on 04-28-2025 Cholesterol in LDL [Mass/Vol] 76 mg/dL [facility] Comment on above: Mdtzdfhmvv=570-956 m g/dL & Higher Nsgr=964 mg/dL or greater Laboratory - Chemistry and C hemistry - challengeOrdered By: Gopi Whitehead on 04-28-2025 AST [Catalytic activity/Vol] 26 U/L <32 [facility] Lipid Profileon 04-28-2025 CHOL:HDL 2.22 Normal [facility] Comment on above: Performed By: #### L 501.19310, L500.4100, L501.9520, L502.0250, L501.9985, L506.0400, L500.4050 ####[facility] [address] [place], [address] Cholesterol [Mass/Vol] 188 mg/dL Normal <=200 [facility] Comment on above: Result Comment: Chol esterol level, Desirable <200 mg/dL Borderline high cholesterol 200-239 mg/dL High cholesterol >=240 mg/dL Recommendations of the NCEP Adult Treatment Panel for the following risk-cutoff thresholds for the [place] population. Performed By: #### L 501.69336, L500.4100, L501.9520, L502.0250, L501.9985, L506.0400, L500.4050 ####[facility] [address] [place], [address] Cholesterol in HDL [Mass/Vol] 85 mg/dL Normal [facility] Comment on above: Result Comment: [place] onal Cholesterol Education Program (NCEP) guidelines: <40 mg/dL: Low HDL-cholesterol (major risk factor for CHD) >= 60 mg/dL: High HDL-cholesterol (negative risk factor for CHD) HDL-cholesterol is affected by a number of factors, e.g. smoking, exercise, hormones, sex and age. Performed By: #### L 501.68580, L500.4100, L501.9520, L502.0250, L501.9985, L506.0400, L500.4050 ####[facility] [address] [place], [address] Cholesterol in LDL [Mass/Vol] 76 mg/dL Normal [facility] Comment on above: Result Comment: Bord yrdany=241-225 mg/dL Higher Etmq=507 mg/dL or greater Performed By: #### L 501.52931, L500.4100, L501.9520, L502.0250, L501.9985, L506.0400, L500.4050 ####[facility] [address] [place], [place], [phone]) Cholesterol in VLDL [Mass/Vol] 27 mg/dL Normal 5-40 [facility] Comment on above: Performed By: #### L 501.24191, L500.4100, L501.9520, L502.0250, L501.9985, L506.0400, L500.4050 ####[facility] [address] [place], [place], [phone]) Triglyceride [Mass/Vol] 135 mg/dL Normal [facility] Comment on above: Result Comment: The drugs N-Acetylcysteine and Metamizole may falsely depress this assay. Normal range: <150 mg/dL Borderline High: 150-199 mg/dL High: 200-499 mg/dL Very High: >500 mg/dL Performed By: #### L 501.35022, L500.4100, L501.9520, L502.0250, L501.9985, L506.0400, L500.4050 ####[facility] [address] [place], [place], [phone] Microalb:Creat Ratio,Random URon 04-28-2025 Creatinine [Mass/Vol] 27.40 mg/dL Low 28.00-217.00 [facility] Comment on above: Performed By: #### L 501.66565, L500.4100, L501.9520, L502.0250, L501.9985, L506.0400, L500.4050 ####[facility] [address] [place], [place], [phone] MALB:CREAT UNABLE TO CALCULATE Normal <30 mg/g CRE [facility] Comment on above: Performed By: #### L 501.64082, L500.4100, L501.9520, L502.0250, L501.9985, L506.0400, L500.4050 ####[facility] [address] [place], [place], [phone] MICROALBUMIN,UR < 12.0 Normal <20 mg/L [facility] Comment on above: Performed By: #### L 501.89835, L500.4100, L501.9520, L502.0250, L501.9985, L506.0400, L500.4050 ####[facility] [address] [place], [place], [phone] Microalbumin/creat ratio urO rdered By: Gopi Whitehead on 04-28-2025 Urine microalbumin/creatinine ratio measurement UNABLE TO CALCULATE mg/g CRE <30 [facility] Potassium measurement (mass/ volume)Ordered By: Gopi Whitehead on 04-28-2025 Potassium (Unsp spec) [Mass/Vol] 3.4 mmol/L 3.3-5.1 [facility] Random urine creatinine jordon urement (mass/volume)Ordered By: Gopi Whitehead on 04-28-2025 Creatinine Unsp time (U) [Mass/Vol] 27.40 mg/dL Low 28.00-217.00 [facility] Screening total cholesterol/ high density lipoprotein (HDL) cholesterol ratioOrdered By: Gopi Whitehead on 04-28-2025 Cholesterol.total/Christi sterol in HDL [Mass ratio] 2.22 {ratio} [facility] Serum creatinine measurement (mass/volume)Ordered By: Gopi Whitehead on 04-28-2025 Creatinine [Mass/Vol] 0.91 mg/dL 0.70-1.20 [facility] Serum globulin measurementOr dered By: Gopi Whitehead on 04-28-2025 Globulin (S) [Mass/Vol] 2.5 g/dL 2.2-4.2 [facility] Serum glucose measurement (m ass/volume)Ordered By: Gopi Whitehead on 04-28-2025 Glucose [Mass/Vol] 89 mg/dL 70-99 [facility] Serum or plasma alanine cordon otransferase (ALT) measurementOrdered By: Gopi Whitehead on 04-28-2025 ALT [Catalytic activity/Vol] 15 U/L <35 [facility] Serum or plasma albumin jordon urement (mass/volume)Ordered By: Gopi Whitehead on 04-28-2025 Albumin [Mass/Vol] 3.9 g/dL 3.4-4.8 [facility] Serum or plasma albumin/glob ulin mass ratioOrdered By: Gopi Whitehead on 04-28-2025 Albumin/Globulin [Mass ratio] 1.6 {ratio} 0.9-2.4 [facility] Serum or plasma alkaline shaheed sphatase measurementOrdered By: Gopi Whitehead on 04-28-2025 ALP [Catalytic activity/Vol] 112 U/L High 35-104 [facility] Serum or plasma calcium jordon urement (mass/volume)Ordered By: Gopi Whitehead on 04-28-2025 Calcium [Mass/Vol] 9.6 mg/dL 7.6-11.0 [facility] Serum or plasma cholesterol in HDL measurement (mass/volume)Ordered By: Gopi Whitehead on 04-28-2025 Cholesterol in HDL [Mass/Vol] 85 mg/dL >40 [facility] Comment on above: National Cholesterol Education Program (NCEP) guidelines:<40 mg/dL: Low HDL-cholesterol (major risk factor for CHD)>= 60 mg/dL: High HDL-cholesterol (negative risk factor for CHD)HDL-cholesterol is affected by a number of factors, e.g. smoking, exercise, hormones, sex and age. Serum or plasma cholesterol measurement (mass/volume)Ordered By: Gopi Whitehead on 04-28-2025 Cholesterol [Mass/Vol] 188 mg/dL <201 [facility] Comment on above: Cholesterol level, D esirable <200 mg/dLBorderline high cholesterol 200-239 mg/dLHigh cholesterol >=240 mg/dLRecommendations of the NCEP Adult Treatment Panel for the following risk-cutoff thresholds for the [place] population. Serum or plasma urea nitroge n measurement (mass/volume)Ordered By: Gopi Whitehead on 04-28-2025 Urea nitrogen [Mass/Vol] 23 mg/dL High 4-19 [facility] Sodium levelOrdered By: Gopi Whitehead on 04-28-2025 Sodium [Moles/Vol] 142 mmol/L 133-145 [facility] T4 Free Directon 04-28-2025 T4 FREE DIRECT 1.10 ng/dL Normal 0.76-1.46 [facility] Comment on above: Performed By: #### L 501.38818, L500.4100, L501.9520, L502.0250, L501.9985, L506.0400, L500.4050 ####[facility] [address] [place], [place], [phone] T4 freeOrdered By: Gopi boone on 04-28-2025 Free T4 [Mass/Vol] 1.10 ng/dL 0.76-1.46 [facility] TSH DL <= 0.005 mIU/L QnOrde red By: Gopi Whitehead on 04-28-2025 TSH Qn 0.492 uIU/mL 0.300-4.200 [facility] Thyroid Stim Hormone (TSH)on 04-28-2025 TSH 0.492 uIU/mL Normal 0.300-4.200 [facility] Comment on above: Performed By: #### L 501.57851, L500.4100, L501.9520, L502.0250, L501.9985, L506.0400, L500.4050 ####[facility] [address] [place], [place], [phone] Total proteinOrdered By: Lidia Whitehead on 04-28-2025 Protein [Mass/Vol] 6.4 g/dL 5.9-8.4 [facility] Triglycerides measurementOrd ered By: Gopi Whitehead on 04-28-2025 Triglyceride [Mass/Vol] 135 mg/dL <199 [facility] Comment on above: The drugs N-Acetylcy steine and Metamizole may falsely depress this assay. Normal range: <150 mg/dLBorderline High: 150-199 mg/dLHigh: 200-499 mg/dLVery High: >500 mg/dL Urine albumin measurement wi th detection limit of 20 mg/L or less (mass/volume)Ordered By: Gopi Whitehaed on 04-28-2025 Albumin DL <= 20 mg/L (U) [Mass/Vol] < 12.0 mg/L <20 mg/L [facility] MR/BMS.Clint 04-13-2025 [facility] [address] [place] [address] OFFICE VISIT Date of Service: 04/13/25 MR#: [id number] Acct: [id number] Name: NORA CONNELL Rep #: [id number] : 1940 Provider: TAM Adkins Age/Sex: 84/F Location: [facility] Status: Signed Intake Vital Signs 10/22/24 22:02 [...] Yes thyroid (more content not included)... Normal [facility] Lower Ext Art Exam w/o Exerc jono 03-23-2025 Lower Ext Art Exam w/o Exercis [facility] [address] [facility] [place] [address] Lower Ext Art Exam w/o Exercis 03/23/25 1357 MR#: [id number] Acct: [id number] Name: NORA CONNELL Rep #: [id number] : 1940 84 From: Doug Maradiaga MD Attending Dr: TAM Adkins Status: DEP CLI Ordering Dr: Christi Ordonez Date: 03/23/25 Location: [facility] Sex: F C Admitted: Reason For Study [...] Physician: Billy Holguin Performed By: Argenis Vickers Davina, RDCS 03/29/25 1433 Date Doug Maradiaga MD CC: TAM Adkins; Dr. Gopi Whitehead MD Date Dictated: 03/23/25 1357 Date Transcribed: 03/29/25 1433 [place] Tinter: Signed Normal [facility] Anion gap in Serum or Plasma Ordered By: Gopi Whitehead on 01-27-2025 Anion gap [Moles/Vol] 10 mmol/L 5-15 [facility] BUN/creatinine ratioOrdered By: Gopi Whitehead on 01-27-2025 Urea nitrogen/Creatinine [Mass ratio] 30.2 mg/mg High - [facility] Basic Metabolic Profile (BMP )on 01-27-2025 BUN/CRE 30.2 RATIO High - [facility] Comment on above: Performed By: #### L 500.2500, L506.0400, L501.9520, L501.67910 #### [facility] [address] [place], [address] Calcium [Mass/Vol] 9.1 mg/dL Normal 7.6-11.0 [facility] Comment on above: Performed By: #### L 500.2500, L506.0400, L501.9520, L501.89363 #### [facility] [address] [place], [address] Chloride [Moles/Vol] 102 mmol/L Normal 98-108 [facility] Comment on above: Performed By: #### L 500.2500, L506.0400, L501.9520, L501.93422 #### [facility] [address] [place], [address] CO2 [Moles/Vol] 29.3 mmol/L Normal 21.0-32.0 [facility] Comment on above: Performed By: #### L 500.2500, L506.0400, L501.9520, L501.49671 #### [facility] [address] [place], [address] Creatinine [Mass/Vol] 0.76 mg/dL Normal 0.70-1.20 [facility] Comment on above: Performed By: #### L 500.2500, L506.0400, L501.9520, L501.83249 #### [facility] [address] [place], [address] GAP 10 Normal 5-15 [facility] Comment on above: Performed By: #### L 500.2500, L506.0400, L501.9520, L501.79200 #### [facility] [address] [place], [address] GFR/1.73 sq M.predicted among non-blacks MDRD (S/P/Bld) [Vol rate/Area] 79 mL/min/{1.73_m2} Normal >60 [facility] Comment on above: Result Comment: mL/m in/1.73m2 CKD-EPI Creatinine Equation (2020) Performed By: #### L 500.2500, L506.0400, L501.9520, L501.83430 #### [facility] [address] [place], [address] Glucose [Mass/Vol] 83 mg/dL Normal 70-99 [facility] Comment on above: Performed By: #### L 500.2500, L506.0400, L501.9520, L501.12504 #### [facility] [address] [place], [address] Potassium [Moles/Vol] 3.6 mmol/L Normal 3.3-5.1 [facility] Comment on above: Performed By: #### L 500.2500, L506.0400, L501.9520, L501.68641 #### [facility] [address] [place], [address] Sodium [Moles/Vol] 141 mmol/L Normal 133-145 [facility] Comment on above: Performed By: #### L 500.2500, L506.0400, L501.9520, L501.58951 #### [facility] [address] [place], [address] Urea nitrogen [Mass/Vol] 23 mg/dL High 4-19 [facility] Comment on above: Performed By: #### L 500.2500, L506.0400, L501.9520, L501.76244 #### [facility] [address] [place], [place], [address] Carbon dioxide, total [Moles /volume] in Central venous bloodOrdered By: Gopi Whitehead on 01-27-2025 CO2 [Moles/Vol] 29.3 mmol/L 21.0-32.0 [facility] Chloride assayOrdered By: Tam Whitehead on 01-27-2025 Chloride [Moles/Vol] 102 mmol/L 98-108 [facility] Free T3on 01-27-2025 Free T3 [Mass/Vol] 2.3 pg/mL Normal 2.18-3.98 [facility] Comment on above: Performed By: #### L 500.2500, L506.0400, L501.9520, L501.98122 #### [facility] [address] [place], [place], [address] Free E9Inyqdnd By: Gopi boone on 01-27-2025 Free T3 [Mass/Vol] 2.3 pg/mL 2.18-3.98 [facility] Free Triiodothyronine (T3) pg/dL 2.3 pg/mL 2.18-3.98 [facility] GFR/1.73 sq M.predicted olu g non-blacks MDRD (S/P/Bld) [Vol rate/Area]Ordered By: Gopi Whitehead on 01-27-2025 Estimated GFR (MDRD) Non-Af Amer 79 >60 [facility] Comment on above: mL/min/1.73m2 CKD-EP I Creatinine Equation (2020) Glomerular filtration rate ( GFR) estimation/1.73 sq m using serum, plasma, or whole bOrdered By: Gopi Whitehead on 01-27-2025 GFR/1.73 sq M.predicted among non-blacks MDRD (S/P/Bld) [Vol rate/Area] 79 mL/min/{1.73_m2} >60 [facility] Comment on above: mL/min/1.73m2 CKD-EP I Creatinine Equation (2020) Potassium (Unsp spec) [Mass/ Vol]Ordered By: Gopi Whitehead on 01-27-2025 Potassium [Moles/Vol] 3.6 mmol/L 3.3-5.1 [facility] Potassium measurement (mass/ volume)Ordered By: Gopi Whitehead on 01-27-2025 Potassium (Unsp spec) [Mass/Vol] 3.6 mmol/L 3.3-5.1 [facility] Serum creatinine measurement (mass/volume)Ordered By: Gopi Whitehead on 01-27-2025 Creatinine [Mass/Vol] 0.76 mg/dL 0.70-1.20 [facility] Serum glucose measurement (m ass/volume)Ordered By: oGpi Whitehead on 01-27-2025 Glucose [Mass/Vol] 83 mg/dL 70-99 [facility] Serum or plasma calcium jordon urement (mass/volume)Ordered By: Gopi Whitehead on 01-27-2025 Calcium [Mass/Vol] 9.1 mg/dL 7.6-11.0 [facility] Serum or plasma urea nitroge n measurement (mass/volume)Ordered By: Gopi Whitehead on 01-27-2025 Urea nitrogen [Mass/Vol] 23 mg/dL High 4-19 [facility] Sodium levelOrdered By: Gopi Whitehead on 01-27-2025 Sodium [Moles/Vol] 141 mmol/L 133-145 [facility] T4 Free Directon 01-27-2025 T4 FREE DIRECT 1.10 ng/dL Normal 0.76-1.46 [facility] Comment on above: Performed By: #### L 500.2500, L506.0400, L501.9520, L501.02488 #### [facility] [address] [place], [place], [address] T4 freeOrdered By: Gopi boone on 01-27-2025 Free T4 [Mass/Vol] 1.10 ng/dL 0.76-1.46 [facility] TSH DL <= 0.005 mIU/L QnOrde red By: Gopi Whitehead on 01-27-2025 Thyroid Stimulating Hormone (TSH) 0.269 uIU/mL Low 0.300-4.200 [facility] TSH Qn 0.269 uIU/mL Low 0.300-4.200 [facility] Thyroid Stim Hormone (TSH)on 01-27-2025 TSH 0.269 uIU/mL Low 0.300-4.200 [facility] Comment on above: Performed By: #### L 500.2500, L506.0400, L501.9520, L501.52068 #### [facility] [address] [place], [address] Brain/Head without Contrasto n 10-22-2024 Brain/Head without Contrast [facility] Services [address] [place] [address] Brain/Head without Contrast MR#: [id number] Acct: [id number] Name: NORA CONNELL Rep #: [id number] : 1940 F 84 From: Larry Landis MD PCP: Dr. Gopi Whitehead MD Status: REG ER Study: Brain/Head without Contrast Date of Exam: 10/07 03/31 Exam# [id number] Ordering Dr: Saman Moses DO [id number] EXAM: CT HEAD WITHOUT INTRAVENOUS CONTRAST CLINICAL [...] Gopi Whitehead MD; Dr. Saman Moses DO Fur Tinter: Signed Normal [facility] Emergency Department Summary on 10-22-2024 Emergency Department Summary [facility] Medical Records Department [address] [place] [id number] Emergency Department Summary 10/22/24 MR#: [id number] Acct: [id number] Name: NORA CONNELL Rep #: [id number] : 1940 84 From: Saman Moses DO PCP: Dr. Gopi Whitehead MD Status:REG ER Location: ED HPI History of Present Illness Chief Complaint: Fall [facility] Medical History Atherosclerosis of coronary artery without [...] Cardiac: Regul (more content not included)... Normal [facility] Sinus/Facial Boneon 10-22-19 Sinus/Facial Bone [facility] Services [address] [place] [address] Sinus/Facial Bone MR#: [id number] Acct: [id number] Name: NORA CONNELL Rep #: [id number] : 1940 F 84 From: Larry Landis MD PCP: Dr. Gopi Whitehead MD Status: [facility] ER Study: Sinus/Facial Bone Date of Exam: 10/22/24 Exam# [id number] Ordering Dr: Saman Moses DO [id number] EXAM: CT MAXILLOFACIAL WITHOUT INTRAVENOUS CONTRAST CLINICAL [...] Gopi Whitehead MD; Dr. Saman Moses DO Fur Tinter: Signed Normal [facility] Spine Cervical without Contr ason 10-22-2024 Spine Cervical without Contras [facility] Services [address] [place] [address] [id number] Spine Cervical without Contras MR#: [id number] Acct: [id number] Name: NORA CONNELL Rep #: [id number] : 1940 F 84 From: Larry Landis MD PCP: Dr. Gopi Whitehead MD Status: REG ER Study: Spine Cervical without Contras Date of Exam: 0 10/22/24 Exam# [id number] Ordering Dr: Saman Moses DO [id number] EXAM: CT CERVICAL SPINE WITHOUT INTRAVENOUS CONTRAST [...] Gopi Whitehead MD; Dr. Saman Moses DO Fur Tinter: Signed Normal [facility] Comprehensive Metabolic Prof ilon 06-05-2024 Albumin [Mass/Vol] 3.4 g/dL Normal 3.2-5.0 [facility] Comment on above: Performed By: #### L 501.25306, L506.0400, L501.9520, L500.4050, L500.4100 ####[facility] [address] [place], [address] Albumin/Globulin [Mass ratio] 0.9 {ratio} Normal 0.9-2.4 [facility] Comment on above: Performed By: #### L 501.66895, L506.0400, L501.9520, L500.4050, L500.4100 ####[facility] [address] [place], [address] ALK P 111 U/L Normal 45-117 [facility] Comment on above: Performed By: #### L 501.98804, L506.0400, L501.9520, L500.4050, L500.4100 ####[facility] [address] [place], [address] ALT [Catalytic activity/Vol] 40 U/L Normal 13-56 [facility] Comment on above: Performed By: #### L 501.69093, L506.0400, L501.9520, L500.4050, L500.4100 ####[facility] [address] [place], [address] AST [Catalytic activity/Vol] 30 U/L Normal 15-37 [facility] Comment on above: Performed By: #### L 501.28543, L506.0400, L501.9520, L500.4050, L500.4100 ####[facility] [address] [place], [address] Bilirubin [Mass/Vol] 0.30 mg/dL Normal 0.20-1.00 [facility] Comment on above: Result Comment: For patients on eltrombopag therapy, use of Dimension [place] TBIL is not recommended. Performed By: #### L 501.09614, L506.0400, L501.9520, L500.4050, L500.4100 ####[facility] [address] [place], [address] BUN/CRE 26.6 RATIO High 10-20 [facility] Comment on above: Performed By: #### L 501.47844, L506.0400, L501.9520, L500.4050, L500.4100 ####[facility] [address] [place], [address] CA,Total 9.8 mg/dL Normal 8.5-10.1 [facility] Comment on above: Performed By: #### L 501.41703, L506.0400, L501.9520, L500.4050, L500.4100 ####[facility] [address] [place], [address] Chloride [Moles/Vol] 102 mmol/L Normal 98-107 [facility] Comment on above: Performed By: #### L 501.35036, L506.0400, L501.9520, L500.4050, L500.4100 ####[facility] [address] [place], [address] CO2 [Moles/Vol] 31.0 mmol/L Normal 21.0-32.0 [facility] Comment on above: Performed By: #### L 501.58408, L506.0400, L501.9520, L500.4050, L500.4100 ####[facility] [address] [place], [address] Creatinine [Mass/Vol] 0.98 mg/dL Normal 0.55-1.02 [facility] Comment on above: Result Comment: The validity of the calculated GFR GFRAA in patients over 70 years has not been determined. Clinical correlation is essential. Performed By: #### L 501.63162, L506.0400, L501.9520, L500.4050, L500.4100 ####[facility] [address] [place], [address] EST GFR - AA 70 mL/min Normal >60 [facility] Comment on above: Result Comment: Afri can [place] GFR Calc Performed By: #### L 501.61679, L506.0400, L501.9520, L500.4050, L500.4100 ####[facility] [address] [place], [address] GAP 7 Normal 5-15 [facility] Comment on above: Performed By: #### L 501.56202, L506.0400, L501.9520, L500.4050, L500.4100 ####[facility] [address] [place], [address] GFR/1.73 sq M.predicted among non-blacks MDRD (S/P/Bld) [Vol rate/Area] 58 mL/min/{1.73_m2} Low >60 [facility] Comment on above: Result Comment: Non- GFR Calc Performed By: #### L 501.83111, L506.0400, L501.9520, L500.4050, L500.4100 ####[facility] [address] [place], [address] Globulin (S) [Mass/Vol] 3.6 g/dL Normal 2.2-4.2 [facility] Comment on above: Performed By: #### L 501.28073, L506.0400, L501.9520, L500.4050, L500.4100 ####[facility] [address] [place], [address] Glucose [Mass/Vol] 92 mg/dL Normal 74-106 [facility] Comment on above: Performed By: #### L 501.73901, L506.0400, L501.9520, L500.4050, L500.4100 ####[facility] [address] [place], [address] Potassium [Moles/Vol] 3.2 mmol/L Low 3.5-5.1 [facility] Comment on above: Performed By: #### L 501.68065, L506.0400, L501.9520, L500.4050, L500.4100 ####[facility] [address] [place], [address] Sodium [Moles/Vol] 140 mmol/L Normal 136-145 [facility] Comment on above: Performed By: #### L 501.87645, L506.0400, L501.9520, L500.4050, L500.4100 ####[facility] [address] [place], [address] T PROT 7.0 g/dL Normal 6.4-8.2 [facility] Comment on above: Performed By: #### L 501.72308, L506.0400, L501.9520, L500.4050, L500.4100 ####[facility] [address] [place], [address] Urea nitrogen [Mass/Vol] 26 mg/dL High 7-18 [facility] Comment on above: Performed By: #### L 501.94454, L506.0400, L501.9520, L500.4050, L500.4100 ####[facility] [address] [place], [address] Free T3on 06-05-2024 Free T3 [Mass/Vol] 1.9 pg/mL Low 2.18-3.98 [facility] Comment on above: Performed By: #### L 501.58985, L506.0400, L501.9520, L500.4050, L500.4100 ####[facility] [address] [place], [address] Lipid Profileon 06-05-2024 Cholesterol [Mass/Vol] 224 mg/dL High 200 [facility] Comment on above: Result Comment: <200 mg/dL Desirable 200-240 mg/dL Borderline >240 mg/dL High Risk Performed By: #### L 501.17526, L506.0400, L501.9520, L500.4050, L500.4100 ####[facility] [address] [place], [address] Cholesterol in HDL [Mass/Vol] 83 mg/dL Normal [facility] Comment on above: Result Comment: The drugs N-Acetylcysteine and Metamizole may falsely depress this assay. Reference Range HDL <40 mg/dL Low HDL Cholesterol HDL >or= 60 mg/dL High HDL Cholesterol Performed By: #### L 501.08512, L506.0400, L501.9520, L500.4050, L500.4100 ####[facility] [address] [place], [address] Cholesterol in LDL [Mass/Vol] 120 mg/dL Normal 0-130 [facility] Comment on above: Performed By: #### L 501.06461, L506.0400, L501.9520, L500.4050, L500.4100 ####[facility] [address] [place], [address] Cholesterol in VLDL [Mass/Vol] 21 mg/dL Normal 5-40 [facility] Comment on above: Performed By: #### L 501.10216, L506.0400, L501.9520, L500.4050, L500.4100 ####[facility] [address] [place], [address] Triglyceride [Mass/Vol] 107 mg/dL Normal [facility] Comment on above: Result Comment: The drugs N-Acetylcysteine and Metamizole may falsely depress this assay. Serum Triglycerides Reference Interval Normal <150 mg/dL Borderline high 150 - 199 mg/dL High 200 - 499 mg/dL Very High > or = 500 mg/dL Performed By: #### L 501.23190, L506.0400, L501.9520, L500.4050, L500.4100 ####[facility] [address] [place], [address] T4 Free Directon 06-05-2024 T4 FREE DIRECT 1.08 ng/dL Normal 0.76-1.46 [facility] Comment on above: Performed By: #### L 501.33169, L506.0400, L501.9520, L500.4050, L500.4100 ####[facility] [address] [place], [address] Thyroid Stim Hormone (TSH)on 06-05-2024 TSH 1.710 uIU/mL Normal 0.358-3.740 [facility] Comment on above: Performed By: #### L 501.97225, L506.0400, L501.9520, L500.4050, L500.4100 ####[facility] [address] [place], [address] Basophil percentageOrdered B y: Gopi Whitehead on 10-10-2023 Bilirubin [Mass/Vol] 0.20 mg/dL 0.20-1.00 [facility] Comment on above: For patients on eltr ombopag therapy, use of Dimension [place] TBIL is not recommended. Chloride [Moles/Vol] 103 mmol/L 98-107 [facility] Cholesterol [Mass/Vol] 190 mg/dL <200 [facility] Comment on above: <200 mg/dL Desirable 200-240 mg/dL Borderline >240 mg/dL High Risk Glucose [Mass/Vol] 90 mg/dL 74-106 [facility] Potassium [Moles/Vol] 3.7 mmol/L 3.5-5.1 [facility] Protein [Mass/Vol] 6.9 g/dL 6.4-8.2 [facility] Sodium [Moles/Vol] 140 mmol/L 136-145 [facility] Triglyceride [Mass/Vol] 180 mg/dL <199 [facility] Comment on above: The drugs N-Acetylcy steine and Metamizole may falsely depress this assay.Serum Triglycerides Reference Interval Normal <150 mg/dL Borderline high 150 - 199 mg/dL High 200 - 499 mg/dL Very High > or = 500 mg/dL Laboratory - Chemistry and C hemistry - challengeOrdered By: Gopi Whitehead on 10-10-2023 ALP [Catalytic activity/Vol] 137 U/L 45-117 [facility] ALT [Catalytic activity/Vol] 29 U/L 13-56 [facility] CO2 [Moles/Vol] 31.0 mmol/L 21.0-32.0 [facility] Free T4 [Mass/Vol] 1.12 ng/dL 0.76-1.46 [facility] Globulin (S) [Mass/Vol] 3.4 g/dL 2.2-4.2 [facility] Urea nitrogen/Creatinine [Mass ratio] 21.3 mg/mg 10-20 [facility] No Panel InformationOrdered By: Gopi Whitehead on 10-10-2023 Estimated GFR (MDRD) Amer 54 mL/min >60 [facility] Comment on above: GFR Calc Estimated GFR (MDRD) Non-Af Amer 45 mL/min >60 [facility] Comment on above: Non- GFR Calc Free Triiodothyronine (T3) pg/dL 2.0 pg/mL 2.18-3.98 [facility] Thyroid Stimulating Hormone (TSH) 0.47 uIU/mL 0.358-3.74 [facility] Urine Microalbumin/Creatinine Ratio 61.3 mg/g CRE <30 [facility] Serum or plasma albumin jordon urement (mass/volume)Ordered By: Gopi Whitehead on 10-10-2023 Albumin [Mass/Vol] 3.5 g/dL 3.2-5.0 [facility] Serum or plasma albumin/glob ulin mass ratioOrdered By: Gopi Whitehead on 10-10-2023 Albumin/Globulin [Mass ratio] 1.0 {ratio} 0.9-2.4 [facility] Serum or plasma calcium jordon urement (mass/volume)Ordered By: Gopi Whitehead on 10-10-2023 Calcium [Mass/Vol] 8.7 mg/dL 8.5-10.1 [facility] Serum or plasma cholesterol in HDL measurement (mass/volume)Ordered By: Gopi Whitehead on 10-10-2023 Cholesterol in HDL [Mass/Vol] 66 mg/dL >40 [facility] Comment on above: The drugs N-Acetylcy steine and Metamizole may falsely depress this assay. Reference Range HDL <40 mg/dL Low HDL Cholesterol HDL >or= 60 mg/dL High HDL Cholesterol Serum or plasma cholesterol in VLDL measurement (mass/volume)Ordered By: Gopi Whitehead on 10-10-2023 Cholesterol in VLDL [Mass/Vol] 36 mg/dL 5-40 [facility] Serum or plasma creatinine m easurement (mass/volume)Ordered By: Gopi Whitehead on 10-10-2023 Creatinine [Mass/Vol] 1.22 mg/dL 0.55-1.02 [facility] Comment on above: The validity of the calculated GFR & GFRAA in patients over 70 years has not been determined. Clinical correlation is essential. Serum or plasma low density lipoprotein (LDL) cholesterol measurement (mass/volume)Ordered By: Gopi Whitehead on 10-10-2023 Cholesterol in LDL [Mass/Vol] 88 mg/dL 0-130 [facility] Serum or plasma urea nitroge n measurement (mass/volume)Ordered By: Gopi Whitehead on 10-10-2023 Urea nitrogen [Mass/Vol] 26 mg/dL 7-18 [facility] Thin prep Papanicolaou smear with manual screeningOrdered By: Gopi Whitehead on 10-10-2023 Thin prep Papanicolaou smear with manual screening 23 U/L 15-37 [facility] Thin prep Papanicolaou smear with manual screening 6 5-15 [facility] Thin prep Papanicolaou smear with manual screening 43.8 mg/L NO RANGE EST. [facility] Urine creatinine measurement (mass/volume)Ordered By: Gopi Whitehead on 10-10-2023 Creatinine (U) [Mass/Vol] 71.50 mg/dL NO RANGE EST. [facility] Absolute lymphocyte countOrd ered By: Savi Zimmer on 09-23-2023 Lymphocytes Auto (Unsp spec) [#/Vol] 2.00 10*3/uL 0.83-4.51 [facility] Basophil percentageOrdered B y: Savi Zimmer on 09-23-2023 Basophils/100 WBC (Bld) 0.8 % 0-1 [facility] Chloride [Moles/Vol] 103 mmol/L 98-107 [facility] Eosinophils/100 WBC (Bld) 3.1 % 0-5 [facility] Glucose [Mass/Vol] 116 mg/dL 74-106 [facility] Comment on above: Fasting Glucose resu lt from 100 to 125 mg/dL suggests IMPAIRED HOMEOSTASIS per A.D.A. criteria. Neutrophils (Bld) [#/Vol] 3.7 10*3/uL 2.0-7.7 [facility] Neutrophils/100 WBC (Bld) 56.0 % 47-70 [facility] Potassium [Moles/Vol] 3.3 mmol/L 3.5-5.1 [facility] Sodium [Moles/Vol] 138 mmol/L 136-145 [facility] WBC (Bld) [#/Vol] 6.6 10*3/uL 4.4-11.0 [facility] Blood erythrocytes count (nu mber/volume)Ordered By: Savi Zimmer on 09-23-2023 RBC (Bld) [#/Vol] 3.55 10*6/uL 4.2-5.4 [facility] Blood hemoglobin measurement (mass/volume)Ordered By: Savi Zimmer on 09-23-2023 Hemoglobin (Bld) [Mass/Vol] 10.7 g/dL 12.0-15.0 [facility] Blood lymphocytes/100 leukoc ytesOrdered By: Savi Zimmer on 09-23-2023 Lymphocytes/100 WBC (Bld) 30.5 % 19-41 [facility] Blood monocytes/100 leukocyt esOrdered By: Savi Zimmer on 09-23-2023 Monocytes/100 WBC (Bld) 9.3 % 0-10 [facility] Blood platelet mean volumeOr dered By: Savi Zimmer on 09-23-2023 Platelet mean volume (Bld) [Entitic vol] 11.8 fL 6.2-12.0 [facility] Determination of erythrocyte mean corpuscular volume (MCV)Ordered By: Savi Zimmer on 09-23-2023 MCV (RBC) [Entitic vol] 92.4 fL 81-99 [facility] Hematocrit Auto (Bld) [Volum e fraction]Ordered By: Savi Zimmer on 09-23-2023 Hematocrit (Bld) [Volume fraction] 32.8 % 37-47 [facility] Laboratory - Chemistry and C hemistry - challengeOrdered By: Savi Zimmer on 09-23-2023 CO2 [Moles/Vol] 30.0 mmol/L 21.0-32.0 [facility] Urea nitrogen/Creatinine [Mass ratio] 26.7 mg/mg 10-20 [facility] - Hematology and Cell countsOrdered By: Savi Zimmer on 09-23-2023 Erythrocyte distribution width (RBC) [Entitic vol] 43.3 fL 35.1-43.9 [facility] Erythrocyte distribution width (RBC) [Ratio] 12.8 % 11.6-14.6 [facility] Immature granulocytes/100 WBC (Bld) 0.300 % 0.0-0.9 [facility] Comment on above: IG% - Immature Granu locytes (promyelocytes, myelocytes and metamyelocytes) > 1% indicates that a LEFT SHIFT is Present. MCH (RBC) [Entitic mass] 30.1 pg 27.0-32.0 [facility] Nucleated RBC/100 WBC (Bld) [Ratio] 0 % 0-5 [facility] MCHC Auto (RBC) [Mass/Vol]Or dered By: Savi Zimmer on 09-23-2023 MCHC (RBC) [Mass/Vol] 32.6 g/dL 32-36 [facility] [facility] No Panel InformationOrdered By: Savi Zimmer on 09-23-2023 Estimated Creatinine Clearance Calc 29.08 ml/min [facility] Estimated GFR (MDRD) Amer 55 mL/min >60 [facility] Comment on above: GFR Calc Estimated GFR (MDRD) Non-Af Amer 46 mL/min >60 [facility] Comment on above: Non- GFR Calc Troponin I High Sensitivity 22 pg/mL 3.0-54.0 [facility] Comment on above: Please Note: New Emily t Units and Gender Specific Reference Ranges. For more information see Policy Stat Procedure [place] High Sensitivity Troponin (TNIH) and attachments. Platelets bldOrdered By: Joceline Zimmer on 09-23-2023 Platelets (Bld) [#/Vol] 206 10*3/uL 150-450 [facility] Serum or plasma calcium jordon urement (mass/volume)Ordered By: Savi Zimmer on 09-23-2023 Calcium [Mass/Vol] 9.0 mg/dL 8.5-10.1 [facility] Serum or plasma creatinine m easurement (mass/volume)Ordered By: Savi Zimmer on 09-23-2023 Creatinine [Mass/Vol] 1.20 mg/dL 0.55-1.02 [facility] Comment on above: The validity of the calculated GFR & GFRAA in patients over 70 years has not been determined. Clinical correlation is essential. Serum or plasma urea nitroge n measurement (mass/volume)Ordered By: Savi Zimmer on 09-23-2023 Urea nitrogen [Mass/Vol] 32 mg/dL 7-18 [facility] Thin prep Papanicolaou smear with manual screeningOrdered By: Savi Zimmer on 09-23-2023 Thin prep Papanicolaou smear with manual screening 5 5-15 [facility] Basophil percentageOrdered B y: Gopi Whitehead on 09-02-2023 Chloride [Moles/Vol] 102 mmol/L 98-107 [facility] Cholesterol [Mass/Vol] 206 mg/dL <200 [facility] Comment on above: <200 mg/dL Desirable 200-240 mg/dL Borderline >240 mg/dL High Risk Glucose [Mass/Vol] 110 mg/dL 74-106 [facility] Comment on above: Fasting Glucose resu lt from 100 to 125 mg/dL suggests IMPAIRED HOMEOSTASIS per A.D.A. criteria. Potassium [Moles/Vol] 3.3 mmol/L 3.5-5.1 [facility] Sodium [Moles/Vol] 141 mmol/L 136-145 [facility] Triglyceride [Mass/Vol] 163 mg/dL <199 [facility] Comment on above: The drugs N-Acetylcy steine and Metamizole may falsely depress this assay.Serum Triglycerides Reference Interval Normal <150 mg/dL Borderline high 150 - 199 mg/dL High 200 - 499 mg/dL Very High > or = 500 mg/dL Laboratory - Chemistry and C hemistry - challengeOrdered By: Gopi Whitehead on 09-02-2023 CO2 [Moles/Vol] 30.0 mmol/L 21.0-32.0 [facility] Free T4 [Mass/Vol] 1.15 ng/dL 0.76-1.46 [facility] Urea nitrogen/Creatinine [Mass ratio] 23.5 mg/mg 10-20 [facility] No Panel InformationOrdered By: Gopi Whitehead on 09-02-2023 Estimated GFR (MDRD) Amer 74 mL/min >60 [facility] Comment on above: GFR Calc Estimated GFR (MDRD) Non-Af Amer 61 mL/min >60 [facility] Comment on above: Non- GFR Calc Free Triiodothyronine (T3) pg/dL 2.1 pg/mL 2.18-3.98 [facility] Thyroid Stimulating Hormone (TSH) 0.46 uIU/mL 0.358-3.74 [facility] Urine Microalbumin/Creatinine Ratio TNP [facility] Comment on above: Test not performed Serum or plasma calcium jordon urement (mass/volume)Ordered By: Gopi Whitehead on 09-02-2023 Calcium [Mass/Vol] 8.9 mg/dL 8.5-10.1 [facility] Serum or plasma cholesterol in HDL measurement (mass/volume)Ordered By: Gopi Whitehead on 09-02-2023 Cholesterol in HDL [Mass/Vol] 74 mg/dL >40 [facility] Comment on above: The drugs N-Acetylcy steine and Metamizole may falsely depress this assay. Reference Range HDL <40 mg/dL Low HDL Cholesterol HDL >or= 60 mg/dL High HDL Cholesterol Serum or plasma cholesterol in VLDL measurement (mass/volume)Ordered By: Gopi Whitehead on 09-02-2023 Cholesterol in VLDL [Mass/Vol] 33 mg/dL 5-40 [facility] Serum or plasma creatinine m easurement (mass/volume)Ordered By: Gopi Whitehead on 09-02-2023 Creatinine [Mass/Vol] 0.94 mg/dL 0.55-1.02 [facility] Comment on above: The validity of the calculated GFR & GFRAA in patients over 70 years has not been determined. Clinical correlation is essential. Serum or plasma low density lipoprotein (LDL) cholesterol measurement (mass/volume)Ordered By: Gopi Whitehead on 09-02-2023 Cholesterol in LDL [Mass/Vol] 99 mg/dL 0-130 [facility] Serum or plasma urea nitroge n measurement (mass/volume)Ordered By: Gopi Whitehead on 09-02-2023 Urea nitrogen [Mass/Vol] 22 mg/dL 7-18 [facility] Thin prep Papanicolaou smear with manual screeningOrdered By: Gopi Whitehead on 09-02-2023 Thin prep Papanicolaou smear with manual screening 9 5-15 [facility] Thin prep Papanicolaou smear with manual screening 5.5 mg/L NO RANGE EST. [facility] Urine creatinine measurement (mass/volume)Ordered By: Gopi Whitehead on 09-02-2023 Creatinine (U) [Mass/Vol] mg/dL NO RANGE EST. [facility] Basophil percentageOrdered B y: Gopi Whitehead on 04-11-2023 Chloride [Moles/Vol] 106 mmol/L 98-107 [facility] Glucose [Mass/Vol] 114 mg/dL 74-106 [facility] Comment on above: Fasting Glucose resu lt from 100 to 125 mg/dL suggests IMPAIRED HOMEOSTASIS per A.D.A. criteria. Potassium [Moles/Vol] 4.0 mmol/L 3.5-5.1 [facility] Sodium [Moles/Vol] 138 mmol/L 136-145 [facility] Laboratory - Chemistry and C hemistry - challengeOrdered By: Gopi Whitehead on 04-11-2023 CO2 [Moles/Vol] 25.0 mmol/L 21.0-32.0 [facility] Urea nitrogen/Creatinine [Mass ratio] 21.6 mg/mg 10-20 [facility] No Panel InformationOrdered By: Gopi Whitehead on 04-11-2023 Estimated GFR (MDRD) Amer 104 mL/min >60 [facility] Comment on above: GFR Calc Estimated GFR (MDRD) Non-Af Amer 86 mL/min >60 [facility] Comment on above: Non- GFR Calc Free Triiodothyronine (T3) pg/dL 1.9 pg/mL 2.18-3.98 [facility] Thyroid Stimulating Hormone (TSH) 0.63 uIU/mL 0.358-3.74 [facility] Serum or plasma calcium jordon urement (mass/volume)Ordered By: Gopi Whitehead on 04-11-2023 Calcium [Mass/Vol] 9.1 mg/dL 8.5-10.1 [facility] Serum or plasma creatinine m easurement (mass/volume)Ordered By: Gopi Whitehead on 04-11-2023 Creatinine [Mass/Vol] 0.70 mg/dL 0.55-1.02 [facility] Comment on above: The validity of the calculated GFR & GFRAA in patients over 70 years has not been determined. Clinical correlation is essential. Serum or plasma urea nitroge n measurement (mass/volume)Ordered By: Gopi Whitehead on 04-11-2023 Urea nitrogen [Mass/Vol] 15 mg/dL 7-18 [facility] Thin prep Papanicolaou smear with manual screeningOrdered By: Gopi Whitehead on 04-11-2023 Thin prep Papanicolaou smear with manual screening 7 5-15 [facility] Basophil percentageOrdered B y: Dr. Whitehead on 02-26-2023 Chloride [Moles/Vol] 101 mmol/L 98-107 [facility] Cholesterol [Mass/Vol] 197 mg/dL <200 [facility] Comment on above: <200 mg/dL Desirable 200-240 mg/dL Borderline >240 mg/dL High Risk Glucose [Mass/Vol] 116 mg/dL 74-106 [facility] Comment on above: Fasting Glucose resu lt from 100 to 125 mg/dL suggests IMPAIRED HOMEOSTASIS per A.D.A. criteria. Potassium [Moles/Vol] 3.4 mmol/L 3.5-5.1 [facility] Sodium [Moles/Vol] 140 mmol/L 136-145 [facility] Triglyceride [Mass/Vol] 129 mg/dL <199 [facility] Comment on above: The drugs N-Acetylcy steine and Metamizole may falsely depress this assay.Serum Triglycerides Reference Interval Normal <150 mg/dL Borderline high 150 - 199 mg/dL High 200 - 499 mg/dL Very High > or = 500 mg/dL Laboratory - Chemistry and C hemistry - challengeOrdered By: Dr. Whitehead on 02-26-2023 CO2 [Moles/Vol] 31.0 mmol/L 21.0-32.0 [facility] Free T4 [Mass/Vol] 1.24 ng/dL 0.76-1.46 [facility] Urea nitrogen/Creatinine [Mass ratio] 26.0 mg/mg 10-20 [facility] No Panel InformationOrdered By: Dr. Whitehead on 02-26-2023 Estimated GFR (MDRD) Amer 105 mL/min >60 [facility] Comment on above: GFR Calc Estimated GFR (MDRD) Non-Af Amer 86 mL/min >60 [facility] Comment on above: Non- GFR Calc Free Triiodothyronine (T3) pg/dL 2.0 pg/mL 2.18-3.98 [facility] Thyroid Stimulating Hormone (TSH) 0.61 uIU/mL 0.358-3.74 [facility] Serum or plasma calcium jordon urement (mass/volume)Ordered By: Dr. Whitehead on 02-26-2023 Calcium [Mass/Vol] 9.4 mg/dL 8.5-10.1 [facility] Serum or plasma cholesterol in HDL measurement (mass/volume)Ordered By: Dr. Whitehead on 02-26-2023 Cholesterol in HDL [Mass/Vol] 79 mg/dL >40 [facility] Comment on above: The drugs N-Acetylcy steine and Metamizole may falsely depress this assay. Reference Range HDL <40 mg/dL Low HDL Cholesterol HDL >or= 60 mg/dL High HDL Cholesterol Serum or plasma cholesterol in VLDL measurement (mass/volume)Ordered By: Dr. Whitehead on 02-26-2023 Cholesterol in VLDL [Mass/Vol] 26 mg/dL 5-40 [facility] Serum or plasma creatinine m easurement (mass/volume)Ordered By: Dr. Whitehead on 02-26-2023 Creatinine [Mass/Vol] 0.69 mg/dL 0.55-1.02 [facility] Comment on above: The validity of the calculated GFR & GFRAA in patients over 70 years has not been determined. Clinical correlation is essential. Serum or plasma low density lipoprotein (LDL) cholesterol measurement (mass/volume)Ordered By: Dr. Whitehead on 02-26-2023 Cholesterol in LDL [Mass/Vol] 92 mg/dL 0-130 [facility] Serum or plasma urea nitroge n measurement (mass/volume)Ordered By: Dr. Whitehead on 02-26-2023 Urea nitrogen [Mass/Vol] 18 mg/dL 7-18 [facility] Thin prep Papanicolaou smear with manual screeningOrdered By: Dr. Whitehead on 02-26-2023 Thin prep Papanicolaou smear with manual screening 8 5-15 [facility] Basophil percentageOrdered B y: Dr. Whitehead on 10-10-2022 Chloride [Moles/Vol] 108 mmol/L 98-107 [facility] Glucose [Mass/Vol] 102 mg/dL 74-106 [facility] Comment on above: Fasting Glucose resu lt from 100 to 125 mg/dL suggests IMPAIRED HOMEOSTASIS per A.D.A. criteria. Potassium [Moles/Vol] 3.9 mmol/L 3.5-5.1 [facility] Sodium [Moles/Vol] 143 mmol/L 136-145 [facility] Laboratory - Chemistry and C hemistry - challengeOrdered By: Dr. Whitehead on 10-10-2022 CO2 [Moles/Vol] 29.0 mmol/L 21.0-32.0 [facility] Urea nitrogen/Creatinine [Mass ratio] 27.3 mg/mg 10- [facility] No Panel InformationOrdered By: Dr. Whitehead on 10-10-2022 Estimated GFR (MDRD) Amer 118 mL/min >60 [facility] Comment on above: GFR Calc Estimated GFR (MDRD) Non-Af Amer 98 mL/min >60 [facility] Comment on above: Non- GFR Calc Serum or plasma calcium jordon urement (mass/volume)Ordered By: Dr. Whitehead on 10-10-2022 Calcium [Mass/Vol] 9.5 mg/dL 8.5-10.1 [facility] Serum or plasma creatinine m easurement (mass/volume)Ordered By: Dr. Whitehead on 10-10-2022 Creatinine [Mass/Vol] 0.62 mg/dL 0.55-1.02 [facility] Comment on above: The validity of the calculated GFR & GFRAA in patients over 70 years has not been determined. Clinical correlation is essential. Serum or plasma urea nitroge n measurement (mass/volume)Ordered By: Dr. Whitehead on 10-10-2022 Urea nitrogen [Mass/Vol] 17 mg/dL 7-18 [facility] Thin prep Papanicolaou smear with manual screeningOrdered By: Dr. Whitehead on 10-10-2022 Thin prep Papanicolaou smear with manual screening 6 5-15 [facility] Basophil percentageOrdered B y: Dr. Whitehead on 07-27-2022 Bilirubin [Mass/Vol] 0.40 mg/dL 0.20-1.00 [facility] Comment on above: For patients on eltr ombopag therapy, use of Dimension [place] TBIL is not recommended. Chloride [Moles/Vol] 106 mmol/L 98-107 [facility] Cholesterol [Mass/Vol] 183 mg/dL <200 [facility] Comment on above: <200 mg/dL Desirable 200-240 mg/dL Borderline >240 mg/dL High Risk Glucose [Mass/Vol] 111 mg/dL 74-106 [facility] Comment on above: Fasting Glucose resu lt from 100 to 125 mg/dL suggests IMPAIRED HOMEOSTASIS per A.D.A. criteria. Potassium [Moles/Vol] 3.9 mmol/L 3.5-5.1 [facility] Protein [Mass/Vol] 6.9 g/dL 6.4-8.2 [facility] Sodium [Moles/Vol] 140 mmol/L 136-145 [facility] Triglyceride [Mass/Vol] 102 mg/dL <199 [facility] Comment on above: The drugs N-Acetylcy steine and Metamizole may falsely depress this assay.Serum Triglycerides Reference Interval Normal <150 mg/dL Borderline high 150 - 199 mg/dL High 200 - 499 mg/dL Very High > or = 500 mg/dL Laboratory - Chemistry and C hemistry - challengeOrdered By: Dr. Whitehead on 07-27-2022 ALP [Catalytic activity/Vol] 91 U/L 45-117 [facility] ALT [Catalytic activity/Vol] 23 U/L 13-56 [facility] CO2 [Moles/Vol] 27.0 mmol/L 21.0-32.0 [facility] Free T4 [Mass/Vol] 1.27 ng/dL 0.76-1.46 [facility] Globulin (S) [Mass/Vol] 3.4 g/dL 2.2-4.2 [facility] Urea nitrogen/Creatinine [Mass ratio] 22.5 mg/mg 10-20 [facility] No Panel InformationOrdered By: Dr. Whitehead on 07-27-2022 Estimated GFR (MDRD) Amer 118 mL/min >60 [facility] Comment on above: GFR Calc Estimated GFR (MDRD) Non-Af Amer 98 mL/min >60 [facility] Comment on above: Non- GFR Calc Free Triiodothyronine (T3) pg/dL 2.2 pg/mL 2.18-3.98 [facility] Thyroid Stimulating Hormone (TSH) 0.46 uIU/mL 0.358-3.74 [facility] Serum or plasma albumin jordon urement (mass/volume)Ordered By: Dr. Whitehead on 07-27-2022 Albumin [Mass/Vol] 3.5 g/dL 3.2-5.0 [facility] Serum or plasma albumin/glob ulin mass ratioOrdered By: Dr. Whitehead on 07-27-2022 Albumin/Globulin [Mass ratio] 1.0 {ratio} 0.9-2.4 [facility] Serum or plasma calcium jordon urement (mass/volume)Ordered By: Dr. Whitehead on 07-27-2022 Calcium [Mass/Vol] 9.5 mg/dL 8.5-10.1 [facility] Serum or plasma cholesterol in HDL measurement (mass/volume)Ordered By: Dr. Whitehead on 07-27-2022 Cholesterol in HDL [Mass/Vol] 79 mg/dL >40 [facility] Comment on above: The drugs N-Acetylcy steine and Metamizole may falsely depress this assay. Reference Range HDL <40 mg/dL Low HDL Cholesterol HDL >or= 60 mg/dL High HDL Cholesterol Serum or plasma cholesterol in VLDL measurement (mass/volume)Ordered By: Dr. Whitehead on 07-27-2022 Cholesterol in VLDL [Mass/Vol] 20 mg/dL 5-40 [facility] Serum or plasma creatinine m easurement (mass/volume)Ordered By: Dr. Whitehead on 07-27-2022 Creatinine [Mass/Vol] 0.62 mg/dL 0.55-1.02 [facility] Comment on above: The validity of the calculated GFR & GFRAA in patients over 70 years has not been determined. Clinical correlation is essential. Serum or plasma low density lipoprotein (LDL) cholesterol measurement (mass/volume)Ordered By: Dr. Whitehead on 07-27-2022 Cholesterol in LDL [Mass/Vol] 84 mg/dL 0-130 [facility] Serum or plasma urea nitroge n measurement (mass/volume)Ordered By: Dr. Whitehead on 07-27-2022 Urea nitrogen [Mass/Vol] 14 mg/dL 7-18 [facility] Thin prep Papanicolaou smear with manual screeningOrdered By: Dr. Whitehead on 07-27-2022 Thin prep Papanicolaou smear with manual screening 21 U/L 15-37 [facility] Thin prep Papanicolaou smear with manual screening 7 5-15 [facility] Basophil percentageon 2021 Bilirubin [Mass/Vol] 0.20 mg/dL 0.20-1.00 [facility] Work Phone: Comment on above: For patients on eltr ombopag therapy, use of Dimension [place] TBIL is not recommended. Chloride [Moles/Vol] 106 mmol/L 98-107 [facility] Work Phone: Glucose [Mass/Vol] 126 mg/dL 74-106 [facility] Work Phone: Comment on above: Fasting Glucose resu lt greater than or equal to 126 mg/dL suggests DIABETES MELLITUS per A.D.A. criteria. Potassium [Moles/Vol] 3.1 mmol/L 3.5-5.1 [facility] Work Phone: Protein [Mass/Vol] 5.9 g/dL 6.4-8.2 [facility] Work Phone: Sodium [Moles/Vol] 141 mmol/L 136-145 [facility] Work Phone: WBC (Bld) [#/Vol] 7.3 10*3/uL 4.4-11.0 [facility] Work Phone: Blood erythrocytes count (nu mber/volume)on 03-27-2022 RBC (Bld) [#/Vol] 3.91 10*6/uL 4.2-5.4 [facility] Work Phone: Blood hemoglobin measurement (mass/volume)on 03-27-2022 Hemoglobin (Bld) [Mass/Vol] 12.2 g/dL 12.0-15.0 [facility] Work Phone: Blood platelet mean volumeon 03-27-2022 Platelet mean volume (Bld) [Entitic vol] 11.1 fL 6.2-12.0 [facility] Work Phone: Determination of erythrocyte mean corpuscular volume (MCV)on 03-27-2022 MCV (RBC) [Entitic vol] 91.8 fL 81-99 [facility] Work Phone: Hematocrit Auto (Bld) [Volum e fraction]on 03-27-2022 Hematocrit (Bld) [Volume fraction] 35.9 % 37-47 [facility] Work Phone: Laboratory - Chemistry and C hemistry - challengeon 03-27-2022 ALP [Catalytic activity/Vol] 81 U/L 45-117 [facility] Work Phone: ALT [Catalytic activity/Vol] 27 U/L 13-56 [facility] Work Phone: CO2 [Moles/Vol] 29.0 mmol/L 21.0-32.0 [facility] Work Phone: Globulin (S) [Mass/Vol] 2.9 g/dL 2.2-4.2 [facility] Work Phone: Urea nitrogen/Creatinine [Mass ratio] 27.4 mg/mg 10-20 [facility] Work Phone: Laboratory - Hematology and Cell countson 03-27-2022 Erythrocyte distribution width (RBC) [Entitic vol] 42.5 fL 35.1-43.9 [facility] Work Phone: Erythrocyte distribution width (RBC) [Ratio] 12.8 % 11.6-14.6 [facility] Work Phone: MCH (RBC) [Entitic mass] 31.2 pg 27.0-32.0 [facility] Work Phone: MCHC Auto (RBC) [Mass/Vol]on 03-27-2022 MCHC (RBC) [Mass/Vol] 34.0 g/dL 32-36 [facility] Work [facility]: No Panel Informationon 03-27 Estimated Creatinine Clearance Calc 36.08 ml/min [facility] Work Phone: Estimated GFR (MDRD) Amer 105 mL/min >60 [facility] Work Phone: Comment on above: GFR Calc Estimated GFR (MDRD) Non-Af Amer 87 mL/min >60 [facility] Work Phone: Comment on above: Non- GFR Calc Platelets bldon 03-27-2022 Platelets (Bld) [#/Vol] 231 10*3/uL 150-450 [facility] Work Phone: Serum or plasma albumin jordon urement (mass/volume)on 03-27-2022 Albumin [Mass/Vol] 3.0 g/dL 3.2-5.0 [facility] Work Phone: Serum or plasma albumin/glob ulin mass ratioon 03-27-2022 Albumin/Globulin [Mass ratio] 1.0 {ratio} 0.9-2.4 [facility] Work Phone: Serum or plasma calcium jordon urement (mass/volume)on 03-27-2022 Calcium [Mass/Vol] 8.9 mg/dL 8.5-10.1 [facility] Work Phone: Serum or plasma creatinine m easurement (mass/volume)on 03-27-2022 Creatinine [Mass/Vol] 0.69 mg/dL 0.55-1.02 [facility] Work Phone: Comment on above: The validity of the calculated GFR & GFRAA in patients over 70 years has not been determined. Clinical correlation is essential. Serum or plasma urea nitroge n measurement (mass/volume)on 03-27-2022 Urea nitrogen [Mass/Vol] 19 mg/dL 7-18 [facility] Work Phone: Thin prep Papanicolaou smear with manual screeningon 03-27-2022 Thin prep Papanicolaou smear with manual screening 22 U/L 15-37 [facility] Work Phone: Thin prep Papanicolaou smear with manual screening 6 5-15 [facility] Work Phone: [phone] Absolute lymphocyte counton 03-22-2022 Lymphocytes Auto (Unsp spec) [#/Vol] 1.74 10*3/uL 0.83-4.51 [facility] Work Phone: Basophil percentageon 2021 Basophils/100 WBC (Bld) 0.5 % 0-1 [facility] Work Phone: Chloride [Moles/Vol] 105 mmol/L 98-107 [facility] Work Phone: [phone] Eosinophils/100 WBC (Bld) 2.7 % 0-5 [facility] Work Phone: [phone] Glucose [Mass/Vol] 165 mg/dL 74-106 [facility] Work Phone: [phone] Comment on above: Fasting Glucose resu lt greater than or equal to 126 mg/dL suggests DIABETES MELLITUS per A.D.A. criteria. Neutrophils (Bld) [#/Vol] 4.3 10*3/uL 2.0-7.7 [facility] Work Phone: [phone] Neutrophils/100 WBC (Bld) 64.3 % 47-70 [facility] Work Phone: [phone] Potassium [Moles/Vol] 3.7 mmol/L 3.5-5.1 [facility] Work Phone: [phone] Sodium [Moles/Vol] 139 mmol/L 136-145 [facility] Work Phone: [phone] WBC (Bld) [#/Vol] 6.6 10*3/uL 4.4-11.0 [facility] Work Phone: [phone] Blood erythrocytes count (nu mber/volume)on 03-22-2022 RBC (Bld) [#/Vol] 4.09 10*6/uL 4.2-5.4 [facility] Work Phone: [phone] Blood hemoglobin measurement (mass/volume)on 03-22-2022 Hemoglobin (Bld) [Mass/Vol] 12.5 g/dL 12.0-15.0 [facility] Work Phone: Blood lymphocytes/100 leukoc yteson 03-22-2022 Lymphocytes/100 WBC (Bld) 26.2 % 19-41 [facility] Work Phone: Blood monocytes/100 leukocyt eson 03-22-2022 Monocytes/100 WBC (Bld) 6.0 % 0-10 [facility] Work Phone: Blood platelet mean volumeon 03-22-2022 Platelet mean volume (Bld) [Entitic vol] 12.1 fL 6.2-12.0 [facility] Work Phone: Determination of erythrocyte mean corpuscular volume (MCV)on 03-22-2022 MCV (RBC) [Entitic vol] 92.7 fL 81-99 [facility] Work Phone: Hematocrit Auto (Bld) [Volum e fraction]on 03-22-2022 Hematocrit (Bld) [Volume fraction] 37.9 % 37-47 [facility] Work Phone: Laboratory - Chemistry and C hemistry - challengeon 03-22-2022 CO2 [Moles/Vol] 27.0 mmol/L 21.0-32.0 [facility] Work Phone: Urea nitrogen/Creatinine [Mass ratio] 17.6 mg/mg 10-20 [facility] Work Phone: Laboratory - Hematology and Cell countson 03-22-2022 Erythrocyte distribution width (RBC) [Entitic vol] 42.5 fL 35.1-43.9 [facility] Work Phone: Erythrocyte distribution width (RBC) [Ratio] 12.5 % 11.6-14.6 [facility] Work Phone: Immature granulocytes/100 WBC (Bld) 0.300 % 0.0-0.9 [facility] Work Phone: Comment on above: IG% - Immature Granu locytes (promyelocytes, myelocytes and metamyelocytes) > 1% indicates that a LEFT SHIFT is Present. MCH (RBC) [Entitic mass] 30.6 pg 27.0-32.0 [facility] Work Phone: Nucleated RBC/100 WBC (Bld) [Ratio] 0 % 0-5 [facility] Work Phone: MCHC Auto (RBC) [Mass/Vol]on 03-22-2022 MCHC (RBC) [Mass/Vol] 33.0 g/dL 32-36 [facility] Work Phone: No Panel Informationon 03-22 Estimated GFR (MDRD) Amer 98 mL/min >60 [facility] Work Phone: Comment on above: GFR Calc Estimated GFR (MDRD) Non-Af Amer 81 mL/min >60 [facility] Work Phone: Comment on above: Non- GFR Calc Platelets bldon 03-22-2022 Platelets (Bld) [#/Vol] 246 10*3/uL 150-450 [facility] Work Phone: Serum or plasma calcium jordon urement (mass/volume)on 03-22-2022 Calcium [Mass/Vol] 9.3 mg/dL 8.5-10.1 [facility] Work Phone: Serum or plasma creatinine m easurement (mass/volume)on 03-22-2022 Creatinine [Mass/Vol] 0.74 mg/dL 0.55-1.02 [facility] Work Phone: Comment on above: The validity of the calculated GFR & GFRAA in patients over 70 years has not been determined. Clinical correlation is essential. Serum or plasma urea nitroge n measurement (mass/volume)on 03-22-2022 Urea nitrogen [Mass/Vol] 13 mg/dL 7-18 [facility] Work Phone: Thin prep Papanicolaou smear with manual screeningon 03-22-2022 Thin prep Papanicolaou smear with manual screening 7 5-15 [facility] Work Phone: MRI CARD [place] WO/W IVC ONon 03-14-2022 MRI CARD [place] WO/W IVCON * * *Final Report* * * DATE OF EXAM: Mar 14 2022 1:00PM ABDIRASHID Soto - MRI CARD [place] WO/W IVCON / PROCEDURE REASON: I34.2 * * * * Physician Interpretation * * * * EXAM TITLE:MRI CARDIAC VELOCITY FLOW MAP, MRI CARD [place] WO/W IVCON DATE: 03/14/2022 1:00 PM COMPARISON: [...] ml/m2 (33-77) VII.Cardiac Index 2.7 L/min/m2 (2.5-3.0) Fur Tinter: DAISY Transcribe Date/Time: Mar 14 2022 9:50P Dictated by : DARIN DC MD This examination was interpreted and the report reviewed and electronically signed by: DARIN DC MD on Mar 16 2022 10:35AM EST [id number] Normal [facility] MRI CARDIAC VELOCITY FLOW MIGEL Rojas 03-14-2022 MRI CARDIAC VELOCITY FLOW MAP * * *Final Report* * * DATE OF EXAM: Mar 14 2022 1:00PM ABDIRASHID [id number] - MRI CARDIAC VELOCITY FLOW MAP [...] ml/m2 (33-77) VII.Cardiac Index 2.7 L/min/m2 (2.5-3.0) Fur Tinter: DAISY Transcribe Date/Time: Mar 14 2022 9:50P Dictated by : DARIN DC MD This examination was interpreted and the report reviewed and electronically signed by: DARIN DC MD on Mar 16 2022 10:35AM EST [id number] Normal [facility] CNPNon 03-09-2022 CNPN Telephone ([facility] BECKINORA ([id number]) 1940 F Date Time Provider Department 03/09/22 NICOLE ESPINO MA During your visit today, we recorded the following information about you: Darin Dc MD 03/11/2022 8:00 PM Signed Hello, I would double stack on the dark, and bright bloods. Quality 2 chamber, 4 chamber, 3 chamber, LVOT long, short cine images. Run a venc box puller in the 3 C view. Once you [...] runny nose Date Reviewed: 10/15/2019 Reviewed by: Cirsty Perez Ma - Fully Assessed Reason for [...] Encounter Status:Closed by EZ CANCINO on 03/09/22 Normal [facility] Basophil percentageon 2021 Chloride [Moles/Vol] 103 mmol/L 98-107 [facility]: Cholesterol [Mass/Vol] 198 mg/dL <200 [facility] Work Phone: Comment on above: <200 mg/dL Desirable 200-240 mg/dL Borderline >240 mg/dL High Risk Glucose [Mass/Vol] 93 mg/dL 74-106 [facility] Work Phone: Potassium [Moles/Vol] 3.3 mmol/L 3.5-5.1 [facility] Work Phone: Sodium [Moles/Vol] 140 mmol/L 136-145 [facility] Work Phone: Triglyceride [Mass/Vol] 137 mg/dL <199 [facility] Work Phone: Comment on above: The drugs N-Acetylcy steine and Metamizole may falsely depress this assay.Serum Triglycerides Reference Interval Normal <150 mg/dL Borderline high 150 - 199 mg/dL High 200 - 499 mg/dL Very High > or = 500 mg/dL Laboratory - Chemistry and C hemistry - challengeon 02-22-2022 CO2 [Moles/Vol] 31.0 mmol/L 21.0-32.0 [facility] Work Phone: Free T4 [Mass/Vol] 1.18 ng/dL 0.76-1.46 [facility] Work Phone: Urea nitrogen/Creatinine [Mass ratio] 23.5 mg/mg 10-20 [facility] Work Phone: No Panel Informationon 02-22 Estimated GFR (MDRD) Amer 100 mL/min >60 [facility] Work Phone: Comment on above: GFR Calc Estimated GFR (MDRD) Non-Af Amer 83 mL/min >60 [facility] Work Phone: Comment on above: Non- GFR Calc Free Triiodothyronine (T3) pg/dL 2.1 pg/mL 2.18-3.98 [facility] Work Phone: Thyroid Stimulating Hormone (TSH) 0.74 uIU/mL 0.358-3.74 [facility] Work Phone: Serum or plasma calcium jordon urement (mass/volume)on 02-22-2022 Calcium [Mass/Vol] 9.0 mg/dL 8.5-10.1 [facility] Work Phone: Serum or plasma cholesterol in HDL measurement (mass/volume)on 02-22-2022 Cholesterol in HDL [Mass/Vol] 70 mg/dL >40 [facility] Work Phone: Comment on above: The drugs N-Acetylcy steine and Metamizole may falsely depress this assay. Reference Range HDL <40 mg/dL Low HDL Cholesterol HDL >or= 60 mg/dL High HDL Cholesterol Serum or plasma cholesterol in VLDL measurement (mass/volume)on 02-22-2022 Cholesterol in VLDL [Mass/Vol] 27 mg/dL 5-40 [facility] Work Phone: Serum or plasma creatinine m easurement (mass/volume)on 02-22-2022 Creatinine [Mass/Vol] 0.72 mg/dL 0.55-1.02 [facility] Work Phone: Comment on above: The validity of the calculated GFR & GFRAA in patients over 70 years has not been determined. Clinical correlation is essential. Serum or plasma low density lipoprotein (LDL) cholesterol measurement (mass/volume)on 02-22-2022 Cholesterol in LDL [Mass/Vol] 101 mg/dL 0-130 [facility] Work Phone: Serum or plasma urea nitroge n measurement (mass/volume)on 02-22-2022 Urea nitrogen [Mass/Vol] 17 mg/dL 7-18 [facility] Work Phone: Thin prep Papanicolaou smear with manual screeningon 02-22-2022 Thin prep Papanicolaou smear with manual screening 6 5-15 [facility] Work Phone: CR Hip w/ Pelvis 2 or 3 View s Righton 08-19-2017 CR Hip w/ Pelvis 2 or 3 Views Right Patient Name: NORA CONNELL Diagnostic Radiology Exam Date/Time 08/19/2017 12:12:00 EST Exam CR Hip w/ Pelvis 2 or 3 Views Right n Ordering Physician TANYA ALVARADO SARAH Accession Number [id number] CPT4 Codes 90292 () Reason For Exam SPONDYLOSIS LUMBOSACRAL REGION [...] Transcribed Date and Time: 08/19/2017 8:[address] [facility] CR Spine Lumbosacral 4+ View son 08-19-2017 CR Spine Lumbosacral 4+ Views Patient Name: NORA CONNELL Diagnostic Radiology Exam Date/Time 08/19/2017 12:12:00 EST Exam CR Spine Lumbosacral 4+ Views Ordering Physician TANYA ALVARADO SARAH Accession Number [id number] CPT4 Codes 05331 () Reason For Exam POSTLAMINECTOMY Report HISTORY: [...] Transcribed Date and Time: 08/19/2017 8:29 Normal [facility] Vital Signs Date Time Vital Sign Value Performing Clinician Facility 04-13-2025 10:28-0400 Body temperature 97.3 [degF] Dr. Gopi Whitehead MD Work Phone: 7([phone])[phone] [place] [address] 04-13-2025 10:28-0400 Body weight 69.[address] Gopi Whitehead MD Work Phone: 0(407)856-585437 [place] [address] 04-13-2025 10:28-0400 Diastolic blood pressure 54 mm[Hg] Dr. Gopi Whitehead MD Work Phone: 5(180)025-537337 [place] [address] 04-13-2025 10:28-0400 Heart rate 59 /min Dr. Gopi Whitehead MD Work Phone: 2(124)073-698537 [place] [address] 04-13-2025 10:28-0400 Respiratory rate 16 /min Dr. Gopi Whitehead MD Work Phone: 8(429)037-987537 [place] [address] 04-13-2025 10:28-0400 SaO2% (BldA) [Mass fraction] 96 % Dr. Gopi Whitehead MD Work Phone: 5(497)420-938037 [place] [address] 04-13-2025 10:28-0400 Systolic blood pressure 130 mm[Hg] Dr. Gopi Whitehead MD Work Phone: 5(947)861-811837 [place] [address] 10-23-2024 00:20-0500 Body temperature 97.8 [degF] Dr. Gopi Whitehead MD Work Phone: 3(444)114-592037 [place] [address] 10-23-2024 00:20-0500 Diastolic blood pressure 89 mm[Hg] Dr. Gopi Whitehead MD Work Phone: 9(985)397-568337 [place] [address] 10-23-2024 00:20-0500 Heart rate 80 /min Dr. Gopi Whitehead MD Work Phone: 0(948)633-023637 [place] [address] 10-23-2024 00:20-0500 Respiratory rate 17 /min Dr. Gopi Whitehead MD Work Phone: 2(863)837-510837 [place] [address] 10-23-2024 00:20-0500 SaO2% (BldA) [Mass fraction] 97 % Dr. Gopi Whitehead MD Work Phone: 8(083)191-947237 [place] [address] 10-23-2024 00:20-0500 Systolic blood pressure 148 mm[Hg] Dr. Gopi Whitehead MD Work Phone: [facility] 10-22-2024 22:02-0500 Body height 152.[address] Gopi Whitehead MD Work Phone: [facility] 01-06-2024 12:58-0400 Body height 157.[address] Gopi Whitehead Work Phone: [facility] 01-06-2024 12:58-0400 Body mass index (BMI) [Ratio] 27.2 kg/m2 Dr. Gopi Whitehead Work Phone: [facility] 01-06-2024 12:58-0400 Body weight 67.[address] Gopi Whitehead Work Phone: [facility] 01-06-2024 12:58-0400 Diastolic blood pressure 58 mm[Hg] Dr. Gopi Whitehead Work Phone: [facility] 01-06-2024 12:58-0400 Heart rate 55 /min Dr. Gopi Whitehead Work Phone: [facility] 01-06-2024 12:58-0400 Respiratory rate 18 /min Dr. Gopi Whitehead Work Phone: [facility] 01-06-2024 12:58-0400 SaO2% (BldA) [Mass fraction] 96 % Dr. Gopi Whitehead Work Phone: [facility] 01-06-2024 12:58-0400 Systolic blood pressure 123 mm[Hg] Dr. Gopi Whitehead Work Phone: [facility] 09-23-2023 18:11-0500 Diastolic blood pressure 52 mm[Hg] [facility] 09-23-2023 18:11-0500 Heart rate 55 /min [facility] 09-23-2023 18:11-0500 Respiratory rate 16 /min [facility] 09-23-2023 18:11-0500 SaO2% (BldA) [Mass fraction] 99 % [facility] 09-23-2023 18:11-0500 Systolic blood pressure 174 mm[Hg] [facility] 09-23-2023 16:34-0500 Body mass index (BMI) [Ratio] 30.3 kg/m2 [facility] 09-23-2023 16:34-0500 Body weight 75.3 kg [facility] 09-23-2023 16:14-0500 Body height 157.48 cm [facility] 09-23-2023 16:14-0500 Body temperature 96.7 [degF] [facility] 03-14-2023 13:29-0400 Body height 157.[address] Gopi Whitehead Work Phone: [facility] 03-14-2023 13:29-0400 Body mass index (BMI) [Ratio] 29.6 kg/m2 Dr. Gopi Whitehead Work Phone: [facility] 03-14-2023 13:29-0400 Body weight 73.[address] Gopi Whitehead Work Phone: [facility] 03-14-2023 13:29-0400 Diastolic blood pressure 59 mm[Hg] Dr. Gopi Whitehead Work Phone: [facility] 03-14-2023 13:29-0400 Heart rate 69 /min Dr. Gopi Whitehead Work Phone: [facility] 03-14-2023 13:29-0400 Respiratory rate 18 /min Dr. Gopi Whitehead Work Phone: [facility] 03-14-2023 13:29-0400 SaO2% (BldA) [Mass fraction] 94 % Dr. Gopi Whitehead Work Phone: [facility] 03-14-2023 13:29-0400 Systolic blood pressure 108 mm[Hg] Dr. Gopi Whitehead Work Phone: [facility] 06-15-2022 10:19-0400 Body height 157.[address] Gopi Whitehead Work Phone: [facility] Work Phone: 06-15-2022 10:19-0400 Body mass index (BMI) [Ratio] 30.3 kg/m2 Dr. Gopi Whitehead Work Phone: [facility] Work Phone: 06-15-2022 10:19-0400 Body weight 75.[address] Gopi Whitehead Work Phone: [facility] Work Phone: 06-15-2022 10:19-0400 Diastolic blood pressure 65 mm[Hg] Dr. Gopi Whitehead Work Phone: [facility] Work Phone: 06-15-2022 10:19-0400 Heart rate 67 /min Dr. Gopi Whitehead Work Phone: [facility] Work Phone: 06-15-2022 10:19-0400 Respiratory rate 18 /min Dr. Gopi Whitehead Work Phone: [facility] Work Phone: 06-15-2022 10:19-0400 SaO2% (BldA) [Mass fraction] 95 % Dr. Gopi Whitehead Work Phone: [facility] Work Phone: 06-15-2022 10:19-0400 Systolic blood pressure 100 mm[Hg] Dr. Gopi Whitehead Work Phone: [facility] Work Phone: 05-01-2022 12:43-0400 Body mass index (BMI) [Ratio] 30.3 kg/m2 Dr. Gopi Whitehaed Work Phone: [facility] Work Phone: 05-01-2022 12:43-0400 Body weight 75.[address] Gopi Whitehead Work Phone: [facility] Work Phone: 03-27-2022 11:38-0400 Body temperature 97.4 [degF] Dr. Gopi Whitehead Work Phone: [facility] Work Phone: 03-27-2022 11:38-0400 Diastolic blood pressure 50 mm[Hg] Dr. Gopi Whitehead Work Phone: [facility] Work Phone: 03-27-2022 11:38-0400 Heart rate 78 /min Dr. Gopi Whitehead Work Phone: [facility] Work Phone: 03-27-2022 11:38-0400 Respiratory rate 18 /min Dr. Gopi Whitehead Work Phone: [facility] Work Phone: 03-27-2022 11:38-0400 SaO2% (BldA) [Mass fraction] 100 % Dr. Gopi Whitehead Work Phone: [facility] Work Phone: 03-27-2022 11:38-0400 Systolic blood pressure 150 mm[Hg] Dr. Gopi Whitehead Work Phone: [facility] Work Phone: 03-27-2022 05:05-0400 Body weight [address] Gopi Whtiehead Work Phone: [facility] Work Phone: 03-27-2022 03:17-0400 Inhaled oxygen concentration 21 % Dr. Gopi Whitehead Work Phone: [facility] Work Phone: 03-26-2022 12:38-0400 Body height 157.[address] Gopi Whitehead Work Phone: [facility] Work Phone: 03-26-2022 12:38-0400 Body mass index (BMI) [Ratio] 31.6 kg/m2 Dr. Gopi Whitehead Work Phone: [facility] Work Phone: 03-26-2022 12:38-0400 Body weight 78.[address] Gopi Whitehead Work Phone: [facility] Work Phone: 12-12-2021 09:46-0500 Body mass index (BMI) [Ratio] 30.2 kg/m2 Dr. Gopi Whitehead Work Phone: [facility] Work Phone: 12-12-2021 09:46-0500 Body weight 74.[address] Gopi Whitehead Work Phone: [facility] Work Phone: 12-12-2021 09:46-0500 Diastolic blood pressure 53 mm[Hg] Dr. Gopi Whitehead Work Phone: [facility] Work Phone: 12-12-2021 09:46-0500 Heart rate 58 /min Dr. Gopi Whitehead Work Phone: [facility] Work Phone: 12-12-2021 09:46-0500 Respiratory rate 16 /min Dr. Gopi Whitehead Work Phone: [facility] Work Phone: 12-12-2021 09:46-0500 SaO2% (BldA) [Mass fraction] 96 % Dr. Gopi Whitehead Work Phone: [facility] Work Phone: 12-12-2021 09:46-0500 Systolic blood pressure 127 mm[Hg] Dr. Gopi Whitehead Work Phone: [facility] Work Phone: 12-12-2021 08:46-0500 Body height 157.[address] Gopi Whitehead Work Phone: [facility] Work Phone: 12-12-2021 08:46-0500 Body mass index (BMI) [Ratio] 30.2 kg/m2 Dr. Gopi Whitehead Work Phone: [facility] Work Phone: 12-12-2021 08:46-0500 Body weight 74.[address] Gopi Whitehead Work Phone: [facility] Work Phone: 12-12-2021 08:46-0500 Diastolic blood pressure 53 mm[Hg] Dr. Gopi Whitehead Work Phone: [facility] Work Phone: 12-12-2021 08:46-0500 Heart rate 58 /min Dr. Gopi Whitehead Work Phone: [facility] Work Phone: 12-12-2021 08:46-0500 Respiratory rate 16 /min Dr. Gopi Whitehead Work Phone: [facility] Work Phone: 12-12-2021 08:46-0500 SaO2% (BldA) [Mass fraction] 96 % Dr. Gopi Whitehead Work Phone: [facility] Work Phone: 12-12-2021 08:46-0500 Systolic blood pressure 127 mm[Hg] Dr. Gopi Whitehead Work Phone: [facility] Work Phone: Encounters Encounter Date Encounter Type Care Provider Facility Start: 04-28-2025 End: 04-28-[address] Gopi Whitehead MD Work Phone: -[facility] Start: 04-28-2025 End: 04-28-[address] Gopi Whitehead MD -[facility] Start: 04-28-2025 End: 04-28-2025 ambulatory Gopi Whitehead Facility:[facility] Start: 04-13-2025 End: 04-13-2025 Patient encounter procedure Christi RODRIGUEZ -[facility] Work Phone: Start: 04-13-2025 End: 04-13-[address] Gopi Whitehead MD Work Phone: -[facility] Start: 03-23-2025 Non-patient / Non-visit Dr. Doug murray MD -[facility] Start: 03-23-2025 End: 03-23-[address] Gopi Whitehead MD Work Phone: [facility] Work Phone: Start: 03-23-2025 End: 03-23-2025 Patient encounter procedure Christi RODRIGUEZ -[facility] Work Phone: Start: 03-23-2025 End: 03-23-2025 ambulatory Christi Ordonez Facility:[facility] Start: 03-10-2025 ambulatory Gopi Whitehead Facility:[facility] Start: 01-27-2025 End: 01-27-[address] Gopi Whitehead MD Work Phone: [facility] Work Phone: Start: 01-27-2025 End: 01-27-[address] Gopi Whitehead MD -Laboratory, [facility] Start: 01-27-2025 End: 01-27-2025 ambulatory Gopi Whitehead Facility:[facility] Start: 01-07-2025 ambulatory Gopi Whitehead Facility:[facility] Start: 10-22-2024 End: 10-23-2024 Emergency department patient visit Dr. Saman Moses DO -Emergency Department Work Phone: Start: 06-05-2024 End: 06-05-2024 ambulatory Gopi Whitehead Facility:[facility] Start: 02-05-2024 End: 02-05-[address] Gopi Whitehead Work Phone: [facility] Work Phone: Start: 02-05-2024 End: 02-05-[address] Gopi Whitehead Work Phone: [facility] Work Phone: Start: 02-04-2024 Non-patient / Non-visit Dr. Tam Whitehead Work Phone: [facility] Start: 02-04-2024 End: 02-04-[address] Gopi Whitehead Work Phone: [facility] Work Phone: Start: 02-04-2024 End: 02-04-[address] [facility] Start: 01-06-2024 End: 01-06-[address] Gopi Whitehead Work Phone: [facility] Work Phone: Start: 10-10-2023 End: 10-10-2023 ambulatory [facility] Work Phone: Start: 10-10-2023 End: 10-10-2023 Patient encounter procedure [facility] Work Phone: Start: 09-23-2023 End: 09-23-2023 [facility] Start: 09-02-2023 End: 09-02-2023 ambulatory [facility] Work Phone: Start: 09-02-2023 End: 09-02-2023 Patient encounter procedure [facility] Start: 04-11-2023 End: 04-11-[address] Gopi Whitehead Work Phone: [facility] Work Phone: Start: 04-11-2023 End: 04-11-[address] Gopi Whitehead Work Phone: [facility] Start: 03-26-2023 Non-patient / Non-visit Dr. Tam Whitehead Work Phone: [facility] Start: 03-26-2023 End: 03-26-[address] [facility]op[facility] Whitehead [facility] Start: 03-14-2023 End: 03-14-[address] Gopi Whitehead Work Phone: [facility] Start: 02-26-2023 End: 02-26-[address] Gopi Whitehead Work Phone: [facility] Work Phone: Start: 02-26-2023 End: 02-26-[address] Gopi Whitehead Work Phone: [facility] Start: 01-03-2023 End: 01-03-[address] Gopi Whitehead Work Phone: [facility] Start: 10-10-2022 End: 10-10-2022 ambulatory [facility] Work Phone: Start: 10-10-2022 End: 10-10-2022 Patient encounter procedure [facility] Start: 07-27-2022 End: 07-27-[address] Gopi Whitehead Work Phone: [facility] Work Phone: Start: 07-27-2022 End: 07-27-[address] Gopi Whitehead Work Phone: [facility] Start: 06-15-2022 End: 06-15-[address] Gopi Whitehead Work Phone: [facility] Start: 05-07-[address] Gopi garcia Work Phone: [facility] Start: 05-07-2022 Non-patient / Non-visit Dr. Tam Whitehead Work Phone: [facility] Start: 05-01-2022 End: 05-01-[address] Gopi Whitehead Work Phone: [facility] Start: 04-11-2022 End: 04-11-[address] Gopi Whitehead Work Phone: [facility] Start: 03-27-2022 Non-patient / Non-visit Dr. Tam Whitehead Work Phone: [facility] Start: 03-26-2022 End: 03-27-2022 Non-patient / Non-visit Dr. Gopi Whitehead Work Phone: [facility] Start: 03-26-2022 End: 03-27-2022 Evaluation and management of inpatient Dr. Gopi Whitehead Work Phone: [facility]Int[facility] Unit Start: 03-26-2022 Admission to [facility] Dr[facility] Gopi Whitehead [facility] Start: 03-22-2022 End: 03-22-[address] Gopi Whitehead Work Phone: [facility] Start: 03-19-2022 Non-patient / Non-visit Dr. Tam Whitehead Work Phone: [facility] Start: 03-19-2022 Non-patient / Non-visit Dr. Tam Whitehead Work Phone: [facility] Start: 03-14-2022 End: 03-14-2022 Subsequent hospital visit by physician Mri [facility] (I-Stat/1.5t) [facility] Comment on above: [facility] Start: 03-09-2022 Telephone encounter Nicole Espino RT(R) [facility] Comment on above: Orders (CMR Protocol ) Start: 02-22-2022 End: 02-22-[address] Gopi Whitehead Work Phone: [facility] Start: 01-02-2022 Non-patient / Non-visit Dr. Tam Whitehead Work Phone: [facility] Start: 01-02-2022 End: 01-02-[address] Gopi Whitehead Work Phone: [facility] Start: 12-12-2021 End: 12-12-[address] Gopi Whitehead Work Phone: [facility] Start: 08-19-2017 Ambulatory Elana Esteban [facility] Procedures Date Procedure Procedure Detail Performing [...] Gopi Whitehead Work Phone: Comment on above: GXV-TNC-cPYA w/ 2.75 x 18 mm Orsiro [place] Stent and pRCA w/ 3.0 x 30 mm Orsiro [place] Stent 03/26/22 Start: 03-22-2022 Plain X-ray of shoulder Dr. Gopi Whitehead Work Phone: Start: 03-22-2022 Plain chest X-ray Dr. Deana Whitehead Work Phone: Plan of Treatment Date Care Activity Detail Author Start: 10-22-2024 [facility] Start: 09-23-2023 [facility] Start: 06-07-2022 Influenza vaccination INFLUENZA (Season Ended) [facility] Start: 03-27-2022 Patient discharge [facility] Work Phone: Start: 03-26-2022 Continuous positive airway pressure ventilation treatment [facility] Work Phone: Start: 03-26-2022 Cardiac monitoring [facility] Work Phone: Start: 03-26-2022 Cardiac rehabilitation - phase 1 [facility] Work Phone: Start: 03-26-2022 Notification of physician [facility] Work Phone: Start: 03-26-2022 Oxygen therapy [facility] Work Phone: Start: 03-26-2022 Patient discharge [facility] Work Phone: Start: 03-26-2022 Systemic arterial pressure monitoring [facility] Work Phone: Start: 03-26-2022 Taking patient vital signs [facility] Work Phone: Start: 03-26-2022 Vascular disease risk assessment [facility] Work Phone: Start: 03-26-2022 Vital signs measurements [facility] Work Phone: Start: 03-26-2022 [facility] Work Phone: Start: 03-26-2022 Patient referral [facility] Work Phone: Start: 03-26-2022 Admission procedure [facility] Work Phone: Start: 03-26-2022 Insertion of catheter into peripheral vein [facility] Work Phone: Start: 03-26-2022 Measuring intake and output [facility] Work Phone: Start: 03-26-2022 Providing care according to standard [facility] Work Phone: Start: 03-26-2022 Verification routine [facility] Work Phone: Start: 03-26-2022 [facility] Work Phone: Start: 03-26-2022 Following clinical pathway protocol [facility] Work Phone: Start: 03-26-2022 Catheterization of left heart [facility] Work Phone: Start: 11-20-2021 COVID-19 VACCINE (5 - Booster for Pfizer series) COVID-19 VACCINE (5 - Booster for Pfizer series) [facility] Start: 10-07-2021 ADVANCE DIRECTIVE DISCUSSION ADVANCE DIRECTIVE DISCUSSION [facility] Start: 2007 BONE DENSITY BONE DENSITY [facility] Start: 1992 SHINGRIX VACCINE (1 of 2) SHINGRIX VACCINE (1 of 2) [facility] Start: 1987 DIABETES SCREEN DIABETES SCREEN [facility] Start: 1961 SHINGRIX VACCINE (1 of 2) SHINGRIX VACCINE (1 of 2) [facility] Start: 1961 Urine microalbumin profile DTAP,TDAP,TD (1 - Tdap) [facility] Start: 1954 Adult depression screening assessment DEPRESSION SCREENING [facility] Start: 1948 PNEUMOCOCCAL: 65+ (1 - PCV) PNEUMOCOCCAL: 65+ (1 - PCV) [facility] Start: 1947 COVID-19 VACCINE (#1) COVID-19 VACCINE (#1) [facility] Ankle brachial press ure index [facility] Patient Education [facility] Work Phone: Patient referral [facility] Work Phone: [facility] Payers Date Payer Category Payer Self-pay [id number] 2024 Medicare [id number] 2024 Unknown [id number] 2019 Unknown [id number] 2004 Medicare MEDICARE MEDICAR E A AND B [id number] 2004-Present [phone] [place] [address] Medicare [id number] Medicare Medicare [id number] Unknown [id number] Unknown [id number] Unknown [id number] Unknown [id number] Unknown [id number] Unknown [id number] Unknown [id number] Unknown [id number] Unknown [id number] Unknown [id number] Social History Date Type Detail Facility Start: 12-12-2021 End: 01-06-2024 Tobacco smoking status WAIS Unknown if ever smoked [facility] Start: 1940 Sex Assigned At Female [facility] Start: 05-31-2016 End: 10-22-2024 Tobacco smoking status NHIS Ex-smoker [facility] Work Phone: History of tobacco use Cigarette Smoker [facility] Work Phone: Start: 05-31-2016 Tobacco use and exposure Smokeless tobacco non-user [facility] Work Phone: Start: 10-15-2019 Alcohol intake Current non-dr youth nutritional monitor of alcohol (finding) [facility] Start: 1940 Sex Assigned At Not on file [facility] Start: 03-04-2022 End: 03-14-2022 Exposure to SARS-CoV-2 (event) Not sure [facility] Start: 02-01-2025 Sex Female (finding) [facility] Medical Equipment Procedure Code Equipment Code Equipment Origin al Text Equipment Identifier Dates ([id number]) Drug-eluting coronary artery stent, bioabsorbable-polyme r-coated ()[id number] FDA Start: 03-26-2022 ([id number]) Drug-eluting coronary artery stent, bioabsorbable-polyme r-coated ()[id number] FDA Start: 03-26-2022 Goals Date Patient Goal Desired Activity /State Functional Status Date Assessment Result Facility 03-27-2022 Functional status Ambulates [facility] Work Phone: Mental Status Date Assessment Result Facility 09-23-2023 Cognitive function Level Of Cons ciousness Awake;Alert;Appropriate;Follow s Commands [facility] Work Phone: 03-27-2022 Cognitive function Voice/Name [facility] Work Phone: Evaluation note 04-13-2025 Note Date & Type Note Facility 04-13-2025 Evaluation note Diagnosis Onset Date Resolution Peripheral arterial disease acute April 13, 2025 1 0:05am [facility] Work Phone: Evaluation note 03-26-2022 Note Date & Type Note Facility 03-26-2022 Evaluation note Diagnosis Onset Date Essential (primary) hypertension chronic Hyperlipidemia chronic Non-rheumatic mitral valve stenosis chronic History of coronary artery stent placement March 26, 2022 acute Hypertrophic cardiomyopathy acute Essential (primary) hypertension chronic [facility] Work Phone: Evaluation note 03-26-2022 Note Date & Type Note Facility 03-26-2022 Evaluation note Diagnosis Onset Date History of coronary artery stent placement March 26, 2022 acute Hypertrophic cardiomyopathy acute Essential (primary) hypertension [facility] Work Phone: Evaluation note 03-26-2022 Note [...] chronic Hyperlipidemia chronic Non-rheumatic mitral valve stenosis [facility] Work Phone: Evaluation note 03-26-2022 Note Date & Type Note Facility 03-26-2022 Evaluation note Diagnosis Onset Date Atherosclerosis of coronary artery without angina pectoris acute History of coronary artery stent placement March 26, 2022 acute Hypertrophic cardiomyopathy acute Essential (primary) hypertension chronic Hyperlipidemia chronic Non-rheumatic mitral valve stenosis [facility] Work Phone: Clinical Note 11-15-2020 Note Date & Type Note Facility 11-15-2020 Note Patient Outreach ([place] [facility]) NORA CONNELL ([id number]) 1940 F Date Time Provider Department 11/15/20 CHRISTI TAPIA During your visit today, we recorded the following information about you: Allergies As of Date: 11/15/2020 Noted Allergy Reaction SEASONAL ALLERGIES 12/18/2018 14 - Other: See Comments Comments: sneezing and runny nose Date Reviewed: 10/15/2019 Reviewed by: Cristy Perez Ma - Fully Assessed Order(s):SARS-COVID VACCINE 1ST DOSE APPT [[id number]] Order #: [id number] FUTURE Prescriptions as of 11/15/2020 Sig: LIDOCAINE [...] [M75.122] 05/31/2016 Letter Text Encounter Status:Closed by AMANDA, PRODUSER on 11/18/20 [facility] Evaluation note Note Date & Type Note Facility Evaluation note Diagnosis Onset Date Essential (primary) hypertension chronic Hyperlipidemia chronic Non-rheumatic mitral valve stenosis chronic [facility] Work Phone: Evaluation note Note Date & Type Note Facility Evaluation note No assessment information availa ble [facility] Work Phone: Hospital Discharge instructions Note Date & Type Note Facility Hospital Discharge instructions Additional Instructions Your heart rate is lower than normal and likely from your carvedilol. Currently you take carvedilol 12.5 mg tablet once a day. I recommend you cut this in half and only take 6.25 mg once a day and follow-up with your primary care doctor. [facility] Work Phone: Reason for referral (narrative) Note Date & Type Note Facility Reason for referral (narrative) No reason for referral information available [facility] Work Phone: Summary Purpose Family History No Family History Records Found Relationship Condition Age at Onset Recorded Date/T javier Not Specified Cardiac disease Unknown Advance Directives No Advanced Directives Records Found Advance Directive Response Recorded Date/ Time Living Will No March 02, 2017 5 :13pm Power of Assembler Corncob Pipes No March 02, 2017 5:13pm Advance Directive Response Recorded Date/ Time Advance Directives No March 26 9:51am Living Will No March 26, 2022 9:51am Power of Assembler Corncob Pipes No March 26 9:51am Advance Directive Response Recorded Date/ Time Advance Directives No March 26 8:51am Living Will No March 26, 2022 8:51am Power of Assembler Corncob Pipes No March 26 8:51am Advance Directive Response Recorded Date/ Time Advance Directives No March 26 8:51am Living Will No September 23, 2 023 4:33pm Power of Assembler Corncob Pipes No September 23, 2023 4:33pm Advance Directive Response Recorded Date/ Time Advance Directives No March 26 9:51am Living Will No September 23, 2 023 5:33pm Power of Assembler Corncob Pipes No September 23, 2023 5:33pm Advance Directive Response Recorded Date/ Time Living Will No October 22 11:58pm Do you have a Healthcare Power of Assembler Corncob Pipes? No October 22, 2024 11:58pm Advance Directives No March 26 9:51am Advance Directive Response Recorded Date/ Time Living Will No September 23, 2 023 5:33pm Do you have a Healthcare Power of Assembler Corncob Pipes? No September 23, 2023 5:33pm Advance Directives [...] mitral valve stenosis Chief Complaint Admit Date fallOctober 22, 2024 1 0:01pm Chief Complaint Admit Date PERIPHERAL VASCULAR DISEASE March 23 025 1:50pm Chief Complaint Admit Date PERIPHERAL VASCULAR DISEASE March 23 025 1:50pm 1 Y FU April 13, 2025 10:05 am Reason for Visit Admit Date Peripheral arterial disease April 13 10:05am Additional Source Comments INFORMATION SOURCE (unrecogn ized section and content) DATE CREATED AUTHOR 04/01/2018 [facility] DATE CREATED AUTHOR AUTHOR'S ORGANIZ ATION 11/03/2021 [facility] DATE CREATED AUTHOR AUTHOR'S ORGANIZ ATION 03/17/2022 [facility] DATE CREATED AUTHOR AUTHOR'S ORGANIZ ATION 05/05/2025 [facility] Goals (unrecognized section and content) Goals may [...] or prosecute any alcohol or drug abuse patient.[facility] the event this information is protected by the Federal Confidentiality of Alcohol and Drug Abuse Patient Records regulations: The Federal rules restrict any use of the information to criminally investigate or prosecute any alcohol or drug abuse patient.[facility] Reason for Visit (unrecogniz ed section and content) Reason Comments Orders CMR Protocol Care Teams (unrecognized sec tion and content) Vamp Creaser Relationship Specialty Start Date End Date Gopi Whitehead MD PCP - General Family Practice 05/02/17 Vamp Creaser Relationship Specialty Start Date End Date Gopi [...] Gopi Whitehead MD Primary Care Provider Active Leonarda RODRIGUEZ, PA Attending Provider, Referr ing Provider Active Team [...] April 13, 2025 End: April 13, 2025 Team Status: Inactive Member Role/Relationship Status Dates Dr. Gopi Whitehead MD Primary Care Provider Active Start: April 28, 2025 End: April 28, 2025 Dr. Gopi Whitehead MD Attending Provider Active Start: April 28, 2025 End: April 28, 2025 Dr. Gopi Whitehead MD Referring Provider Active Start: April 28, 2025 End: April 28, 2025 FOR RECORDS PERTAINING TO PATIENTS WHO [...] BE BASED ON THE PRIMARY CLINICAL RECORDS. [facility]. provides no warranty or guarantee of the accuracy or completeness of information in this document.
[2025-07-26 18:38] LABS: Cholesterol 189 mg/dL (<=200); Free T3 2.0 pg/mL (2.18-3.98); Low Density Lipoprotein Calc. 74 mg/dL; Triglycerides 242 mg/dL; Very Low Density Lipoprotein 48 mg/dL (5-40); cholesterol:hdl ratio screen 2.47
[2025-07-26 18:40] LABS: AST(SGOT) 20 U/L (<=31); Alanine Aminotransfer ALT/SGPT 12 U/L (<=34); Albumin, Serum 3.8 g/dL (3.4-4.8); Alkaline Phosphatase 119 U/L (35-104); Anion Gap 11 (5-15); BUN 24 mg/dL (4-19); BUN/Creat Ratio 28.4 RATIO (10-20); Calcium,Total 9.1 mg/dL (7.6-11.0); Carbon Dioxide 28.0 mmol/L (21.0-32.0); Chloride 103 mmol/L (98-108); Globulin 2.4 g/dL (2.2-4.2); Glucose 82 mg/dL (70-99); Potassium 3.5 mmol/L (3.3-5.1)
== END | disposition home or self-care (01) ==
LOC: MFPLAB 16:37
PROVIDERS: PCP Family Medicine; Visit Provider Family Medicine
DX: E03.9 Hypothyroidism, unspecified (principal); E11.9 Type 2 diabetes mellitus without complications
CPT/HCPCS: 36415; 80053; 80061; 84439; 84443; 84481